=== PATIENT | female | born 1995 | race Caucasian/White ===

== ENCOUNTER 2018-04-08 20:04 | Emergency (ER) | payer OTHER, SELFPAY ==
[2018-04-08] MEDS ORDERED: AZITHROMYCIN 250 MG TAB ONE (21:37)
[2018-04-08] MEDS ORDERED: ALBUTEROL 2.5 MG/3 ML NEB SOL ONE (21:38)
[2018-04-08] MEDS ORDERED: predniSONE 20 MG TAB ONE (21:38)
[2018-04-08] MEDS ORDERED: IPRATROPIUM BROM 0.5MG/2.5ML ONE (21:38)
--- NOTE | 2018-04-08 21:40 | ER ---
Nurse's Notes [facility] Name: Louann Love Age: 22 yrs Sex: Female : 1995 Arrival Date: 04/08/2018 Time: 20:32 Bed 24 Private MD: Diagnosis: Acute upper respiratory infection, unspecified;Asthma Presentation: 04/08 20:45 Presenting complaint: Patient states: she has congestion, productive cough, nasal bb drainage then tonight she is coughing so much she is having difficulty breathing symptoms started 3 to 4 days ago. Transition of care: patient was not received from another setting of care. Onset of symptoms was April 04, 2018. Risk Assessment: Do you want to hurt yourself or someone else? Patient reports no desire to harm self or others. Initial Sepsis Screen: Does the patient meet any 2 criteria? No. Patient's initial sepsis screen is negative. Does the patient have a suspected source of infection? No. Patient's initial sepsis screen is negative. Care prior to arrival: None. 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 - Social history:: Smoking status: Patient uses tobacco products, denies chronic smoking, but will smoke occasionally, Patient/guardian denies using alcohol, street drugs, The patient lives with family. - Ebola Screening: : No symptoms or risks identified at this time. - Family history:: not pertinent. Screenin:00 Abuse screen: Denies threats or abuse. Denies injuries from another. Nutritional ca1 screening: No deficits noted. Tuberculosis screening: No symptoms or risk factors identified. Fall Risk None identified. Assessment: 21:00 General: Appears in no apparent distress. uncomfortable, Behavior is calm, cooperative, ca1 appropriate for age. Pain: Denies pain. Neuro: Level of Consciousness is awake, alert, obeys commands, Oriented to person, place, time, situation. Cardiovascular: Heart tones S1 S2 present Capillary refill < 3 seconds Patient's skin is warm and dry. Respiratory: Reports cough that is non-productive, Airway is patent Trachea midline Respiratory effort is even, unlabored, Respiratory pattern is regular, symmetrical, Breath sounds are diminished bilaterally. Respiratory: Reports shortness of breath. GI: Abdomen is flat, non-distended, Bowel sounds present X 4 quads. Abd is soft and non tender X 4 quads. : EENT: No signs and/or symptoms were reported regarding the EENT system. Derm: Skin is intact, is healthy with good turgor, Skin is pink, warm \T\ dry. Musculoskeletal: Circulation, motion, and sensation intact. Capillary refill < 3 seconds. 22:00 Reassessment: Patient appears in no apparent distress at this time. Patient and/or ca1 family updated on plan of care and expected duration. Pain level reassessed. Patient is alert, oriented x 3, equal unlabored respirations, skin warm/dry/pink. Patient states feeling better. Patient states symptoms have improved. Vital Signs: 20:50 BP 135 / 81; Pulse 97; Resp 16 S; Temp 98.9(O); Pulse Ox 98% on R/A; Weight 118.9 kg bb (M); Height 5 ft. 7 in. (170.18 cm) (R); Pain 5/10; 22:00 BP 140 / 88; Pulse 105; Resp 21; Pulse Ox 100% on R/A; ca1 20:50 Body Mass Index 41.05 (118.90 kg, 170.18 cm) bb ED Course: 20:32 Patient arrived in ED. es 20:48 Triage completed. bb 20:50 Arm band placed on Patient placed in an exam room, on a stretcher. bb 20:55 Radhames Monge MD is Attending Physician. ma2 21:00 Patient has correct armband on for positive identification. Bed in low position. Call ca1 light in reach. Pulse ox on. NIBP on. Warm blanket given. 21:23 Blanche Castillo, JESSICA is Primary Nurse. ca1 22:29 No provider procedures requiring assistance completed. Patient did not have IV access ca1 during this emergency room visit. Administered Medications: 21:24 Drug: predniSONE 40 mg Route: PO; ca1 22:29 Follow up: Response: No adverse reaction; Marked relief of symptoms ca1 21:26 Drug: AZITHromycin 500 mg Route: PO; ca1 22:29 Follow up: Response: No adverse reaction; Marked relief of symptoms ca1 21:27 Drug: Albuterol - atroVENT (3:1) (2.5 mg - 0.5 mg) 3 ml Route: Nebulizer; ca1 22:29 Follow up: Response: No adverse reaction; Marked relief of symptoms ca1 Outcome: 21:38 Discharge ordered by . ryan : Discharged to home ambulatory. ca1 22: Condition: stable 22:29 Discharge instructions given to patient, Instructed on discharge instructions, follow up and referral plans. medication usage, Demonstrated understanding of instructions, follow-up care, medications, Prescriptions given X 3. 22:31 Patient left the ED. ca1 Signatures: Lucero Madsen Brenda, RN RN Radhames Pillai MD MD ma2 Acob, Cheryl RN RN ca1
--- NOTE | 2018-04-08 21:41 | EDPHYS ---
Physician Documentation [facility] Name: Louann Love Age: 22 yrs Sex: Female : 1995 Arrival Date: 04/08/2018 Time: 20:32 Bed 24 Private MD: ED Physician Radhames Monge HPI: 04/08 21:36 This 22 yrs old Female presents to ER via Ambulatory with complaints of ma2 Congestion, Vomiting. 21:36 Onset: The symptoms/episode began/occurred gradually, 2 day(s) ago. Possible causes: ma2 unknown. Associated signs and symptoms: Pertinent positives: cough, Pertinent negatives: belching, dysuria, GI bleeding. Severity of symptoms: At their worst the symptoms were mild in the emergency department the symptoms are unchanged. The patient has experienced similar episodes in the past. 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 - Social history:: Smoking status: Patient uses tobacco products, denies chronic smoking, but will smoke occasionally, Patient/guardian denies using alcohol, street drugs, The patient lives with family. - Ebola Screening: : No symptoms or risks identified at this time. - Family history:: not pertinent. ROS: 21:36 Constitutional: Negative for fever, chills, and weight loss. ma2 21:36 ENT: Positive for sore throat, Negative for ear pain, Gum pain 21:36 All other systems are negative. Exam: 21:36 Constitutional: This is a well developed, well nourished patient who is awake, alert, ma2 and in no acute distress. 21:36 Chest/axilla: Normal chest wall appearance and motion. Nontender with no deformity. No lesions are appreciated. Cardiovascular: Regular rate and rhythm with a normal S1 and S2. No gallops, murmurs, or rubs. Normal PMI, no JVD. No pulse deficits. Respiratory: Lungs have equal breath sounds bilaterally, clear to auscultation and percussion. No rales, rhonchi or wheezes noted. No increased work of breathing, no retractions or nasal flaring. Abdomen/GI: Soft, non-tender, with normal bowel sounds. No distension or tympany. No guarding or rebound. No evidence of tenderness throughout. MS/ Extremity: Pulses equal, no cyanosis. Neurovascular intact. Full, normal range of motion. Neuro: Awake and alert, GCS 15, oriented to person, place, time, and situation. Cranial nerves II-XII grossly intact. Motor strength 5/5 in all extremities. Sensory grossly intact. Cerebellar exam normal. Normal gait. 21:36 ENT: TM's: are normal, Posterior pharynx: Airway: normal, Tonsils: bilaterally enlarged, Uvula: normal, swelling, that is mild, erythema, that is moderate, exudate, is not appreciated, peritonsillar mass, is not appreciated. Vital Signs: 20:50 BP 135 / 81; Pulse 97; Resp 16 S; Temp 98.9(O); Pulse Ox 98% on R/A; Weight 118.9 kg bb (M); Height 5 ft. 7 in. (170.18 cm) (R); Pain 5/10; 22:00 BP 140 / 88; Pulse 105; Resp 21; Pulse Ox 100% on R/A; ca1 20:50 Body Mass Index 41.05 (118.90 kg, 170.18 cm) bb MDM: 20:55 Patient medically screened. ma2 21:36 Differential diagnosis: asthma exacerbation. Data reviewed: vital signs, nurses notes. ma2 Counseling: I had a detailed discussion with the patient and/or guardian regarding: the historical points, exam findings, and any diagnostic results supporting the discharge/admit diagnosis, the presence of at least one elevated blood pressure reading (>120/80) during this emergency department visit. Response to treatment: the patient's symptoms have markedly improved after treatment. 04/08 21:49 Order name: Urine Dipstick--Ancillary (enter results) 2 04/08 21:49 Order name: Urine --Ancillary (enter results) 2 Administered Medications: 21:24 Drug: predniSONE 40 mg Route: PO; ca1 22:29 Follow up: Response: No adverse reaction; Marked relief of symptoms ca1 21:26 Drug: AZITHromycin 500 mg Route: PO; ca1 22:29 Follow up: Response: No adverse reaction; Marked relief of symptoms ca1 21:27 Drug: Albuterol - atroVENT (3:1) (2.5 mg - 0.5 mg) 3 ml Route: Nebulizer; ca1 22:29 Follow up: Response: No adverse reaction; Marked relief of symptoms ca1 Disposition: 04/08/18 21:38 Discharged to Home. Impression: Acute upper respiratory infection, unspecified, Asthma. - Condition is Stable. - Discharge Instructions: Upper Respiratory Infection, Adult. - Prescriptions for Zithromax Z- Berhane 250 mg Oral Tablet - take 1 tablet by ORAL route as directed for 5 days Day 1 - take two (2) tablets one time. Day 2, 3, 4 , 5 take one (1) tablet once daily.; 6 tablet. Medrol (Berhane) 4 mg Oral Tablets, Dose Pack - take 1 tablet by ORAL route as directed - follow package instructions; 1 packet. Albuterol Sulfate 90 mcg/actuation - inhale 1-2 puff by INHALATION route every 4-6 hours; 1 Inhaler. - Medication Reconciliation Form, Thank You Letter, Antibiotic Education, Prescription Opioid Use form. - Follow up: Private Physician; When: Tomorrow; Reason: Continuance of care. Signatures: Dispatcher [employer] Negrita Espinosa RN RN Radhames Pillai MD MD ma2 Blanche Castillo RN RN ca1 Corrections: (The following items were deleted from the chart) 22:31 21:38 04/08/2018 21:38 Discharged to Home. Impression: Acute upper respiratory ca1 infection, unspecified; Asthma. Condition is Stable. Forms are Medication Reconciliation Form, Thank You Letter, Antibiotic Education, Prescription Opioid Use. Follow up: Private Physician; When: Tomorrow; Reason: Continuance of care. ma2
[2018-04-08 22:08] LABS: Urine Blood 1+ (NEG); Urine Glucose NEGATIVE (NEG); Urine Protein 3+ (NEG); Urine Specific Gravity >1.030 (1.005-1.030)
== END 2018-04-08 22:31 | disposition home or self-care (01) ==
LOC: ER 20:04
DX: J06.9 Acute upper respiratory infection, unspecified (principal); J45.909 Unspecified asthma, uncomplicated; E11.9 Type 2 diabetes mellitus without complications
CPT/HCPCS: 81003; 81025; 94640; 99284; J7512

== ENCOUNTER 2018-04-13 11:08 | Emergency (ER) | payer SELFPAY ==
--- NOTE | 2018-04-13 12:16 | RAD REPORT ---
EXAM DESCRIPTION: RAD - Chest Pa And Lat (2 Views) - 04/13/2018 12:02 pm CLINICAL HISTORY: Fever, cough, body aches COMPARISON: January 2014 TECHNIQUE: PA and lateral views of the chest were obtained. FINDINGS: The lungs are clear of focal infiltrate. No mass, failure or volume overload. Patient has a mild prominence of the interstitial markings which could mask early interstitial infiltrate. Mild p eribronchial thickening seen. Heart size is normal and central vasculature is within normal limits. No pleural effusion or pneumothorax seen. No acute bony finding noted. No aortic abnormality. IMPRESSION: No focal infiltrate to suspect bacterial pneumonia. Mild peribronchial thickening may reflect chronic lung disease or a mild acute viral infiltrate.
--- NOTE | 2018-04-13 12:53 | ER ---
Nurse's Notes [facility] Name: Louann Love Age: 22 yrs Sex: Female : 1995 Arrival Date: 04/13/2018 Time: 11:11 Bed 16 Private MD: None, None Diagnosis: Influenza due to certain identified influenza viruses Presentation: 04/13 11:16 Presenting complaint: Patient states: Fever, cough. body aches for one week now. sg Transition of care: patient was not received from another setting of care. Onset of symptoms was April 13, 2018. Risk Assessment: Do you want to hurt yourself or someone else? Patient reports no desire to harm self or others. Initial Sepsis Screen: Does the patient meet any 2 criteria? HR > 90 bpm. Yes Does the patient have a suspected source of infection? No. Patient's initial sepsis screen is negative. Care prior to arrival: None. 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 - Social history:: Smoking status: Patient/guardian denies using tobacco. - Ebola Screening: : Patient negative for fever greater than or equal to 101.5 degrees Fahrenheit, and additional compatible Ebola Virus Disease symptoms Patient denies exposure to infectious person Patient denies travel to an Ebola-affected area in the 21 days before illness onset No symptoms or risks identified at this time. Screenin:15 Abuse screen: Denies threats or abuse. Nutritional screening: No deficits noted. rb1 Tuberculosis screening: No symptoms or risk factors identified. Fall Risk None identified. Assessment: 11:15 General: Appears uncomfortable, Behavior is calm, cooperative, Reports chills for x 1 rb1 week. fever for feeling ill for fatigue for. Pain: Complains of pain in head and generalized bodyaches Pain currently is 10 out of 10 on a pain scale. Neuro: Level of Consciousness is awake, alert, obeys commands, Oriented to person, place, time, situation. Cardiovascular: Capillary refill < 3 seconds is brisk in bilateral fingers. Respiratory: Reports cough that is non-productive, Airway is patent Respiratory effort is even, unlabored, Respiratory pattern is regular, symmetrical. GI: No signs and/or symptoms were reported involving the gastrointestinal system. : No signs and/or symptoms were reported regarding the genitourinary system. EENT: Reports nasal congestion since x 1 week. Derm: Skin is pink, warm \T\ dry. 12:15 Reassessment: Patient appears in no apparent distress at this time. No changes from rb1 previously documented assessment. Family at bedside. 13:00 Reassessment: Patient appears in no apparent distress at this time. Patient and/or rb1 family updated on plan of care and expected duration. Pain level reassessed. Patient is alert, oriented x 3, equal unlabored respirations, skin warm/dry/pink. Family at bedside. Vital Signs: 11:17 BP 133 / 78; Pulse 112; Resp 17; Temp 99.2; Pulse Ox 100% on R/A; Weight 79.38 kg; Pain sg 10/10; 12:17 BP 133 / 76; Pulse 114; Resp 19; Pulse Ox 96% on R/A; rb1 13:00 BP 128 / 74; Pulse 105; Resp 19; Pulse Ox 99% on R/A; rb1 ED Course: 11:11 Patient arrived in ED. hb 11:11 Dominick Ulrich PA is PHCP. jmm 11:12 Justin Back MD is Attending Physician. jmm 11:12 None, None is Private Physician. mr 11:15 Patient has correct armband on for positive identification. Bed in low position. Call rb1 light in reach. Side rails up X 1. Pulse ox on. NIBP on. 11:16 Yareli Daugherty, RN is Primary Nurse. rb1 11:17 Triage completed. sg 11:17 Arm band placed on. sg 11:59 Chest Pa And Lat (2 Views) XRAY In Process Unspecified. EDMS 13:06 No provider procedures requiring assistance completed. Patient did not have IV access rb1 during this emergency room visit. Administered Medications: No medications were administered Outcome: 12:52 Discharge ordered by . jmm 13:06 Patient left the ED. rb1 13:06 Discharged to home ambulatory, with family. rb1 13:06 Condition: stable 13:06 Discharge instructions given to patient, Instructed on discharge instructions, follow up and referral plans. Demonstrated understanding of instructions, follow-up care, Prescriptions given X none Signatures: Dispatcher [employer] Deangelo Phelan, RN RN Dominick Ayon PA PA jmm Rivera, Mary mr Yareli Daugherty, RN RN rb1 Zoie Tavarez RN RN
--- NOTE | 2018-04-13 12:53 | EDPHYS ---
Physician Documentation [facility] Name: Louann Love Age: 22 yrs Sex: Female : 1995 Arrival Date: 04/13/2018 Time: 11:11 Bed 16 Private MD: None, None ED Physician Justin Back HPI: 04/13 11:57 This 22 yrs old Female presents to ER via Ambulatory with complaints of Flu jmm Symptoms. 11:57 The patient or guardian reports cough. Onset: The symptoms/episode began/occurred jmm gradually, 1 week(s) ago. Associated signs and symptoms: Pertinent positives: fever. This is a 22 year old female with a history of dm, asthma that presents to the ED with complaints of fever, chills, cough, congestion for the past week. Patient states she was evaluated 2 days prior and diagnosed with an asthma exacerbation. Patient complains of ongoing symptoms without relief. . 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 - Social history:: Smoking status: Patient/guardian denies using tobacco. - Ebola Screening: : Patient negative for fever greater than or equal to 101.5 degrees Fahrenheit, and additional compatible Ebola Virus Disease symptoms Patient denies exposure to infectious person Patient denies travel to an Ebola-affected area in the 21 days before illness onset No symptoms or risks identified at this time. ROS: 11:57 Eyes: Negative for injury, pain, redness, and discharge. jmm 11:57 Constitutional: Positive for body aches, fever. 11:57 ENT: Positive for sinus congestion, sinus pain. 11:57 Respiratory: Positive for cough. 11:57 All other systems are negative. Exam: 11:57 Constitutional: This is a well developed, well nourished patient who is awake, alert, jmm and in no acute distress. 11:57 Head/face: Sinus tenderness, that is moderate, is located over the right frontal sinus and left frontal sinus. 11:57 ENT: TM's: are normal. 11:57 ENT: Posterior pharynx: erythema, that is mild. 11:57 Cardiovascular: Rate: normal, Rhythm: regular. 11:57 Respiratory: the patient does not display signs of respiratory distress, Respirations: normal, Breath sounds: are clear throughout. 11:57 Abdomen/GI: Inspection: abdomen appears normal, Bowel sounds: normal. 11:57 Back: ROM is normal. 11:57 Musculoskeletal/extremity: ROM: intact in all extremities. 11:57 Skin: Appearance: Color: normal in color. 11:57 Neuro: Orientation: is normal, Mentation: is normal, Memory: is normal, Gait: is steady. 11:57 Psych: Behavior/mood is pleasant, cooperative. Vital Signs: 11:17 BP 133 / 78; Pulse 112; Resp 17; Temp 99.2; Pulse Ox 100% on R/A; Weight 79.38 kg; Pain sg 10/10; 12:17 BP 133 / 76; Pulse 114; Resp 19; Pulse Ox 96% on R/A; rb1 13:00 BP 128 / 74; Pulse 105; Resp 19; Pulse Ox 99% on R/A; rb1 MDM: 11:18 Patient medically screened. the [facility] 11:57 Data reviewed: vital signs, nurses notes. [facility] 12:51 Data reviewed: lab test result(s), radiologic studies, plain films. Counseling: I had a [facility] detailed discussion with the patient and/or guardian regarding: the historical points, exam findings, and any diagnostic results supporting the discharge/admit diagnosis, lab results, radiology results, the need for outpatient follow up, to return to the emergency department if symptoms worsen or persist or if there are any questions or concerns that arise at home. ED course: Patient is alert and non toxic in appearance in the ED. Patient advised to fill prescriptions from previous visit. Patient is outside of window for tamiflu. 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 Given return precautions. Patient has no signs of resp distress on discharge. . 04/13 11:30 Order name: Flu; Complete Time: 12:00 [facility] 04/13 11:30 Order name: Chest Pa And Lat (2 Views) XRAY; Complete Time: 12:20 [facility] Administered Medications: No medications were administered Disposition: 04/13/18 12:52 Discharged to Home. Impression: Influenza due to certain identified influenza viruses. - Condition is Stable. - Discharge Instructions: Influenza, Adult. - Medication Reconciliation Form, Thank You Letter, Antibiotic Education, Prescription Opioid Use form. - Work release form (04/14/18 10:19). kb - Follow up: Private Physician; When: 2 - 3 days; Reason: Recheck today's complaints, Continuance of care, Re-evaluation by your physician. Addendum: 04/15/2018 07:38 Co-signature as Attending Physician, Justin Back MD I agree with the assessment and c gupta plan of care. Signatures: Dispatcher [employer] EDDeangelo Kellogg, Justin Chapman RN, MD MD cha Mickail, Joel, PA PA jmm Barber, Rebecca RN RN Sarah Ken-Ckb Corrections: (The following items were deleted from the chart) 04/13 13:06 12:52 04/13/2018 12:52 Discharged to Home. Impression: Influenza due to certain rb1 identified influenza viruses. Condition is Stable. Forms are Medication Reconciliation Form, Thank You Letter, Antibiotic Education, Prescription Opioid Use. Follow up: Private Physician; When: 2 - 3 days; Reason: Recheck today's complaints, Continuance of care, Re-evaluation by your physician. destiny
== END 2018-04-13 13:06 | disposition home or self-care (01) ==
LOC: ER 11:08
DX: J11.1 Influenza due to unidentified influenza virus with other respiratory manifestations (principal); E11.9 Type 2 diabetes mellitus without complications; J45.909 Unspecified asthma, uncomplicated
CPT/HCPCS: 71046; 87804; 99283

== ENCOUNTER 2018-11-02 07:49 | Inpatient (IN) | payer SELFPAY ==
[2018-11-02] MEDS ORDERED: NA CHLORIDE 0.9% 1,000 ML ONE ×2 (08:29→11:09)
[2018-11-02] MEDS ORDERED: MORPHINE 4 MG/ML SYR ONE ×2 (08:29→09:22)
[2018-11-02] MEDS ORDERED: FAMOTIDINE 20 MG/2 ML VIAL IV ONE (08:29)
[2018-11-02] MEDS ORDERED: ONDANSETRON 4 MG/2 ML VIAL ONE ×2 (08:29→11:29)
[2018-11-02 08:42] LABS: Absolute Lymphocytes (CBC) 0.8 K/uL (0.7-4.9); Basophils % 0.1 % (0-1.3); Hematocrit 39.5 % (36.0-45.0); Lymphocytes % 3.4 % (15.3-44.8); MPV 9.1 fL (7.6-11.3); RBC Red Blood Cell Count 5.01 M/uL (3.86-4.86)
[2018-11-02 09:06] LABS: ALT/SGPT 29 U/L (12-78); AST/SGOT 16 U/L (15-37); Albumin 3.7 g/dL (3.4-5.0); Alkaline Phosphatase 64 U/L (45-117); BUN Blood Urea Nitrogen 11 mg/dL (7-18); Bicarbonate 25 mmol/L (21-32); Bilirubin Direct 0.2 mg/dL (0-0.2); Bilirubin Total 0.8 mg/dL (0.2-1.0); Glucose Level 129 mg/dL (74-106); Lipase 45 U/L (73-393); Potassium 3.5 mmol/L (3.5-5.1); Protein, Total 8.3 g/dL (6.4-8.2); Sodium Level 141 mmol/L (136-145)
[2018-11-02] MEDS ORDERED: PIPER/TAZO/NS 3.375gm 3.375 GM/100 ML BAG ONE (09:07)
[2018-11-02] MEDS ORDERED: ACETAMINOPHEN 500 MG TAB ONE (09:22)
[2018-11-02 10:00] LABS: Blood Morphology Comment NOT SEEN (NOT SEEN); Platelet Estimate ADEQ
--- NOTE | 2018-11-02 10:40 | RAD REPORT ---
EXAM DESCRIPTION: CT - Abdomen Pelvis W Contrast - 11/02/2018 10:02 am CLINICAL HISTORY: Abdominal pain/vomiting COMPARISON: 2015 TECHNIQUE: Computed axial tomography of the abdomen pelvis was obtained. 100 cc Isovue-300 was admin istered intravenously. Oral contrast was not requested which limits evaluation of bowel. All CT scans are performed using dose optimization technique as appropriate and may include automated exposure control or mA/KV adjustment according to patient size. FINDINGS: Mild hepatomegaly Spleen, pancreas, adrenal and kidneys appear unremarkable. There is no evidence of diverticulitis. Normal appendix. Mild thickened of of the wall of a loop of ileum with mild stranding in the adjacent fat IMPRESSION: Mild hepatomegaly Mild thickened of of the wall of a loop of ileum with mild stranding in the adjacent fat may indicate a mild enteritis
[2018-11-02] MEDS ORDERED: IBUPROFEN 400 MG TAB ONE (11:09)
[2018-11-02] MEDS ORDERED: IBUPROFEN 200 MG TAB PO ONE (11:09)
--- NOTE | 2018-11-02 11:14 | ER ---
Nurse's Notes [facility] Name: Louann Love Age: 23 yrs Sex: Female : 1995 Arrival Date: 11/02/2018 Time: 07:51 Bed 6 Private MD: Diagnosis: Abdominal and pelvic pain;Mild Enteritis Presentation: 11/02 08:12 Presenting complaint: N/V/D and lower abdominal garcia x 2 days. Not tolerating fluids. hb Actively vomiting in waiting room. Transition of care: patient was not received from another setting of care. Onset of symptoms was November 01, 2018. Risk Assessment: Do you want to hurt yourself or someone else? Patient reports no desire to harm self or others. Initial Sepsis Screen: Does the patient meet any 2 criteria? No. Patient's initial sepsis screen is negative. Does the patient have a suspected source of infection? No. Patient's initial sepsis screen is negative. Care prior to arrival: None. 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 - Social history:: Smoking status: . - Ebola Screening: : Patient denies travel to an Ebola-affected area in the 21 days before illness onset. Screenin:09 Abuse screen: Denies injuries from another. Nutritional screening: No deficits noted. tw2 Tuberculosis screening: No symptoms or risk factors identified. Fall Risk None identified. Assessment: 08:34 General: Appears uncomfortable, obese, Behavior is moaning and stating "fuck it hurts tw2 so bad". Pain: Complains of pain in abdomen. Neuro: Level of Consciousness is awake, alert, obeys commands, Oriented to person, place, time, situation. Cardiovascular: Heart tones S1 S2 Patient's skin is warm and dry. Respiratory: Airway is patent Respiratory effort is even, unlabored, Respiratory pattern is regular, symmetrical, Breath sounds are clear bilaterally. GI: Abdomen is round non-distended, obese, Bowel sounds present X 4 quads. Abd is soft X 4 quads Reports lower abdominal pain, upper abdominal pain, nausea, vomiting. : No signs and/or symptoms were reported regarding the genitourinary system. EENT: No signs and/or symptoms were reported regarding the EENT system. Derm: No signs and/or symptoms reported regarding the dermatologic system. Musculoskeletal: Range of motion: intact in all extremities. 09:18 Reassessment: No changes from previously documented assessment. Patient and/or family tw2 updated on plan of care and expected duration. Pain level reassessed. Patient is alert, oriented x 3, equal unlabored respirations, skin warm/dry/pink. Patient states symptoms have not improved. 10:26 Reassessment: No changes from previously documented assessment. Patient and/or family tw2 updated on plan of care and expected duration. Pain level reassessed. Patient is alert, oriented x 3, equal unlabored respirations, skin warm/dry/pink. provider notified. Patient states symptoms have not improved. 11:16 Reassessment: No changes from previously documented assessment. Patient and/or family tw2 updated on plan of care and expected duration. Pain level reassessed. Patient is alert, oriented x 3, equal unlabored respirations, skin warm/dry/pink. 12:16 Reassessment: No changes from previously documented assessment. Patient and/or family tw2 updated on plan of care and expected duration. Pain level reassessed. Patient is alert, oriented x 3, equal unlabored respirations, skin warm/dry/pink. 13:32 Reassessment: No changes from previously documented assessment. Patient and/or family tw2 updated on plan of care and expected duration. Pain level reassessed. Patient is alert, oriented x 3, equal unlabored respirations, skin warm/dry/pink. 14:30 Reassessment: No changes from previously documented assessment. Patient and/or family tw2 updated on plan of care and expected duration. Pain level reassessed. Patient is alert, oriented x 3, equal unlabored respirations, skin warm/dry/pink. 15:17 Reassessment: No changes from previously documented assessment. Patient and/or family tw2 updated on plan of care and expected duration. Pain level reassessed. Patient is alert, oriented x 3, equal unlabored respirations, skin warm/dry/pink. 15:46 Reassessment: No changes from previously documented assessment. Patient and/or family tw2 updated on plan of care and expected duration. Pain level reassessed. Patient is alert, oriented x 3, equal unlabored respirations, skin warm/dry/pink. Vital Signs: 08:11 BP 131 / 67; Pulse 114; Resp 16; Temp 99.2; Pulse Ox 99% on R/A; Weight 104.33 kg; hb Height 5 ft. 7 in. (170.18 cm); Pain 9/10; 09:18 BP 140 / 63; Pulse 109; Resp 20; Temp 101.5(O); Pain 8/10; tw2 10:20 BP 123 / 51; Pulse 107; Resp 19; Pulse Ox 99% on R/A; tw2 11:06 BP 131 / 76 LA Supine (auto/lg); Pulse 105 MON; Temp 102.6(O); Pulse Ox 98% on R/A; mb4 Pain 9/10; 11:53 BP 109 / 69; Pulse 108; Resp 18; Pulse Ox 97% ; sv 12:05 BP 121 / 61 LA Sitting (auto/lg); Pulse 107 MON; Temp 101.1(A); Pulse Ox 98% on R/A; mb4 Pain 0/10; 13:00 BP 114 / 59; Pulse 100; Resp 17; Pulse Ox 96% ; sv 13:18 Temp 100.0(O); Pain 6/10; mb4 13:31 BP 144 / 53; Pulse 99; Resp 18; Temp 99.4(O); Pulse Ox 99% on R/A; tw2 14:30 BP 111 / 53; Pulse 101; Resp 17; Pulse Ox 95% ; sv 15:41 Temp 99.7(O); mb4 15:43 BP 120 / 55; Pulse 101; Resp 18; Pulse Ox 96% ; sv 08:11 Body Mass Index 36.02 (104.33 kg, 170.18 cm) ED Course: 07:51 Patient arrived in ED. rg4 08:07 Anaid Gauthier, JESSICA is Primary Nurse. tw2 08:09 Arm band placed on. tw2 08:09 Bed in low position. Call light in reach. Pulse ox on. NIBP on. tw2 08:12 Triage completed. hb 08:16 Moe Moore MD is Attending Physician. kdr 08:24 Inserted saline lock: 20 gauge in right antecubital area, using aseptic technique. tw2 ,using aseptic technique. per Lea Gomez Blood collected. 08:50 Notified ED physician of a critical lab result(s). WBC 22.8. hb 10:03 CT completed. Patient tolerated procedure well. Patient moved back from CT. bq 10:05 CT Abd/Pelvis - IV Contrast Only In Process Unspecified. EDMS 11:11 Aditya Damico is Hospitalizing Provider. kdr 11:48 Diet: Patient given ice chips. mb4 12:33 Awaiting: floor orders from Dr. Damico and then to transfer to ER HOLD in [place]. tw2 15:22 Awaiting: unsuccessful attempt to call report at this time. tw2 15:43 No provider procedures requiring assistance completed. Patient admitted, IV remains in sv place. intact. Administered Medications: 08:28 Drug: Zofran 4 mg Route: IVP; Site: right antecubital; tw2 10:27 Follow up: Response: No adverse reaction tw2 08:30 Drug: morphine 4 mg {Note: RASS 0.} Route: IVP; Site: right antecubital; tw2 09:00 Follow up: Response: No adverse reaction; Pain is unchanged, physician notified; RASS: tw2 Alert and Calm (0) 08:32 Drug: Pepcid 20 mg Route: IVP; Site: right antecubital; tw2 10:26 Follow up: Response: No adverse reaction tw2 08:34 Drug: NS 0.9% 1000 ml Route: IV; Rate: 1 bolus; Site: right antecubital; tw2 10:00 Follow up: Response: No adverse reaction; IV Status: Completed infusion; IV Intake: tw2 1000ml 09:11 Drug: Zosyn 3.375 grams Route: IVPB; Infused Over: 60 mins; Site: right antecubital; tw2 10:20 Follow up: Response: No adverse reaction; IV Status: Completed infusion tw2 09:25 Drug: morphine 4 mg {Note: RASS 0.} Route: IVP; Site: right antecubital; tw2 10:26 Follow up: Response: No adverse reaction; Pain is unchanged, physician notified; RASS: tw2 Drowsy (-1) 09:25 Drug: Tylenol 1000 mg Route: PO; tw2 11:12 Follow up: Response: No adverse reaction; Temperature is increased tw2 11:12 Drug: Ibuprofen 600 mg Route: PO; tw2 15:16 Follow up: Response: No adverse reaction; Temperature is decreased tw2 11:12 Drug: NS 0.9% 1000 ml Route: IV; Rate: 150 ml/hr; Site: right antecubital; tw2 15:31 Follow up: IV Status: Infusion continued upon admission tw2 11:19 Drug: fentaNYL (PF) 25 mcg {Note: RASS -1.} Route: IVP; Site: right antecubital; tw2 12:16 Follow up: Response: No adverse reaction; Pain is decreased; RASS: Alert and Calm (0) tw2 11:30 Drug: Zofran 4 mg Route: IVP; Site: right antecubital; tw2 12:17 Follow up: Response: No adverse reaction; Nausea is decreased tw2 Point of Care Testing: Blood Glucose: 15:43 Blood Glucose: 115 mg/dL; sv Ranges: Intake: 10:00 IV: 1000ml; Total: 1000ml. tw2 Outcome: 11:12 Decision to Hospitalize by Provider. kdr 15:44 Admitted to Med/surg accompanied by tech, via wheelchair, room 422, with chart, Report sv called to Eligio RN by Anaid Hay RN 15:44 Condition: stable 15:44 Instructed on the need for admit. 15:46 Patient left the ED. tw2 Signatures: Dispatcher [employer] China Dumont RN RN sv Rittger, Kevin, MD MD kdr Quilty, Betty bq Baxter, Heather, RN RN hb Wise, Tara, RN RN Jeanna De La Rosa Nika Tavarez
--- NOTE | 2018-11-02 11:15 | EDPHYS ---
Physician Documentation [facility] Name: Louann Love Age: 23 yrs Sex: Female : 1995 Arrival Date: 11/02/2018 Time: 07:51 Bed 6 Private MD: ED Physician Moe Moore HPI: 11/02 08:28 This 23 yrs old Female presents to ER via Ambulatory with complaints of kdr Abdominal Pain, Vomiting. 08:28 The patient presents to the emergency department with nausea, that is mild, vomiting, kdr that is intermittent, abdominal pain, of the suprapubic area, right lower quadrant and left lower quadrant. Onset: The symptoms/episode began/occurred gradually, 2 day(s) ago. Possible causes: unknown. The symptoms are aggravated by movement, pressure. Associated signs and symptoms: Pertinent positives: abdominal pain, nausea, vomiting. Severity of symptoms: At their worst the symptoms were moderate severe incapacitating just prior to arrival, in the emergency department the symptoms are unchanged. The patient has not experienced similar symptoms in the past. The patient has not recently seen a physician. Feels like pain in where her had been previously. 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 - Social history:: Smoking status: . - Ebola Screening: : Patient denies travel to an Ebola-affected area in the 21 days before illness onset. ROS: 08:28 Constitutional: Negative for fever, chills, and weight loss, Eyes: Negative for injury, kdr pain, redness, and discharge, Neck: Negative for injury, pain, and swelling, Cardiovascular: Negative for chest pain, palpitations, and edema, Respiratory: Negative for shortness of breath, cough, wheezing, and pleuritic chest pain, Back: Negative for injury and pain, : Negative for injury, bleeding, discharge, and swelling, MS/Extremity: Negative for injury and deformity, Skin: Negative for injury, rash, and discoloration, Neuro: Negative for headache, weakness, numbness, tingling, and seizure activity. Psych: Negative for depression, anxiety, suicide ideation, homicidal ideation, and hallucinations, Allergy/Immunology: Negative for hives, rash, and allergies, Endocrine: Negative for neck swelling, polydipsia, polyuria, polyphagia, and marked weight changes, Hematologic/Lymphatic: Negative for swollen nodes, abnormal bleeding, and unusual bruising. 08:28 Abdomen/GI: Positive for abdominal pain, nausea and vomiting, Negative for diarrhea, constipation, black/tarry stool, rectal pain, rectal bleeding, bowel incontinence. Exam: 08:28 Constitutional: This is a well developed, well nourished patient who is awake, alert, kdr and in mild to moderate distress. Head/Face: Normocephalic, atraumatic. Eyes: Pupils equal round and reactive to light, extra-ocular motions intact. Lids and lashes normal. Conjunctiva and sclera are non-icteric and not injected. Cornea within normal limits. Periorbital areas with no swelling, redness, or edema. Neck: Trachea midline, no thyromegaly or masses palpated, and no cervical lymphadenopathy. Supple, full range of motion without nuchal rigidity, or vertebral point tenderness. No Meningismus. Chest/axilla: Normal chest wall appearance and motion. Nontender with no deformity. No lesions are appreciated. Cardiovascular: Regular rate and rhythm with a normal S1 and S2. No gallops, murmurs, or rubs. Normal PMI, no JVD. No pulse deficits. Respiratory: Lungs have equal breath sounds bilaterally, clear to auscultation and percussion. No rales, rhonchi or wheezes noted. No increased work of breathing, no retractions or nasal flaring. Back: No spinal tenderness. No costovertebral tenderness. Full range of motion. Skin: Warm, dry with normal turgor. Normal color with no rashes, no lesions, and no evidence of cellulitis. MS/ Extremity: Pulses equal, no cyanosis. Neurovascular intact. Full, normal range of motion. Neuro: Awake and alert, GCS 15, oriented to person, place, time, and situation. Cranial nerves II-XII grossly intact. Motor strength 5/5 in all extremities. Sensory grossly intact. Cerebellar exam normal. Normal gait. Psych: Awake, alert, with orientation to person, place and time. Behavior, mood, and affect are within normal limits. 08:28 Abdomen/GI: Inspection: obese Bowel sounds: diminished, in all quadrants, Palpation: soft, moderate abdominal tenderness, in the suprapubic area, right lower quadrant and left lower quadrant, rebound tenderness, is not appreciated. Vital Signs: 08:11 BP 131 / 67; Pulse 114; Resp 16; Temp 99.2; Pulse Ox 99% on R/A; Weight 104.33 kg; hb Height 5 ft. 7 in. (170.18 cm); Pain 9/10; 09:18 BP 140 / 63; Pulse 109; Resp 20; Temp 101.5(O); Pain 8/10; tw2 10:20 BP 123 / 51; Pulse 107; Resp 19; Pulse Ox 99% on R/A; tw2 11:06 BP 131 / 76 LA Supine (auto/lg); Pulse 105 MON; Temp 102.6(O); Pulse Ox 98% on R/A; mb4 Pain 9/10; 11:53 BP 109 / 69; Pulse 108; Resp 18; Pulse Ox 97% ; sv 12:05 BP 121 / 61 LA Sitting (auto/lg); Pulse 107 MON; Temp 101.1(A); Pulse Ox 98% on R/A; mb4 Pain 0/10; 13:00 BP 114 / 59; Pulse 100; Resp 17; Pulse Ox 96% ; sv 13:18 Temp 100.0(O); Pain 6/10; mb4 13:31 BP 144 / 53; Pulse 99; Resp 18; Temp 99.4(O); Pulse Ox 99% on R/A; tw2 14:30 BP 111 / 53; Pulse 101; Resp 17; Pulse Ox 95% ; sv 15:41 Temp 99.7(O); mb4 15:43 BP 120 / 55; Pulse 101; Resp 18; Pulse Ox 96% ; sv 08:11 Body Mass Index 36.02 (104.33 kg, 170.18 cm) hb MDM: 08:28 Data reviewed: vital signs, nurses notes, lab test result(s), radiologic studies. kdr Counseling: I had a detailed discussion with the patient and/or guardian regarding: the historical points, exam findings, and any diagnostic results supporting the discharge/admit diagnosis, lab results, radiology results. 11:12 Patient medically screened. kdr 11/02 08:16 Order name: Basic Metabolic Panel; Complete Time: 09:22 kdr 11/02 08:16 Order name: CBC with Diff kdr 11/02 08:16 Order name: Creatinine for Radiology; Complete Time: 09: kdr 11/02 08:16 Order name: Hepatic Function; Complete Time: 09:22 kdr 11/02 08:16 Order name: Lipase; Complete Time: 09:22 kdr 11/02 09:39 Order name: Urine Dipstick--Ancillary (enter results); Complete Time: 12:26 eb 11/02 08:27 Order name: CT Abd/Pelvis - IV Contrast Only; Complete Time: 10:58 kdr 11/02 09:39 Order name: Urine --Ancillary (enter results); Complete Time: 12:26 eb 11/02 10:01 Order name: Manual Differential; Complete Time: 10:26 EDMS 11/02 08:16 Order name: IV Saline Lock; Complete Time: 08:24 kdr 11/02 08:16 Order name: Labs collected and sent; Complete Time: 08:24 kdr Administered Medications: 08:28 Drug: Zofran 4 mg Route: IVP; Site: right antecubital; tw2 10:27 Follow up: Response: No adverse reaction tw2 08:30 Drug: morphine 4 mg {Note: RASS 0.} Route: IVP; Site: right antecubital; tw2 09:00 Follow up: Response: No adverse reaction; Pain is unchanged, physician notified; RASS: tw2 Alert and Calm (0) 08:32 Drug: Pepcid 20 mg Route: IVP; Site: right antecubital; tw2 10:26 Follow up: Response: No adverse reaction tw2 08:34 Drug: NS 0.9% 1000 ml Route: IV; Rate: 1 bolus; Site: right antecubital; tw2 10:00 Follow up: Response: No adverse reaction; IV Status: Completed infusion; IV Intake: tw2 1000ml 09:11 Drug: Zosyn 3.375 grams Route: IVPB; Infused Over: 60 mins; Site: right antecubital; tw2 10:20 Follow up: Response: No adverse reaction; IV Status: Completed infusion tw2 09:25 Drug: morphine 4 mg {Note: RASS 0.} Route: IVP; Site: right antecubital; tw2 10:26 Follow up: Response: No adverse reaction; Pain is unchanged, physician notified; RASS: tw2 Drowsy (-1) 09:25 Drug: Tylenol 1000 mg Route: PO; tw2 11:12 Follow up: Response: No adverse reaction; Temperature is increased tw2 11:12 Drug: Ibuprofen 600 mg Route: PO; tw2 15:16 Follow up: Response: No adverse reaction; Temperature is decreased tw2 11:12 Drug: NS 0.9% 1000 ml Route: IV; Rate: 150 ml/hr; Site: right antecubital; tw2 15:31 Follow up: IV Status: Infusion continued upon admission tw2 11:19 Drug: fentaNYL (PF) 25 mcg {Note: RASS -1.} Route: IVP; Site: right antecubital; tw2 12:16 Follow up: Response: No adverse reaction; Pain is decreased; RASS: Alert and Calm (0) tw2 11:30 Drug: Zofran 4 mg Route: IVP; Site: right antecubital; tw2 12:17 Follow up: Response: No adverse reaction; Nausea is decreased tw2 Point of Care Testing: Blood Glucose: 15:43 Blood Glucose: 115 mg/dL; sv Ranges: Critical Glucose Levels:Adult <50 mg/dl or >400 mg/dl <40 mg/dl or >180 mg/dl Disposition: 11/02/18 11:12 Hospitalization ordered by Aditya Damico for Observation. Preliminary diagnosis are Abdominal and pelvic pain, Mild Enteritis. - Bed requested for Telemetry/MedSurg (observation). - Status is Observation. tw2 - Condition is Fair. - Problem is new. - Symptoms have improved. UTI on Admission? No Signatures: Dispatcher [employer] Lilian Jo RN RN Moe Moore MD MD kdr Solis, Maria ms Anaid Gauthier RN RN tw2 Corrections: (The following items were deleted from the chart) 12:07 11:12 Hospitalization Ordered by Aditya Damico for Observation. Preliminary diagnosis ms is Abdominal and pelvic pain; Mild Enteritis. Bed requested for Telemetry/MedSurg (observation). Status is Observation. Condition is Fair. Problem is new. Symptoms have improved. UTI on Admission? No. kdr 12:17 12:07 11/02/2018 11:12 Hospitalization Ordered by Aditya Damico for Observation. ms Preliminary diagnosis is Abdominal and pelvic pain; Mild Enteritis. Bed requested for [facility] ER HOLD. Status is Observation. Condition is Fair. Problem is new. Symptoms have improved. UTI on Admission? No. ms 15:03 12:17 11/02/2018 11:12 Hospitalization Ordered by Aditya Damico for Observation. dw Preliminary diagnosis is Abdominal and pelvic pain; Mild Enteritis. Bed requested for [facility] ER HOLD. Status is Observation. Condition is Fair. Problem is new. Symptoms have improved. UTI on Admission? No. ms 15:46 15:03 11/02/2018 11:12 Hospitalization Ordered by Aditya Damico for Observation. tw2 Preliminary diagnosis is Abdominal and pelvic pain; Mild Enteritis. Bed requested for Telemetry/MedSurg (observation). Status is Observation. Condition is Fair. Problem is new. Symptoms have improved. UTI on Admission? No. dw
[2018-11-02] MEDS ORDERED: FENTANYL CITR 100 MCG/2 ML ONE (11:18)
[2018-11-02 11:48] LABS: Urine Blood 2+ (NEG); Urine Glucose NEGATIVE (NEG); Urine Protein 2+ (NEG); Urine Specific Gravity 1.025 (1.005-1.030); Urine pH 7.5 (5.0-7.0)
--- NOTE | 2018-11-02 15:14 | P.HP ---
Certification for Inpatient Patient admitted to: Inpatient With expected LOS: >2 Midnights Practitioner: I am a practitioner with admitting privileges, knowledge of patient current condition, hospital course, and medical plan of care. Services: Services provided to patient in accordance with Admission requirements found in Title 42 Section 412.3 of the Code of Federal Regulations Patient History Date of Service: 11/02/18 Reason for admission: Abdominal pain History of Present Illness: 23-year-old woman with a history of diabetes mellitus presented emergency department with a complaint of abdominal pain of onset 2 days ago, initially located in the lower abdomen, progressed to become diffuse abdominal pain today , as stated with nausea, vomiting and diarrhea. Patient described constant pain with periodic cramping, worse with movement. Pain is better when she lays still. She reports subjective fever at home. In the emergency department, temperature up to 102.6 recorded. CBC demonstrated severe leukocytosis. CT abdomen and pelvis reports mild thickening of the wall of a loop of ileum. Appendix reported to be normal. No diverticulitis. Patient is admitted for further management of acute abdomen. Allergies No Known Drug Allergies Allergy (Unverified 02/08/14 01:27) Unknown NKDA Allergy (Uncoded 07/22/13 20:29) Unknown No Known Allergies Allergy (Uncoded 06/12/15 17:08) Unknown - Past Medical/Surgical History -: Diabetes mellitus -: Hepatic steatosis Past Surgical History: Reviewed- Non-Contributory - Family History Family History: Reviewed- Non-Contributory - Social History Smoking Status: Current every day smoker Alcohol use: Yes CD- Drugs: Yes Review of Systems Other: General: No unintentional weight loss. Eyes: No eye discharge, Respiratory: No cough, no shortness of breath. CVS: No chest pain, no palpitation, no lightheadedness. GI: No constipation. Genitourinary: No dysuria, no urinary frequency, no incontinence, no hematuria. Musculoskeletal: No joint pains, or joint swelling, no gait instability. Neurology: No headache, no asymmetric, weakness, no problem with swallowing. Except last documented, all other systems reviewed and negative. Physical Examination - Physical Exam General: Alert, Oriented x3, Mild distress HEENT: Mucous membr. moist/pink Neck: Supple, JVD not distended Respiratory: Clear to auscultation bilaterally, Normal air movement Cardiovascular: No edema, Regular rate/rhythm, Normal S1 S2, No murmurs Gastrointestinal: Non-distended, No rebound, No guarding, Tenderness (Diffuse tenderness, worse in the left lower quadrant.) Musculoskeletal: No swelling, No erythema Integumentary: No rashes Neurological: Normal strength at 5/5 x4 extr, Cranial nerves 3-12 intact - Studies Laboratory Data (last 24 hrs) 11/02/18 08:24: Creatinine 0.79 11/02/18 08:24: WBC 22.8 H*, Hgb 13.0, Hct 39.5, Plt Count 231 11/02/18 08:24: Sodium 141, Potassium 3.5, BUN 11, Creatinine 0.78, Glucose 129 H, Total Bilirubin 0.8, AST 16, ALT 29, Alkaline Phosphatase 64, Lipase 45 L Assessment and Plan - Problems (Diagnosis) (1) Acute abdominal pain Current Visit: Yes Status: Acute (2) Enteritis Current Visit: Yes Status: Acute (3) Sepsis Current Visit: Yes Status: Acute (4) Diabetes mellitus type 2 in obese Current Visit: Yes Status: Acute - Plan Admit to [facility] Sepsis protocol initiated. Follow blood cultures obtained in the ED. Check UA with reflex culture. IV ciprofloxacin and flagyl IV hydration with normal saline IV morphine p.r.n. for pain Antiemetics. Fingerstick glucose monitor and insulin coverage as needed. Serial abdominal examination General surgery consult. Monitor CBC - Advance Directives Does patient have a Living Will: No Does patient have a Durable POA for Healthcare: No
[2018-11-02] MEDS ORDERED: MORPHINE 2 MG/ML SYR IV PRN (15:53)
[2018-11-02] MEDS ORDERED: D50W 25 GM/50 ML SYRINGE IV PRN (15:53)
[2018-11-02] MEDS ORDERED: GLUCAGON 1 MG/VIAL IM PRN (15:53)
[2018-11-02] MEDS ORDERED: ONDANSETRON 4 MG/2 ML VIAL IV PRN (15:53)
[2018-11-02 16:30] VITALS: BMI 37.9
[2018-11-02] MEDS: INSULIN -REGULAR HUMAN 50 UNIT/0.5 ML ML SQ SCH ×2 (16:30→21:00)
[2018-11-02 16:38] LABS: Protime INR 1.46
[2018-11-02] MEDS: METRONIDAZOLE 500mg IVPB 500 MG/100 ML BAG IV SCH (16:42)
[2018-11-02] MEDS: NA CHLORIDE 0.9% 1,000 ML IV SCH (16:42)
[2018-11-02] MEDS: ENOXAPARIN 40 MG/0.4 ML SQ SCH (17:05)
[2018-11-02] MEDS: ACETAMINOPHEN 500 MG TAB PO PRN (20:07)
[2018-11-02] MEDS: CIPROFLOXACIN 400mg IV 400 MG/200 ML BAG IV SCH (20:08)
[2018-11-02] MEDS ORDERED: KCL 20 MEQ/100 mL IVPB 20 MEQ/100 ML BAG IV SCH (21:00)
[2018-11-03] MEDS: ACETAMINOPHEN 500 MG TAB PO PRN ×3 (00:10→18:43)
[2018-11-03] MEDS: NA CHLORIDE 0.9% 1,000 ML IV SCH ×2 (01:53→08:35)
[2018-11-03] MEDS: METRONIDAZOLE 500mg IVPB 500 MG/100 ML BAG IV SCH ×3 (02:36→16:20)
[2018-11-03 06:20] LABS: Absolute Lymphocytes (CBC) 1.4 K/uL (0.7-4.9); Basophils % 0.2 % (0-1.3); Hematocrit 32.8 % (36.0-45.0); Lymphocytes % 6.7 % (15.3-44.8); MPV 9.2 fL (7.6-11.3); RBC Red Blood Cell Count 4.15 M/uL (3.86-4.86)
[2018-11-03 06:53] LABS: BUN Blood Urea Nitrogen 9 mg/dL (7-18); Bicarbonate 25 mmol/L (21-32); Glucose Level 99 mg/dL (74-106); Magnesium 1.9 mg/dL (1.8-2.4); Phosphorus 1.9 mg/dL (2.5-4.9); Potassium 3.5 mmol/L (3.5-5.1); Sodium Level 139 mmol/L (136-145)
[2018-11-03] MEDS: INSULIN -REGULAR HUMAN 50 UNIT/0.5 ML ML SQ SCH ×4 (07:30→20:51)
[2018-11-03] MEDS ORDERED: POTASSIUM PHOS IN 0.9 % NACL 15 MMOL/250 ML BAG IV ONE (08:00)
[2018-11-03] MEDS ORDERED: HYDROMORPHONE HCL 1 MG/ML INJ IV PRN (08:29)
[2018-11-03] MEDS: ENOXAPARIN 40 MG/0.4 ML SQ SCH (08:34)
[2018-11-03] MEDS: CIPROFLOXACIN 400mg IV 400 MG/200 ML BAG IV SCH ×2 (09:43→20:50)
[2018-11-03] MEDS ORDERED: DIAZEPAM 10 MG/2 ML INJ SYRINGE IV ONE (10:00)
[2018-11-03] MEDS ORDERED: NA CHLORIDE 0.9% 1,000 ML IV ONE (10:00)
--- NOTE | 2018-11-03 10:51 | CON ---
Date of Consultation: 11/02/2018 Reason For Consultation: Abdominal pain. History Of Present Illness: The patient is a 23-year-old female with multiple medical problems, pres ented to the emergency room with 2-day history of left lower quadrant abdominal pain going to the rig ht lower quadrant sides in the suprapubic region. She had nausea and vomiting, some fevers at home. She states that she had diarrhea all night and no bright red blood per her rectum. No sore throat, runny nose, cough, headaches, or dizziness. No chest pain. Review of Systems: Otherwise unremarkable. Past Medical History: Significant for diabetes, DREW, asthma. Past Surgical History: . Allergies: NONE. Social History: Patient does smoke, has been counseled and drinks occasionally. Family History: Noncontributory. Physical Examination: Vital Signs: Stable. General: She is afebrile. She is awake, alert, and oriented x3. Head and Neck: Cranial nerves 2 through 12 are grossly within normal limits. No neck masses. No JV D. Throat clear. Neck is supple. Chest: Clear. Heart: S1 and S2. Abdomen: Soft, nondistended. Positive bowel sounds. There is tenderness in the left lower quadrant and minimal tenderness in the suprapubic and right lower quadrant. Upper abdomen appears to be nont zelda. There is no evidence of any peritonitis. Extremities: Adequately perfused. Neuro: Nonfocal. Diagnostic Data: CT of the abdomen and pelvis reviewed. It shows mild hepatomegaly, mild thickening of the wall of the loop of the ileum and mild stranding in the adjacent fat, may indicate a mild ent eritis. There is a normal appendix. White count on admission was 22.8, currently is 20.2. There is a left shift. INR is 1.46. Chemistry is reviewed, essentially unremarkable. Phosphorus is being r eplaced and procalcitonin is 3.38. Assessment: A 23-year-old female, with enteritis, abdominal pain and diarrhea. Recommendations: N.p.o. IV fluid, IV antibiotics. Serial abdominal exams. We will get stool cultur es for O and P, C and S, and C diff. Get a GI consultation. No need for any acute surgical interven tion and I will follow this patient while in the hospital. TASHA/ZAIDA Voice ID: [id number] Report ID: [id number]
--- NOTE | 2018-11-03 11:11 | P.PN ---
Subjective Date of Service: 11/03/18 Chief Complaint: Abdominal pain Subjective: No new changes, NPO Review of Systems General: Weakness Eyes: Unremarkable ENT: Unremarkable Respiratory: Unremarkable Cardiovascular: Unremarkable Gastrointestinal: Nausea, Abdominal Pain Genitourinary: Unremarkable Musculoskeletal: Unremarkable Integumentary: Unremarkable Neurological: Other (c/o headache, tearful, does not want morphine as it makes her stomach hurt, tylenol has not helped her gupta) Physical Examination - Vital Signs Temperature: 99.1 F Blood Pressure: 117/55 Pulse: 92 Respirations: 16 Pulse Ox (%): 98 - Physical Exam General: Alert, Oriented x3 HEENT: Atraumatic, Normocephalic, EOMI Neck: Supple Respiratory: Clear to auscultation bilaterally Cardiovascular: No edema, Normal pulses, Regular rate/rhythm Capillary refill: <2 Seconds Gastrointestinal: Hypoactive, Tenderness (LLQ with significant tenderness, mild distension) Musculoskeletal: No clubbing, No swelling Integumentary: No rashes, No breakdown Neurological: Normal speech, Normal tone, Normal affect Lymphatics: No axilla or inguinal lymphadenopathy External genitalia: Deferred Rectal: Deferred Assessment And Plan - Current Problems (Diagnosis) (1) Acute abdominal pain Current Visit: Yes Status: Acute Plan: NPO, IVF, pain control, repeat abd exams (2) Diabetes mellitus type 2 in obese Current Visit: Yes Status: Acute Plan: NPO, ivf, insulin protocol (3) Enteritis Current Visit: Yes Status: Acute Plan: IV abx, serial abd exams, NPO Discharge Plan: Home Plan to discharge in: 48 Hours
[2018-11-03] MEDS: D5 0.9 NS 1,000 ML IV SCH (18:38)
[2018-11-03] MEDS ORDERED: HYDROCODONE/APAP 10/325 TAB PO PRN (22:40)
[2018-11-04] MEDS: METRONIDAZOLE 500mg IVPB 500 MG/100 ML BAG IV SCH ×2 (01:10→09:03)
[2018-11-04] MEDS: D5 0.9 NS 1,000 ML IV SCH (04:00)
[2018-11-04 04:34] LABS: BUN Blood Urea Nitrogen 10 mg/dL (7-18); Bicarbonate 26 mmol/L (21-32); Glucose Level 85 mg/dL (74-106); Phosphorus 3.2 mg/dL (2.5-4.9); Potassium 3.6 mmol/L (3.5-5.1); Sodium Level 142 mmol/L (136-145)
[2018-11-04] MEDS ORDERED: KCL 20 MEQ/100 mL IVPB 20 MEQ/100 ML BAG IV SCH (06:00)
[2018-11-04] MEDS: INSULIN -REGULAR HUMAN 50 UNIT/0.5 ML ML SQ SCH ×4 (07:30→21:00)
[2018-11-04] MEDS: ENOXAPARIN 40 MG/0.4 ML SQ SCH (09:03)
[2018-11-04] MEDS: ACETAMINOPHEN 500 MG TAB PO PRN (09:03)
[2018-11-04] MEDS: CIPROFLOXACIN 400mg IV 400 MG/200 ML BAG IV SCH (09:03)
[2018-11-04 10:53] LABS: Absolute Lymphocytes (CBC) 1.3 K/uL (0.7-4.9); Basophils % 0.5 % (0-1.3); Hematocrit 30.6 % (36.0-45.0); Lymphocytes % 11.2 % (15.3-44.8); MPV 8.7 fL (7.6-11.3); RBC Red Blood Cell Count 3.88 M/uL (3.86-4.86)
[2018-11-04] MEDS: metroNIDAZOLE 500 MG TABLET PO SCH ×2 (12:55→17:36)
--- NOTE | 2018-11-04 15:19 | PN ---
Date of Progress Note: 11/04/2018 Subjective: Patient is awake, alert. She had a lot of diarrhea yesterday, but slow down today. Marnie n is there, but little bit better. Her labs are pending. Objective: Vital Signs: Stable. She is afebrile. C diff is negative. Abdomen: Soft, a little bit less tender today, nondistended. No peritonitis. Assessment: Enteritis. Recommendations: Continue antibiotics as ordered. We will check her labs. We will start her on sip s of clear liquids. Advance slowly as tolerated. /MODL Voice ID: [id number] Report ID: [id number]
--- NOTE | 2018-11-04 15:45 | P.PN ---
Subjective Date of Service: 11/04/18 Chief Complaint: Abdominal pain Patient seen and examined at bedside with RN. Chart reviewed. Case discussed with general surgery. This morning patient doing well overall diarrhea x1 marked improvement. No other complaints to offer Review of Systems 10-point ROS is otherwise unremarkable Physical Examination - Vital Signs Temperature: 97.2 F Blood Pressure: 125/62 Pulse: 83 Respirations: 18 Pulse Ox (%): 98 - Physical Exam General: Alert, In no apparent distress HEENT: Atraumatic, PERRLA, EOMI Neck: Supple, JVD not distended Respiratory: Clear to auscultation bilaterally, Normal air movement Cardiovascular: Regular rate/rhythm, Normal S1 S2 Gastrointestinal: Normal bowel sounds, No tenderness Musculoskeletal: No tenderness Integumentary: No rashes Neurological: Normal speech, Normal tone, Normal affect Lymphatics: No axilla or inguinal lymphadenopathy - Studies Medications List Reviewed: Yes Assessment And Plan - Current Problems (Diagnosis) (1) Sepsis Current Visit: Yes Status: Acute Plan: Sepsis most likely secondary to enteritis -initial white count elevated to 20 -Currently on IV antibiotics will continue that here in the hospital -blood culture negative at this time Qualifiers: Sepsis type: sepsis due to unspecified organism Sepsis acute organ dysfunction status: without acute organ dysfunction Qualified Code(s): A41.9 - Sepsis, unspecified organism (2) Enteritis Current Visit: Yes Status: Acute Plan: Enteritis on the abdominal CT -GI consulted however pending review at this time -currently on IV antibiotics improving markedly. -Will advance diet to a clear liquid diet (3) Diabetes mellitus type 2 in obese Current Visit: Yes Status: Chronic Plan: Insulin sliding scale Discharge Plan: Home Plan to discharge in: Greater than 2 days - Code Status/Comfort Care Code Status Assessed: Yes Critical Care: No
[2018-11-04] MEDS: TRAMADOL HCL 50 MG TAB PO PRN (17:36)
[2018-11-04] MEDS: CIPROFLOXACIN HCL 500 MG TAB PO SCH (21:06)
[2018-11-05] MEDS: metroNIDAZOLE 500 MG TABLET PO SCH ×3 (00:26→11:23)
[2018-11-05] MEDS: TRAMADOL HCL 50 MG TAB PO PRN (04:10)
[2018-11-05 04:40] LABS: Absolute Lymphocytes (CBC) 1.3 K/uL (0.7-4.9); Basophils % 0.5 % (0-1.3); Hematocrit 31.6 % (36.0-45.0); Lymphocytes % 11.9 % (15.3-44.8); MPV 8.8 fL (7.6-11.3); RBC Red Blood Cell Count 4.06 M/uL (3.86-4.86)
[2018-11-05 04:53] LABS: BUN Blood Urea Nitrogen 6 mg/dL (7-18); Bicarbonate 26 mmol/L (21-32); Glucose Level 84 mg/dL (74-106); Potassium 3.3 mmol/L (3.5-5.1); Sodium Level 140 mmol/L (136-145)
[2018-11-05] MEDS ORDERED: POTASSIUM CL SA 10 MEQ TAB PO ONE (05:44)
[2018-11-05] MEDS: INSULIN -REGULAR HUMAN 50 UNIT/0.5 ML ML SQ SCH ×2 (07:30→11:20)
[2018-11-05] MEDS: CIPROFLOXACIN HCL 500 MG TAB PO SCH (08:30)
[2018-11-05] MEDS: ENOXAPARIN 40 MG/0.4 ML SQ SCH (08:30)
[2018-11-05 10:36] VITALS: O2SAT 98
[2018-11-05 12:07] VITALS: BP 113/68; TEMP 97.6
--- NOTE | 2018-11-05 14:50 | PN ---
Date of Progress Note: 11/05/2018 Subjective: Patient feels much better. Objective: Vitals: Stable. Afebrile. Abdomen: Benign. Assessment: Enteritis, improving. Recommendations: Cleared for discharge on Cipro and Flagyl. Follow up with the GI service. TASHA/ZAIDA Voice ID: [id number] Report ID: [id number]
--- NOTE | 2018-11-05 15:12 | P.DS ---
Admission Date: 11/02/18 Discharge Date: 11/05/18 Disposition: ROUTINE DISCHARGE Discharge Condition: GOOD Reason for Admission: Abdominal pain Consultations: Surgery - Problems (1) Sepsis Status: Acute Qualifiers: Sepsis type: sepsis due to unspecified organism Sepsis acute organ dysfunction status: without acute organ dysfunction Qualified Code(s): A41.9 - Sepsis, unspecified organism (2) Enteritis Status: Acute (3) Diabetes mellitus type 2 in obese Status: Chronic Brief History of Present Illness: 23-year-old woman with a history of diabetes mellitus presented emergency department with a complaint of abdominal pain of onset 2 days ago, initially located in the lower abdomen, progressed to become diffuse abdominal pain today , as stated with nausea, vomiting and diarrhea. Patient described constant pain with periodic cramping, worse with movement. Pain is better when she lays still. She reports subjective fever at home. In the emergency department, temperature up to 102.6 recorded. CBC demonstrated severe leukocytosis. CT abdomen and pelvis reports mild thickening of the wall of a loop of ileum. Appendix reported to be normal. No diverticulitis. Patient is admitted for further management of acute abdomen. Hospital Course: Overall Pt remained stable. Pt was admitted to the hospital for Abdpain and was found to have sepsis 2.2 to Enteritis. Pt was kept NPO and IV fluids were started. Gen surgery and GI was consulted. Surgery saw the patient in the hospital and reccs to continue with Cipro and flagyl and advance diet slowly. Pt had marked Improvement in the symptoms over the next 24 to 48hrs. at the time pt diet was advance and pain had resolved. Pt was doing much better and thus DC home under stable condition. F.u with GI in 2 weeks and Given ppx for cipro and flagyl for 14 days Vital Signs/Physical Exam: Temp Pulse Resp BP Pulse Ox 97.6 F 74 18 113/68 97 11/05/18 12:00 11/05/18 12:00 11/05/18 12:00 11/05/18 12:00 11/05/18 12:00 General: Alert, In no apparent distress HEENT: Atraumatic, PERRLA, EOMI Neck: Supple, JVD not distended Respiratory: Clear to auscultation bilaterally, Normal air movement Cardiovascular: Regular rate/rhythm, Normal S1 S2 Gastrointestinal: Normal bowel sounds, No tenderness Musculoskeletal: No tenderness Integumentary: No rashes Neurological: Normal speech, Normal tone, Normal affect Lymphatics: No axilla or inguinal lymphadenopathy Laboratory Data at Discharge: WBC 10.7 K/uL (4.3-10.9) 11/05/18 04:09 Hgb 10.6 g/dL (12.0-15.0) L 11/05/18 04:09 Hct 31.6 % (36.0-45.0) L 11/05/18 04:09 Plt Count 265 K/uL (152-406) 11/05/18 04:09 PT 17.0 SECONDS (9.5-12.5) H 11/02/18 16:25 INR 1.46 11/02/18 16:25 Sodium 140 mmol/L (136-145) 11/05/18 04:09 Potassium 3.3 mmol/L (3.5-5.1) L 11/05/18 04:09 BUN 6 mg/dL (7-18) L 11/05/18 04:09 Creatinine 0.56 mg/dL (0.55-1.3) 11/05/18 04:09 Glucose 84 mg/dL (74-106) 11/05/18 04:09 Phosphorus 3.2 mg/dL (2.5-4.9) D 11/04/18 03:30 Magnesium 1.9 mg/dL (1.8-2.4) 11/03/18 05:23 Total Bilirubin 0.8 mg/dL (0.2-1.0) 11/02/18 08:24 AST 16 U/L (15-37) 11/02/18 08:24 ALT 29 U/L (12-78) 11/02/18 08:24 Alkaline Phosphatase 64 U/L (45-117) 11/02/18 08:24 Lipase 45 U/L (73-393) L 11/02/18 08:24 Home Medications: Ciprofloxacin HCl [Cipro 500 MG Tablet] 500 mg PO DAILY #14 tab 11/05/18 metroNIDAZOLE [Flagyl*] 500 mg PO Q6HR #56 tablet 11/05/18 New Medications: metroNIDAZOLE [Flagyl*] 500 mg PO Q6HR #56 tablet Ciprofloxacin HCl [Cipro 500 MG Tablet] 500 mg PO DAILY #14 tab Diet: Regular Activity: Ad simeon Followup: Carlos Mccord MD [ACTIVE - CAN ADMIT] - 1-2 Weeks (call to schedule an appointment ) Phillip Borja MD [ASSOCIATE-ACTIVE - CAN ADMIT] - 1 Week (call to schedule an appointment)
== END 2018-11-05 14:35 | disposition home or self-care (01) | DRG 872 ==
LOC: ER 07:49 → ERHOLD 14:37 → 4TH 15:35
PROVIDERS: ADMIT Internal Medicine; ATTEND Internal Medicine
DX: A41.9 Sepsis, unspecified organism (principal); K52.9 Noninfective gastroenteritis and colitis, unspecified; E11.9 Type 2 diabetes mellitus without complications; E66.9 Obesity, unspecified; Z68.37 Body mass index [BMI] 37.0-37.9, adult; F17.210 Nicotine dependence, cigarettes, uncomplicated
CPT/HCPCS: 36415; 74177; 80048; 80076; 81003; 81025; 82962; 83605; 83690; 83735; 84100; 84145; 85025; 85610; 87040; 87045; 87046; 87177; 87209; 87493; 94760; 96361; 96365; 96375; 99285; J0744; J1170; J1650; J2270; J2405; J2543; J3010; J3360; J7030; Q9967

== ENCOUNTER 2020-01-30 12:30 | Emergency (ER) | payer OTHER, SELFPAY ==
--- OUTSIDE RECORDS SUMMARY | 2020-01-30 13:07 | XMS REPORT | Summary of Care ---
:1995 Author Organization [facility] - Health Address [address] [place] [id number] Care Team Providers Name Role Phone Ifeoma Pedroza [facility] Primary Care Provider Reason for Visit Reason Comments Care Encounter Details Date Type Department Care Team Description 11/20/2019 Routine [facility]- Kasia, Super vision of high risk , antepartum (Primary Dx); Visit Maite Dia SCARLETT History of section; [address] Histor y of pre-eclampsia; Street ST Obesity in ; [place], [place] GALE A Pain of round ligament affecting pregnan cy, antepartum [id number] [place], [place] [phone] [id number] Allergies No Known Allergiesdocumented as of this encounter (statuses as of 11/20/2019) Medications Medication Sig Dispensed Refills Start Date End Date Status vit/iron Take by mouth. 0 Active fum/folic ac ( 1 + 1 ORAL) aspirin 81 mg EC Take 1 tablet by 30 tablet 4 06/30/2019 Active tabletIndications: mouth daily. History of pre-eclampsia butalbital-acetaminophe Take 1 tablet by 10 tablet 0 0 Active n-caff 50-325-40 mg mouth every 4 tabletIndications: (four) hours as Migraine without status needed migrainosus, not (headache). intractable, unspecified migraine type magnesium oxide 420 mg Take 400 mg by 30 tablet 1 08/29/2019 Active TabIndications: mouth daily. Migraine without status migrainosus, not intractable, unspecified migraine type cephALEXin 500 mg Take 1 capsule 30 capsule 4 09/10/2019 Active capsuleIndications: by mouth daily. Pyelonephritis documented as of this encounter (statuses as of 11/20/2019) Active Problems Problem Noted Date Pain of round ligament affecting , antepartum 11/20/2019 Pyelonephritis 08/26/2019 UTI in 07/08/2019 Overview: ARSLAN negative Elevated blood pressure reading without diagnosis of h ypertension 07/08/2019 BMI 40.0-44.9, adult 06/26/2019 Tubal ligation status 06/26/2019 Papanicolaou smear of cervix with low grade squamous i ntraepithelial 06/26/2019 lesion (LGSIL) History of section 06/03/2019 Overview: X1, desires In [place] in 2016 History of pre-eclampsia 06/03/2019 Overview: Reports with last Nonalcoholic steatohepatitis (DREW) 06/03/2019 Overview: Per patient report, reports managed with diet History of depression 04/14/2015 Overview: Last time on meds was when she was 16 pe r patient Obesity in 04/14/2015 History of anxiety 04/24/2014 Overview: Last on meds at age 16 per patient Estimated Date of Delivery Comments Yes 01/23/2020 Based on last menstr ual period of 04/18/2019 (Approximate) documented as of this encounter (statuses as of 11/20/2019) Resolved Problems Problem Noted Date Resolved Date 18 weeks gestation of 08/26/2019 10/02/19 20 LGSIL on Pap smear of cervix 06/06/2019 06/26/2019 Overview: Per ASCCP guidelines repeat cytolgy in 1 2 months GBS (group B streptococcus) UTI complicating 06/0506/26/2019 Overview: pending ARSLAN Abnormal maternal glucose tolerance, antepartum 06/04/2019 06/26/2019 Overview: Failed 1hr gtt, passed [id number] Multiparity 06/03/2019 06/26/2019 History of diabetes mellitus 06/03/2019 06/26/2019 Overview: Reports history, diagnosed at age 10 per patient, reports never on insulin or medication just on metformin for pcos, reports managed by diet A1c-5.5mgdl Vaginal yeast infection 06/03/2019 06/26/2019 Tobacco use in 10/11/2016 06/30/2019 Overview: Reports quit x2 weeks ago Well woman exam 04/14/2015 06/03/2019 BCP ( control pills) initiation 04/14/2015 Routine follow-up 03/20/2015 04/14/2015 depression 03/20/2015 04/14/2015 Anemia of mother in , condition 03/20/19 16 04/14/2015 Chorioamnionitis 02/27/2015 03/20/2015 Research Study: ARRIVE Expectant Management Arm 02/25/2015 03/20/2015 Overview: This patient was consented in the ARRIVE Research Study on 02/25/15. IRB # [id number], PI Dr. Yun Patient was randomized into the study at 38.0-38.6 weeks and will be in the following group: Expectant Management Arm Pt. Must have at least weekly follow-up visits with provider. Unless pt. delivers spontaneously or a medical indication presents, will continue until at least 40.5 weeks. At 40.5 weeks, the patient may be induced at the provider s discretion or continue expectant management, but must undergo induction if not delivered by 42.2 weeks. testing must be started no later than 41.6 weeks (may be started earlier at the provider s discretion). Threatened labor at term 02/25/2015 02/26/2015 PreE without SF 02/25/2015 03/20/2015 Oligohydramnios 02/25/2015 02/27/2015 Pain of round ligament affecting , antepartum 02/1002/26/2015 Proteinuria affecting 01/27/2015 02/26/19 16 Glucosuria 01/27/2015 03/20/2015 Elevated blood pressure reading without diagnosis of 015 02/26/2015 hypertension History of depression 01/13/2015 03/20/2015 Seasonal allergies 11/12/2014 03/20/2015 Circumvallate placenta 11/05/2014 02/27/2015 BMI 38 07/10/2014 03/20/2015 Overview: ICD10 Diagnosis Term [employer] Utility Tobacco use disorder complicating , childbirth, or the 07/10/2014 04/14/2015 puerperium, delivered, with or without mention of antepartum condition Overview: Quit since last visit. Supervision of other high-risk 07/10/2014 03/20/2015 Overview: ICD10 Diagnosis Term [employer] Utility History of miscarriage, currently 07/10/2014 03/20/2015 Asthma 07/10/2014 06/30/2019 Overview: ICD10 Diagnosis Term [employer] Utility Surveillance of previously prescribed contraceptive pill 07/10/2014 PCOS (polycystic ovarian syndrome) 04/24/201406/25 Overview: Self DC'd at 12 weeks. Stop metformin at 15 weeks/ then get 1 hr gtt 2 weeks after that- Vasquez/ Dr. Beatty. Tiffani Jackson CNM 07/10/2014 2:26 PM Encounter for routine gynecological examination 04/24/2014 07/08/2014 Overview: ICD10 Diagnosis Term [employer] Utility Morbid obesity 04/24/2014 08/05/2014 Tobacco use disorder 04/24/2014 07/10/2014 Elevated blood pressure reading without diagnosis of 015 07/10/2014 hypertension Depression 10/07/2012 01/13/2015 Nonalcoholic steatohepatitis (DREW) 09/10/201207/2014 Amenorrhea, primary 01/10/2012 05/08/2013 Acquired acanthosis nigricans 01/10/2012 04/24/2014 Hirsutism 01/10/2012 04/24/2014 Abnormal weight gain 01/10/2012 04/24/2014 Arthralgia 01/10/2012 04/24/2014 documented as of this encounter (statuses as of 11/20/2019) Immunizations Name Administration Dates Next Due Influenza Virus Vaccine Quad .5 mL IM 6+ MO 11/06/2019 Influenza Virus Vaccine Quad IM Multi-dose 6+ MO 07/08/2014 Rubella 10/30/2011 TDAP 11/06/2019, 12/16/2014 Td 02/20/2008 documented as of this encounter Social History Tobacco Use Types Packs/Day Years Used Date Former Smoker Cigarettes 10/12/2007 - 0 05/21/2019 Smokeless Tobacco: Never Used Comments: smokes 3 x per day, quit 7, restarted 11/2016 Alcohol Use Drinks/Week oz/Week Comments No Estimated Date of Delivery Comments Yes 01/23/2020 Based on last menstr ual period of 04/18/2019 (Approximate) Sex Assigned at Date Recorded Not on file COVID-19 Exposure Response Date Recorded In the last month, have you been in contact with No / Unsure 11/20/2019 9:04 AM CDT someone who was confirmed or suspected to have Coronavirus / COVID-19? documented as of this encounter Last Filed Vital Signs Vital Sign Reading Time Taken Comments Blood Pressure 115/76 11/20/2019 9:05 AM CDT Pulse 74 11/20/2019 9:05 AM CDT Temperature 36.2 C (97.2 F) 11/20/2019 9:05 AM CDT Respiratory Rate 16 11/20/2019 9:05 AM CDT Oxygen Saturation - - Inhaled Oxygen Concentration - - Weight 117.9 kg (260 lb) 11/20/2019 9:05 AM CDT Height 170.2 cm (5' 7") 11/20/2019 9:05 AM CDT Body Mass Index 40.72 11/20/2019 9:05 AM CDT documented in this encounter Progress Notes Delilah Pedroza, WHCNP - 11/20/2019 8:30 AM CDT Chief complaint: Chief Complaint Patient presents with Care HPI CC: Follow Up Visit Louann Love is a 24 year old, , /White female. Patient's last menstrual period was 04/18/2019 (approximate). She is 30w6d with an intrauterine . Her estimated date of delivery is 01/23/2020, by Last Menstrual Period. She complains today of: Cramps. She reports left lower quadrant, midpoint of pelvis and right lower quadrant cramps which started off and on for the past couple weeks Associated symptom(s) include none. Symptoms are worse with movements. Symptoms are relieved with rest.. She reports +FM and denies contractions, LOF and bleeding today. Histories OB History Para Term AB Living 3 1 1 0 1 1 SAB TAB Ectopic Multiple Live Births 1 0 0 0 1 # Outcome Date GA Lbr Chuy/2nd Weight Sex Delivery Anes PTL Lv 3 Current 2 Term 02/27/15 39w0d 7 lb 6.3 oz (3.355 kg) F SEC EPI MAXI Comments: 1st screen collected on 03/01/15 showed normal. mg 1 SAB 05/20/13 6w0d Past Medical History: Diagnosis Date Anemia of mother in , condition 03/20/2015 not on meds Asthma as a child has not used an inhaler since age 12 Depression 2012 denies current depression, diagnosed by MD Diabetes mellitus 2007 Type 2. not on meds; states that she was on metformin from age [age] yo Generalized anxiety disorder 04/24/2014 Not on meds Hirsutism Menstrual disorder Hyperandrogenism Nonalcoholic steatohepatitis (DREW) 09/10/2012 PCOS (polycystic ovarian syndrome) 04/24/2014 not on meds PreE without SF 02/25/2015 Pyelonephritis 08/26/2019 Shingles 2012 turned into staph infection. Treated Vaginal yeast infection 06/03/2019 Family History Problem Relation Age of Onset Cancer Mother Cervical Hypertension Maternal Grandmother Heart Maternal Grandmother Thyroid Maternal Grandmother Heart Maternal Grandfather Psychiatry Maternal Grandfather Alzheimer's Heart Paternal Grandfather Osteoporosis Paternal Grandmother Arthritis NoFHx Asthma NoFHx defects NoFHx Breast Cancer NoFHx Colon Cancer NoFHx Ovarian Cancer NoFHx Uterine Cancer NoFHx Depression NoFHx Diabetes NoFHx Genetic NoFHx High cholesterol NoFHx Mental retardation NoFHx Neurological NoFHx Other - see comments NoFHx Family Status Relation Name Status Mo (Not Specified) MGMo (Not Specified) MGFa (Not Specified) PGFa (Not Specified) PGMo (Not Specified) NoFHx (Not Specified) Past Surgical History: Procedure Laterality Date SECTION N/A 02/26/2015 Surgeon: Jordan Redd; Location: [facility] Social History Socioeconomic History Marital status: Single Spouse name: Not on file Number of children: Not on file Years of education: Not on file Highest education level: Not on file Occupational History Not on file Social Needs Financial resource strain: Not on file Food insecurity Worry: Not on file Inability: Not on file Transportation needs Medical: Not on file Non-medical: Not on file Tobacco Use Smoking status: Former Smoker Types: Cigarettes Start date: 10/12/2007 Quit date: 05/21/2019 Years since quittin.5 Smokeless tobacco: Never Used Tobacco comment: smokes 3 x per day, quit 09/2016, restarted 11/2016 Substance and Sexual Activity Alcohol use: No Drug use: No Sexual activity: Yes Partners: Male control/protection: None Comment: Last intercourse: 06/01/2019 Lifestyle Physical activity Days per week: Not on file Minutes per session: Not on file Stress: Not on file Relationships Social connections Talks on phone: Not on file Gets together: Not on file Attends buddhist service: Not on file Active member of club or organization: Not on file Attends meetings of clubs or organizations: Not on file Relationship status: Not on file Intimate partner violence Fear of current or ex partner: Not on file Emotionally abused: Not on file Physically abused: Not on file Forced sexual activity: Not on file Other Topics Concern Not on file Social History Narrative Pt denies current or past physical, sexual or emotional abuse. Patient lives with partner and daughter. Patient has 1 indoor cat, patient reports boyfriend empties litter box. Social History Substance and Sexual Activity Sexual Activity Yes Partners: Male control/protection: None Comment: Last intercourse: 06/01/2019 Labs No new labs, Routine Visit on 11/06/2019 Component Date Value HIV 1/2 Ag-Ab with Reflex 11/06/2019 Negative HIV Semi-quantitative 11/06/2019 0.12 Syphilis IgG/IgM 11/06/2019 Non-reactive POCT U SP GRAV 11/06/2019 . POCT PH U 11/06/2019 . POCT U LEUK EST 11/06/2019 . POCT U NIT 11/06/2019 . POCT U PROT 11/06/2019 1+ POCT U GLU 11/06/2019 Neg POCT U KETONE 11/06/2019 . POCT U UROBILI 11/06/2019 . POCT U BILI 11/06/2019 . POCT U BLD 11/06/2019 . Routine Visit on 10/23/2019 Component Date Value WBC 10/23/2019 11.05 RBC 10/23/2019 4.39 HGB 10/23/2019 12.1 HCT 10/23/2019 37.4 MCV 10/23/2019 85.2 MCH 10/23/2019 27.6 MCHC 10/23/2019 32.4 RDW-SD 10/23/2019 45.1 RDW-CV 10/23/2019 14.5 PLT 10/23/2019 208 MPV 10/23/2019 11.8 NRBC/100 WBC 10/23/2019 0.0 NRBC x10^3 10/23/2019 <0.01 GRAN MAT (NEUT) % 10/23/2019 69.0 IMM GRAN % 10/23/2019 1.00 LYMPH % 10/23/2019 19.9 MONO % 10/23/2019 7.9 EOS % 10/23/2019 1.8 BASO % 10/23/2019 0.4 GRAN MAT x10^3(ANC) 10/23/2019 7.63* IMM GRAN x10^3 10/23/2019 0.11* LYMPH x10^3 10/23/2019 2.20 MONO x10^3 10/23/2019 0.87 EOS x10^3 10/23/2019 0.20 BASO x10^3 10/23/2019 0.04 GLU FASTNG 10/23/2019 82 GLUC 1 HR 10/23/2019 163 GLUC 2 HR 10/23/2019 130* GLUC 3 HR 10/23/2019 96 POCT U SP GRAV 10/23/2019 . POCT PH U 10/23/2019 . POCT U LEUK EST 10/23/2019 . POCT U NIT 10/23/2019 . POCT U PROT 10/23/2019 1+ POCT U GLU 10/23/2019 Neg POCT U KETONE 10/23/2019 . POCT U UROBILI 10/23/2019 . POCT U BILI 10/23/2019 . POCT U BLD 10/23/2019 . and Routine Visit on 11/06/2019 Component Date Value HIV 1/2 Ag-Ab with Reflex 11/06/2019 Negative HIV Semi-quantitative 11/06/2019 0.12 Syphilis IgG/IgM 11/06/2019 Non-reactive POCT U SP GRAV 11/06/2019 . POCT PH U 11/06/2019 . POCT U LEUK EST 11/06/2019 . POCT U NIT 11/06/2019 . POCT U PROT 11/06/2019 1+ POCT U GLU 11/06/2019 Neg POCT U KETONE 11/06/2019 . POCT U UROBILI 11/06/2019 . POCT U BILI 11/06/2019 . POCT U BLD 11/06/2019 . Routine Visit on 10/23/2019 Component Date Value WBC 10/23/2019 11.05 RBC 10/23/2019 4.39 HGB 10/23/2019 12.1 HCT 10/23/2019 37.4 MCV 10/23/2019 85.2 MCH 10/23/2019 27.6 MCHC 10/23/2019 32.4 RDW-SD 10/23/2019 45.1 RDW-CV 10/23/2019 14.5 PLT 10/23/2019 208 MPV 10/23/2019 11.8 NRBC/100 WBC 10/23/2019 0.0 NRBC x10^3 10/23/2019 <0.01 GRAN MAT (NEUT) % 10/23/2019 69.0 IMM GRAN % 10/23/2019 1.00 LYMPH % 10/23/2019 19.9 MONO % 10/23/2019 7.9 EOS % 10/23/2019 1.8 BASO % 10/23/2019 0.4 GRAN MAT x10^3(ANC) 10/23/2019 7.63* IMM GRAN x10^3 10/23/2019 0.11* LYMPH x10^3 10/23/2019 2.20 MONO x10^3 10/23/2019 0.87 EOS x10^3 10/23/2019 0.20 BASO x10^3 10/23/2019 0.04 GLU FASTNG 10/23/2019 82 GLUC 1 HR 10/23/2019 163 GLUC 2 HR 10/23/2019 130* GLUC 3 HR 10/23/2019 96 POCT U SP GRAV 10/23/2019 . POCT PH U 10/23/2019 . POCT U LEUK EST 10/23/2019 . POCT U NIT 10/23/2019 . POCT U PROT 10/23/2019 1+ POCT U GLU 10/23/2019 Neg POCT U KETONE 10/23/2019 . POCT U UROBILI 10/23/2019 . POCT U BILI 10/23/2019 . POCT U BLD 10/23/2019 . Routine Visit on 10/02/2019 Component Date Value POCT U SP GRAV 10/02/2019 . POCT PH U 10/02/2019 . POCT U LEUK EST 10/02/2019 . POCT U NIT 10/02/2019 . POCT U PROT 10/02/2019 1+ POCT U GLU 10/02/2019 Neg POCT U KETONE 10/02/2019 . POCT U UROBILI 10/02/2019 . POCT U BILI 10/02/2019 . POCT U BLD 10/02/2019 . Routine Visit on 09/04/2019 Component Date Value POCT U SP GRAV 09/04/2019 . POCT PH U 09/04/2019 . POCT U LEUK EST 09/04/2019 . POCT U NIT 09/04/2019 . POCT U PROT 09/04/2019 Trace POCT U GLU 09/04/2019 Neg POCT U KETONE 09/04/2019 . POCT U UROBILI 09/04/2019 . POCT U BILI 09/04/2019 . POCT U BLD 09/04/2019 . Admission on 08/26/2019, Discharged on 08/28/2019 Component Date Value NA 08/26/2019 135 K 08/26/2019 3.8 CL 08/26/2019 107 CO2 TOTAL 08/26/2019 18* AGAP 08/26/2019 10 BUN 08/26/2019 7 GLUCOSE 08/26/2019 112* CREATININE 08/26/2019 0.38* TOTAL BILI 08/26/2019 0.7 CALCIUM 08/26/2019 9.9 T PROTEIN 08/26/2019 8.2 ALBUMIN 08/26/2019 4.4 ALK PHOS 08/26/2019 57 ALTv 08/26/2019 16 AST(SGOT) 08/26/2019 22 eGFR Calculation (Non-Af* 08/26/2019 208.1 eGFR Calculation (Kandice* 08/26/2019 252.2 LIPASE 08/26/2019 19 APPEARANCE 08/26/2019 Cloudy* COLOR 08/26/2019 Yellow PH 08/26/2019 7.0 SP GRAVITY 08/26/2019 1.011 GLU U QUAL 08/26/2019 Normal BLOOD 08/26/2019 1+* KETONES 08/26/2019 5 mg/dL* PROTEIN 08/26/2019 100 mg/dL* UROBILIN 08/26/2019 Normal BILIRUBIN 08/26/2019 Negative NITRITE 08/26/2019 Negative LEUK SANTOS 08/26/2019 500/uL* RBC/HPF 08/26/2019 33* WBC/HPF 08/26/2019 >182* BACTERIA 08/26/2019 Few* MUCOUS 08/26/2019 Slight* SQ EPITH 08/26/2019 3 WBC 08/26/2019 13.85* RBC 08/26/2019 4.83 HGB 08/26/2019 12.6 HCT 08/26/2019 38.2 MCV 08/26/2019 79.1* MCH 08/26/2019 26.1 MCHC 08/26/2019 33.0 RDW-SD 08/26/2019 40.5 RDW-CV 08/26/2019 14.3 PLT 08/26/2019 194 MPV 08/26/2019 11.6 NRBC/100 WBC 08/26/2019 0.0 NRBC x10^3 08/26/2019 <0.01 GRAN MAT (NEUT) % 08/26/2019 86.3 IMM GRAN % 08/26/2019 0.70 LYMPH % 08/26/2019 6.9 MONO % 08/26/2019 5.5 EOS % 08/26/2019 0.3 BASO % 08/26/2019 0.3 GRAN MAT x10^3(ANC) 08/26/2019 11.95* IMM GRAN x10^3 08/26/2019 0.10* LYMPH x10^3 08/26/2019 0.96* MONO x10^3 08/26/2019 0.76 EOS x10^3 08/26/2019 0.04 BASO x10^3 08/26/2019 0.04 SARS-CoV-2 Rapid ID NOW 08/26/2019 Not Detected Blood Culture-Aerobic 08/26/2019 No organisms isolated Blood Culture-Anaerobic 08/26/2019 No organisms isolated Blood Culture-Aerobic 08/26/2019 No organisms isolated Blood Culture-Anaerobic 08/26/2019 No organisms isolated LACTIC ACID 08/26/2019 2.83 TROPONIN I 08/26/2019 <0.012 APTT Patient 08/26/2019 34 PROTIME PATIENT 08/26/2019 13.4 INR 08/26/2019 1.1 NT-proBNP 08/26/2019 27 BETA HCG 08/26/2019 10,522.00 POCT GLU 08/27/2019 109 Radiology No new radiology. Allergies Louann has No Known Allergies. Medications Louann has a current medication list which includes the following prescription(s): iqpcorbnco-suxcjnvflneim-dnxx, cephalexin, magnesium oxide, aspirin, and vit/iron fum/folic ac. Review of Systems Constitutional: Negative. HENT: Negative. Eyes: Negative. Respiratory: Negative. Breasts: Negative. Cardiovascular: Negative. Gastrointestinal: Negative. Genitourinary: Negative. Musculoskeletal: Negative. Skin: Negative. Neurological: Negative. Psychiatric/Behavioral: Negative. Endocrine: Endocrine negative BP 115/76 (BP Location: Right arm, Patient Position: Sitting, BP CUFF SIZE: Adult Large) | Pulse 74 | Temp 36.2 C (97.2 F) (Oral) | Resp 16 | Ht 5' 7" (1.702 m) | Wt 260 lb (117.9 kg) | LMP 04/18/2019 (Approximate) | BMI 40.72 kg/m Pregravid BMI: 40.71 Physical Exam Vitals reviewed. Constitutional: She is oriented to person, place, and time. She appears well- developed and well-nourished. Cardiovascular: Regular rate and rhythm. No peripheral edema present. Pulmonary/Chest: Normal inspiratory effort. Abdominal: Abdomen is soft. No mass palpated. No tenderness present. There is no hepatosplenomegaly,splenomegaly or hepatomegaly. There is no rigidity and no guarding. No hernia palpated or inspected. Neuro/Psychiatric: She has a normal mood and affect. She is oriented to person, place, and time. Skin: Skin normal. PHYSICAL: General Exam: Neurological: Normal Abdomen: Normal gravid Extremities: Normal Pelvic Exam: Uterus: 33 Weeks Assessment/Plan Return to clinic in 2 weeks. Denies zika virus risk, signs and symptoms such as fever,rash,joint pain, conjunctivitis (red eyes),muscle pain, headaches; outside [place] travel to areas affected by zika, and FOB exposure to zika. Educated on use of mosquito repellent. Supervision of high risk , antepartum (primary encounter diagnosis) History of section History of pre-eclampsia Comment: routine Plan: POCT URINALYSIS W SPECIFIC GRAVITY Obesity in Comment: see bmi Plan: BMI discussed, appropriate weight gain, sensible diet, and exercise, increased fiber and waterintake and protein low in fat. Encouraged exercise for 30 min everyday; begin regimen with caution to prevent injury. Encouraged to decrease BMI to <25. Educated on how obesity and smoking can affect future and health. 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 Pain of round ligament affecting , antepartum Comment: reports Plan: comfort measures discussed This visit did not involve counseling and coordination that comprised more than 50% of the visit time. CARLOTA Zavala 11/20/2019 10:08 AM documented in this encounter Plan of Treatment Date Type Specialty Care Team Description 12/04/2019 Routine Visit OB Satellites Rita Pedroza WHCNP [address], [place] [address] [phone] Health Maintenance Due Date Last Done Comments HPV VACCINES (1 - 2-dose 05/24/2020 Postpon ed from series) 07/20/2006 (Preg nant or ) CHLAMYDIA SCREENING 06/02/2020 06/03/2019, 01/24/2019, 10/11/2016, Additional history exists Depression Screening 11/19/2020 11/20/2019 PAP SMEAR 06/02/2022 06/03/2019, 01/16/2017, 10/11/2016 DTaP,Tdap,and Td Vaccines 11/05/2029 11/06/2019, 12/16/2014 , (4 - Td) 02/20/2008 INFLUENZA VACCINE Completed 11/06/2019, 07/08/2014 PNEUMOCOCCAL 0-64 YEARS Aged Out No longe r eligible COMBINED SERIES based on patient 's age to complete this topic documented as of this encounter Procedures Procedure Name Priority Date/Time Associated Diagnosis Comme nts POCT URINALYSIS Routine 11/20/2019 9:06 AM Supervision of jennifer alcantar Results for this CDT risk , procedure ar e in antepartum the results section. documented in this encounter Results POCT URINALYSIS W SPECIFIC GRAVITY (11/20/2019 9:06 AM CDT) Pathologist Sig nature POCT U SP GRAV . 1.005 - 1.025 mg/dl POCT PH U . 5 - 8 mg/dl POCT U LEUK EST . Negative - Negative POCT U NIT . Negative - Negative POCT U PROT Trace Negative - Negative POCT U GLU Neg Negative - Negative POCT U KETONE . Negative - Negative POCT U UROBILI . 0.2 - 1 mg/dl POCT U BILI . Negative - Negative POCT U BLD . Negative - Negative POCT U COLOR POCT U APPEAR Specimen Urine - URINE, CLEAN CATCH documented in this encounter Visit Diagnoses Diagnosis Supervision of high risk , ante - Primary History of section Other postprocedural status History of pre-eclampsia Obesity in Obesity complicating , childbir th, or the puerperium, unspecified as to episode of care or not applicable Pain of round ligament affecting pregnan cy, antepartum documented in this encounter Insurance Payer Benefit Plan / Subscriber ID Effective Dates Phone Addre ss Type Group [facility] [id number] 2019-Present Medicaid COMM PLAN - MANAGED MEDICAID documented as of this encounter Advance Directives Type Date Recorded 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
--- OUTSIDE RECORDS SUMMARY | 2020-01-30 13:07 | XMS REPORT | Summary of Care ---
:1995 Author Organization [facility] - Health Address [address] [place] [address] Care Team Providers Name Role Phone Ifeoma Pedroza [facility] Primary Care Provider Reason for Visit Reason Comments Care Encounter Details Date Type Department Care Team Description 11/06/2019 Routine [facility]- Kasia, Yareli vision of high risk , antepartum (Primary Dx); Visit CARLOTA Conti Need for Tdap vaccination; [address] Histor y of section; Street History of pre-eclampsia; [place], [place] G[place] A Obesity in ; [address] [place], [place] Need for influenza vaccinati on [phone] Allergies No Known Allergiesdocumented as of this encounter (statuses as of 11/07/2019) Medications Medication Sig Dispensed Refills Start Date [...] as of this encounter (statuses as of 11/07/2019) Active Problems Problem Noted Date Pyelonephritis 08/26/2019 UTI in 07/08/2019 Overview: ARSLAN negative Elevated blood pressure reading without diagnosis of h ypertension 07/08/2019 BMI 40.0-44.9, adult 06/26/2019 Tubal ligation status 06/26/2019 Papanicolaou smear of cervix with low grade squamous i ntraepithelial 06/26/2019 lesion (LGSIL) History of section 06/03/2019 Overview: X1, desires History of pre-eclampsia 06/03/2019 Overview: Reports with [...] as of this encounter (statuses as of 11/07/2019) Resolved Problems Problem Noted Date Resolved Date 18 weeks gestation of 08/26/2019 10/02/19 20 LGSIL on Pap smear of cervix 06/06/2019 06/26/2019 Overview: Per ASCCP guidelines repeat cytolgy in 1 2 months GBS (group B streptococcus) UTI complicating 06/0506/26/2019 Overview: pending ARSLAN Abnormal maternal glucose tolerance, antepartum 06/04/2019 06/26/2019 Overview: Failed 1hr gtt, passed [id number] gtt Multiparity 06/03/2019 06/26/2019 History of diabetes [...] 38 07/10/2014 03/20/2015 Overview: ICD10 Diagnosis Term Aluminum Pool Installer Utility Tobacco use disorder complicating , childbirth, or the 07/10/2014 04/14/2015 puerperium, delivered, with or without mention of antepartum condition Overview: Quit since last visit. Supervision of other high-risk 07/10/2014 03/20/2015 Overview: ICD10 Diagnosis Term Aluminum Pool Installer Utility History of miscarriage, currently 07/10/2014 03/20/2015 Asthma 07/10/2014 06/30/2019 Overview: ICD10 Diagnosis Term Aluminum Pool Installer Utility Surveillance of previously prescribed contraceptive pill 07/10/2014 PCOS (polycystic ovarian syndrome) 04/24/201406/25 Overview: Self DC'd at 12 weeks. Stop metformin at 15 weeks/ then get 1 hr gtt 2 weeks after that- Vasquez/ Dr. Beatty. Tiffani Jackson CNM 07/10/2014 2:26 PM Encounter for routine gynecological examination 04/24/2014 07/08/2014 Overview: ICD10 Diagnosis Term Aluminum Pool Installer Utility Morbid obesity 04/24/2014 08/05/2014 Tobacco use disorder 04/24/2014 07/10/2014 Elevated blood pressure reading without diagnosis of 015 07/10/2014 hypertension Depression 10/07/2012 01/13/2015 Nonalcoholic steatohepatitis (DREW) 09/10/201207/2014 Amenorrhea, primary 01/10/2012 05/08/2013 Acquired acanthosis nigricans 01/10/2012 04/24/2014 Hirsutism 01/10/2012 04/24/2014 Abnormal weight gain 01/10/2012 04/24/2014 Arthralgia 01/10/2012 04/24/2014 documented as of this encounter (statuses as of 11/07/2019) Immunizations Name Administration Dates Next Due Influenza [...] Comments: smokes 3 x per day, quit , restarted 11/2016 Alcohol Use Drinks/Week oz/Week Comments No Estimated Date of Delivery Comments Yes 01/23/2020 Based on last menstr ual period of 04/18/2019 (Approximate) Sex Assigned at Date Recorded Not on file COVID-19 Exposure Response Date Recorded In the last month, have you been in contact with No / Unsure 11/06/2019 7:51 AM CDT someone who was confirmed or suspected to have Coronavirus / COVID-19? documented as of this encounter Last Filed Vital Signs Vital Sign Reading Time Taken Comments Blood Pressure 130/76 11/06/2019 9:20 AM CDT Pulse 90 11/06/2019 9:20 AM CDT Temperature 36.7 C (98 F) 11/06/2019 9:20 AM CDT Respiratory Rate 16 11/06/2019 9:20 AM CDT Oxygen Saturation - - Inhaled Oxygen Concentration - - Weight 117.2 kg (258 lb 6 oz) 11/06/2019 9:20 AM CDT Height 170.2 cm (5' 7") 11/06/2019 9:20 AM CDT Body Mass Index 40.47 11/06/2019 9:20 AM CDT documented in this encounter Progress Notes Delilah Pedroza, WHCNP - 11/06/2019 8:45 AM CDT Chief complaint: Chief Complaint Patient presents with Care HPI CC: Follow Up Visit Louann Love is a 24 year old, , /White female. Patient's last menstrual period was 04/18/2019 (approximate). She is 29w0d with an intrauterine . Her estimated date of delivery is 01/23/2020, by Last Menstrual Period. She has no complaints today. She reports +FM and denies contractions, LOF [...] Depression 2012 denies current depression, diagnosed by Diabetes mellitus 2007 Type 2. not on [...] date: 10/12/2007 Quit date: 05/21/2019 Years since quittin.4 Smokeless tobacco: Never Used Tobacco comment: smokes [...] file Gets together: Not on file Attends druze service: Not on file Active member of [...] Last intercourse: 06/01/2019 Labs No new labs, Labs are pending. and Routine Visit on 10/23/2019 Component Date Value [...] medication list which includes the following prescription(s): cessyeuqcf-hnpmnyxcrhdrh-xnbf, cephalexin, magnesium oxide, aspirin, and vit/iron fum/folic ac. Review of Systems Constitutional: Negative. HENT: Negative. Eyes: Negative. Respiratory: Negative. Breasts: Negative. Cardiovascular: Negative. Gastrointestinal: Negative. Genitourinary: Negative. Musculoskeletal: Negative. Skin: Negative. Neurological: Negative. Psychiatric/Behavioral: Negative. Endocrine: Endocrine negative BP 130/76 (BP Location: Right arm, Patient Position: Sitting, BP CUFF SIZE: Adult Medium) | Pulse 90 | Temp 36.7 C (98 F) (Oral) | Resp 16 | Ht 5' 7" (1.702 m) | Wt 258 lb 6 oz (117.2 kg) | LMP 04/18/2019 (Approximate) | BMI 40.47 kg/m Pregravid BMI: 40.71 Physical Exam PHYSICAL: General Exam: Neurological: Normal Abdomen: Normal gravid Extremities: Normal Pelvic Exam: Uterus: 30 Weeks Assessment/Plan Return to clinic in 2 weeks. Denies zika virus risk, signs and symptoms such as fever,rash,joint pain, conjunctivitis (red eyes),muscle pain, headaches; outside [place] travel to areas affected by zika, and FOB exposure to zika. Educated on use of mosquito repellent. Supervision of high risk , antepartum (primary encounter diagnosis) History of sectio History of pre-eclampsia Comment: routine Plan: HIV 1/2 AG-AB WITH REFLEX, GALV ONLY - SYPHILIS IGG/IGM, POCT URINALYSIS W SPECIFIC GRAVITY Need for Tdap vaccination Comment: as ordered Plan: TDAP VACCINE, >11 YRS, IM (Do not give before 20 weeks) Obesity in Comment: see bmi Plan: BMI discussed, appropriate weight gain, sensible diet, and exercise, increased fiber and waterintake and protein low in fat. Encouraged exercise for 30 min everyday; begin regimen with caution to prevent injury. Encouraged to decrease BMI to <25. Need for influenza vaccination Comment: as ordered Plan: FLU VACC(), 6+ MONTHS, IM, QUAD (FLUZONE/FLULAVAL/FLUARIX) CARLOTA Zavala 11/07/2019 3:23 PM Digna Padilla RN - 11/06/2019 8:45 AM CDTPatient provided with 28 weeks packet; stressed the importance of the kick count of 10 x within 2 hours; patient verbalized understanding. Tdap given IM to left deltoid per aseptic tech; site massaged; band-aid applied; tolerated well; VISgiven and reviewed with patient at this time. Shared decision plan completed today. Reviewed s/s of labor. PHQ2 done at this time. Patient denies any complications at this time. DIGNA PADILLA RN 11/06/2019 9:38 AM documented in this encounter Plan of Treatment Date Type Specialty Care Team Description 11/20/2019 Routine Visit OB Satellites Rita Pedroza WHCNP [address] [place], [place] [address] [phone] Health Maintenance Due Date Last Done Comments HPV VACCINES (1 - 2-dose 05/24/2020 Postpon ed from series) 07/20/2006 (Preg nant or ) CHLAMYDIA SCREENING 06/02/2020 06/03/2019, 01/24/2019, 10/11/2016, Additional history exists Depression Screening 11/05/2020 11/06/2019 PAP SMEAR 06/02/2022 06/03/2019, 01/16/2017, 10/11/2016 DTaP,Tdap,and Td Vaccines 11/05/2029 11/06/2019, 12/16/2014 , (4 - Td) 02/20/2008 INFLUENZA VACCINE Completed 11/06/2019, 07/08/2014 PNEUMOCOCCAL 0-64 YEARS Aged Out No longe r eligible COMBINED SERIES based on patient 's age to complete this topic documented as of this encounter Procedures Procedure Name Priority Date/Time Associated Diagnosis Comme nts FLU VACC Routine 11/06/2019 9:37 Need for influenza ([id number]), 6+ AM CDT vaccination MONTHS, IM, QUAD TDAP VACCINE, >11 Routine 11/06/2019 9:23 Need for Tdap YRS, IM AM CDT vaccination POCT URINALYSIS Routine 11/06/2019 9:23 Supervision of high R esults for this AM CDT risk , procedure ar e in antepartum the results section. GALV ONLY - SYPHILIS Routine 11/06/2019 9:20 Supervision of h igh Results for this IGG/IGM AM CDT risk , procedure ar e in antepartum the results section. HIV 1/2 AG-AB WITH Routine 11/06/2019 9:20 Supervision of hig h Results for this REFLEX AM CDT risk , procedure ar e in antepartum the results section. documented in this encounter Results POCT URINALYSIS W SPECIFIC GRAVITY (11/06/2019 9:23 AM CDT) Pathologist Sig nature POCT U SP GRAV . 1.005 - 1.025 mg/dl POCT PH U . 5 - 8 mg/dl POCT U LEUK EST . Negative - Negative POCT U NIT . Negative - Negative POCT U PROT 1+ Negative - Negative POCT U GLU Neg Negative - Negative POCT U KETONE . Negative - Negative POCT U UROBILI . 0.2 - 1 mg/dl POCT U BILI . Negative - Negative POCT U BLD . Negative - Negative POCT U COLOR POCT U APPEAR Specimen Urine - URINE, CLEAN CATCH GALV ONLY - SYPHILIS IGG/IGM (11/06/2019 9:20 AM CDT) Pathologist Sig nature Syphilis IgG/IgM Non-reactive Non-reactive [facility] Specimen Blood - VENOUS Narrative Performed At [facility] Non-reactive - No serologic evidence of T. pallidum infection. Cannot exclude incubating or early syphilis . Submit a second specimen in 2-4 weeks if syphilis is clinically suspected. Equivocal - Further testing to follow. Reactive - Further testing to follow. Performing Organization Address City/State/Zipcode Phone Number [facility] CLIA: [id number] [place] [address] [place] [address] HIV 1/2 AG-AB WITH REFLEX (11/06/2019 9:20 AM CDT) Pathologist Sig nature HIV 1/2 Ag-Ab with Negative Negative [facility] Reflex SERVICES HIV Semi-quantitative 0.12 [facility] Specimen Blood Narrative Performed At Non-reactive for HIV-1 antigen and HIV-1/HIV-2 antibod ies. [facility] No laboratory evidence of HIV infection. Repeat in 2-4 weeks if acute HIV infection is suspected. Performing Organization Address City/[facility] Phone Number [facility] CLIA: [id number] [place] [address] [place] [address] documented in this encounter Visit Diagnoses Diagnosis Supervision of high risk , ante - Primary Need for Tdap vaccination Need for prophylactic vaccination with c ombined qkqkpkmryi-rqcicnl-herdowdtb (DTP) vaccine History of section Other postprocedural status History of pre-eclampsia Obesity in Obesity complicating , childbir th, or the puerperium, unspecified as to episode of care or not applicable Need for influenza vaccination Need for prophylactic vaccination and in oculation against influenza documented in this encounter Insurance Payer Benefit Plan / Subscriber ID Effective Dates Phone Addre ss Type Group [facility] STAR [id number] 2019-Present Medicaid COMM PLAN - MANAGED MEDICAID documented as of this encounter Advance Directives Type Date Recorded Patient Fish Agent Explanati on Advance Directives and Living Will Power of Designer And Patternmaker Name Relationship Healthcare Agent Relationship Co mmunication Tonya Means Mother Health Care Agent Silvia Means Grandparent First [facility] [phone] ([place]) Agent
--- OUTSIDE RECORDS SUMMARY | 2020-01-30 13:07 | XMS REPORT | Continuity of Care Document ---
:1995 Author Organization [facility] t Address [address]. [address] [place] [address] Care Team Providers Name Role Phone Visit, Nurse Attending Clinician Unavailable Doctor Unassigned, Name Attending Clinician Unavailable Dominguez BROCKP, R Attending Clinician Akinsimarina JOLLYP, C Attending Clinician Problems This patient has no known problems. Allergies, Adverse Reactions, Alerts This patient has no known allergies or adverse reactions. Medications This patient has no known medications. Procedures This patient has no known procedures. Encounters Start End Encounter Admission Attending Care Care Encounter Source Date/Time Date/Time Type Type Clinicians Facility Department ID 2020-01-27 2020-01-27 Nurse Visit, [facility] [id number] 16:06:44 16:24:18 Visit Deannareuben ROLL UP MACHINE OPERATOR [id number] Nurse [facility] [id number] MATERNAL [id number] & CHILD [address] [place] [address] 2020-01-16 2020-01-16 Orders Doctor MITRA [id number] 00:00:00 00:00:00 Only UnassignedCARMELLA [id number] [place] [facility] [id number] 2020-01-14 2020-01-14 Routine MARK Mix [id number] 08:30:54 08:45:54 Roshunda R ROLL UP MACHINE OPERATOR [id number] Visit REGIONAL [id number] MATERNAL [id number] & CHILD 107 [facility] 2020-01-13 2020-01-13 Telephone Kasia [facility] [id number] 00:00:00 00:00:00 Delilah C ROLL UP MACHINE OPERATOR [id number] REGIONAL [id number] MATERNAL [id number] & CHILD 107 [facility] 2020-01-08 2020-01-08 [facility] [id number] 08:39:30 08:54:30 Roshunda R ROLL UP MACHINE OPERATOR [id number] Visit REGIONAL [id number] MATERNAL [id number] & CHILD 107 [facility] 2019-12-29 2019-12-29 [facility] [id number] 08:02:02 08:17:02 Roshunda R ROLL UP MACHINE OPERATOR [id number] Visit REGIONAL [id number] MATERNAL [id number] & CHILD 107 [facility] Results This patient has no known results.
--- OUTSIDE RECORDS SUMMARY | 2020-01-30 13:07 | XMS REPORT | Summary of Care ---
:1995 Author Organization [facility] - Health Address [address] [place] [address] Care Team Providers Name Role Phone Ifeoma Pedroza [facility] Primary Care Provider Reason for Visit Reason Onset Date Comments Refill Request 11/11/2019 Encounter Details Date Type Department Care Team Description 11/11/2019 Refill [facility] Women's FrancoisRose MD Refill Request Healthcare- [phone] [place] [id number] 112 [phone] Allergies No Known Allergiesdocumented as of this encounter (statuses as of 11/11/2019) Medications Medication Sig Dispensed Refills Start Date [...] as of this encounter (statuses as of 11/11/2019) Active Problems Problem Noted Date Pyelonephritis 08/26/2019 [...] as of this encounter (statuses as of 11/11/2019) Resolved Problems Problem Noted Date Resolved Date 18 weeks gestation of 08/26/2019 10/02/19 20 LGSIL on Pap smear of cervix 06/06/2019 06/26/2019 Overview: Per ASCCP guidelines repeat cytolgy in 1 2 months GBS (group B streptococcus) UTI complicating 06/0506/26/2019 Overview: pending ARSLAN Abnormal maternal glucose tolerance, antepartum 06/04/2019 06/26/2019 Overview: Failed 1hr gtt, passed [id number] gtt Multiparity 06/03/2019 06/26/2019 History of diabetes [...] 38 07/10/2014 03/20/2015 Overview: ICD10 Diagnosis Term Video Engineer Utility Tobacco use disorder complicating , childbirth, or the 07/10/2014 04/14/2015 puerperium, delivered, with or without mention of antepartum condition Overview: Quit since last visit. Supervision of other high-risk 07/10/2014 03/20/2015 Overview: ICD10 Diagnosis Term Video Engineer Utility History of miscarriage, currently 07/10/2014 03/20/2015 Asthma 07/10/2014 06/30/2019 Overview: ICD10 Diagnosis Term Video Engineer Utility Surveillance of previously prescribed contraceptive pill 07/10/2014 PCOS (polycystic ovarian syndrome) 04/24/201406/25 Overview: Self DC'd at 12 weeks. Stop metformin at 15 weeks/ then get 1 hr gtt 2 weeks after that- Vasquez/ Dr. Beatty. Tiffani Jackson CNM 07/10/2014 2:26 PM Encounter for routine gynecological examination 04/24/2014 07/08/2014 Overview: ICD10 Diagnosis Term Video Engineer Utility Morbid obesity 04/24/2014 08/05/2014 Tobacco use disorder 04/24/2014 07/10/2014 Elevated blood pressure reading without diagnosis of 015 07/10/2014 hypertension Depression 10/07/2012 01/13/2015 Nonalcoholic steatohepatitis (DREW) 09/10/201207/2014 Amenorrhea, primary 01/10/2012 05/08/2013 Acquired acanthosis nigricans 01/10/2012 04/24/2014 Hirsutism 01/10/2012 04/24/2014 Abnormal weight gain 01/10/2012 04/24/2014 Arthralgia 01/10/2012 04/24/2014 documented as of this encounter (statuses as of 11/11/2019) Immunizations Name Administration Dates Next Due Influenza [...] of this encounter Last Filed Vital Signs Not on filedocumented in this encounter Plan of Treatment Date Type Specialty Care Team Description 11/20/2019 Routine Visit OB Satellites Kasia, Rita Dia, WHCNP [address] [place] [address] [phone] Health Maintenance Due Date Last Done Comments [...] this topic documented as of this encounter Results Not on filedocumented in this encounter Visit Diagnoses Diagnosis Pyelonephritis Pyelonephritis, unspecified documented in this encounter Insurance Payer Benefit Plan / Subscriber ID Effective Dates Phone Addre ss Type Group [facility] STAR [id number] 2019-Present Medicaid COMM PLAN - MANAGED MEDICAID documented as of this encounter Advance Directives Type Date Recorded Patient Game Attendant Explanati on Advance Directives and Living Will Power of Supervisor Assembly Stock Name Relationship Healthcare Agent Relationship Co mmunication Tonya Means Mother Health Care Agent Silvia Means Grandparent First Alternate Health Care Agent
--- OUTSIDE RECORDS SUMMARY | 2020-01-30 13:08 | XMS REPORT | Summary of Care ---
:1995 Author Organization [facility] - Health Address [address] [place] [id number] Care Team Providers Name Role Phone Ifeoma Pedroza [facility] Primary Care Provider Reason for Visit Reason Comments Care Encounter Details Date Type Department Care Team Description 12/04/2019 Routine [facility]- Kasia, Yareli vision of high risk , antepartum (Primary Dx); Visit CARLOTA Conti History of pre-eclampsia; [address] Histor y of section; Street ST Obesity in ; [place], [place] GALE A Pain of round ligament affecting pregnan cy, antepartum [id number] [place], [place] [phone] Allergies No Known Allergiesdocumented as of this encounter (statuses as of 12/04/2019) Medications Medication Sig Dispensed Refills Start Date [...] as of this encounter (statuses as of 12/04/2019) Active Problems Problem Noted Date Pain of round ligament during 12/04/2019 Pain of round ligament affecting , antepartum 11/20/2019 Pyelonephritis 08/26/2019 UTI in 07/08/2019 Overview: ARSLAN negative Elevated blood pressure reading without diagnosis of h ypertension 07/08/2019 BMI 40.0-44.9, adult 06/26/2019 Tubal ligation status 06/26/2019 Papanicolaou smear of cervix with low grade squamous i ntraepithelial 06/26/2019 lesion (LGSIL) History of section 06/03/2019 Overview: X1, desires In [place] in 2015 History of pre-eclampsia 06/03/2019 Overview: Reports with [...] as of this encounter (statuses as of 12/04/2019) Resolved Problems Problem Noted Date Resolved Date 18 weeks gestation of 08/26/2019 10/02/19 20 LGSIL on Pap smear of cervix 06/06/2019 06/26/2019 Overview: Per ASCCP guidelines repeat cytolgy in 1 2 months GBS (group B streptococcus) UTI complicating 06/0506/26/2019 Overview: pending ARSLAN Abnormal maternal glucose tolerance, antepartum 06/04/2019 06/26/2019 Overview: Failed 1hr gtt, passed [id number] gtt Multiparity 06/03/2019 06/26/2019 History of diabetes [...] 38 07/10/2014 03/20/2015 Overview: ICD10 Diagnosis Term Spiral Tube Winder Utility Tobacco use disorder complicating , childbirth, or the 07/10/2014 04/14/2015 puerperium, delivered, with or without mention of antepartum condition Overview: Quit since last visit. Supervision of other high-risk 07/10/2014 03/20/2015 Overview: ICD10 Diagnosis Term Spiral Tube Winder Utility History of miscarriage, currently 07/10/2014 03/20/2015 Asthma 07/10/2014 06/30/2019 Overview: ICD10 Diagnosis Term Spiral Tube Winder Utility Surveillance of previously prescribed contraceptive pill 07/10/2014 PCOS (polycystic ovarian syndrome) 04/24/201406/25 Overview: Self DC'd at 12 weeks. Stop metformin at 15 weeks/ then get 1 hr gtt 2 weeks after that- Vasquez/ Dr. Beatty. Tiffani Jackson CNM 07/10/2014 2:26 PM Encounter for routine gynecological examination 04/24/2014 07/08/2014 Overview: ICD10 Diagnosis Term Spiral Tube Winder Utility Morbid obesity 04/24/2014 08/05/2014 Tobacco use disorder 04/24/2014 07/10/2014 Elevated blood pressure reading without diagnosis of 015 07/10/2014 hypertension Depression 10/07/2012 01/13/2015 Nonalcoholic steatohepatitis (DREW) 09/10/201207/2014 Amenorrhea, primary 01/10/2012 05/08/2013 Acquired acanthosis nigricans 01/10/2012 04/24/2014 Hirsutism 01/10/2012 04/24/2014 Abnormal weight gain 01/10/2012 04/24/2014 Arthralgia 01/10/2012 04/24/2014 documented as of this encounter (statuses as of 12/04/2019) Immunizations Name Administration Dates Next Due Influenza [...] Comments: smokes 3 x per day, quit 8/201 7, restarted 11/2016 Alcohol Use Drinks/Week oz/Week Comments No Estimated Date of Delivery Comments Yes 01/23/2020 Based on last menstr ual period of 04/18/2019 (Approximate) Sex Assigned at Date Recorded Not on file COVID-19 Exposure Response Date Recorded In the last month, have you been in contact with No / Unsure 12/04/2019 8:31 AM CDT someone who was confirmed or suspected to have Coronavirus / COVID-19? documented as of this encounter Last Filed Vital Signs Vital Sign Reading Time Taken Comments Blood Pressure 129/72 12/04/2019 8:32 AM CDT Pulse 75 12/04/2019 8:32 AM CDT Temperature 36.1 C (97 F) 12/04/2019 8:32 AM CDT Respiratory Rate 16 12/04/2019 8:32 AM CDT Oxygen Saturation - - Inhaled Oxygen Concentration - - Weight 117.2 kg (258 lb 5 oz) 12/04/2019 8:32 AM CDT Height 170.2 cm (5' 7") 12/04/2019 8:32 AM CDT Body Mass Index 40.46 12/04/2019 8:32 AM CDT documented in this encounter Progress Notes Delilah Pedroza, WHCNP - 12/04/2019 8:30 AM CDT Chief complaint: Chief Complaint Patient presents with Care HPI CC: Follow Up Visit Louann Love is a 24 year old, , /White female. Patient's last menstrual period was 04/18/2019 (approximate). She is 32w6d with an intrauterine . Her estimated date of delivery is 01/23/2020, by Last Menstrual Period. She complains today of: Cramps. She reports right lower quadrant cramps which started off and on for the past couple days. She rates cramp as 3/10. Associated symptom(s) include none. Symptoms are worse [...] file Gets together: Not on file Attends amish service: Not on file Active member of [...] Comment: Last intercourse: 06/01/2019 Labs No new labs and Routine Visit on 11/20/2019 Component Date Value POCT U SP GRAV 11/20/2019 . POCT PH U 11/20/2019 . POCT U LEUK EST 11/20/2019 . POCT U NIT 11/20/2019 . POCT U PROT 11/20/2019 Trace POCT U GLU 11/20/2019 Neg POCT U KETONE 11/20/2019 . POCT U UROBILI 11/20/2019 . POCT U BILI 11/20/2019 . POCT U BLD 11/20/2019 . Routine Visit on 11/06/2019 Component Date Value [...] 09/04/2019 . POCT U BLD 09/04/2019 . Radiology No new radiology. Allergies Louann has No Known Allergies. Medications Louann has a current medication list which includes the following prescription(s): [id number]-ifdunlliemgtl-trwg, cephalexin, magnesium oxide, aspirin, and vit/iron fum/folic ac. Review of Systems Constitutional: Negative. HENT: Negative. Eyes: Negative. Respiratory: Negative. Breasts: Negative. Cardiovascular: Negative. Gastrointestinal: Negative. Genitourinary: Negative. Musculoskeletal: Negative. Skin: Negative. Neurological: Negative. Psychiatric/Behavioral: Negative. Endocrine: Endocrine negative BP 129/72 (BP Location: Right arm, Patient Position: Sitting, BP CUFF SIZE: Adult Medium) | Pulse 75 | Temp 36.1 C (97 F) (Oral) | Resp 16 | Ht 5' 7" (1.702 m) | Wt 258 lb 5 oz (117.2 kg) | LMP 04/18/2019 (Approximate) | BMI 40.46 kg/m Pregravid BMI: 40.71 Physical Exam Vitals [...] Normal gravid Extremities: Normal Pelvic Exam: Uterus: 35 Weeks Assessment/Plan Return to clinic in 2 weeks. Denies zika virus risk, signs and symptoms such as fever,rash,joint pain, conjunctivitis (red eyes),muscle pain, headaches; outside [place] travel to areas affected by zika, and FOB exposure to zika. Educated on use of mosquito repellent. Supervision of high risk , antepartum (primary encounter diagnosis) History of pre-eclampsia History of section Comment: routine Plan: POCT URINALYSIS W SPECIFIC [...] and mental health on future pregnancies and/or ocean transportation intermediary health. Pain of round ligament affecting , antepartum Comment: reports Plan: comfort measures discussed This visit did not involve counseling and coordination that comprised more than 50% of the visit time. CARLOTA Zavala 12/04/2019 8:45 AM documented in this encounter Plan of Treatment Date Type Specialty Care Team Description 12/18/2019 Routine Visit OB Satellites Rita Pedroza WHCNP [address] [phone] Health Maintenance Due Date Last Done Comments [...] Associated Diagnosis Comme nts POCT URINALYSIS Routine 12/04/2019 8:34 AM Supervision of [facility] Results for this CDT risk , procedure ar e in antepartum the results section. documented in this encounter Results POCT URINALYSIS W SPECIFIC GRAVITY (12/04/2019 8:34 AM CDT) Pathologist Sig nature POCT U SP GRAV . 1.005 - 1.025 mg/dl POCT PH U . 5 - 8 mg/dl POCT U LEUK EST . Negative - Negative POCT U NIT . Negative - Negative POCT U PROT 3+ Negative - Negative POCT U GLU negative Negative - Negative POCT U KETONE . Negative - Negative POCT U UROBILI . 0.2 - 1 mg/dl POCT U BILI . Negative - Negative POCT U BLD . Negative - Negative POCT U COLOR POCT U APPEAR Specimen Urine - URINE, CLEAN CATCH documented in this encounter Visit Diagnoses Diagnosis Supervision of high risk , ante - Primary History of pre-eclampsia History of section Other postprocedural status Obesity in Obesity complicating , childbir th, or the puerperium, unspecified as to episode of care or not applicable Pain of round ligament affecting pregnan cy, antepartum documented in this encounter Insurance Payer Benefit Plan / Subscriber ID Effective Dates Phone Addre ss Type Group [facility] [id number] 2019-Present Medicaid COMM PLAN - MANAGED MEDICAID documented as of this encounter Advance Directives Type Date Recorded Patient Specifications Writer Explanati on Advance Directives and Living Will Power of Senior Assistant Manager Name Relationship Healthcare Agent Relationship Co mmunication Tonya Means Mother Health Care Agent Silvia Means Grandparent First [facility] Health Care Agent
--- OUTSIDE RECORDS SUMMARY | 2020-01-30 13:08 | XMS REPORT | Summary of Care ---
:1995 Author Organization [facility] Health Address [address] [place] [address] Care Team Providers Name Role Phone Ifeoma Pedroza [facility] Primary Care Provider Reason for Visit Reason Comments ROUTINE VISIT Encounter Details Date Type Department Care Team Description 01/14/2020 Routine [facility]- Kailee Mix upervision of high risk , antepartum (Primary Dx); Visit LENNOX Sumner History of section; [address] [place] (vaginal after ) trial; [address] [place] History of pre-eclampsia; [place], [place] Multiparity; [id number] Obesity in ; [phone] BMI 40.0-44.9, adult Allergies No Known Allergiesdocumented as of this encounter (statuses as of 01/14/2020) Medications Medication Sig Dispensed Refills Start Date [...] as of this encounter (statuses as of 01/14/2020) Active Problems Problem Noted Date Desires (vaginal after ) trial 12/20 Leakage of amniotic fluid 12/18/2019 Pain of round ligament during 12/04/2019 Pain of round ligament affecting , antepartum 11/20/2019 Pyelonephritis 08/26/2019 UTI in 07/08/2019 Overview: ARSLAN negative Elevated blood pressure reading without diagnosis of h ypertension 07/08/2019 BMI 40.0-44.9, adult 06/26/2019 Tubal ligation status 06/26/2019 Papanicolaou smear of cervix with low grade squamous i ntraepithelial 06/26/2019 lesion (LGSIL) History of section 06/03/2019 Overview: X1, desires In [place] in 2015 History of pre-eclampsia 06/03/2019 Overview: Reports with last Nonalcoholic steatohepatitis (DREW) 06/03/2019 Overview: Per patient report, reports managed with diet Multiparity 06/03/2019 History of depression 04/14/2015 Overview: Last time on meds was when she was 16 pe r patient Obesity in 04/14/2015 Supervision of high risk , antepartum 015 Overview: ICD10 Diagnosis Term Quill Skinner Utility History of anxiety 04/24/2014 Overview: Last on meds at age 16 per patient Estimated Date of Delivery Comments Yes 01/23/2020 Based on last menstr ual period of 04/18/2019 (Approximate) documented as of this encounter (statuses as of 01/14/2020) Resolved Problems Problem Noted Date Resolved Date No leakage of amniotic fluid into vagina 12/18/2019 12/18/2019 18 weeks gestation of 08/26/2019 10/02/19 20 LGSIL on Pap smear of cervix 06/06/2019 06/26/2019 Overview: Per ASCCP guidelines repeat cytolgy in 1 2 months GBS (group B streptococcus) UTI complicating 06/0506/26/2019 Overview: pending ARSLAN Abnormal maternal glucose tolerance, antepartum 06/04/2019 06/26/2019 Overview: Failed 1hr gtt, passed [id number] gtt History of diabetes mellitus 06/03/2019 06/26/2019 Overview: [...] 38 07/10/2014 03/20/2015 Overview: ICD10 Diagnosis Term Quill Skinner Utility Tobacco use disorder complicating , childbirth, or the 07/10/2014 04/14/2015 puerperium, delivered, with or without mention of antepartum condition Overview: Quit since last visit. History of miscarriage, currently 07/10/2014 03/20/2015 Asthma 07/10/2014 06/30/2019 Overview: ICD10 Diagnosis Term Quill Skinner Utility Surveillance of previously prescribed contraceptive pill 07/10/2014 PCOS (polycystic ovarian syndrome) 04/24/201406/25 Overview: Self DC'd at 12 weeks. Stop metformin at 15 weeks/ then get 1 hr gtt 2 weeks after that- Vasquez/ Dr. Beatty. Tiffani Jackson CNM 07/10/2014 2:26 PM Encounter for routine gynecological examination 04/24/2014 07/08/2014 Overview: ICD10 Diagnosis Term Quill Skinner Utility Morbid obesity 04/24/2014 08/05/2014 Tobacco use disorder 04/24/2014 07/10/2014 Elevated blood pressure reading without diagnosis of 015 07/10/2014 hypertension Depression 10/07/2012 01/13/2015 Nonalcoholic steatohepatitis (DREW) 09/10/2012 03/07/2014 Amenorrhea, primary 01/10/2012 05/08/2013 Acquired acanthosis nigricans 01/10/2012 04/24/2014 Hirsutism 01/10/2012 04/24/2014 Abnormal weight gain 01/10/2012 04/24/2014 Arthralgia 01/10/2012 04/24/2014 documented as of this encounter (statuses as of 01/14/2020) Immunizations Name Administration Dates Next Due Influenza [...] been in contact with No / Unsure 01/14/2020 8:44 AM HYDROGEN TREATER someone who was confirmed or suspected to have Coronavirus / COVID-19? documented as of this encounter Last Filed Vital Signs Vital Sign Reading Time Taken Comments Blood Pressure 137/85 01/14/2020 8:45 AM HYDROGEN TREATER Pulse 81 01/14/2020 8:45 AM HYDROGEN TREATER Temperature 37 C (98.6 F) 01/14/2020 8:45 AM HYDROGEN TREATER Respiratory Rate 16 01/14/2020 8:45 AM HYDROGEN TREATER Oxygen Saturation - - Inhaled Oxygen Concentration - - Weight 120.7 kg (266 lb) 01/14/2020 8:45 AM HYDROGEN TREATER Height 170.2 cm (5' 7") 01/14/2020 8:45 AM HYDROGEN TREATER Body Mass Index 41.66 01/14/2020 8:45 AM HYDROGEN TREATER documented in this encounter Progress Notes Kailee Mix, LENNOX - 01/14/2020 8:30 AM CST Chief complaint: Chief Complaint Patient presents with ROUTINE VISIT HPI CC: Follow Up Visit Louann Love is a 24 year old, , /White female. Patient's last menstrual period was 04/18/2019 (approximate). She is 38w5d with an intrauterine . Her estimated date of delivery is 01/23/2020, by Last Menstrual Period. She has no complaints today. She reports +FM anddenies contractions, LOF and bleeding today. Reviewed OB/ER, PIH, labor and movement precautions. Encouraged patient to go to [facility] for any signs and symptoms of labor (regular contractions, LOF, vaginal bleeding or decrease movement. Patient denies current or past physical, sexual or emotional abuse. Histories OB History Para Term AB Living [...] denies current depression, diagnosed by Diabetes mellitus 2006 Type 2. not on meds; states that [...] date: 10/12/2007 Quit date: 05/21/2019 Years since quittin.6 Smokeless tobacco: Never Used Tobacco comment: smokes [...] file Gets together: Not on file Attends bahai service: Not on file Active member of [...] Last intercourse: 06/01/2019 Labs No new labs Radiology No new radiology. Allergies Louann has No Known Allergies. Medications Louann has a current medication list which includes the following prescription(s): xojfbawxpo-cpymnkauvjnxj-mwao, cephalexin, magnesium oxide, aspirin, and vit/iron fum/folic ac. Review of Systems Eyes: Negative for visual disturbance. Cardiovascular: Negative for leg swelling. Gastrointestinal: Negative for abdominal pain, nausea and vomiting. Genitourinary: Negative for vaginal bleeding, vaginal discharge and pelvic pain. Neurological: Negative for headaches. BP 137/85 (BP Location: Right arm, Patient Position: Sitting, BP CUFF SIZE: Adult Medium) | Pulse 81 | Temp 37 C (98.6 F) (Oral) | Resp 16 | Ht 5' 7" (1.702 m) | Wt 266 lb (120.7 kg) | LMP 04/18/2019 (Approximate) | BMI 41.66 kg/m Pregravid BMI: 40.71 Physical Exam PHYSICAL: General Exam: Neurological: Normal Abdomen: Normal Extremities: Normal Pelvic Exam: Uterus: 39cm Weeks Assessment/Plan Supervision of high risk , antepartum (primary encounter diagnosis) History of section Desires (vaginal after ) trial History of pre-eclampsia Multiparity Comment: Routine Visit Plan: POCT URINALYSIS W SPECIFIC GRAVITY Denies zika virus risk, signs and symptoms such as fever,rash,joint pain, conjunctivitis (red eyes), muscle pain, headaches; outside [place] travel to areas affected by zika, and FOB exposure to zika.Educated on use of mosquito repellent. Covid x12 screening done, screening results are negative. Obesity in BMI 40.0-44.9, adult Comment: BMI: 41.66 Plan: Patient encouraged to limit weight gain and advised to eat healthy diet, fruits, vegetables, increased fiber and water intake and protein low in fat. Encouraged exercise for 30 min everyday; begin regimen with caution to prevent injury. Encouraged to decrease BMI to <25. Patient educated onthe effects of chronic health problems of obesity on future pregnancies and/or termite control servicer health. Return to clinic in 3 weeks for PP visit. Discussed treatment options. Medications as ordered. Reviewed patient instructions and provided printed copy. This visit did not involve counseling and coordination that comprised more than 50% of the visit time. LENNOX Thomas 01/14/2020 9:08 AM OGEN TREATER documented in this encounter Plan of Treatment Health Maintenance Due Date Last Done Comments HPV VACCINES (1 - 2-dose 05/24/2020 Postpon ed from series) 07/20/2006 (Preg nant or ) Depression Screening 12/17/2020 12/18/2019 CHLAMYDIA SCREENING 12/28/2020 12/29/2019, 12/18/2019, 06/03/2019, Additional history exists PAP SMEAR 06/02/2022 06/03/2019, 01/16/2017, 10/11/2016 DTaP,Tdap,and Td Vaccines 11/05/2029 11/06/2019, 12/16/2014 , (4 - Td) 02/20/2008 INFLUENZA VACCINE Completed 11/06/2019, 07/08/2014 PNEUMOCOCCAL 0-64 YEARS Aged Out No longe r eligible COMBINED SERIES based on patient 's age to complete this topic documented as of this encounter Procedures Procedure Name Priority Date/Time Associated Diagnosis Comme nts POCT URINALYSIS Routine 01/14/2020 Supervision of high risk Results for this , antepartum proced ure are in the results section . documented in this encounter Results POCT URINALYSIS W SPECIFIC GRAVITY (01/14/2020) Pathologist Sig nature POCT U SP GRAV . 1.005 - 1.025 mg/dl POCT PH U . 5 - 8 mg/dl POCT U LEUK EST . Negative - Negative POCT U NIT . Negative - Negative POCT U PROT 2+ Negative - Negative POCT U GLU trace Negative - Negative POCT U KETONE . [...] Primary History of section Other postprocedural status Desires (vaginal after glynn an) trial Previous delivery, unspecified as to episode of care or not applicable History of pre-eclampsia Multiparity Obesity in Obesity complicating , childbir th, or the puerperium, unspecified as to episode of care or not applicable BMI 40.0-44.9, adult Body Mass Index 40.0-44.9, adult documented in this encounter Insurance Payer Benefit Plan / Subscriber ID Effective Dates Phone Addre Type Group [facility] [id number] 2019-Present Medicaid [facility] PLAN - MANAGED MEDICAID documented as of this encounter Advance Directives Type Date Recorded Patient Tester/Lift Trucker Explanati on Advance Directives and Living Will Power of Accountant Property Name Relationship Healthcare Agent Relationship Co mmunication Tonya Means Mother Health Care Agent Silvia Means Grandparent First Alternate Health Care Agent
--- OUTSIDE RECORDS SUMMARY | 2020-01-30 13:08 | XMS REPORT | Summary of Care ---
:1995 Author Organization [facility] Health Address [address] [place] [id number] Care Team Providers Name Role Phone Ifeoma Pedroza [facility] Primary Care Provider Reason for Visit Reason Comments ROUTINE VISIT Encounter Details Date Type Department Care Team Description 12/29/2019 Routine [facility]- Kailee Mix upervision of high risk , antepartum (Primary Dx); Visit LENNOX Sumner History of section; [address] [place] (vaginal after ) trial; [address] History of pre-eclampsia; [place], [place] Multiparity; [id number] Viral disease exposure; [phone] Obesity in Allergies No Known Allergiesdocumented as of this encounter (statuses as of 12/29/2019) Medications Medication Sig Dispensed Refills Start Date [...] as of this encounter (statuses as of 12/29/2019) Active Problems Problem Noted Date Leakage of amniotic fluid 12/18/2019 Pain of [...] of section 06/03/2019 Overview: X1, desires In [place] in 2016 History of pre-eclampsia 06/03/2019 Overview: [...] as of this encounter (statuses as of 12/29/2019) Resolved Problems Problem Noted Date Resolved Date No leakage of amniotic fluid into vagina 12/18/2019 12/18/2019 18 weeks gestation of 08/26/2019 10/02/19 20 LGSIL on Pap smear of cervix 06/06/2019 06/26/2019 Overview: Per ASCCP guidelines repeat cytolgy in 1 2 months GBS (group B streptococcus) UTI complicating 06/0506/26/2019 Overview: pending ARSLAN Abnormal maternal glucose tolerance, antepartum 06/04/2019 06/26/2019 Overview: Failed 1hr gtt, passed [id number] gtt Multiparity 06/03/2019 06/26/2019 History of diabetes [...] 38 07/10/2014 03/20/2015 Overview: ICD10 Diagnosis Term Cake Inspector Utility Tobacco use disorder complicating , childbirth, or the 07/10/2014 04/14/2015 puerperium, delivered, with or without mention of antepartum condition Overview: Quit since last visit. Supervision of other high-risk 07/10/2014 03/20/2015 Overview: ICD10 Diagnosis Term Cake Inspector Utility History of miscarriage, currently 07/10/2014 03/20/2015 Asthma 07/10/2014 06/30/2019 Overview: ICD10 Diagnosis Term Cake Inspector Utility Surveillance of previously prescribed contraceptive pill 07/10/2014 PCOS (polycystic ovarian syndrome) 04/24/201406/25 Overview: Self DC'd at 12 weeks. Stop metformin at 15 weeks/ then get 1 hr gtt 2 weeks after that- Vasquez/ Dr. Beatty. Tiffani Jackson CNM 07/10/2014 2:26 PM Encounter for routine gynecological examination 04/24/2014 07/08/2014 Overview: ICD10 Diagnosis Term Cake Inspector Utility Morbid obesity 04/24/2014 08/05/2014 Tobacco use disorder 04/24/2014 07/10/2014 Elevated blood pressure reading without diagnosis of 015 07/10/2014 hypertension Depression 10/07/2012 01/13/2015 Nonalcoholic steatohepatitis (DREW) 09/10/2012 0307/2014 Amenorrhea, primary 01/10/2012 05/08/2013 Acquired acanthosis nigricans 01/10/2012 04/24/2014 Hirsutism 01/10/2012 04/24/2014 Abnormal weight gain 01/10/2012 04/24/2014 Arthralgia 01/10/2012 04/24/2014 documented as of this encounter (statuses as of 12/29/2019) Immunizations Name Administration Dates Next Due Influenza [...] been in contact with No / Unsure 12/29/2019 8:16 AM TOWER HELPER someone who was confirmed or suspected to have Coronavirus / COVID-19? documented as of this encounter Last Filed Vital Signs Vital Sign Reading Time Taken Comments Blood Pressure 132/87 12/29/2019 8:16 AM TOWER HELPER Pulse 76 12/29/2019 8:16 AM TOWER HELPER Temperature 36.4 C (97.5 F) 12/29/2019 8:16 AM TOWER HELPER Respiratory Rate 16 12/29/2019 8:16 AM TOWER HELPER Oxygen Saturation - - Inhaled Oxygen Concentration - - Weight 120.2 kg (264 lb 14.4 oz) 12/29/2019 8:16 AM TOWER HELPER Height 170.2 cm (5' 7") 12/29/2019 8:16 AM TOWER HELPER Body Mass Index 41.49 12/29/2019 8:16 AM TOWER HELPER documented in this encounter Progress Notes Kailee Mix, LENNOX - 12/29/2019 8:00 AM CST Chief complaint: Chief Complaint Patient presents with ROUTINE VISIT HPI CC: Follow Up Visit Louann Love is a 24 year old, , /White female. Patient's last menstrual period was 04/18/2019 (approximate). She is 36w3d with an intrauterine . Her estimated date of delivery is 01/23/2020, by Last Menstrual Period. She has no complaints today. Reviewed OB/ER, PIH, labor and movement precautions. Encouraged patient to go to [facility] for any signs and symptoms of labor [...] file Gets together: Not on file Attends gnosticist service: Not on file Active member of [...] control/protection: None Comment: Last intercourse: 06/01/2019 Labs Labs are pending. Radiology No new radiology. Allergies Louann has No Known Allergies. Medications Louann has a current medication list which includes the following prescription(s): [id number]-[id number], cephalexin, magnesium oxide, aspirin, and vit/iron fum/folic ac. Review of Systems Eyes: Negative for visual disturbance. Cardiovascular: Negative for leg swelling. Gastrointestinal: Negative for abdominal pain, nausea and vomiting. Genitourinary: Negative for vaginal bleeding, vaginal discharge and pelvic pain. Neurological: Negative for headaches. BP 132/87 (BP Location: Right arm, Patient Position: Sitting, BP CUFF SIZE: Adult Large) | Pulse 76 | Temp 36.4 C (97.5 F) (Oral) | Resp 16 | Ht 5' 7" (1.702 m) | Wt 264 lb 14.4 oz (120.2 kg)| LMP 04/18/2019 (Approximate) | BMI 41.49 kg/m Pregravid BMI: 40.71 Physical Exam PHYSICAL: General Exam: Neurological: Normal Abdomen: Normal Extremities: Normal Pelvic Exam: Vagina: Undercollar Baster present for the exam: LENNOX Laboy student Cervix: CLOSED/50/-3 Uterus: 38cm Weeks Assessment/Plan Supervision of high risk , antepartum (primary encounter diagnosis) History of section [place] (vaginal after ) trial History of pre-eclampsia Multiparity Comment: Routine Visit Plan: CBC WITH DIFF, GC & CHLAMYDIA AMPLIFIED ASSAY, GROUP B STREPTOCOCCUS BY PCR, POCT URINALYSIS W SPECIFIC GRAVITY Denies zika virus risk, signs and symptoms such as fever,rash,joint pain, conjunctivitis (red eyes), muscle pain, headaches; outside [place] travel to areas affected by zika, and FOB exposure to zika.Educated on use of mosquito repellent. Covid x12 screening done, screening results are negative. Viral disease exposure Comment: per protocol Plan: SARS-COV-2 IGG Obesity in Comment: BMI: 41.49 Plan: Patient encouraged to limit weight gain and advised to eat healthy diet, fruits, vegetables, increased fiber and water intake and protein low in fat. Encouraged exercise for 30 min everyday; begin regimen with caution to prevent injury. Encouraged to decrease BMI to <25. Patient educated onthe effects of chronic health problems of obesity on future pregnancies and/or manager long term care health. Return to clinic in 1 weeks. Discussed treatment options. Medications as ordered. Reviewed patient instructions and provided printed copy. This visit did not involve counseling and coordination that comprised more than 50% of the visit time. LENNOX Thomas 12/29/2019 8:34 AM R HELPER documented in this encounter Plan of Treatment Name Type Priority Associated Diagnoses Date/Ti me CBC WITH DIFF LAB Routine Supervision of high risk 8:15 AM , antepartum TOWER HELPER GC & CHLAMYDIA AMPLIFIED LAB Routine Supervision of h igh risk 12/29/2019 8:15 AM ASSAY , antepartum TOWER HELPER GROUP B STREPTOCOCCUS BY LAB Routine Supervision of h igh risk 12/29/2019 8:15 AM PCR , antepartum TOWER HELPER SARS-COV-2 IGG LAB Routine Viral disease exposure 10/2019 8:15 AM TOWER HELPER Health Maintenance Due Date Last Done Comments HPV VACCINES (1 - 2-dose 05/24/2020 Postpon ed from series) 07/20/2006 (Preg nant or ) CHLAMYDIA SCREENING 12/17/2020 12/18/2019, 06/03/2019, 01/24/2019, Additional history exists Depression Screening 12/17/2020 12/18/2019 PAP SMEAR 06/02/2022 06/03/2019, 01/16/2017, 10/11/2016 DTaP,Tdap,and Td Vaccines 11/05/2029 11/06/2019, 12/16/2014 , (4 - Td) 02/20/2008 INFLUENZA VACCINE Completed 11/06/2019, 07/08/2014 PNEUMOCOCCAL 0-64 YEARS Aged Out No longe r eligible COMBINED SERIES based on patient 's age to complete this topic documented as of this encounter Procedures Procedure Name Priority Date/Time Associated Diagnosis Comme nts POCT URINALYSIS Routine 12/29/2019 Supervision of high risk Results for this , antepartum proced ure are in the results section . documented in this encounter Results POCT URINALYSIS W SPECIFIC GRAVITY (12/29/2019) Pathologist Sig nature POCT U SP GRAV . 1.005 - 1.025 mg/dl POCT PH U . 5 - 8 mg/dl POCT U LEUK EST . Negative - Negative POCT U NIT . Negative - Negative POCT U PROT 1+ Negative - Negative POCT U GLU neg Negative - Negative POCT U KETONE . [...] or not applicable History of pre-eclampsia Multiparity Viral disease exposure Contact with or exposure to other viral diseases Obesity in Obesity complicating , childbir th, or the puerperium, unspecified as to episode of care or not applicable documented in this encounter Insurance Payer Benefit Plan / Subscriber ID Effective Dates Phone Addre ss Type Group [facility] STAR [id number] 2019-Present Medicaid COMM PLAN - MANAGED MEDICAID documented as of this encounter Advance Directives Type Date Recorded Patient Licensed Audiologist Explanati on Advance Directives and Living Will Power of Field Investigator Name Relationship Healthcare Agent Relationship Co mmunication Tonya Means Mother Health Care Agent Silvia Means Grandparent [facility] Health Care Agent
--- OUTSIDE RECORDS SUMMARY | 2020-01-30 13:08 | XMS REPORT | Summary of Care ---
:1995 Author Organization [facility] Health Address [address] [place] [address] Care Team Providers Name Role Phone Ifeoma Pedroza [facility] Primary Care Provider Reason for Visit Reason Comments ROUTINE VISIT Encounter Details Date Type Department Care Team Description 01/08/2020 Routine [facility]- Kailee Mix upervision of high risk , antepartum (Primary Dx); Visit LENNOX Sumner History of section; [address] [place] (vaginal after ) trial; [address] History of pre-eclampsia; [place], [place]ip[place]; [id number] Obesity in ; [phone] BMI 40.0-44.9, adult Allergies No Known Allergiesdocumented as of this encounter (statuses as of 01/08/2020) Medications Medication Sig Dispensed Refills Start Date [...] as of this encounter (statuses as of 01/08/2020) Active Problems Problem Noted Date Desires (vaginal [...] of section 06/03/2019 Overview: X1, desires In [place] in 2015 History of pre-eclampsia 06/03/2019 Overview: Reports with last Nonalcoholic steatohepatitis (DREW) 06/03/2019 Overview: Per patient report, reports managed with diet Multiparity 06/03/2019 History of depression 04/14/2015 Overview: Last time on meds was when she was 16 pe r patient Obesity in 04/14/2015 Supervision of high risk , antepartum 015 Overview: ICD10 Diagnosis Term Coal Shoveler Utility History of anxiety 04/24/2014 Overview: Last on meds at age 16 per patient Estimated Date of Delivery Comments Yes 01/23/2020 Based on last menstr ual period of 04/18/2019 (Approximate) documented as of this encounter (statuses as of 01/08/2020) Resolved Problems Problem Noted Date Resolved Date No leakage of amniotic fluid into vagina 12/18/2019 12/18/2019 18 weeks gestation of 08/26/2019 10/02/19 20 LGSIL on Pap smear of cervix 06/06/2019 06/26/2019 Overview: Per ASCCP guidelines repeat cytolgy in 1 2 months GBS (group B streptococcus) UTI complicating 06/0506/26/2019 Overview: pending ARSLAN Abnormal maternal glucose tolerance, antepartum 06/04/2019 06/26/2019 Overview: Failed 1hr gtt, passed [id number] gtt History of diabetes mellitus 06/03/2019 06/26/2019 [...] 38 07/10/2014 03/20/2015 Overview: ICD10 Diagnosis Term Coal Shoveler Utility Tobacco use disorder complicating , childbirth, or the 07/10/2014 04/14/2015 puerperium, delivered, with or without mention of antepartum condition Overview: Quit since last visit. History of miscarriage, currently 07/10/2014 03/20/2015 Asthma 07/10/2014 06/30/2019 Overview: ICD10 Diagnosis Term Coal Shoveler Utility Surveillance of previously prescribed contraceptive pill 07/10/2014 PCOS (polycystic ovarian syndrome) 04/24/201406/25 Overview: Self DC'd at 12 weeks. Stop metformin at 15 weeks/ then get 1 hr gtt 2 weeks after that- Vasquez/ Dr. Beatty. Tiffani Jackson CNM 07/10/2014 2:26 PM Encounter for routine gynecological examination 04/24/2014 07/08/2014 Overview: ICD10 Diagnosis Term Coal Shoveler Utility Morbid obesity 04/24/2014 08/05/2014 Tobacco use disorder 04/24/2014 07/10/2014 Elevated blood pressure reading without diagnosis of 015 07/10/2014 hypertension Depression 10/07/2012 01/13/2015 Nonalcoholic steatohepatitis (DREW) 09/10/2012 03/07/2014 Amenorrhea, primary 01/10/2012 05/08/2013 Acquired acanthosis nigricans 01/10/2012 04/24/2014 Hirsutism 01/10/2012 04/24/2014 Abnormal weight gain 01/10/2012 04/24/2014 Arthralgia 01/10/2012 04/24/2014 documented as of this encounter (statuses as of 01/08/2020) Immunizations Name Administration Dates Next Due Influenza [...] been in contact with No / Unsure 01/08/2020 9:05 AM MANAGER FUNCTIONAL someone who was confirmed or suspected to have Coronavirus / COVID-19? documented as of this encounter Last Filed Vital Signs Vital Sign Reading Time Taken Comments Blood Pressure 129/83 01/08/2020 9:06 AM MANAGER FUNCTIONAL Pulse 76 01/08/2020 9:06 AM MANAGER FUNCTIONAL Temperature 36.8 C (98.2 F) 01/08/2020 9:06 AM MANAGER FUNCTIONAL Respiratory Rate 16 01/08/2020 9:06 AM MANAGER FUNCTIONAL Oxygen Saturation - - Inhaled Oxygen Concentration - - Weight 121.2 kg (267 lb 4.8 oz) 01/08/2020 9:06 AM MANAGER FUNCTIONAL Height 170.2 cm (5' 7") 01/08/2020 9:06 AM MANAGER FUNCTIONAL Body Mass Index 41.87 01/08/2020 9:06 AM MANAGER FUNCTIONAL documented in this encounter Progress Notes Kailee Mix, LENNOX - 01/08/2020 8:45 AM CST Chief complaint: Chief Complaint Patient presents with ROUTINE VISIT HPI CC: Follow Up Visit Louann Love is a 24 year old, , /White female. Patient's last menstrual period was 04/18/2019 (approximate). She is 37w6d with an intrauterine . Her estimated date of delivery is 01/23/2020, by Last Menstrual Period. She has no complaints today. She reports +FM anddenies contractions, LOF and bleeding today. Reviewed OB/ER, PIH, labor and movement precautions. Encouraged patient to go to [facility] for any signs and symptoms [...] file Gets together: Not on file Attends gnosticism service: Not on file Active member of [...] medication list which includes the following prescription(s): [id number]-hqhpibilqrorn-jsme, cephalexin, magnesium oxide, aspirin, and vit/iron fum/folic ac. Review of Systems Eyes: Negative for visual disturbance. Cardiovascular: Negative for leg swelling. Gastrointestinal: Negative for abdominal pain, nausea and vomiting. Genitourinary: Negative for vaginal bleeding, vaginal discharge and pelvic pain. Neurological: Negative for headaches. BP 129/83 (BP Location: Right arm, Patient Position: Sitting, BP CUFF SIZE: Adult Medium) | Pulse 76 | Temp 36.8 C (98.2 F) (Oral) | Resp 16 | Ht 5' 7" (1.702 m) | Wt 267 lb 4.8 oz (121.2 kg)| LMP 04/18/2019 (Approximate) | BMI 41.87 kg/m Pregravid BMI: 40.71 Physical Exam PHYSICAL: General Exam: Neurological: Normal Abdomen: Normal Extremities: Normal Pelvic Exam: Membrane status: Intact Uterus: 39cm Weeks Assessment/Plan Supervision of high [...] zika. Educated on use of mosquito repellent. Covid x12 screening done, screening results are negative. Obesity in BMI 40.0-44.9, adult Comment: BMI: 41.87 Plan: Patient encouraged to limit weight gain and advised to eat healthy diet, fruits, vegetables, increased fiber and water intake and protein low in fat. Encouraged exercise for 30 min everyday; begin regimen with caution to prevent injury. Encouraged to decrease BMI to <25. Patient educated onthe effects of chronic health problems of obesity on future pregnancies and/or jail health. Return to clinic in 1 weeks. Discussed treatment options. Medications as ordered. Reviewed patient instructions and provided printed copy. This visit did not involve counseling and coordination that comprised more than 50% of the visit time. LENNOX Thomas 01/08/2020 9:35 AM GER FUNCTIONAL documented in this encounter Plan of Treatment [...] Associated Diagnosis Comme nts POCT URINALYSIS Routine 01/08/2020 Supervision of high risk Results for this , antepartum proced ure are in the results section . documented in this encounter Results POCT URINALYSIS W SPECIFIC GRAVITY (01/08/2020) Pathologist Sig nature POCT U SP GRAV . 1.005 - 1.025 mg/dl POCT PH U . 5 - 8 mg/dl POCT U LEUK EST . Negative - Negative POCT U NIT . Negative - Negative POCT U PROT 2+ Negative - Negative POCT U GLU neg [...] Effective Dates Phone Addre ss Type Group [facility] STAR [id number] 2019-Present Medicaid COMM PLAN - MANAGED MEDICAID documented as of this encounter Advance Directives Type Date Recorded Patient Elevator Examiner And Adjuster Explanati on Advance Directives and Living Will Power of Business And Services Instructor Name Relationship Healthcare Agent Relationship Co mmunication Tonya Means Mother Health Care Agent Silvia Means Grandparent [facility] Agent
--- OUTSIDE RECORDS SUMMARY | 2020-01-30 13:08 | XMS REPORT | Summary of Care ---
:1995 Author Organization [facility] - Health Address [address] [place] [address] Care Team Providers Name Role Phone Ifeoma Pedroza [facility] Primary Care Provider Reason for Visit Reason Comments Care Encounter Details Date Type Department Care Team Description 12/18/2019 [facility]asia, Yareli vision of high risk , antepartum (Primary Dx); Visit Maite Dia SCARLETT Viral disease exposure; [address] [place] [address] Histor y of section; Street History of pre-eclampsia; [place], [place] G[place] A Obesity in ; [address] [place], [place] Leakage of amniotic fluid [phone] Allergies No Known Allergiesdocumented as of this encounter (statuses as of 12/18/2019) Medications Medication Sig Dispensed Refills Start Date [...] as of this encounter (statuses as of 12/18/2019) Active Problems Problem Noted Date Leakage of [...] of section 06/03/2019 Overview: X1, desires In [place] in 2015 History of pre-eclampsia 06/03/2019 Overview: [...] as of this encounter (statuses as of 12/18/2019) Resolved Problems Problem Noted Date Resolved Date No leakage of amniotic fluid into vagina 12/18/2019 12/18/2019 18 weeks gestation of 08/26/2019 10/02/19 20 LGSIL on Pap smear of cervix 06/06/2019 06/26/2019 Overview: Per ASCCP guidelines repeat cytolgy in 1 2 months GBS (group B streptococcus) UTI complicating 06/0506/26/2019 Overview: pending ARSLAN Abnormal maternal glucose tolerance, antepartum 06/04/2019 06/26/2019 Overview: Failed 1hr gtt, passed [id number] gtt Multiparity 06/03/2019 06/26/2019 History of diabetes [...] 38 07/10/2014 03/20/2015 Overview: ICD10 Diagnosis Term Order Entry Administrator Utility Tobacco use disorder complicating , childbirth, or the 07/10/2014 04/14/2015 puerperium, delivered, with or without mention of antepartum condition Overview: Quit since last visit. Supervision of other high-risk 07/10/2014 03/20/2015 Overview: ICD10 Diagnosis Term Order Entry Administrator Utility History of miscarriage, currently 07/10/2014 03/20/2015 Asthma 07/10/2014 06/30/2019 Overview: ICD10 Diagnosis Term Order Entry Administrator Utility Surveillance of previously prescribed contraceptive pill 07/10/2014 PCOS (polycystic ovarian syndrome) 04/24/201406/25 Overview: Self DC'd at 12 weeks. Stop metformin at 15 weeks/ then get 1 hr gtt 2 weeks after that- Vasquez/ Dr. Beatty. Tiffani Jackson CNM 07/10/2014 2:26 PM Encounter for routine gynecological examination 04/24/2014 07/08/2014 Overview: ICD10 Diagnosis Term Order Entry Administrator Utility Morbid obesity 04/24/2014 08/05/2014 Tobacco use disorder 04/24/2014 07/10/2014 Elevated blood pressure reading without diagnosis of 015 07/10/2014 hypertension Depression 10/07/2012 01/13/2015 Nonalcoholic steatohepatitis (DREW) 09/10/2012 0307/2014 Amenorrhea, primary 01/10/2012 05/08/2013 Acquired acanthosis nigricans 01/10/2012 04/24/2014 Hirsutism 01/10/2012 04/24/2014 Abnormal weight gain 01/10/2012 04/24/2014 Arthralgia 01/10/2012 04/24/2014 documented as of this encounter (statuses as of 12/18/2019) Immunizations Name Administration Dates Next Due Influenza [...] been in contact with No / Unsure 12/18/2019 8:05 AM CDT someone who was confirmed or suspected to have Coronavirus / COVID-19? documented as of this encounter Last Filed Vital Signs Vital Sign Reading Time Taken Comments Blood Pressure 118/64 12/18/2019 8:26 AM CDT Pulse - - Temperature 36.8 C (98.2 F) 12/18/2019 8:26 AM CDT Respiratory Rate 16 12/18/2019 8:26 AM CDT Oxygen Saturation - - Inhaled Oxygen Concentration - - Weight 119 kg (262 lb 4 oz) 12/18/2019 8:26 AM CDT Height 170.2 cm (5' 7") 12/18/2019 8:26 AM CDT Body Mass Index 41.07 12/18/2019 8:26 AM CDT documented in this encounter Progress Notes Delilah Pedroza, WHCNP - 12/18/2019 8:00 AM CDT Chief complaint: Chief Complaint Patient presents with Care HPI: CC: Follow Up Visit Louann Love is a 24 year old, , /White female. Patient's last menstrual period was 04/18/2019 (approximate). She is 34w6d with an intrauterine . Her estimated date of delivery is 01/23/2020, by Last Menstrual Period. She complains today of: Leaking fluid per vagina. She reports leaking of clear, malodorous fluid per vagina estimated to beabout scant and uses 0 pads per day. Leaking of fluid per vagina has been occurring for off and onfor the past couple weeks. Associated symptom(s) include none. Symptoms are worse with none.. She reports +FM and denies contractions, She reports LOF and denies bleeding today. Histories OB History Para Term AB Living 3 1 1 0 1 1 SAB TAB Ectopic Multiple Live Births 1 0 0 0 1 # Outcome Date GA Lbr Chuy/2nd Weight Sex Delivery Anes PTL Lv 3 Current 2 Term 02/27/15 39w0d 7 lb 6.3 oz (3.355 kg) F SEC EPI MXAI Comments: 1st screen collected on 03/01/15 showed [...] file Gets together: Not on file Attends jehovah's witness service: Not on file Active member of [...] No new labs and Routine Visit on 12/04/2019 Component Date Value POCT U SP GRAV 12/04/2019 . POCT PH U 12/04/2019 . POCT U LEUK EST 12/04/2019 . POCT U NIT 12/04/2019 . POCT U PROT 12/04/2019 3+ POCT U GLU 12/04/2019 negative POCT U KETONE 12/04/2019 . POCT U UROBILI 12/04/2019 . POCT U BILI 12/04/2019 . POCT U BLD 12/04/2019 . Routine Visit on 11/20/2019 Component Date Value [...] 10/02/2019 . POCT U BLD 10/02/2019 . Radiology No new radiology. Allergies Louann has No Known Allergies. Medications Louann has a current medication list which includes the following prescription(s): ggdgavlprf-ygkwqtsulaxep-mhzl, cephalexin, magnesium oxide, aspirin, and vit/iron fum/folic ac. Review of Systems BP 118/64 | Temp 36.8 C (98.2 F) (Oral) | Resp 16 | Ht 5' 7" (1.702 m) | Wt 262 lb 4 oz (119kg) | LMP 04/18/2019 (Approximate) | BMI 41.07 kg/m Pregravid BMI: 40.71 Physical Exam Vitals reviewed. Constitutional: She is oriented to person, place, and time. She appears well- developed and well-nourished. Her body habitus is normal. Cardiovascular: Regular rate and rhythm. Pulmonary/Chest: Normal inspiratory effort. Neuro/Psychiatric: She has a normal mood and affect. She is oriented to person, place, and time. Genitourinary Comments: Ebun medstudent present during exam External genitalia: Normal external genitalia appropriate for age. Normal hair distribution. No labial lesion. Urethral meatus: Normal urethral meatus size, location and no lesion. No prolapse present. Normal urethral meatus Urethra: Normal urethra. No urethral tenderness, no mass and no urethral scarring palpated. Bladder: Bladder has no fullness, no mass palpated and no tenderness. Normal bladder Vagina:No lesion inspected. Normal estrogen effect. Normal support. Vaginal discharge found. No lesions in the vagina. +nitrazine paper test, +vaginal discharge Cervix: Normal cervix. No lesion. No tenderness and no discharge present. Uterus: Uterus is normal size, normal contour, normal position and non-tender. Normal uterus Adnexa: Right adnexa without tenderness, ovary enlargement or mass. Left adnexa without tenderness, ovary enlargement or mass. Normal left adnexa and normal right adnexa Assessment/Plan Return to clinic in 1 weeks. Report to L&D for evaluation, report called and given to Liza LOPEZ Denies zika virus risk, signs and symptoms such as fever,rash,joint pain, conjunctivitis (red eyes),muscle pain, headaches; outside [place] travel to areas affected by zika, and FOB exposure to zika. Educated on use of mosquito repellent. Supervision of high risk , antepartum (primary encounter diagnosis) History of section History of pre-eclampsia Comment: routine Plan: POCT URINALYSIS W SPECIFIC GRAVITY, CBC WITH DIFF, GC & CHLAMYDIA AMPLIFIED ASSAY, GROUP B STREPTOCOCCUS BY PCR Viral disease exposure Comment: future ordered Plan: SARS-COV-2 IGG Obesity in Comment: see bmi Plan: BMI [...] and mental health on future pregnancies and/or emt intermediate health. Leakage of amniotic fluid Comment: reports off and on leakage, she reports that she notices her underwear is wet at times, denies all other associated symptoms today Plan: report to L&D for further evaluation This visit did not involve counseling and coordination that comprised more than 50% of the visit time. CARLOTA Zavala 12/18/2019 8:42 AM documented in this encounter Plan of Treatment Date Type Specialty Care Team Description 12/29/2019 Routine Visit [facility] Satellites Adrien Mix, PLANNING AND ANALYSIS MANAGER [address] [address] [phone] Name Type Priority Associated Diagnoses Order S chedule CBC WITH DIFF LAB Routine Supervision of high risk Ex pected: 12/18/2019, , antepartum s: 12/17/2020 GC & CHLAMYDIA AMPLIFIED LAB Routine Supervision of h igh risk Expected: 12/18/2019, ASSAY , antepartum s: 12/17/2020 GROUP B STREPTOCOCCUS BY LAB Routine Supervision of h igh risk Expected: 12/18/2019, PCR , antepartum s: 12/17/2020 SARS-COV-2 IGG LAB Routine Viral disease exposure Exp ected: 12/18/2019, Expires: 2020 Health Maintenance Due Date Last Done Comments HPV VACCINES (1 - 2-dose 05/24/2020 Postpon ed from series) 07/20/2006 (Preg nant or ) CHLAMYDIA SCREENING 06/02/2020 06/03/2019, 01/24/2019, 10/11/2016, Additional history exists Depression Screening 12/17/2020 12/18/2019 [...] Associated Diagnosis Comme nts POCT URINALYSIS Routine 12/18/2019 8:31 AM Supervision of [facility] h Results for this CDT risk , procedure ar e in antepartum the results section. documented in this encounter Results POCT URINALYSIS W SPECIFIC GRAVITY (12/18/2019 8:31 AM CDT) Pathologist Sig nature POCT U [...] of high risk , ante - Primary Viral disease exposure Contact with or exposure to other viral diseases History of section Other postprocedural status History of pre-eclampsia Obesity in Obesity complicating , childbir th, or the puerperium, unspecified as to episode of care or not applicable Leakage of amniotic fluid Premature rupture of membranes in pregna ncy, unspecified as to episode of care documented in this encounter Insurance Payer Benefit Plan / Subscriber ID Effective Dates Phone Addre ss Type Group [facility] STAR [id number] 2019-Present Medicaid COMM PLAN - MANAGED MEDICAID documented as of this encounter Advance Directives Type Date Recorded Patient Metal Tile Lather Explanati on Advance Directives and Living Will Power of Plaster Mixer Name Relationship Healthcare Agent Relationship Co mmunication Tonya Means Mother Health Care Agent Silvia Means Grandparent First Alternate Health Care Agent
--- OUTSIDE RECORDS SUMMARY | 2020-01-30 13:08 | XMS REPORT | Summary of Care ---
:1995 Author Organization [facility] Health Address [address] [place] [address] Care Team Providers Name Role Phone Ifeoma Pedroza [facility] Primary Care Provider Reason for Visit Reason Comments ROUTINE VISIT Encounter Details Date Type Department Care Team Description 12/29/2019 Routine [facility]- Kailee Mix upervision of high risk , antepartum (Primary Dx); Visit LENNOX Sumner History of section; [address] [place] (vaginal after ) trial; [address] History of pre-eclampsia; [place], [place] Multiparity; [id number] Viral disease exposure; [phone] Obesity in Allergies No Known Allergiesdocumented as [...] of section 06/03/2019 Overview: X1, desires In [place] in 2016 History of pre-eclampsia 06/03/2019 Overview: [...] 06/04/2019 06/26/2019 Overview: Failed 1hr gtt, passed [id number] gtt Multiparity 06/03/2019 06/26/2019 History of diabetes [...] 38 07/10/2014 03/20/2015 Overview: ICD10 Diagnosis Term Lock Assembler Utility Tobacco use disorder complicating , childbirth, or the 07/10/2014 04/14/2015 puerperium, delivered, with or without mention of antepartum condition Overview: Quit since last visit. Supervision of other high-risk 07/10/2014 03/20/2015 Overview: ICD10 Diagnosis Term Lock Assembler Utility History of miscarriage, currently 07/10/2014 03/20/2015 Asthma 07/10/2014 06/30/2019 Overview: ICD10 Diagnosis Term Lock Assembler Utility Surveillance of previously prescribed contraceptive pill 07/10/2014 PCOS (polycystic ovarian syndrome) 04/24/201406/25 Overview: Self DC'd at 12 weeks. Stop metformin at 15 weeks/ then get 1 hr gtt 2 weeks after that- Vasquez/ Dr. Beatty. Tiffani Jackson CNM 07/10/2014 2:26 PM Encounter for routine gynecological examination 04/24/2014 07/08/2014 Overview: ICD10 Diagnosis Term Lock Assembler Utility Morbid obesity 04/24/2014 08/05/2014 Tobacco use [...] with No / Unsure 12/29/2019 8:16 AM ENERGY RATER someone who was confirmed or suspected to have Coronavirus / COVID-19? documented as of this encounter Last Filed Vital Signs Vital Sign Reading Time Taken Comments Blood Pressure 132/87 12/29/2019 8:16 AM ENERGY RATER Pulse 76 12/29/2019 8:16 AM ENERGY RATER Temperature 36.4 C (97.5 F) 12/29/2019 8:16 AM ENERGY RATER Respiratory Rate 16 12/29/2019 8:16 AM ENERGY RATER Oxygen Saturation - - Inhaled Oxygen Concentration - - Weight 120.2 kg (264 lb 14.4 oz) 12/29/2019 8:16 AM ENERGY RATER Height 170.2 cm (5' 7") 12/29/2019 8:16 AM ENERGY RATER Body Mass Index 41.49 12/29/2019 8:16 AM ENERGY RATER documented in this encounter Progress Notes Kailee [...] movement precautions. Encouraged patient to go to [facility] for any signs and symptoms of [...] file Gets together: Not on file Attends jainism service: Not on file Active member of [...] medication list which includes the following prescription(s): caocjotfpz-jfevhgtbdcugc-dhla, cephalexin, magnesium oxide, aspirin, and vit/iron fum/folic [...] Abdomen: Normal Extremities: Normal Pelvic Exam: Vagina: Powertrain Calibration Engineer present for the exam: LENNOX Laboy student [...] of obesity on future pregnancies and/or termite helper health. Return to clinic in 1 weeks. Discussed treatment options. Medications as ordered. Reviewed patient instructions and provided printed copy. This visit did not involve counseling and coordination that comprised more than 50% of the visit time. LENNOX Thomas 12/29/2019 8:34 AM GY RATER documented in this encounter Plan of Treatment Name Type Priority Associated Diagnoses Date/Ti me CBC WITH DIFF LAB Routine Supervision of high risk 8:15 AM , antepartum ENERGY RATER GC & CHLAMYDIA AMPLIFIED LAB Routine Supervision of h igh risk 12/29/2019 8:15 AM ASSAY , antepartum ENERGY RATER GROUP B STREPTOCOCCUS BY LAB Routine Supervision of h igh risk 12/29/2019 8:15 AM PCR , antepartum ENERGY RATER SARS-COV-2 IGG LAB Routine Viral disease exposure 10/2019 8:15 AM ENERGY RATER Health Maintenance Due Date Last Done Comments [...] Effective Dates Phone Addre ss Type Group [facility] STAR [id number] 2019-Present Medicaid COMM PLAN - MANAGED MEDICAID documented as of this encounter Advance Directives Type Date Recorded Patient Ripper Operator Explanati on Advance Directives and Living Will Power of Ecotherapist Name Relationship Healthcare Agent Relationship Co mmunication Tonya Means Mother Health Care Agent Silvia Means Grandparent First [facility] Health Care Agent
--- OUTSIDE RECORDS SUMMARY | 2020-01-30 13:08 | XMS REPORT | Summary of Care ---
:1995 Author Organization [facility] - Health Address [address] [place] [address] Care Team Providers Name Role Phone Ifeoma Pedroza [facility] Primary Care Provider Reason for Visit Reason Comments Care Encounter Details Date Type Department Care Team Description 12/18/[address] [facility], Yareli vision of high risk , antepartum (Primary Dx); Visit Maite Dia SCARLETT Viral disease exposure; [address] [place] [address] Histor y of section; Street History of pre-eclampsia; [place], [place] Obesity in ; [address] [place], [place] Leakage of amniotic fluid [phone] [address] Allergies No Known Allergiesdocumented as of [...] of section 06/03/2019 Overview: X1, [place] History of pre-eclampsia 06/03/2019 Overview: [...] 06/04/2019 06/26/2019 Overview: Failed 1hr gtt, passed [id number] gtt Multiparity 06/03/2019 06/26/2019 History of diabetes [...] 38 07/10/2014 03/20/2015 Overview: ICD10 Diagnosis Term Mold Maker Helper Utility Tobacco use disorder complicating , childbirth, or the 07/10/2014 04/14/2015 puerperium, delivered, with or without mention of antepartum condition Overview: Quit since last visit. Supervision of other high-risk 07/10/2014 03/20/2015 Overview: ICD10 Diagnosis Term Mold Maker Helper Utility History of miscarriage, currently 07/10/2014 03/20/2015 Asthma 07/10/2014 06/30/2019 Overview: ICD10 Diagnosis Term Mold Maker Helper Utility Surveillance of previously prescribed contraceptive pill 07/10/2014 PCOS (polycystic ovarian syndrome) 04/24/201406/25 Overview: Self DC'd at 12 weeks. Stop metformin at 15 weeks/ then get 1 hr gtt 2 weeks after that- Vasquez/ Dr. Beatty. Tiffani Jackson CNM 07/10/2014 2:26 PM Encounter for routine gynecological examination 04/24/2014 07/08/2014 Overview: ICD10 Diagnosis Term Mold Maker Helper Utility Morbid obesity 04/24/2014 08/05/2014 Tobacco use [...] file Gets together: Not on file Attends jew service: Not on file Active member of [...] medication list which includes the following prescription(s): ipxoamccur-sqgpdfhxqmqfh-jqbw, cephalexin, magnesium oxide, aspirin, and vit/iron fum/folic [...] and mental health on future pregnancies and/or superintendent terminal health. Leakage of amniotic fluid Comment: reports [...] 12/29/2019 Routine Visit OB Satellites Adrien Mix, MIXING MACHINE TENDER CORK ROD [address] [address] [phone] Name Type Priority Associated Diagnoses Order S [...] URINALYSIS Routine 12/18/2019 8:31 AM Supervision of [facility] h Results for this CDT risk , [...] Effective Dates Phone Addre ss Type Group [facility] STAR [id number] 2019-Present Medicaid COMM PLAN - MANAGED MEDICAID documented as of this encounter Advance Directives Type Date Recorded Patient Line Camera Operator Explanati on Advance Directives and Living Will Power of It Project Manager Name Relationship Healthcare Agent Relationship Co mmunication Tonya Means Mother Health Care Agent Silvia Means Grandparent First Alternate Health Care Agent
--- OUTSIDE RECORDS SUMMARY | 2020-01-30 13:08 | XMS REPORT | Summary of Care ---
:1995 Author Organization [facility] Address [address] [place] [id number] Care Team Providers Name Role Phone Ifeoma Pedroza [facility] Primary Care Provider Encounter Details Date Type Department Care Team Description 12/18/2019 Hospital Encounter Labor and Delivery Domingo Harris History of anxiety (JSA3) MD Magdalena [address] [place] [address] [id number] [place] [address] [id number] Allergies No Known Allergiesdocumented as of this [...] of section 06/03/2019 Overview: X1, desires In [place] in 2015 History of pre-eclampsia 06/03/2019 Overview: [...] 06/04/2019 06/26/2019 Overview: Failed 1hr gtt, passed [id number] gtt Multiparity 06/03/2019 06/26/2019 History of diabetes [...] 38 07/10/2014 03/20/2015 Overview: ICD10 Diagnosis Term Creamery Worker Utility Tobacco use disorder complicating , childbirth, or the 07/10/2014 04/14/2015 puerperium, delivered, with or without mention of antepartum condition Overview: Quit since last visit. Supervision of other high-risk 07/10/2014 03/20/2015 Overview: ICD10 Diagnosis Term Creamery Worker Utility History of miscarriage, currently 07/10/2014 03/20/2015 Asthma 07/10/2014 06/30/2019 Overview: ICD10 Diagnosis Term Creamery Worker Utility Surveillance of previously prescribed contraceptive pill 07/10/2014 PCOS (polycystic ovarian syndrome) 04/24/201406/25 Overview: Self DC'd at 12 weeks. Stop metformin at 15 weeks/ then get 1 hr gtt 2 weeks after that- Vasquez/ Dr. Beatty. Tiffani Jackson CNM 07/10/2014 2:26 PM Encounter for routine gynecological examination 04/24/2014 07/08/2014 Overview: ICD10 Diagnosis Term Creamery Worker Utility Morbid obesity 04/24/2014 08/05/2014 Tobacco use disorder 04/24/2014 07/10/2014 Elevated blood pressure reading without diagnosis of 015 07/10/2014 hypertension Depression 10/07/2012 01/13/2015 Nonalcoholic steatohepatitis (DREW) 09/10/2012 030 07/2014 Amenorrhea, primary 01/10/2012 05/08/2013 Acquired acanthosis nigricans [...] in contact with No / Unsure 12/18/2019 11:53 AM CDT someone who was confirmed or suspected to have Coronavirus / COVID-19? documented as of this encounter Last Filed Vital Signs Vital Sign Reading Time Taken Comments Blood Pressure 137/81 12/18/2019 12:20 PM CDT Pulse 74 12/18/2019 12:20 PM CDT Temperature 36.7 C (98 F) 12/18/2019 12:20 PM CDT Respiratory Rate 16 12/18/2019 12:20 PM CDT Oxygen Saturation 100% 12/18/2019 12:20 PM CDT Inhaled Oxygen Concentration - - Weight - - Height - - Body Mass Index - - documented in this encounter Plan of Treatment Date Type Specialty Care Team Description 12/29/2019 Routine Visit OB Satellites Adrien Mix, [facility] [address] [address] 15 [phone] Name Type Priority Associated Diagnoses Date/Ti me LAB ONLY COVID LAB Routine 12/18/2019 12 :03 PM INTERPRETATION CDT URINALYSIS LAB ALEJANDRA 12/18/2019 1:5 0 PM CDT URINE CULTURE LAB ALEJANDRA 12/18/2019 1: 50 PM CDT GROUP B STREPTOCOCCUS BY PCR LAB ALEJANDRA 12/18/2019 1:50 PM CDT GC & CHLAMYDIA AMPLIFIED LAB ALEJANDRA 1:50 PM ASSAY CDT Name Type Priority Associated Diagnoses Order S chedule LAB ONLY COVID LAB ALEJANDRA ONCE for 1 Oc currences INTERPRETATION starting 11/20 until 0 URINALYSIS LAB ALEJANDRA ONCE for 1 Occu rrences starting 2019 until 0 URINE CULTURE LAB ALEJANDRA ONCE for 1 Occ urrences starting 2019 until 0 GROUP B STREPTOCOCCUS BY LAB ALEJANDRA ONC E for 1 Occurrences PCR starting 2019 until 0 GC & CHLAMYDIA AMPLIFIED LAB ALEJANDRA ONC E for 1 Occurrences ASSAY starting 2019 until 0 Health Maintenance Due Date Last Done Comments [...] Name Priority Date/Time Associated Diagnosis Comme nts COVID-19 (ID NOW ALEJANDRA 12/18/2019 12:03 PM Resu lts for this RAPID TESTING) CDT procedure are in the results section. documented in this encounter Results COVID-19 (ID NOW RAPID TESTING) (12/18/2019 12:03 PM CDT) SARS-CoV-2 Rapid ID Not Detected Not Detected [facility] Specimen Swab - NASOPHARYNGEAL SWAB Narrative Performed At ID NOW COVID-19 Assay is an isothermal nucleic acid [facility] amplification test intended for the qualitative detect ion of nucleic acid from SARS-CoV-2 viral RNA in nasopharynge al (SENIOR INFRASTRUCTURE ARCHITECT) specimens. It is used under Emergency Use Authori zation (EUA) by FDA. The limit of detection (LOD) of the assa y is 125 Genome Equivalents/mL. A positive result is indicative of the presence of SARS-CoV-2 RNA. Clinical correlation with patient hi story and other diagnostic information is necessary to deter mine patient infection status. A negative (Not Detected) result does not preclude SARS-CoV-2 infection. In patients with clinical sympto ms and other tests that are consistent with SARS-CoV-2 infect ion, negative results should be treated as presumptive nega tive and a new specimen should be tested with alternative P CR molecular test. Invalid: Please collect a new specimen for repeat cinthya ent testing if clinically indicated. Performing Organization Address City/State/Zipcode Phone Number [facility] CLIA: [id number] [place] [address] [place] [address] documented in this encounter Visit Diagnoses Diagnosis History of anxiety Personal history of other mental disorde r History of depression Personal history of other mental disorde r Obesity in Obesity complicating , childbir th, or the puerperium, unspecified as to episode of care or not applicable History of pre-eclampsia History of section Other postprocedural status documented in this encounter Additional Health Concerns Infection Onset Date Last Indicated Resolved Time COVID-19 Rule Out 12/18/2019 12/18/2019 12/18/2019 12: 45 PM CDT documented as of this encounter Insurance Payer Benefit Plan / Subscriber ID Effective Dates Phone Addre ss Type Group [facility] STAR [id number] 2019-Present Medicaid COMM PLAN - MANAGED MEDICAID documented as of this encounter Advance Directives Type Date Recorded Patient Teamsite Developer Explanati on Advance Directives and Living Will Power of Dual Rate Dealer Name Relationship Healthcare Agent Relationship Co mmunication Tonya Means Mother Health Care Agent Silvia Means Grandparent First [facility] Health Care Agent
--- OUTSIDE RECORDS SUMMARY | 2020-01-30 13:09 | XMS REPORT | Summary of Care ---
:1995 Author Organization [facility] - Health Address [address] [place] [address] Care Team Providers Name Role Phone Ifeoma Pedroza [facility] Primary Care Provider Encounter Details Date Type Department Care Team Description 01/16/2020 Orders Only [facility] Doctor Unassigned, No [address] [facility] [place] [address] [address] [place] [address] Allergies No Known Allergiesdocumented as of this encounter (statuses as of 01/21/2020) Medications Medication Sig Dispensed Refills Start Date End Date Status vitamin Take 1 tablet by 100 tablet 3 01/18/2020 Active w/FA mouth daily. tabletIndications : S/P section docusate calcium Take 1 capsule by 60 capsule 1 01/18/2020 Active 240 mg mouth once daily as capsuleIndication needed for s: S/P Constipation. section ferrous sulfate Take 1 tablet by 60 tablet 2 01/18/2020 Active 325 mg (65 mg mouth 2 (two) times iron) daily. tabletIndications : S/P section ibuprofen 600 mg Take 1 tablet by 60 tablet 1 01/18/2020 Active tabletIndications mouth every 6 (six) : S/P hours as needed section (Pain). Take with food or milk. HYDROcodone-aceta Take 1 tablet by 10 tablet 0 01/18/2020 Active minophen 5-325 mg mouth every 6 (six) tabletIndications hours as needed : acute pain (Pain) for up to 10 doses. Do not exceed 3 grams of acetaminophen in 24 hours. Indications: acute pain foLIC acid 1 mg Take 1 tablet by 30 tablet 2 01/18/20202020 Active tabletIndications mouth daily for 90 : S/P days. section ascorbic acid, Take 1 capsule by 90 capsule 0 01/18/202004/17 Active vitamin C, 500 mg mouth daily for 90 CapIndications: days. S/P section documented as of this encounter (statuses as of 01/21/2020) Active Problems Problem Noted Date 39 weeks gestation of 01/16/2020 Desires (vaginal after ) trial 12/20 Leakage [...] of section 06/03/2019 Overview: X1, desires In [place] in 2015 History of pre-eclampsia 06/03/2019 Overview: Reports with last Nonalcoholic steatohepatitis (DREW) 06/03/2019 Overview: Per patient report, reports managed with diet Multiparity 06/03/2019 History of depression 04/14/2015 Overview: Last time on meds was when she was 16 pe r patient Obesity in 04/14/2015 Supervision of high risk , antepartum 015 Overview: ICD10 Diagnosis Term Level Vial Inside Grinder Utility History of anxiety 04/24/2014 Overview: Last on meds at age 16 per patient Comments Yes documented as of this encounter (statuses as of 01/21/2020) Resolved Problems Problem Noted Date Resolved Date No leakage of amniotic fluid into vagina 12/18/2019 12/18/2019 18 weeks gestation of 08/26/2019 10/02/19 20 LGSIL on Pap smear of cervix 06/06/2019 06/26/2019 Overview: Per ASCCP guidelines repeat cytolgy in 1 2 months GBS (group B streptococcus) UTI complicating 06/0506/26/2019 Overview: pending ARSLAN Abnormal maternal glucose tolerance, antepartum 06/04/2019 06/26/2019 Overview: Failed 1hr gtt, passed [id number] gtt History of diabetes mellitus 06/03/2019 06/26/2019 [...] 38 07/10/2014 03/20/2015 Overview: ICD10 Diagnosis Term Level Vial Inside Grinder Utility Tobacco use disorder complicating , childbirth, or the 07/10/2014 04/14/2015 puerperium, delivered, with or without mention of antepartum condition Overview: Quit since last visit. History of miscarriage, currently 07/10/2014 03/20/2015 Asthma 07/10/2014 06/30/2019 Overview: ICD10 Diagnosis Term Level Vial Inside Grinder Utility Surveillance of previously prescribed contraceptive pill 07/10/2014 PCOS (polycystic ovarian syndrome) 04/24/201406/25 Overview: Self DC'd at 12 weeks. Stop metformin at 15 weeks/ then get 1 hr gtt 2 weeks after that- Vasquez/ Dr. Beatty. Tiffani Jackson CNM 07/10/2014 2:26 PM Encounter for routine gynecological examination 04/24/2014 07/08/2014 Overview: ICD10 Diagnosis Term Level Vial Inside Grinder Utility Morbid obesity 04/24/2014 08/05/2014 Tobacco use disorder 04/24/2014 07/10/2014 Elevated blood pressure reading without diagnosis of 015 07/10/2014 hypertension Depression 10/07/2012 01/13/2015 Nonalcoholic steatohepatitis (DREW) 09/10/2012 0307/2014 Amenorrhea, primary 01/10/2012 05/08/2013 Acquired acanthosis nigricans 01/10/2012 04/24/2014 Hirsutism 01/10/2012 04/24/2014 Abnormal weight gain 01/10/2012 04/24/2014 Arthralgia 01/10/2012 04/24/2014 documented as of this encounter (statuses as of 01/21/2020) Immunizations Name Administration Dates Next Due Influenza [...] 11/2016 Alcohol Use Drinks/Week oz/Week Comments No Comments Yes Sex Assigned at Date Recorded Not on file COVID-19 Exposure Response Date Recorded In the last month, have you been in contact with No / Unsure 01/16/2020 6:58 AM CAR FERRIER someone who was confirmed or suspected to have Coronavirus / COVID-19? documented as of this encounter Last Filed Vital Signs Not on filedocumented in this encounter Plan of Treatment Date Type Specialty Care Team Description 01/27/2020 Nurse Visit OB Satellites Visit, [facility] Nurse 02/09/2020 Routine Visit OB Satellites Adrien Mix, STREET INSPECTOR [address] [address] [phone] Health Maintenance Due Date Last Done Comments [...] Name Priority Date/Time Associated Diagnosis Comme nts HOSPITAL ADMISSION Routine 01/16/2020 12:01 AM CAR FERRIER documented in this encounter Results Not on filedocumented in this encounter Additional Health Concerns Infection Onset Date Last Indicated Resolved Time COVID-19 Rule Out 01/16/2020 01/16/2020 01/16/2020 7: 40 AM CAR FERRIER documented as of this encounter Insurance Payer Benefit Plan / Subscriber ID Effective Dates Phone Addre ss Type Group [facility] STAR [id number] 2019-Present Medicaid COMM PLAN - MANAGED MEDICAID documented as of this encounter Advance Directives Type Date Recorded Patient Meat Specialist Explanati on Advance Directives and Living Will Power of Weighmaster Lead Name Relationship Healthcare Agent Relationship Co mmunication Tonya Means Mother Health Care Agent Silvia Means Grandparent First [facility] Health Care Agent
--- OUTSIDE RECORDS SUMMARY | 2020-01-30 13:09 | XMS REPORT | Summary of Care ---
:1995 Author Organization [facility] Address [address] [place] [address] Care Team Providers Name Role Phone Ifeoma Pedroza [facility] Primary Care Provider Reason for Visit Reason Comments Wound Check Encounter Details Date Type Department Care Team Description 01/27/[address] [facility] Pedroza, [facility] [address] [place] [address] Visit for wound check [place] Visit, [facility] Nurse (Primary Dx) [address] [place] [address] Allergies No Known Allergiesdocumented as of this encounter (statuses as of 01/27/2020) Medications Medication Sig Dispensed Refills Start Date [...] as of this encounter (statuses as of 01/27/2020) Active Problems Problem Noted Date S/P section 01/21/2020 39 weeks gestation of 01/16/2020 Desires (vaginal [...] of section 06/03/2019 Overview: X1, desires In [place] in 2015 History of pre-eclampsia 06/03/2019 Overview: Reports with last Nonalcoholic steatohepatitis (DREW) 06/03/2019 Overview: Per patient report, reports managed with diet Multiparity 06/03/2019 History of depression 04/14/2015 Overview: Last time on meds was when she was 16 pe r patient Obesity in 04/14/2015 Supervision of high risk , antepartum 015 Overview: ICD10 Diagnosis Term Ethical Hacker Utility History of anxiety 04/24/2014 Overview: Last on meds at age 16 per patient documented as of this encounter (statuses as of 01/27/2020) Resolved Problems Problem Noted Date Resolved Date No leakage of amniotic fluid into vagina 12/18/2019 12/18/2019 18 weeks gestation of 08/26/2019 10/02/19 20 LGSIL on Pap smear of cervix 06/06/2019 06/26/2019 Overview: Per ASCCP guidelines repeat cytolgy in 1 2 months GBS (group B streptococcus) UTI complicating 06/0506/26/2019 Overview: pending ARSLAN Abnormal maternal glucose tolerance, antepartum 06/04/2019 06/26/2019 Overview: Failed 1hr gtt, passed [id number] gtt History of diabetes mellitus 06/03/2019 06/26/2019 [...] 38 07/10/2014 03/20/2015 Overview: ICD10 Diagnosis Term Ethical Hacker Utility Tobacco use disorder complicating , childbirth, or the 07/10/2014 04/14/2015 puerperium, delivered, with or without mention of antepartum condition Overview: Quit since last visit. History of miscarriage, currently 07/10/2014 03/20/2015 Asthma 07/10/2014 06/30/2019 Overview: ICD10 Diagnosis Term Ethical Hacker Utility Surveillance of previously prescribed contraceptive pill 07/10/2014 PCOS (polycystic ovarian syndrome) 04/24/201406/25 Overview: Self DC'd at 12 weeks. Stop metformin at 15 weeks/ then get 1 hr gtt 2 weeks after that- Vasquez/ Dr. Beatty. Tiffani Jackson CNM 07/10/2014 2:26 PM Encounter for routine gynecological examination 04/24/2014 07/08/2014 Overview: ICD10 Diagnosis Term Ethical Hacker Utility Morbid obesity 04/24/2014 08/05/2014 Tobacco use disorder 04/24/2014 07/10/2014 Elevated blood pressure reading without diagnosis of 015 07/10/2014 hypertension Depression 10/07/2012 01/13/2015 Nonalcoholic steatohepatitis (DREW) 09/10/2012 03/0 07/2014 Amenorrhea, primary 01/10/2012 05/08/2013 Acquired acanthosis nigricans 01/10/2012 04/24/2014 Hirsutism 01/10/2012 04/24/2014 Abnormal weight gain 01/10/2012 04/24/2014 Arthralgia 01/10/2012 04/24/2014 documented as of this encounter (statuses as of 01/27/2020) Immunizations Name Administration Dates Next Due Influenza [...] 11/2016 Alcohol Use Drinks/Week oz/Week Comments No Sex Assigned at Date Recorded Not on file COVID-19 Exposure Response Date Recorded In the last month, have you been in contact with No / Unsure 01/27/2020 4:15 PM PORTER BATH someone who was confirmed or suspected to have Coronavirus / COVID-19? documented as of this encounter Last Filed Vital Signs Vital Sign Reading Time Taken Comments Blood Pressure 128/79 01/27/2020 4:16 PM PORTER BATH Pulse 84 01/27/2020 4:16 PM PORTER BATH Temperature 36.6 C (97.9 F) 01/27/2020 4:16 PM PORTER BATH Respiratory Rate 16 01/27/2020 4:16 PM PORTER BATH Oxygen Saturation - - Inhaled Oxygen Concentration - - Weight 117.3 kg (258 lb 11.2 oz) 01/27/2020 4:16 PM PORTER BATH Height 170.2 cm (5' 7") 01/27/2020 4:16 PM PORTER BATH Body Mass Index 40.52 01/27/2020 4:16 PM PORTER BATH documented in this encounter Progress Notes Digna Padilla RN - 01/27/2020 4:00 PM CSTPatient in clinic for steri strip removal Delivered 01/17/2020 via Pt voiding and stooling without difficulties, not constipated . Pt eating well and drinking water daily. She is both (/Bottle Feeding) Infant care no concerns voiced has help at home. She denies depression/suicidal/homocial ideation, Denies any domestic violence. LT incision well approximated and intact. No ss of infection, induration or wound opening noted. Skin cleansed via aseptic technique, partial steri strips removed. C/S inc care reviewed and warning S/S given ER warnings discussed, she voiced understanding and agrees with plan. DIGNA PADILLA RN 01/27/2020 4:28 PM ER BATH documented in this encounter Plan of Treatment Date Type Specialty Care Team Description 02/09/2020 Routine Visit OB Satellites Adrien Mix, LAYBOY TENDER [address] [place], [place] [address] [phone] Health Maintenance Due Date Last Done Comments [...] filedocumented in this encounter Visit Diagnoses Diagnosis Visit for wound check - Primary Encounter for other specified aftercare documented in this encounter Insurance Payer Benefit Plan / Subscriber ID Effective Dates Phone Addre ss Type Group [facility] STAR [id number] 2019-Present Medicaid [facility] PLAN - MANAGED MEDICAID documented as of this encounter Advance Directives Type Date Recorded Patient Farm Hand Explanati on Advance Directives and Living Will Power of Engineering Equipment Operator Name Relationship Healthcare Agent Relationship Co mmunication Tonya Means Mother Health Care Agent Silvia Means Grandparent First Alternate Health Care Agent
--- OUTSIDE RECORDS SUMMARY | 2020-01-30 13:09 | XMS REPORT | Summary of Care ---
:1995 Author Organization [facility] Address [address] [place] [address] Care Team Providers Name Role Phone Ifeoma Pedroza [facility] Primary Care Provider Reason for Visit Reason Comments Appointment returning call Encounter Details Date Type Department Care Team Description 01/13/2020 Telephone [facility]- Delilah Pedroza Ashley ointment (returning Maite Dia [facility] call ) [address] [facility] [address] [place], [place] [address] [phone] Allergies No Known Allergiesdocumented as of this encounter (statuses as of 01/23/2020) Medications Medication Sig Dispensed Refills Start Date [...] as of this encounter (statuses as of 01/23/2020) Active Problems Problem Noted Date S/P section [...] of section 06/03/2019 Overview: X1, desires In [place] in 2016 History of pre-eclampsia 06/03/2019 Overview: Reports with last Nonalcoholic steatohepatitis (DREW) 06/03/2019 Overview: Per patient report, reports managed with diet Multiparity 06/03/2019 History of depression 04/14/2015 Overview: Last time on meds was when she was 16 pe r patient Obesity in 04/14/2015 Supervision of high risk , antepartum 015 Overview: ICD10 Diagnosis Term Sales Superintendent Utility History of anxiety 04/24/2014 Overview: Last on meds at age 16 per patient Comments Yes documented as of this encounter (statuses as of 01/23/2020) Resolved Problems Problem Noted Date Resolved Date No leakage of amniotic fluid into vagina 12/18/2019 12/18/2019 18 weeks gestation of 08/26/2019 10/02/19 20 LGSIL on Pap smear of cervix 06/06/2019 06/26/2019 Overview: Per ASCCP guidelines repeat cytolgy in 1 2 months GBS (group B streptococcus) UTI complicating 06/0506/26/2019 Overview: pending ARSLAN Abnormal maternal glucose tolerance, antepartum 06/04/2019 06/26/2019 Overview: Failed 1hr gtt, passed [id number] gtt History of diabetes mellitus 06/03/2019 06/26/2019 [...] 38 07/10/2014 03/20/2015 Overview: ICD10 Diagnosis Term Sales Superintendent Utility Tobacco use disorder complicating , childbirth, or the 07/10/2014 04/14/2015 puerperium, delivered, with or without mention of antepartum condition Overview: Quit since last visit. History of miscarriage, currently 07/10/2014 03/20/2015 Asthma 07/10/2014 06/30/2019 Overview: ICD10 Diagnosis Term Sales Superintendent Utility Surveillance of previously prescribed contraceptive pill 07/10/2014 PCOS (polycystic ovarian syndrome) 04/24/201406/25 Overview: Self DC'd at 12 weeks. Stop metformin at 15 weeks/ then get 1 hr gtt 2 weeks after that- Vasquez/ Dr. Beatty. Tiffani Jackson CNM 07/10/2014 2:26 PM Encounter for routine gynecological examination 04/24/2014 07/08/2014 Overview: ICD10 Diagnosis Term Sales Superintendent Utility Morbid obesity 04/24/2014 08/05/2014 Tobacco use disorder 04/24/2014 07/10/2014 Elevated blood pressure reading without diagnosis of 015 07/10/2014 hypertension Depression 10/07/2012 01/13/2015 Nonalcoholic steatohepatitis (DREW) 09/10/2012 03/0 07/2014 Amenorrhea, primary 01/10/2012 05/08/2013 Acquired acanthosis nigricans 01/10/2012 04/24/2014 Hirsutism 01/10/2012 04/24/2014 Abnormal weight gain 01/10/2012 04/24/2014 Arthralgia 01/10/2012 04/24/2014 documented as of this encounter (statuses as of 01/23/2020) Immunizations Name Administration Dates Next Due Influenza [...] with No / Unsure 01/16/2020 6:58 AM CNA PER DIEM someone who was confirmed or suspected to have Coronavirus / COVID-19? documented as of this encounter Last Filed Vital Signs Not on filedocumented in this encounter Miscellaneous Notes Telephone Encounter - Chrissy Meyers - 01/23/2020 4:09 PM CSTSpoke to patient prior to this phone call about L&D. elephone Encounter - Lucero Engel - 01/13/2020 3:59 PM CSTAutumn Moraima Love is a 24 year old female Patient returning clinics call regarding location of L&D. documented in this encounter Plan of Treatment Date Type Specialty Care Team Description 01/27/2020 Nurse Visit OB Satellites [facility]2020 Routine Visit OB Satellites Adrien Mix, ASSOCIATE PROFESSOR OF [employer] [address] [address] [phone] Health Maintenance Due Date Last Done Comments [...] Out 01/16/2020 01/16/2020 01/16/2020 7: 40 AM CNA PER DIEM documented as of this encounter Insurance Payer Benefit Plan / Subscriber ID Effective Dates Phone Addre ss Type Group [facility] STAR [id number] 2019-Present Medicaid COMM PLAN - MANAGED MEDICAID documented as of this encounter Advance Directives Type Date Recorded Patient Baseball Umpire [employer] Explanati on Advance Directives and Living Will Power of Fiber Analyst Name Relationship Healthcare Agent Relationship Co mmunication Tonya Means Mother Health Care Agent Silvia Means Grandparent First Alternate Health Care Agent
[2020-01-30] MEDS ORDERED: FENTANYL CITR 100 MCG/2 ML ONE (13:57)
[2020-01-30] MEDS ORDERED: DIAZEPAM 10 MG/2 ML INJ SYRINGE ONE (13:58)
[2020-01-30] MEDS ORDERED: KETOROLAC 30 MG/ML INJ ONE (13:58)
[2020-01-30] MEDS ORDERED: ONDANSETRON 4 MG/2 ML VIAL ONE (13:58)
--- NOTE | 2020-01-30 14:27 | RAD REPORT ---
EXAM DESCRIPTION: CT - Chest For Pe Angio - 01/30/2020 2:12 pm CLINICAL HISTORY: right scapular pain, chest pain COMPARISON: No comparisons TECHNIQUE: Dynamically enhanced 3 mm thick images of the chest were obtained during administration o f approximately 150mL Isovue 370 IV contrast. Coronal and oblique MIP reconstruction images were gene rated and reviewed. Exam utilizes a protocol to evaluate the pulmonary arterial tree. All CT scans are performed using dose optimization technique as appropriate and may include automated exposure control or mA/KV adjustment according to patient size. FINDINGS: No pulmonary emboli are identified. The aorta as imaged shows no acute or suspicious finding. No pericardial thickening or effusion. No mass or consolidation of the lung parenchyma. Minimal ground-glass opacification posterior left brando ng field abutting the pleura is probably atelectasis. No overall interstitial edema pattern. No pleur al effusion or pleural thickening. No mediastinal or hilar suspicious masses. No chest wall masses or abnormal axillary lymphadenopathy. No rib fracture or acute bone finding. IMPRESSION: No pulmonary emboli identified. No other significant or suspicious findings.
--- NOTE | 2020-01-30 14:34 | EDPHYS ---
Physician Documentation [facility] Name: Louann Love Age: 24 yrs Sex: Female : 1995 Arrival Date: 01/30/2020 Time: 12:31 Bed 4 Private MD: ED Physician Moe Moore HPI: 01/29 13:32 This 24 yrs old Female presents to ER via Ambulatory with complaints of Back jmm Pain, Abdominal Pain, Vomiting. 13:32 The patient presents with pain that is acute. Onset: The symptoms/episode jmm began/occurred acutely, 0800. The pain radiates to the chest. Associated signs and symptoms: Pertinent negatives: weakness. This is a 24 year old female with a history fo DM, PCOS, that presents to the ED with complaints of acute onset right scapular pain which radiates to her back. Patient is s/p two weeks prior. . 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 - Social history:: Smoking status: Patient denies any tobacco usage or history of. ROS: 13:32 Constitutional: Negative for fever, chills, and weight loss, Cardiovascular: Negative jmm for chest pain, palpitations, and edema, Respiratory: Negative for shortness of breath, cough, wheezing, and pleuritic chest pain. 13:32 Back: Positive for pain with movement. 13:32 All other systems are negative. Exam: 13:32 Head/Face: atraumatic. Eyes: EOMI, no conjunctival erythema appreciated ENT: Moist jmm Mucus Membranes Neck: Trachea midline, Supple Chest/axilla: Normal chest wall appearance and motion. Cardiovascular: Regular rate and rhythm. No edema appreciated Respiratory: Normal respirations, no respiratory distress appreciated Abdomen/GI: Non distended, soft Back: Normal ROM Skin: General appearance color normal MS/ Extremity: Moves all extremities, no obvious deformities appreciated, no edema noted to the lower extremities Neuro: Awake and alert, normal gait Psych: Behavior is normal, Mood is normal, Patient is cooperative and pleasant 13:32 Constitutional: The patient appears alert, awake, anxious, in obvious pain, uncomfortable. Vital Signs: 12:58 BP 142 / 106; Pulse 88; Resp 18; Temp 98.0; Pulse Ox 98% on R/A; Weight 117.03 kg; em Height 5 ft. 7 in. (170.18 cm); Pain 10/10; 12:58 Body Mass Index 40.41 (117.03 kg, 170.18 cm) em MDM: 13:21 Patient medically screened. [facility] 14:31 Data reviewed: vital signs, nurses notes. Counseling: I had a detailed discussion with [facility] the patient and/or guardian regarding: the historical points, exam findings, and any diagnostic results supporting the discharge/admit diagnosis, the need for outpatient follow up, to return to the emergency department if symptoms worsen or persist or if there are any questions or concerns that arise at home. ED course: CT negative. Patient advised to pump and dump for the next 24 hours. Advised to follow up with pcp for reevaluation. Patient is otherwise given strict return precautions.. 01/29 14:19 Order name: CREATININE WHOLE BLOOD; Complete Time: 14:25 EDNJ 01/29 13:27 Order name: CT Chest For PE Angio; Complete Time: 14:31 [facility] 01/29 13:27 Order name: Saline Lock; Complete Time: 13:40 [facility] Administered Medications: 13:49 Drug: fentaNYL (PF) 50 mcg Route: IVP; Site: left antecubital; hb 14:31 Follow up: Response: No adverse reaction hb 13:49 Drug: Zofran (Ondansetron) 4 mg Route: IVP; Site: left antecubital; hb 14:31 Follow up: Response: No adverse reaction hb 13:50 Drug: Valium 5 mg Route: IVP; Site: left antecubital; hb 14:31 Follow up: Response: No adverse reaction hb 13:50 Drug: Ketorolac 30 mg Route: IVP; Site: left antecubital; hb 14:31 Follow up: Response: No adverse reaction hb Disposition: 20:00 Co-signature as Attending Physician, Moe Moore MD I agree with the assessment and kdr plan of care. Disposition: 01/30/20 14:33 Discharged to Home. Impression: Muscle spasm. - Condition is Stable. - Discharge Instructions: Spasticity. - Prescriptions for Cyclobenzaprine 10 mg Oral Tablet - take 1 tablet by ORAL route every 8 hours As needed; 30 tablet. - Medication Reconciliation Form, Thank You Letter, Antibiotic Education, Prescription Opioid Use form. - Follow up: Private Physician; When: 2 - 3 days; Reason: Recheck today's complaints, Continuance of care, Re-evaluation by your physician. Signatures: Dispatcher [employer] EDMoe Cain MD MD kdr Mickail, Joel, PA PA jmm Munoz, Edgar, JESSICA RN Zoie Zambrano RN RN hb Corrections: (The following items were deleted from the chart) 14:54 14:33 01/30/2020 14:33 Discharged to Home. Impression: Muscle spasm. Condition is hb Stable. Forms are Medication Reconciliation Form, Thank You Letter, Antibiotic Education, Prescription Opioid Use. Follow up: Private Physician; When: 2 - 3 days; Reason: Recheck today's complaints, Continuance of care, Re-evaluation by your physician. destiny
--- NOTE | 2020-01-30 14:34 | ER ---
Nurse's Notes [facility] Name: Louann Love Age: 24 yrs Sex: Female : 1995 Arrival Date: 01/30/2020 Time: 12:31 Bed 4 Private MD: Diagnosis: Muscle spasm Presentation: 01/29 12:58 Chief complaint: Patient states: right upper back pain that radiates into chest that em started this morning, had 2 weeks ago, was tested for covid and was negative, also reports N/V denies fever. Coronavirus screen: Client denies travel out of the [place] in the last 14 days. Ebola Screen: Patient negative for fever greater than or equal to 101.5 degrees Fahrenheit, and additional compatible Ebola Virus Disease symptoms Patient denies exposure to infectious person. Patient denies travel to an Ebola-affected area in the 21 days before illness onset. No symptoms or risks identified at this time. Initial Sepsis Screen: Does the patient meet any 2 criteria? No. Patient's initial sepsis screen is negative. Does the patient have a suspected source of infection? No. Patient's initial sepsis screen is negative. Risk Assessment: Do you want to hurt yourself or someone else? Patient reports no desire to harm self or others. Onset of symptoms was January 30, 2020. 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 - Social history:: Smoking status: Patient denies any tobacco usage or history of. Screenin:30 Abuse screen: Denies threats or abuse. Denies injuries from another. Nutritional hb screening: No deficits noted. Tuberculosis screening: No symptoms or risk factors identified. Fall Risk None identified. Assessment: 13:30 General: Appears in no apparent distress. uncomfortable, Behavior is cooperative. Pain: hb Pain currently is 10 out of 10 on a pain scale. Neuro: Level of Consciousness is awake, alert, obeys commands, Oriented to person, place, time, situation. Cardiovascular: Capillary refill < 3 seconds Patient's skin is warm and dry. Respiratory: Respiratory effort is even, unlabored, Respiratory pattern is regular, symmetrical. GI: Reports lower abdominal pain, upper abdominal pain, nausea, vomiting. : No signs and/or symptoms were reported regarding the genitourinary system. EENT: No signs and/or symptoms were reported regarding the EENT system. Derm: Skin is pink, warm \T\ dry. Musculoskeletal: No signs and/or symptoms reported regarding the musculoskeletal system. Vital Signs: 12:58 BP 142 / 106; Pulse 88; Resp 18; Temp 98.0; Pulse Ox 98% on R/A; Weight 117.03 kg; em Height 5 ft. 7 in. (170.18 cm); Pain 10/10; 12:58 Body Mass Index 40.41 (117.03 kg, 170.18 cm) em ED Course: 12:31 Patient arrived in ED. ag5 13:00 Triage completed. em 13:01 Arm band placed on. em 13:08 Dominick Ulrich PA is PHCP. [facility] 13:09 Moe Moore MD is Attending Physician. [facility] 13:41 Zoie Tavarez, JESSICA is Primary Nurse. hb 13:41 Patient has correct armband on for positive identification. Placed in gown. Bed in low mh5 position. Call light in reach. Side rails up X 1. Pulse ox on. NIBP on. 13:41 Inserted saline lock: 22 gauge in left antecubital area, using aseptic technique. Blood mh5 collected. 14:12 CT Chest For PE Angio In Process Unspecified. EDMS Administered Medications: 13:49 Drug: fentaNYL (PF) 50 mcg Route: IVP; Site: left antecubital; hb 14:31 Follow up: Response: No adverse reaction hb 13:49 Drug: Zofran (Ondansetron) 4 mg Route: IVP; Site: left antecubital; hb 14:31 Follow up: Response: No adverse reaction hb 13:50 Drug: Valium 5 mg Route: IVP; Site: left antecubital; hb 14:31 Follow up: Response: No adverse reaction hb 13:50 Drug: Ketorolac 30 mg Route: IVP; Site: left antecubital; hb 14:31 Follow up: Response: No adverse reaction hb Outcome: 14:33 Discharge ordered by MD. dixon 14:54 Patient left the ED. hb Signatures: Dispatcher [employer] Dominick Aguila PA PA jmm Munoz, Edgar, RN RN em Baxter, Heather, RN RN hb Martinez, Maria [facility] Rosa, Kimberlyn 5
[2020-02-04 05:38] VITALS: BP 142/106; TEMP 98; O2SAT 98
== END 2020-01-30 14:54 | disposition home or self-care (01) ==
LOC: ER 12:30
DX: M62.838 Other muscle spasm (principal); E11.9 Type 2 diabetes mellitus without complications
CPT/HCPCS: 82565; 71275; 96375; 96374; 99284; Q9967; J3360; J3010; J2405

== ENCOUNTER 2021-06-03 17:44 | Emergency (ER) | payer OTHER, SELFPAY ==
--- OUTSIDE RECORDS SUMMARY | 2021-06-03 17:59 | XMS REPORT | Continuity of Care Document ---
:1995 [facility] t Address [address] [place] [address] Care Team Providers Name Role Phone AKINOLE, C Primary Care Physician Unavailable MARIANA R Attending Clinician Unavailable Mariana MCCORMACK R Attending Clinician Doctor Unassigned, Name Attending Clinician Unavailable Samuel PAC, S Attending Clinician AKINSIMARINA C Attending Clinician Unavailable Akinsimarina WHCNP, C Attending Clinician BRYSON HICKMAN Attending Clinician Unavailable Lab, Fam Pob I Attending Clinician Unavailable Pito KEE, A Attending Clinician Jignesh THACKER Attending Clinician Unavailable Bryson Hickman DO Attending Clinician Ebrahimónica [employer]SE [employer]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 Attending Clinician EBRAHIM Attending Clinician Unavailable Adrien TRAMMELL Attending Clinician Unavailable PERSON Attending Clinician Unavailable Valeri HIGH, R Attending Clinician Mina LOPEZ, M Attending Clinician Unknown Attending Clinician Unavailable Rick PERDOMO Attending Clinician Person Attending Clinician Xavier FENTON, G Attending Clinician Visit, Nurse Attending Clinician Unavailable Steven PERDOOM M Attending Clinician Beto England MD Attending Clinician Ultrasound Attending Clinician Unavailable Mónica Hickman MD Attending Clinician Jm PERDOMO Attending Clinician Gerardo PERDOMO Attending Clinician Lab/Pedi Attending Clinician Unavailable Mark Anthony MSN, A Attending Clinician 1, Us Room Attending Clinician Unavailable Lab Attending Clinician Unavailable Faculty, Rmchp Mfm Attending Clinician Unavailable Mónica HARRIS Admitting Clinician Unavailable BETO ENGALND Admitting Clinician Unavailable Rick PERDOMO Admitting Clinician Mónica Harris MD Admitting Clinician Beto England MD Admitting Clinician Payers Payer Name Policy Type Policy Number Effective Date Expiration Date S milka [facility] [id number] 2019 00:00:00 [place]ICAID OF [place] [id number] 2019 00:00:00 MEDICAID PENDING PENDING 2019 00:00:00 Problems Condition Condition Condition Status Onset Resolution Last Treating Co mments Source Name Details Category Date Date Treatment Clinician Date Irregular Irregular Disease Active Uni vers menstrual menstrual 5-06 ity of cycle cycle 00:00: [address] Other Other Disease Active Univers general general 1-21 it[place] of counseling [place] and advice and advice 00 [facility] management management Morbid Morbid Disease Active Univers obesity obesity 1-21 ity of 00:00: [address] Cholelithi Cholelithi Disease Active 2019-02 U nivers asis with asis with 2-18 ity of choledocho choledocho 00:00[place] lithiasis lithiasis 00 [facility] Lactating Lactating Disease Active 2019-02 Uni vers mother mother 2-17 ity of 00:00: [address] S/P S/P Disease Active 2019-02 Univers 2-02 ity of section section 00:00: [address] 39 weeks 39 weeks Disease Active 2019-02 Unive rs gestation gestation 1-27 ity of of of 00:00: [place] 00 Medi shawna Branch Desires Desires Disease Active 2019-02 Univers 1-19 ity of (vaginal (vaginal 00:00: [place] 00 Medical after after Branch ) ) trial trial Leakage of Leakage of Disease Active 2019-02 U nivers amniotic amniotic 0-29 ity of fluid fluid 00:00: [place] 00 Medical Branch Pain of Pain of Disease Active 2019-02 [facility] round round 0-15 ity of ligament ligament 00:00: [place] during during 00 Medical Bran ch Pain of Pain of Disease Active 2019-02 Univers round round 0-01 ity of ligament ligament 00:00: [place] affecting affecting [address] [facility] , , Br anch antepartum antepartum Pyelonephr Pyelonephr Disease Active 2020 U nivers itis itis 7-07 ity of 00:00: [place] 00 [facility] Branch 18 weeks 18 weeks Disease Active Unive rs gestation gestation 7-07 ity of of of 00:00: [place] 00 [facility] UTI in UTI in Disease Active Overview: Univer s 5-19 ARSLAN ity of 00:00: negative [place] 00 Medical Branch Elevated Elevated Disease Active Unive rs blood blood 5-19 ity of pressure pressure 00:00: [place] reading reading 00 Medical without without Branch diagnosis diagnosis of of hypertensi hypertensi on on BMI BMI Disease Active Univers 40.0-44.9, 40.0-44.9, 5-07 it y of adult adult 00:00: [place] 00 Medical Branch Tubal Tubal Disease Active Univers ligation ligation 5-07 ity of status status 00:00: [place] 00 Medical Branch Papanicola Papanicola Disease Active 2020 U nivers ou smear ou smear 5-07 ity of of cervix of cervix 00:00[place] with low with low 00 Medica l grade grade 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) LGSIL on LGSIL on Disease Active 2020 Overview: Un josy Pap smear Pap smear 4-17 Per ASCCP i ty of of cervix of cervix 00:00: guideline [place] 00 s repeat Medical cytolgy Branch in 12 months GBS (group GBS (group Disease Active Overview : Univers B B 4-17 pending ity of streptococ streptococ 00:00: ARSLAN [place] cus) UTI cus) UTI 00 Medica l complicati complicati Br anch ng ng Abnormal Abnormal Disease Active Overview: Un [place]osy maternal maternal 4-15 Failed ity of glucose glucose 00:00: 1hr gtt, [place] tolerance, tolerance, 00 passed Me dical antepartum antepartum [id number] Branch gtt History of History of Disease Active Overview : Univers 4-14 X1, ity of section section 00:00: desires [facility] Branch in 2016 History of History of Disease Active Overview : Univers pre-eclamp pre-eclamp 4-14 Reports i ty of zac zac 00:00: with last Medical Branch 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 Per patient report, reports managed with diet Multiparit Multiparit Disease Active U nivers y y 4-14 ity of 00:00: Medical Branch History of History of Disease Active Overview : Univers diabetes diabetes 4-14 Reports ity o f mellitus mellitus 00:00: [place] 10 Branch per patient, reports never on insulin or medicatio n just on metformin for pcos, reports managed by diet A1c-5.5mg dl Vaginal Vaginal Disease Active Univers yeast yeast 4-14 ity of infection infection 00:00[place] Former Former Disease Active Univers smoker smoker 10-11 ity of 00:00: Medical Branch Tobacco Tobacco Disease Active Overview: Univ ers use in use in 10-11 Reports ity of 00:00: quit x2 Surendra as 00 weeks ago Medical Branch Depression Depression Disease Active U nivers 2-24 ity of 00:00: Medical Branch Disease Active U nivers care and care and 2-24 ity of examinatio examinatio 00:00[place] n of n of 00 Medical lactating lactating Bran ch mother mother Morbid Morbid Disease Active Univers obesity obesity 2-24 ity of 00:00: [place] 00 Medical Branch History of History of Disease Active Overview : Univers depression depression 2-24 Formattin ity of 00:00: g of this note Medical might be Branch different from the original. Last time on meds was when she was 16 per patient Obesity in Obesity in Disease Active U nivers 2-24 ity of 00:00: [place] 00 Medical Branch Anemia of Anemia of Disease Active Uni vers mother in mother in 1-30 ity of , , [place] 00 Me dical condition condition Bran ch Asthma Asthma Disease Active Overview: Univer s 5-22 ICD10 ity of 00:00: Diagnosis [place] 00 Term Medical Melt Helper Branch Utility Supervisio Supervisio Disease Active Overview : Univers n of high n of high 5-22 ICD10 ity of risk risk 00:00: Diagnosis [place] , , 00 Term Me dical antepartum antepartum Melt Helper Branch Utility PCOS PCOS Disease Active Overview: Univer s (polycysti (polycysti 3-06 Self it y of c ovarian c ovarian 00:00: DC'd at [facility] as syndrome) syndrome) 00 12 weeks. M edical Stop Branch metformin at 15 weeks/ then get 1 hr gtt 2 weeks after that- Vasquez/ Dr. Beatty. LYLY Merrill 07/10/2014 2:26 PM Generalize Generalize Disease Active U nivers d anxiety d anxiety 3-06 ity of disorder disorder 00:00: [place] Medical Branch History of History of Disease Active Overview : Univers anxiety anxiety 3-06 Formattin ity o f 00:00: g of this note Medical might be Branch different from the original. Last on meds at age 16 per patient Allergies, Adverse Reactions, Alerts Allergy Allergy Status Severity Reaction(s) Onset Inactive Treating Comm ents Source Name Type Date Date Clinician NO KNOWN Drug Active Univers ALLERGIE Class ity of S [facility] Social History Social Habit Start Date Stop Date Quantity Comments Source ASSERTION 2019-05-02 University of 00:00:00 [facility] Exposure to Not sure University of SARS-CoV-2 [facility] (event) Branch Alcohol intake 2021-02-28 2021-02-28 Current University of 00:00:00 00:00:00 non-drinker of [facility] alcohol (finding) Branch Tobacco use and 2019-06-03 2019-06-03 Never used Universit y of exposure 00:00:00 00:00:00 [facility] History of 2007-10-12 2019-05-21 [facility] use [facility]00 00:00:00 [facility] Tobacco Comment 2017-01-30 2017-01-30 smokes 3 x per Unive rsity of 00:00:00 00:00:00 day, quit 09/2016, [place] Mónica edthai restarted 11/2016 Branch Sex [birth year] Universit y of 00:00:00 00:00:00 [facility] Smoking Status Start Date Stop Date Source Former smoker 2019-06-03 00:00:00 2019-06-03 00:00:00 Universi of [facility] Current every day 2017-04-03 00:00:00 [facility] smoker [facility] Medications Ordered Filled Start Stop Current Ordering Indication Dosage Frequency Signature Comments Components Source Medication Medication Date Date Medication? Clinician (SIG) Name Name ketorolac No 30mg 30 mg, Unive rs (TORADOL) 03-01 Intramuscu ity of injection 01:00: 23:53 lar, ONCE, [place] 30 mg 00 :00 1 dose, On Medical Mon Branch 02/28/21 at 1900, ALEJANDRA acetaminoph No 1000mg 1,000 mg, Univers en 03-01 Oral, ONCE ity of (TYLENOL) 00:45: 23:53 NOW, 1 [place] tablet 00 :00 dose, On Medical 1,000 mg Mon Branch 02/28/21 at 1845, Routine iopamidol 2020-02- No [id number] 120mL 120 mL, Univers (ISOVUE 12-07 Intravenou ity o f 370-500 mL) 05:00: 05:00 s, ONCE, 1 [place] injection 00 :00 dose, On Medica l 120 mL Tue Branch 12/07/20 at 0000, Routine NaCl 0.9% 2020-02- No 1000mL at 999 Uni vers (NS) bolus 0-19 10-19 mL/hr, ity of infusion 04:15: 06:23 1,000 mL, [place]rend[place] as 1,000 mL 00 :00 IV Medical Infusion, Branch ONCE, 1 dose, On 12/06/20 at 2315, STAT ondansetron 2020-02 No 4mg 4 mg, Slow Univers (ZOFRAN 0-19 10-19 IV Push, ity of (PF)) 04:15: 03:05 ONCE, 1 [place] injection 4 00 :00 dose, On Medi shawna mg Mon Branch 12/06/20 at 2315, ALEJANDRA morpHINE 2020-02- No 4mg 4 mg, Slow Un joys injection 4 0-19 10-19 IV Push, ity of mg 04:15: 03:05 ONCE, 1 [place] 00 :00 dose, On Medical Mon Branch 12/06/20 at 2315, STAT traMADoL 50 2020-02 Yes [id number] 50mg Take 1 Univ ers mg tablet 0-19 tablet by ity o f 00:00: mouth [place] 00 every 6 Medical (six) Branch hours as needed for Pain (scale 7-10). Indication s: acute pain ondansetron 2020-02 Yes [id number] 4mg Take 1 Univers (ZOFRAN 0-19 tablet by ity of ODT) 4 mg 00:00: mouth [place] disintegrat 00 every 8 Medic al ing tablet (eight) Branch hours as needed for Nausea and Vomiting (N/V). traMADoL 50 2020-02 Yes [id number] 50mg Take 1 Univ ers mg tablet 0-19 tablet by ity o f 00:00: mouth [place] 00 every 6 Medical (six) Branch hours as needed for Pain (scale 7-10). Indication s: acute pain ondansetron 2020-02 Yes [id number] 4mg Take 1 Univers (ZOFRAN 0-19 tablet by ity of ODT) 4 mg 00:00: mouth [place] disintegrat 00 every 8 Medic al ing tablet (eight) Branch hours as needed for Nausea and Vomiting (N/V). traMADoL 50 2020-02 Yes [id number] 50mg Take 1 Univ ers mg tablet 0-19 tablet by ity o f 00:00: mouth [place] 00 every 6 Medical (six) Branch hours as needed for Pain (scale 7-10). Indication s: acute pain ondansetron 2020-02 Yes [id number] 4mg Take 1 Univers (ZOFRAN 0-19 tablet by ity of ODT) 4 mg 00:00: mouth [place] disintegrat 00 every 8 Medic al ing tablet (eight) Branch hours as needed for Nausea and Vomiting (N/V). levonorgest Yes [id number] 1{tbl} Take 1 Univers rel-ethinyl 5-27 tablet by ity of estradiol 00:00: mouth [place] (SRONYX) 00 daily. Medical 0.1-20 Branch mg-mcg per tablet levonorgest Yes [id number] 1{tbl} Take 1 Univers rel-ethinyl 5-27 tablet by ity of estradiol 00:00: mouth [place] (SRONYX) 00 daily. Medical 0.1-20 Branch mg-mcg per tablet levonorgest Yes [id number] 1{tbl} Take 1 Univers rel-ethinyl 5-27 tablet by ity of estradiol 00:00: mouth [place] (SRONYX) 00 daily. Medical 0.1-20 Branch mg-mcg per tablet levonorgest Yes [id number] 1{tbl} Take 1 Univers rel-ethinyl 5-27 tablet by ity of estradiol 00:00: mouth [place] (SRONYX) 00 daily. Medical 0.1-20 Branch mg-mcg per tablet levonorgest Yes [id number] 1{tbl} Take 1 Univers rel-ethinyl 5-27 tablet by ity of estradiol 00:00: mouth [place] (SRONYX) 00 daily. Medical 0.1-20 Branch mg-mcg per tablet medroxyPROG 0 2020- No [id number] 10mg Take 1 Univers ESTERone 5-10 05-21 tablet by ity o f (PROVERA) 00:00: 04:59 mouth [place] 10 mg 00 :00 daily for Medical tablet 10 days. Branch medroxyPROG 2020-0 2020- No [id number] 10mg Take 1 Univers ESTERone 5-10 05-21 tablet by ity o f (PROVERA) 00:00: 04:59 mouth [place] 10 mg 00 :00 daily for Medical tablet 10 days. Branch medroxyPROG 2020- No [id number] 10mg Take 1 Univers ESTERone 5-10 05-21 tablet by ity o f (PROVERA) 00:00: 04:59 mouth [place] 10 mg 00 :00 daily for Medical tablet 10 days. Branch norethindro Yes [id number] 1{tbl} Take 1 Univers ne 0.35 mg 1-21 tablet by ity of tablet 00:00: mouth [place] 00 daily. Medical Branch norethindro Yes [id number] 1{tbl} Take 1 Univers ne 0.35 mg 1-21 tablet by ity of tablet 00:00: mouth [place] 00 daily. Medical Branch norethindro Yes [id number] 1{tbl} Take 1 Univers ne 0.35 mg 1-21 tablet by ity of tablet 00:00: mouth [place] 00 daily. Medical Branch norethindro Yes [id number] 1{tbl} Take 1 Univers ne 0.35 mg 1-21 tablet by ity of tablet 00:00: mouth [place] 00 daily. Medical Branch norethindro Yes [id number] 1{tbl} Take 1 Univers ne 0.35 mg 1-21 tablet by ity of tablet 00:00: mouth [place] 00 daily. Medical Branch norethindro Yes [id number] 1{tbl} Take 1 Univers ne 0.35 mg 1-21 tablet by ity of tablet 00:00: mouth [place] 00 daily. Medical Branch norethindro Yes [id number] 1{tbl} Take 1 Univers ne 0.35 mg 1-21 tablet by ity of tablet 00:00: mouth [place] 00 daily. Medical Branch norethindro Yes [id number] 1{tbl} Take 1 Univers ne 0.35 mg 1-21 tablet by ity of tablet 00:00: mouth [place] 00 daily. [facility] Branch norethindro Yes [id number] 1{tbl} Take 1 Univers ne 0.35 mg 1-21 tablet by ity of tablet 00:00: mouth [place] 00 daily. [facility] Branch norethindro Yes [id number] 1{tbl} Take 1 Univers ne 0.35 mg 1-21 tablet by ity of tablet 00:00: mouth [place] 00 daily. Medical Branch norethindro Yes [id number] 1{tbl} Take 1 Univers ne 0.35 mg 1-21 tablet by ity of tablet 00:00: mouth [place] 00 daily. Medical Branch norethindro Yes [id number] 1{tbl} Take 1 Univers ne 0.35 mg 1-21 tablet by ity of tablet 00:00: mouth [place] 00 daily. Medical Branch norethindro Yes [id number] 1{tbl} Take 1 Univers ne 0.35 mg 1-21 tablet by ity of tablet 00:00: mouth [place] 00 daily. Medical Branch norethindro Yes [id number] 1{tbl} Take 1 Univers ne 0.35 mg 1-21 tablet by ity of tablet 00:00: mouth [place] 00 daily. Medical Branch norethindro Yes [id number] 1{tbl} Take 1 Univers ne 0.35 mg 1-21 tablet by ity of tablet 00:00: mouth [place] 00 daily. Medical Branch norethindro Yes [id number] 1{tbl} Take 1 Univers ne 0.35 mg 1-21 tablet by ity of tablet 00:00: mouth [place] 00 daily. Medical Branch norethindro Yes [id number] 1{tbl} Take 1 Univers ne 0.35 mg 1-21 tablet by ity of tablet 00:00: mouth [place] 00 daily. Medical Branch norethindro Yes [id number] 1{tbl} Take 1 Univers ne 0.35 mg 1-21 tablet by ity of tablet 00:00: mouth [place] 00 daily. Medical Branch norethindro Yes [id number] 1{tbl} Take 1 Univers ne 0.35 mg 1-21 tablet by ity of tablet 00:00: mouth [place] 00 daily. Medical Branch norethindro Yes [id number] 1{tbl} Take 1 Univers ne 0.35 mg 1-21 tablet by ity of tablet 00:00: mouth [place] 00 daily. Medical Branch norethindro Yes [id number] 1{tbl} Take 1 Univers ne 0.35 mg 1-21 tablet by ity of tablet 00:00: mouth [place] 00 daily. Medical Branch norethindro Yes [id number] 1{tbl} Take 1 Univers ne 0.35 mg 1-21 tablet by ity of tablet 00:00: mouth [place] 00 daily. Medical Branch norethindro Yes [id number] 1{tbl} Take 1 Univers ne 0.35 mg 1-21 tablet by ity of tablet 00:00: mouth [place] 00 daily. Medical Branch norethindro Yes [id number] 1{tbl} Take 1 Univers ne 0.35 mg 1-21 tablet by ity of tablet 00:00: mouth [place] 00 daily. Medical Branch norethindro Yes [id number] 1{tbl} Take 1 Univers ne 0.35 mg 1-21 tablet by ity of tablet 00:00: mouth [place] 00 daily. [facility]- No [id number] 1{tbl} Take 1 Univers ne 0.35 mg 1-21 05-27 tablet by ity of tablet 00:00: 00:00 mouth [place] 00 :00 daily. [facility] Branch norethindro 2020- No [id number] 1{tbl} Take 1 Univers ne 0.35 mg 1-21 05-27 tablet by ity of tablet 00:00: 00:00 mouth [place] 00 :00 daily. Medical Branch pantoprazol 2019-02 Yes 40mg 40 mg, Univ ers e 2-19 Oral, ity of (PROTONIX) 15:00: DAILY, [place] EC tablet 00 First dose Medi shawna 40 mg on Sat Branch 02/07/20 at 0900, Until Discontinu ed, Routine acetaminoph 2019-02 Yes 650mg 650 mg, Un josy en 2-19 Oral, Q6H, ity of (TYLENOL) 00:00: First dose [place] tablet 650 00 on Fri Medical mg 02/06/20 Branch at 1800, Until Discontinu ed, Routine celecoxib 2019-02 Yes 100mg 100 mg, Univ ers (CELEBREX) 2-18 Oral, TID ity of capsule 100 23:00: MEALS, [place] mg 00 First dose Medical on Fri Branch 02/06/20 at 1700, Until Discontinu ed, Routine HYDROmorpho 2019-02 2020- No .2mg 0.2 mg, Un josy ne 2-18 12-18 Slow IV ity of (DILAUDID) 21:20: 23:40 Push, [place] injection 41 :56 Q5MIN PRN, Medi shawna 0.2 mg 10 doses, Branch Starting 02/06/20 at 1520, Until 02/06/20 at 1740, Routine, Pain (scale 7-10), PACU
Us e approved by (Faculty): PACU USE -ANESTHESI A SERVICE-HY DROMORPHON E INJECTIONS D5W 0.45% 2019-02 Yes IV Univers NaCl 2-18 Infusion, ity of (1/2NS) 1 L 21:15: at 42 [place] + KCL 20 00 mL/hr, Medical mEq CONTINUOUS Branch , Starting 02/06/20 at 1515, Until Discontinu ed, Routine morpHINE 2019-02 Yes 2mg 2 mg, Slow Uni vers injection 2 2-18 IV Push, ity of mg 21:04: Q6HPRN, [place] 57 Starting Medical Fri Branch 02/06/20 at 1504, Until Discontinu ed, Routine, Pain (scale 7-10) ibuprofen 2019-02 Yes [id number] 800mg Take 1 U nivers 800 mg 2-18 tablet by ity of tablet 00:00: mouth 3 [place] [address] ([facility]) Medical times Branch daily with meals. ibuprofen 2019-02 Yes [id number] 800mg Take 1 U nivers 800 mg 2-18 tablet by ity of tablet 00:00: mouth 3 [place] [address] ([facility]) Medical times Branch daily with meals. ibuprofen 2019-02 Yes [id number] 800mg Take 1 U nivers 800 mg 2-18 tablet by ity of tablet 00:00: mouth 3 [place] [address] (three) Medical times Branch daily with meals. ibuprofen 2019-02 Yes [id number] 800mg Take 1 U nivers 800 mg 2-18 tablet by ity of tablet 00:00: mouth 3 [place] (three) Medical times Branch daily with meals. ibuprofen 2019-02 Yes [id number] 800mg Take 1 U nivers 800 mg 2-18 tablet by ity of tablet 00:00: mouth 3 [place] [address] (three) Medical times Branch daily with meals. ibuprofen 2019-02 Yes [id number] 800mg Take 1 U nivers 800 mg 2-18 tablet by ity of tablet 00:00: mouth (three) Medical times Branch daily with meals. ibuprofen 2020- Yes [id number] 800mg Take 1 U nivers 800 mg 2-18 tablet by ity of tablet 00:00: mouth (three) Medical times Branch daily with meals. ibuprofen 2020-1 Yes [id number] 800mg Take 1 U nivers 800 mg 2-18 tablet by ity of tablet 00:00: mouth (three) Medical times Branch daily with meals. ibuprofen 2019- Yes [id number] 800mg Take 1 U nivers 800 mg 2-18 tablet by ity of tablet 00:00: mouth (three) Medical times Branch daily with meals. ibuprofen 2019- Yes [id number] 800mg Take 1 U nivers 800 mg 2-18 tablet by ity of tablet 00:00: mouth (three) Medical times Branch daily with meals. ibuprofen 2019- Yes [id number] 800mg Take 1 U nivers 800 mg 2-18 tablet by ity of tablet 00:00: mouth (three) Medical times Branch daily with meals. ibuprofen 2019-02 Yes [id number] 800mg Take 1 U nivers 800 mg 2-18 tablet by ity of tablet 00:00: mouth (three) Medical times Branch daily with meals. ibuprofen 2019- Yes [id number] 800mg Take 1 U nivers 800 mg 2-18 tablet by ity of tablet 00:00: mouth (three) Medical times Branch daily with meals. ibuprofen 2019-1 Yes [id number] 800mg Take 1 U nivers 800 mg 2-18 tablet by ity of tablet 00:00: mouth (three) Medical times Branch daily with meals. ibuprofen 2019- Yes [id number] 800mg Take 1 U nivers 800 mg 2-18 tablet by ity of tablet 00:00: mouth (three) Medical times Branch daily with meals. ibuprofen 2019-1 Yes [id number] 800mg Take 1 U nivers 800 mg 2-18 tablet by ity of tablet 00:00: mouth (three) Medical times Branch daily with meals. ibuprofen 2019-1 Yes [id number] 800mg Take 1 U nivers 800 mg 2-18 tablet by ity of tablet 00:00: mouth (three) Medical times Branch daily with meals. ibuprofen 2019- Yes [id number] 800mg Take 1 U nivers 800 mg 2-18 tablet by ity of tablet 00:00: mouth 3 [place] (three) Medical times Branch daily with meals. ibuprofen 2019- Yes [id number] 800mg Take 1 U nivers 800 mg 2-18 tablet by ity of tablet 00:00: mouth 3 [place] (three) Medical times Branch daily with meals. ibuprofen 2019- Yes [id number] 800mg Take 1 U nivers 800 mg 2-18 tablet by ity of tablet 00:00: mouth 3 [place] (three) Medical times Branch daily with meals. ibuprofen 2019-02 Yes [id number] 800mg Take 1 U nivers 800 mg 2-18 tablet by ity of tablet 00:00: mouth 3 [place] (three) Medical times Branch daily with meals. ibuprofen 2019-02 Yes [id number] 800mg Take 1 U nivers 800 mg 2-18 tablet by ity of tablet 00:00: mouth 3 [place] (three) Medical times Branch daily with meals. ibuprofen 2019-02 Yes [id number] 800mg Take 1 U nivers 800 mg 2-18 tablet by ity of tablet 00:00: mouth 3 [place] (three) Medical times Branch daily with meals. ibuprofen 2019-02 Yes [id number] 800mg Take 1 U nivers 800 mg 2-18 tablet by ity of tablet 00:00: mouth 3 [place] (three) Medical times Branch daily with meals. acetaminoph 2019-02- No [id number] 650mg Take 2 Univers en 325 mg 2-18 12-19 tablets by ity of tablet 00:00: 05:59 mouth [place] 00 :00 every 6 Medical (six) Branch hours. acetaminoph 2019-02- No [id number] 650mg Take 2 Univers en 325 mg 2-18 12-19 tablets by ity of tablet 00:00: 05:59 mouth [place] 00 :00 every 6 Medical (six) Branch hours. acetaminoph 2019-02- No [id number] 650mg Take 2 Univers en 325 mg 2-18 12-19 tablets by ity of tablet 00:00: 05:59 mouth [place] 00 :00 every 6 Medical (six) Branch hours. acetaminoph 2019-02- No [id number] 650mg Take 2 Univers en 325 mg 2-18 12-19 tablets by ity of tablet 00:00: 05:59 mouth [place] 00 :00 every 6 Medical (six) Branch hours. acetaminoph 2019-02- No [id number] 650mg Take 2 Univers en 325 mg 2-18 12-19 tablets by ity of tablet 00:00: 05:59 mouth [place] 00 :00 every 6 Medical (six) Branch hours. acetaminoph 2019-02- No [id number] 650mg Take 2 Univers en 325 mg 2-18 12-19 tablets by ity of tablet 00:00: 05:59 mouth [place] 00 :00 every 6 Medical (six) Branch hours. acetamino 2019-02- No [id number] 650mg Take 2 Univers en 325 mg 2-18 12-19 tablets by ity of tablet 00:00: 05:59 mouth [place] 00 :00 every 6 Medical (six) Branch hours. [facility] 2019-02- No [id number] 650mg Take 2 Univers en 325 mg 2-18 12-19 tablets by ity of tablet 00:00: 05:59 mouth [place] 00 :00 every 6 Medical (six) Branch hours. acetamino 2019-02- No [id number] 650mg Take 2 Univers en 325 mg 2-18 12-19 tablets by ity of tablet 00:00: 05:59 mouth [place] 00 :00 every 6 Medical (six) Branch hours. acetamino 2019-02- No [id number] 650mg Take 2 [facility] en 325 mg 2-18 12-19 tablets by ity of tablet 00:00: 05:59 mouth [place] 00 :00 every 6 Medical (six) Branch hours. acetaminoph 2019-02- No [id number] 650mg Take 2 [facility] en 325 mg 2-18 12-19 tablets by [facility] of tablet 00:00: 05:59 mouth [place] 00 :00 every 6 Medical (six) Branch hours. acetaminoph 2019-02- No [id number] 650mg Take 2 [facility] en 325 mg 2-18 12-19 tablets by [facility] of tablet 00:00: 05:59 mouth [place] 00 :00 every 6 Medical (six) Branch hours. acetaminoph 2019-02- No [id number] 650mg Take 2 [facility] en 325 mg 2-18 12-19 tablets by ity of tablet 00:00: 05:59 mouth [place] 00 :00 every 6 Medical (six) Branch hours. acetaminoph 2019-02- No [id number] 650mg Take 2 [facility] en 325 mg 2-18 12-19 tablets by ity of tablet 00:00: 05:59 mouth [place] 00 :00 every 6 Medical (six) Branch hours. acetaminoph 2019-02- No [id number] 650mg Take 2 [facility] en 325 mg 2-18 12-19 tablets by [facility]y of tablet 00:00: 05:59 mouth [place] 00 :00 every 6 Medical (six) Branch hours. acetaminoph 2019-02- No [id number] 650mg Take 2 [facility] en 325 mg 2-18 12-19 tablets by ity of tablet 00:00: 05:59 mouth [place] 00 :00 every 6 Medical (six) Branch hours. acetaminoph 2019-02- No [id number] 650mg Take 2 [facility] en 325 mg 2-18 12-19 tablets by ity of tablet 00:00: 05:59 mouth [place] 00 :00 every 6 Medical (six) Branch hours. acetaminoph 2019-02- No [id number] 650mg Take 2 [facility] en 325 mg 2-18 12-19 tablets by ity of tablet 00:00: 05:59 mouth [place] 00 :00 every 6 Medical (six) Branch hours. acetaminoph 2019-02- No [id number] 650mg Take 2 [facility] en 325 mg 2-18 12-19 tablets by ity of tablet 00:00: 05:59 mouth [place] 00 :00 every 6 Medical (six) Branch hours. acetaminoph 2019-02- No [id number] 650mg Take 2 [facility] en 325 mg 2-18 12-19 tablets by ity of tablet 00:00: 05:59 mouth [place] 00 :00 every 6 Medical (six) Branch hours. acetaminoph 2019-02- No [id number] 650mg Take 2 [facility] en 325 mg 2-18 12-19 tablets by ity of tablet 00:00: 05:59 mouth [place] 00 :00 every 6 Medical (six) Branch hours. acetaminoph 2019-02- No [id number] 650mg Take 2 [facility] en 325 mg 2-18 12-19 tablets by ity of tablet 00:00: 05:59 mouth [place] 00 :00 every 6 Medical (six) Branch hours. acetaminoph 2019-02- No [id number] 650mg Take 2 [facility] en 325 mg 2-18 12-19 tablets by ity of tablet 00:00: 05:59 mouth [place] 00 :00 every 6 Medical (six) Branch hours. acetaminoph 2019-02- No [id number] 650mg Take 2 [facility] en 325 mg 2-18 12-19 tablets by ity of tablet 00:00: 05:59 mouth [place] 00 :00 every 6 Medical (six) Branch hours. acetaminoph 2019-02- No [id number] 650mg Take 2 [facility] en 325 mg 2-18 05-07 tablets by ity of tablet 00:00: 00:00 mouth [place] 00 :00 every 6 Medical (six) Branch hours. ibuprofen 2019-02- No [id number] 800mg Take 1 [facility] 800 mg 2-18 05-07 tablet by ity of tablet 00:00: 00:00 mouth 3 [place] 00 :00 (three) Medical times Branch daily with meals. acetaminoph 2019-02- No [id number] 650mg Take 2 [facility] en 325 mg 2-18 05-07 tablets by ity of tablet 00:00: 00:00 mouth [place] 00 :00 every 6 Medical (six) Branch hours. ibuprofen 2019-02- No [id number] 800mg Take 1 [facility] 800 mg 2-18 05-07 tablet by ity of tablet 00:00: 00:00 mouth 3 [place] 00 :00 (three) Medical times Branch daily with meals. acetaminoph 2019-02- No [id number] 650mg Take 2 [facility] en 325 mg 2-18 05-07 tablets by ity of tablet 00:00: 00:00 mouth [place] 00 :00 every 6 Medical (six) Branch hours. ibuprofen 2019-02- No [id number] 800mg Take 1 [facility] 800 mg 2-18 05-07 tablet by ity of tablet 00:00: 00:00 mouth 3 [place] 00 :00 (three) Medical times Branch daily with meals. acetaminoph 2019-02- No [id number] 650mg Take 2 [facility] en 325 mg 2-18 05-07 tablets by ity of tablet 00:00: 00:00 mouth [place] 00 :00 every 6 Medical (six) Branch hours. ibuprofen 2019-02- No [id number] 800mg Take 1 [facility] 800 mg 2-18 05-07 tablet by ity of tablet 00:00: 00:00 mouth 3 [place] 00 :00 (three) Medical times Branch daily with meals. acetaminoph 2019-02 No [id number] 650mg Take 2 [facility] en 325 mg 2-18 05-07 tablets by ity of tablet 00:00: 00:00 mouth [place] 00 :00 every 6 Medical (six) Branch hours. ibuprofen 2019-02 No [id number] 800mg Take 1 [facility] 800 mg 2-18 05-07 tablet by ity of tablet 00:00: 00:00 mouth 3 [place] 00 :00 (three) Medical times Branch daily with meals. acetaminoph 2019-02 No [id number] 650mg Take 2 [facility] en 325 mg 2-18 05-07 tablets by ity of tablet 00:00: 00:00 mouth [place] 00 :00 every 6 Medical (six) Branch hours. ibuprofen 2019-02 No [id number] 800mg Take 1 [facility] 800 mg 2-18 05-07 tablet by ity of tablet 00:00: 00:00 mouth 3 [place] 00 :00 (three) Medical times Branch daily with meals. HYDROcodone 2019-02 No [id number] 1{tbl} Take 1 U nivers -acetaminop 2-18 12-26 tablet by it y of hen 5-325 00:00: 05:59 mouth [place] mg tablet 00 :00 every 6 Medical (six) Branch hours as needed for Pain (scale 4-6) for up to 7 days. Indication s: acute pain HYDROcodone 2019-02 No [id number] 1{tbl} Take 1 U nivers -acetaminop 2-18 12-26 tablet by it y of hen 5-325 00:00: 05:59 mouth [place] mg tablet 00 :00 every 6 Medical (six) Branch hours as needed for Pain (scale 4-6) for up to 7 days. Indication s: acute pain HYDROcodone 2019-02 No [id number] 1{tbl} Take 1 U nivers -acetaminop 2-18 12-26 tablet by it y of hen 5-325 00:00: 05:59 mouth [place] mg tablet 00 :00 every 6 Medical (six) Branch hours as needed for Pain (scale 4-6) for up to 7 days. Indication s: acute pain HYDROcodone 2019-02- No [id number] 1{tbl} Take 1 U nivers -acetaminop -18 - tablet by it y of hen 5-325 00:00: 05:59 mouth [place] mg tablet 00 :00 every 6 Medical (six) Branch hours as needed for Pain (scale 4-6) for up to 7 days. Indication s: acute pain HYDROcodone 2019-02- No [id number] 1{tbl} Take 1 U nivers -acetaminop 2-18 12-26 tablet by it y of hen 5-325 00:00: 05:59 mouth [place] mg tablet 00 :00 every 6 Medical (six) Branch hours as needed for Pain (scale 4-6) for up to 7 days. Indication s: acute pain D5W 0.45% 2019-02- No IV [facility] NaCl 04-07 Infusion, ity of (1/2NS) 1 L 22:45: 21:06 at 100 Surendra as + KCL 20 00 :04 mL/hr, Medical mEq CONTINUOUS Branch , Starting Beryl 02/05/20 at 1645, Until 02/06/20 at 1506, Routine lactated 2019-02- No 500mL at 999 Unive rs ringers IV 04-07 mL/hr, 500 it y of infusion 04:00: 04:55 mL, [place] 500 mL 00 :00 Intravenou Medical s, ONCE, 1 Branch dose, 02/04/20 at 2200, Routine piperacilli 2019-02- No 3.375g 3.375 g, [facility] n-tazobacta 04-07 IV ity of m (ZOSYN) 03:00: 21:06 Piggyback, [place] 3.375 g in 00 :04 Q6H ABX, Medic al NaCl 0.9% First dose Bran ch (NS) 100 mL on Sun MINI-BAG 02/04/20 at 2100, Until Discontinu ed, 100 mL
R girma for Anti-Infec tive: Empiric Therapy for Suspected Infection< br>Empiric Therapy Site: Abdominal< br>Duratio n of therapy: 7 days pantoprazol 2019-02- No 40mg 40 mg, IV [facility] e 04-07 Piggyback, ity of (PROTONIX) 03:00: 21:06 Q24H, 3 [facility]ra as 40 mg in 00 :04 doses, Medical NaCl 0.9% First dose Bran ch (NS) 100 mL on Sun MINI-BAG 02/04/20 at 2100, Last dose on Sun02/06/20 at 2100, 100 mL D5W 0.45% 2019-02- No IV [facility] NaCl 04-07 Infusion, ity of (1/2NS) 1 L 03:00: 22:35 at 150 Surendra as + KCL 20 00 :33 mL/hr, Medical mEq CONTINUOUS Branch , Starting Sun02/04/20 at 2100, Until Beryl 02/05/20 at 1635, Routine ondansetron 2019-02 Yes 4mg 4 mg, Slow [facility] (ZOFRAN 04-07 IV Push, ity of (PF)) 02:47: Administer [place] injection 4 51 over 15 Medic al mg Minutes, Branch Q8HPRN, Starting Sun02/04/20 at 2047, Until Discontinu ed, Routine, Nausea and Vomiting (N/V) cefTRIAXone 2019-02- No 1000mg 1,000 mg, Univers (ROCEPHIN) 04-06 IV ity of 1,000 mg in 22:15: 21:59 Piggyback, [place] NaCl 0.9% 00 :00 ONCE, 1 Medical (NS) 50 mL dose, Sun Bran ch MINI-BAG 02/04/20 at 1615, 50 mL
Reas on for Anti-Infec tive: Documented Infection< br>Documen usman Infection Site: Skin / Soft Tissue
Duration of Therapy: 7 days iohexol 2019-02- No 120mL 120 mL, Unive rs (OMNIPAQUE 04-06 Intravenou it y of 350 21:45: 21:45 s, ONCE, 1 [place] BULK-150 00 :00 dose, Wed Medica l mL) 02/04/20 Branch injection at 1600, 120 mL Routine NaCl 0.9% 2019-02- No 1000mL at 999 Uni vers (NS) IV 04-06 12-16 mL/hr, ity of infusion 20:00: 20:50 Intravenou [place] 1,000 mL 00 :00 s, ONCE, 1 Medic al dose, Wed Branch 02/04/20 at 1400, ALEJANDRA ondansetron 2019-02 2020- No 4mg 4 mg, Slow [facility] (ZOFRAN 04-06 IV Push, ity of (PF)) 20:00: 19:13 ONCE, 1 [place] injection 4 00 :00 dose, Sun Med ical mg 02/04/20 Branch at 1400, ALEJANDRA ketorolac 2019-02 2020- No 30mg 30 mg, Unive rs (TORADOL) 04-06 Slow IV ity of injection 20:00: 19:14 Push, [place] 30 mg 00 :00 ONCE, 1 Medical dose, Sun Branch 02/04/20 at 1400, Routine
support team member approving Restricted medication : FRANCESCA TUCKER enoxaparin 2019-02 Yes 40mg 40 mg, Unive rs (LOVENOX) 04-06 Subcutaneo ity of injection 16:00: us, Q24H, [facility]rend[facility] as 40 mg 00 First dose Medical on Sun Branch 02/04/20 at 1000, Until Discontinu ed, Routine 2019-02 Yes [id number] 1{tbl} Take 1 [facility] vitamin 1-29 tablet by ity of w/FA tablet 00:00: mouth [place] 00 daily. Medical Branch docusate 2019-02 Yes [id number] 240mg Take 1 U nivers calcium 240 1-29 capsule by it y of mg capsule 00:00: mouth once [place] 00 daily as Medical needed for Branch Constipati on. ferrous 2019-02 Yes [id number] 325mg Take 1 Un josy sulfate 325 1-29 tablet by ity of mg (65 mg 00:00: mouth 2 [place] iron) 00 (two) Medical tablet times Branch daily. ibuprofen 2019-02 Yes [id number] 600mg Take 1 [facility] 600 mg 1-29 tablet by ity of tablet 00:00: mouth [place] 00 every 6 Medical (six) Branch hours as needed (Pain). Take with food or milk. HYDROcodone 2019-02 Yes [id number] 1{tbl} Take 1 Un josy -acetaminop 1-29 tablet by ity of hen 5-325 00:00: mouth [place] mg tablet 00 every 6 Medical (six) Branch hours as needed (Pain) for up to 10 doses. Do not exceed 3 grams of acetaminop hen in 24 hours. Indication s: acute pain 2019-02 Yes [id number] 1{tbl} Take 1 [facility] vitamin 1-29 tablet by ity of w/FA tablet 00:00: mouth [place] 00 daily. Medical Branch docusate 2019-02 Yes [id number] 240mg Take 1 U nivers calcium 240 1-29 capsule by it y of mg capsule 00:00: mouth once [place] 00 daily as Medical needed for Branch Constipati on. ferrous 2019-02 Yes [id number] 325mg Take 1 Un josy sulfate 325 1-29 tablet by ity of mg (65 mg 00:00: mouth 2 [place] iron) 00 (two) Medical tablet times Branch daily. ibuprofen 2019-02 Yes [id number] 600mg Take 1 [facility] 600 mg 1-29 tablet by ity of tablet 00:00: mouth [place] 00 every 6 Medical (six) Branch hours as needed (Pain). Take with food or milk. HYDROcodone 2019-02 Yes [id number] 1{tbl} Take 1 Un josy -acetaminop 1-29 tablet by ity of hen 5-325 00:00: mouth [place] mg tablet 00 every 6 Medical (six) Branch hours as needed (Pain) for up to 10 doses. Do not exceed 3 grams of acetaminop hen in 24 hours. Indication s: acute pain 2019-02 Yes [id number] 1{tbl} Take 1 [facility] vitamin 1-29 tablet by ity of w/FA tablet 00:00: mouth [place] 00 daily. Medical Branch docusate 2019-02 Yes [id number] 240mg Take 1 U nivers calcium 240 1-29 capsule by it y of mg capsule 00:00: mouth once [place] 00 daily as Medical needed for Branch Constipati on. ferrous 2019-02 Yes [id number] 325mg Take 1 Un josy sulfate 325 1-29 tablet by ity of mg (65 mg 00:00: mouth 2 [place] iron) 00 (two) Medical tablet times Branch daily. ibuprofen 2019-02 Yes [id number] 600mg Take 1 [facility] 600 mg 1-29 tablet by ity of tablet 00:00: mouth [place] 00 every 6 Medical (six) Branch hours as needed (Pain). Take with food or milk. HYDROcodone 2019-02 Yes [id number] 1{tbl} Take 1 Un josy -acetaminop 1-29 tablet by ity of hen 5-325 00:00: mouth [place] mg tablet 00 every 6 Medical (six) Branch hours as needed (Pain) for up to 10 doses. Do not exceed 3 grams of acetaminop hen in 24 hours. Indication s: acute pain 2019-02 Yes [id number] 1{tbl} Take 1 [facility] vitamin 1-29 tablet by ity of w/FA tablet 00:00: mouth [place] 00 daily. Medical Branch docusate 2019-02 Yes [id number] 240mg Take 1 U nivers calcium 240 1-29 capsule by it y of mg capsule 00:00: mouth once [place] 00 daily as Medical needed for Branch Constipati on. ferrous 2019-02 Yes [id number] 325mg Take 1 Un josy sulfate 325 1-29 tablet by ity of mg (65 mg 00:00: mouth 2 [place] iron) 00 (two) Medical tablet times Branch daily. ibuprofen 2019-02 Yes [id number] 600mg Take 1 [facility] 600 mg 1-29 tablet by ity of tablet 00:00: mouth [place] 00 every 6 Medical (six) Branch hours as needed (Pain). Take with food or milk. HYDROcodone 2019-02 Yes [id number] 1{tbl} Take 1 Un josy -acetaminop 1-29 tablet by ity of hen 5-325 00:00: mouth [place] mg tablet 00 every 6 Medical (six) Branch hours as needed (Pain) for up to 10 doses. Do not exceed 3 grams of acetaminop hen in 24 hours. Indication s: acute pain 2019-02 Yes [id number] 1{tbl} Take 1 [facility] vitamin 1-29 tablet by ity of w/FA tablet 00:00: mouth [place] 00 daily. Medical Branch docusate 2019-02 Yes [id number] 240mg Take 1 U nivers calcium 240 1-29 capsule by it y of mg capsule 00:00: mouth once [place] 00 daily as Medical needed for Branch Constipati on. ferrous 2019-02 Yes [id number] 325mg Take 1 Un josy sulfate 325 1-29 tablet by ity of mg (65 mg 00:00: mouth 2 [place] iron) 00 (two) Medical tablet times Branch daily. ibuprofen 2019-02 Yes [id number] 600mg Take 1 [facility] 600 mg 1-29 tablet by ity of tablet 00:00: mouth [place] 00 every 6 Medical (six) Branch hours as needed (Pain). Take with food or milk. HYDROcodone 2019-02 Yes [id number] 1{tbl} Take 1 Un josy -acetaminop 1-29 tablet by ity of hen 5-325 00:00: mouth [place] mg tablet 00 every 6 Medical (six) Branch hours as needed (Pain) for up to 10 doses. Do not exceed 3 grams of acetaminop hen in 24 hours. Indication s: acute pain 2019-02 Yes [id number] 1{tbl} Take 1 [facility] vitamin 1-29 tablet by ity of w/FA tablet 00:00: mouth [place] 00 daily. Medical Branch docusate 2019-02 Yes [id number] 240mg Take 1 U nivers calcium 240 1-29 capsule by it y of mg capsule 00:00: mouth once [place] 00 daily as Medical needed for Branch Constipati on. ferrous 2019-02 Yes [id number] 325mg Take 1 Un josy sulfate 325 1-29 tablet by ity of mg (65 mg 00:00: mouth 2 [place] iron) 00 (two) Medical tablet times Branch daily. ibuprofen 2019-02 Yes [id number] 600mg Take 1 [facility] 600 mg 1-29 tablet by ity of tablet 00:00: mouth [place] 00 every 6 Medical (six) Branch hours as needed (Pain). Take with food or milk. HYDROcodone 2019-02 Yes [id number] 1{tbl} Take 1 Un josy -acetaminop 1-29 tablet by ity of hen 5-325 00:00: mouth [place] mg tablet 00 every 6 Medical (six) Branch hours as needed (Pain) for up to 10 doses. Do not exceed 3 grams of acetaminop hen in 24 hours. Indication s: acute pain 2019-02 Yes [id number] 1{tbl} Take 1 [facility] vitamin 1-29 tablet by ity of w/FA tablet 00:00: mouth [place] 00 daily. Medical Branch docusate 2019-02 Yes [id number] 240mg Take 1 U nivers calcium 240 1-29 capsule by it y of mg capsule 00:00: mouth once [place] 00 daily as Medical needed for Branch Constipati on. ferrous 2019-02 Yes [id number] 325mg Take 1 Un josy sulfate 325 1-29 tablet by ity of mg (65 mg 00:00: mouth 2 [place] iron) 00 (two) Medical tablet times Branch daily. ibuprofen 2019-02 Yes [id number] 600mg Take 1 [facility] 600 mg 1-29 tablet by ity of tablet 00:00: mouth [place] 00 every 6 Medical (six) Branch hours as needed (Pain). Take with food or milk. HYDROcodone 2019-02 Yes [id number] 1{tbl} Take 1 Un josy -acetaminop 1-29 tablet by ity of hen 5-325 00:00: mouth [place] mg tablet 00 every 6 Medical (six) Branch hours as needed (Pain) for up to 10 doses. Do not exceed 3 grams of acetaminop hen in 24 hours. Indication s: acute pain 2019-02 Yes [id number] 1{tbl} Take 1 [facility] vitamin 1-29 tablet by ity of w/FA tablet 00:00: mouth [place] 00 daily. Medical Branch docusate 2019-02 Yes [id number] 240mg Take 1 U nivers calcium 240 1-29 capsule by it y of mg capsule 00:00: mouth once [place] 00 daily as Medical needed for Branch Constipati on. ferrous 2019-02 Yes [id number] 325mg Take 1 Un josy sulfate 325 1-29 tablet by ity of mg (65 mg 00:00: mouth 2 [place] iron) 00 (two) Medical tablet times Branch daily. ibuprofen 2019-02 Yes [id number] 600mg Take 1 [facility] 600 mg 1-29 tablet by ity of tablet 00:00: mouth [place] 00 every 6 Medical (six) Branch hours as needed (Pain). Take with food or milk. HYDROcodone 2019-02 Yes [id number] 1{tbl} Take 1 Un josy -acetaminop 1-29 tablet by ity of hen 5-325 00:00: mouth [place] mg tablet 00 every 6 Medical (six) Branch hours as needed (Pain) for up to 10 doses. Do not exceed 3 grams of acetaminop hen in 24 hours. Indication s: acute pain 2019-02 Yes [id number] 1{tbl} Take 1 [facility] vitamin 1-29 tablet by ity of w/FA tablet 00:00: mouth [place] 00 daily. Medical Branch docusate 2019-02 Yes [id number] 240mg Take 1 U nivers calcium 240 1-29 capsule by it y of mg capsule 00:00: mouth once [place] 00 daily as Medical needed for Branch Constipati on. ferrous 2019-02 Yes [id number] 325mg Take 1 Un josy sulfate 325 1-29 tablet by ity of mg (65 mg 00:00: mouth 2 [place] iron) 00 (two) Medical tablet times Branch daily. ibuprofen 2019-02 Yes [id number] 600mg Take 1 [facility] 600 mg 1-29 tablet by ity of tablet 00:00: mouth [place] 00 every 6 Medical (six) Branch hours as needed (Pain). Take with food or milk. HYDROcodone 2019-02 Yes [id number] 1{tbl} Take 1 Un josy -acetaminop 1-29 tablet by ity of hen 5-325 00:00: mouth [place] mg tablet 00 every 6 Medical (six) Branch hours as needed (Pain) for up to 10 doses. Do not exceed 3 grams of acetaminop hen in 24 hours. Indication s: acute pain 2019-02 Yes [id number] 1{tbl} Take 1 [facility] vitamin 1-29 tablet by ity of w/FA tablet 00:00: mouth [place] 00 daily. Medical Branch docusate 2019-02 Yes [id number] 240mg Take 1 U nivers calcium 240 1-29 capsule by it y of mg capsule 00:00: mouth once [place] 00 daily as Medical needed for Branch Constipati on. ferrous 2019-02 Yes [id number] 325mg Take 1 Un josy sulfate 325 1-29 tablet by ity of mg (65 mg 00:00: mouth 2 [place] iron) 00 (two) Medical tablet times Branch daily. ibuprofen 2019-02 Yes [id number] 600mg Take 1 [facility] 600 mg 1-29 tablet by ity of tablet 00:00: mouth [place] 00 every 6 Medical (six) Branch hours as needed (Pain). Take with food or milk. HYDROcodone 2019-02 Yes [id number] 1{tbl} Take 1 Un josy -acetaminop 1-29 tablet by ity of hen 5-325 00:00: mouth [place] mg tablet 00 every 6 Medical (six) Branch hours as needed (Pain) for up to 10 doses. Do not exceed 3 grams of acetaminop hen in 24 hours. Indication s: acute pain 2019-02 Yes [id number] 1{tbl} Take 1 [facility] vitamin 1-29 tablet by ity of w/FA tablet 00:00: mouth [place] 00 daily. Medical Branch docusate 2019-02 Yes [id number] 240mg Take 1 U nivers calcium 240 1-29 capsule by it y of mg capsule 00:00: mouth once [place] 00 daily as Medical needed for Branch Constipati on. ferrous 2019-02 Yes [id number] 325mg Take 1 Un josy sulfate 325 1-29 tablet by ity of mg (65 mg 00:00: mouth 2 [place] iron) 00 (two) Medical tablet times Branch daily. ibuprofen 2019-02 Yes [id number] 600mg Take 1 [facility] 600 mg 1-29 tablet by ity of tablet 00:00: mouth [place] 00 every 6 Medical (six) Branch hours as needed (Pain). Take with food or milk. HYDROcodone 2019-02 Yes [id number] 1{tbl} Take 1 Un josy -acetaminop 1-29 tablet by ity of hen 5-325 00:00: mouth [place] mg tablet 00 every 6 Medical (six) Branch hours as needed (Pain) for up to 10 doses. Do not exceed 3 grams of acetaminop hen in 24 hours. Indication s: acute pain 2019-02 Yes [id number] 1{tbl} Take 1 [facility] vitamin 1-29 tablet by ity of w/FA tablet 00:00: mouth [place] 00 daily. Medical Branch docusate 2019-02 Yes [id number] 240mg Take 1 U nivers calcium 240 1-29 capsule by it y of mg capsule 00:00: mouth once [place] 00 daily as Medical needed for Branch Constipati on. ferrous 2019-02 Yes [id number] 325mg Take 1 Un josy sulfate 325 1-29 tablet by ity of mg (65 mg 00:00: mouth 2 [place] iron) 00 (two) Medical tablet times Branch daily. ibuprofen 2019-02 Yes [id number] 600mg Take 1 [facility] 600 mg 1-29 tablet by ity of tablet 00:00: mouth [place] 00 every 6 Medical (six) Branch hours as needed (Pain). Take with food or milk. HYDROcodone 2019-02 Yes [id number] 1{tbl} Take 1 Un josy -acetaminop 1-29 tablet by ity of hen 5-325 00:00: mouth [place] mg tablet 00 every 6 Medical (six) Branch hours as needed (Pain) for up to 10 doses. Do not exceed 3 grams of acetaminop hen in 24 hours. Indication s: acute pain 2019-02 Yes [id number] 1{tbl} Take 1 [facility] vitamin 1-29 tablet by ity of w/FA tablet 00:00: mouth [place] 00 daily. Medical Branch docusate 2019-02 Yes [id number] 240mg Take 1 U nivers calcium 240 1-29 capsule by it y of mg capsule 00:00: mouth once [place] 00 daily as Medical needed for Branch Constipati on. ferrous 2019-02 Yes [id number] 325mg Take 1 Un josy sulfate 325 1-29 tablet by ity of mg (65 mg 00:00: mouth 2 [place] iron) 00 (two) Medical tablet times Branch daily. ibuprofen 2019-02 Yes [id number] 600mg Take 1 [facility] 600 mg 1-29 tablet by ity of tablet 00:00: mouth [place] 00 every 6 Medical (six) Branch hours as needed (Pain). Take with food or milk. HYDROcodone 2019-02 Yes [id number] 1{tbl} Take 1 Un josy -acetaminop 1-29 tablet by ity of hen 5-325 00:00: mouth [place] mg tablet 00 every 6 Medical (six) Branch hours as needed (Pain) for up to 10 doses. Do not exceed 3 grams of acetaminop hen in 24 hours. Indication s: acute pain 2019-02 Yes [id number] 1{tbl} Take 1 [facility] vitamin 1-29 tablet by ity of w/FA tablet 00:00: mouth [place] 00 daily. Medical Branch docusate 2019-02 Yes [id number] 240mg Take 1 U nivers calcium 240 1-29 capsule by it y of mg capsule 00:00: mouth once [place] 00 daily as Medical needed for Branch Constipati on. ferrous 2019-02 Yes [id number] 325mg Take 1 Un josy sulfate 325 1-29 tablet by ity of mg (65 mg 00:00: mouth 2 [place] iron) 00 (two) Medical tablet times Branch daily. ibuprofen 2019-02 Yes [id number] 600mg Take 1 [facility] 600 mg 1-29 tablet by ity of tablet 00:00: mouth [place] 00 every 6 Medical (six) Branch hours as needed (Pain). Take with food or milk. HYDROcodone 2019-02 Yes [id number] 1{tbl} Take 1 Un josy -acetaminop 1-29 tablet by ity of hen 5-325 00:00: mouth [place] mg tablet 00 every 6 Medical (six) Branch hours as needed (Pain) for up to 10 doses. Do not exceed 3 grams of acetaminop hen in 24 hours. Indication s: acute pain 2019-02 Yes [id number] 1{tbl} Take 1 [facility] vitamin 1-29 tablet by ity of w/FA tablet 00:00: mouth [place] 00 daily. Medical Branch docusate 2019-02 Yes [id number] 240mg Take 1 U nivers calcium 240 1-29 capsule by it y of mg capsule 00:00: mouth once [place] 00 daily as Medical needed for Branch Constipati on. ferrous 2019-02 Yes [id number] 325mg Take 1 Un josy sulfate 325 1-29 tablet by ity of mg (65 mg 00:00: mouth 2 [place] iron) 00 (two) Medical tablet times Branch daily. ibuprofen 2019-02 Yes [id number] 600mg Take 1 [facility] 600 mg 1-29 tablet by ity of tablet 00:00: mouth [place] 00 every 6 Medical (six) Branch hours as needed (Pain). Take with food or milk. HYDROcodone 2019-02 Yes [id number] 1{tbl} Take 1 Un josy -acetaminop 1-29 tablet by ity of hen 5-325 00:00: mouth [place] mg tablet 00 every 6 Medical (six) Branch hours as needed (Pain) for up to 10 doses. Do not exceed 3 grams of acetaminop hen in 24 hours. Indication s: acute pain 2019-02 Yes [id number] 1{tbl} Take 1 [facility] vitamin 1-29 tablet by ity of w/FA tablet 00:00: mouth [place] 00 daily. Medical Branch docusate 2019-02 Yes [id number] 240mg Take 1 U nivers calcium 240 1-29 capsule by it y of mg capsule 00:00: mouth once [place] 00 daily as Medical needed for Branch Constipati on. ferrous 2019-02 Yes [id number] 325mg Take 1 Un josy sulfate 325 1-29 tablet by ity of mg (65 mg 00:00: mouth 2 [place] iron) 00 (two) Medical tablet times Branch daily. ibuprofen 2019-02 Yes [id number] 600mg Take 1 [facility] 600 mg 1-29 tablet by ity of tablet 00:00: mouth [place] 00 every 6 Medical (six) Branch hours as needed (Pain). Take with food or milk. HYDROcodone 2019-02 Yes [id number] 1{tbl} Take 1 Un josy -acetaminop 1-29 tablet by ity of hen 5-325 00:00: mouth [place] mg tablet 00 every 6 Medical (six) Branch hours as needed (Pain) for up to 10 doses. Do not exceed 3 grams of acetaminop hen in 24 hours. Indication s: acute pain 2019-02 Yes [id number] 1{tbl} Take 1 [facility] vitamin 1-29 tablet by ity of w/FA tablet 00:00: mouth [place] 00 daily. Medical Branch docusate 2019-02 Yes [id number] 240mg Take 1 [facility] calcium 240 1-29 capsule by [facility] y [facility] mg capsule 00:00: mouth once [place] 00 daily as Medical needed for Branch Constipati on. ferrous 2019-02 Yes [id number] 325mg Take 1 [facility] sulfate 325 1-29 tablet by ity of mg (65 mg 00:00: mouth 2 [place] iron) 00 (two) Medical tablet times Branch daily. ibuprofen 2019-02 Yes [id number] 600mg Take 1 [facility] 600 mg 1-29 tablet by [facility] of tablet 00:00: mouth [place] 00 every 6 Medical (six) Branch hours as needed (Pain). Take with food or milk. HYDROcodone 2019-02 Yes [id number] 1{tbl} Take 1 [facility] -acetaminop 1-29 tablet by ity of hen 5-325 00:00: mouth [place] mg tablet 00 every 6 Medical (six) Branch hours as needed (Pain) for up to 10 doses. Do not exceed 3 grams of acetaminop hen in 24 hours. Indication s: acute pain 2019-02 Yes [id number] 1{tbl} Take 1 [facility] vitamin 1-29 tablet by [facility] of w/FA tablet 00:00: mouth [place] 00 daily. Medical Branch docusate 2019-02 Yes [id number] 240mg Take 1 [facility] calcium 240 1-29 capsule by it y of mg capsule 00:00: mouth once [place] 00 daily as Medical needed for Branch Constipati on. ferrous 2019-02 Yes [id number] 325mg Take 1 [facility] sulfate 325 1-29 tablet by ity of mg (65 mg 00:00: mouth 2 [place] iron) 00 (two) Medical tablet times Branch daily. ibuprofen 2019-02 Yes [id number] 600mg Take 1 [facility] 600 mg 1-29 tablet by [facility]y of tablet 00:00: mouth [place] 00 every 6 Medical (six) Branch hours as needed (Pain). Take with food or milk. HYDROcodone 2019-02 Yes [id number] 1{tbl} Take 1 [facility] -acetaminop 1-29 tablet by ity of hen 5-325 00:00: mouth [place] mg tablet 00 every 6 Medical (six) Branch hours as needed (Pain) for up to 10 doses. Do not exceed 3 grams of acetaminop hen in 24 hours. Indication s: acute pain 2019-02 Yes [id number] 1{tbl} Take 1 [facility] vitamin 1-29 tablet by [facility]y of w/FA tablet 00:00: mouth [place] 00 daily. Medical Branch docusate 2019-02 Yes [id number] 240mg Take 1 [facility] calcium 240 1-29 capsule by it y of mg capsule 00:00: mouth once [place] 00 daily as Medical needed for Branch Constipati on. ferrous 2019-02 Yes [id number] 325mg Take 1 [facility] sulfate 325 1-29 tablet by [facility]y of mg (65 mg 00:00: mouth 2 [place] iron) 00 (two) Medical tablet times Branch daily. ibuprofen 2019-02 Yes [id number] 600mg Take 1 [facility] 600 mg 1-29 tablet by [facility]y of tablet 00:00: mouth [place] 00 every 6 Medical (six) Branch hours as needed (Pain). Take with food or milk. HYDROcodone 2019-02 Yes [id number] 1{tbl} Take 1 [facility] -acetaminop 1-29 tablet by ity of hen 5-325 00:00: mouth [place] mg tablet 00 every 6 Medical (six) Branch hours as needed (Pain) for up to 10 doses. Do not exceed 3 grams of acetaminop hen in 24 hours. Indication s: acute pain 2019-02 Yes [id number] 1{tbl} Take 1 [facility] vitamin 1-29 tablet by [facility]y of w/FA tablet 00:00: mouth [place] 00 daily. Medical Branch docusate 2019-02 Yes [id number] 240mg Take 1 [facility] calcium 240 1-29 capsule by [facility] y of mg capsule 00:00: mouth once [place] 00 daily as Medical needed for Branch Constipati on. ferrous 2019-02 Yes [id number] 325mg Take 1 [facility] sulfate 325 1-29 tablet by [facility]y of mg (65 mg 00:00: mouth 2 [place] iron) 00 (two) Medical tablet times Branch daily. ibuprofen 2019-02 Yes [id number] 600mg Take 1 [facility] 600 mg 1-29 tablet by [facility]y of tablet 00:00: mouth [place] 00 every 6 Medical (six) Branch hours as needed (Pain). Take with food or milk. HYDROcodone 2019-02 Yes [id number] 1{tbl} Take 1 [facility] -acetaminop 1-29 tablet by ity of hen 5-325 00:00: mouth [place] mg tablet 00 every 6 Medical (six) Branch hours as needed (Pain) for up to 10 doses. Do not exceed 3 grams of acetaminop hen in 24 hours. Indication s: acute pain 2019-02 Yes [id number] 1{tbl} Take 1 [facility] vitamin 1-29 tablet by [facility] of w/FA tablet 00:00: mouth [place] 00 daily. Medical Branch docusate 2019-02 Yes [id number] 240mg Take 1 [facility] calcium 240 1-29 capsule by it y of mg capsule 00:00: mouth once [place] 00 daily as Medical needed for Branch Constipati on. ferrous 2019-02 Yes [id number] 325mg Take 1 [facility] sulfate 325 1-29 tablet by [facility]y of mg (65 mg 00:00: mouth 2 [place] iron) 00 (two) Medical tablet times Branch daily. ibuprofen 2019-02 Yes [id number] 600mg Take 1 [facility] 600 mg 1-29 tablet by ity of tablet 00:00: mouth [place] 00 every 6 Medical (six) Branch hours as needed (Pain). Take with food or milk. HYDROcodone 2019-02 Yes [id number] 1{tbl} Take 1 [facility] -acetaminop 1-29 tablet by ity of hen 5-325 00:00: mouth [place] mg tablet 00 every 6 Medical (six) Branch hours as needed (Pain) for up to 10 doses. Do not exceed 3 grams of acetaminop hen in 24 hours. Indication s: acute pain 2019-02 Yes [id number] 1{tbl} Take 1 [facility] vitamin 1-29 tablet by [facility]y of w/FA tablet 00:00: mouth [place] 00 daily. Medical Branch docusate 2019-02 Yes [id number] 240mg Take 1 [facility] calcium 240 1-29 capsule by it y of mg capsule 00:00: mouth once [place] 00 daily as Medical needed for Branch Constipati on. ferrous 2019-02 Yes [id number] 325mg Take 1 [facility] sulfate 325 1-29 tablet by [facility]y of mg (65 mg 00:00: mouth 2 [place] iron) 00 (two) Medical tablet times Branch daily. ibuprofen 2019-02 Yes [id number] 600mg Take 1 [facility] 600 mg 1-29 tablet by ity of tablet 00:00: mouth [place] 00 every 6 Medical (six) Branch hours as needed (Pain). Take with food or milk. HYDROcodone 2019-02 Yes [id number] 1{tbl} Take 1 [facility] -acetaminop 1-29 tablet by ity of hen 5-325 00:00: mouth [place] mg tablet 00 every 6 Medical (six) Branch hours as needed (Pain) for up to 10 doses. Do not exceed 3 grams of acetaminop hen in 24 hours. Indication s: acute pain 2019-02 Yes [id number] 1{tbl} Take 1 [facility] vitamin 1-29 tablet by [facility]y of w/FA tablet 00:00: mouth [place] 00 daily. Medical Branch docusate 2019-02 Yes [id number] 240mg Take 1 [facility] calcium 240 1-29 capsule by it y of mg capsule 00:00: mouth once [place] 00 daily as Medical needed for Branch Constipati on. ferrous 2019-02 Yes [id number] 325mg Take 1 [facility] sulfate 325 1-29 tablet by [facility]y of mg (65 mg 00:00: mouth 2 [place] iron) 00 (two) Medical tablet times Branch daily. ibuprofen 2019-02 Yes [id number] 600mg Take 1 [facility] 600 mg 1-29 tablet by ity of tablet 00:00: mouth [place] 00 every 6 Medical (six) Branch hours as needed (Pain). Take with food or milk. HYDROcodone 2019-02 Yes [id number] 1{tbl} Take 1 [facility] -acetaminop 1-29 tablet by ity of hen 5-325 00:00: mouth [place] mg tablet 00 every 6 Medical (six) Branch hours as needed (Pain) for up to 10 doses. Do not exceed 3 grams of acetaminop hen in 24 hours. Indication s: acute pain 2019-02 Yes [id number] 1{tbl} Take 1 [facility] vitamin 1-29 tablet by [facility]y of w/FA tablet 00:00: mouth [place] 00 daily. Medical Branch docusate 2019-02 Yes [id number] 240mg Take 1 [facility] calcium 240 1-29 capsule by it y of mg capsule 00:00: mouth once [place] 00 daily as Medical needed for Branch Constipati on. ferrous 2019-02 Yes [id number] 325mg Take 1 [facility] sulfate 325 1-29 tablet by [facility]y of mg (65 mg 00:00: mouth 2 [place] iron) 00 (two) Medical tablet times Branch daily. ibuprofen 2019-02 Yes [id number] 600mg Take 1 [facility] 600 mg 1-29 tablet by ity of tablet 00:00: mouth [place] 00 every 6 Medical (six) Branch hours as needed (Pain). Take with food or milk. HYDROcodone 2019-02 Yes [id number] 1{tbl} Take 1 [facility] -acetaminop 1-29 tablet by ity of hen 5-325 00:00: mouth [place] mg tablet 00 every 6 Medical (six) Branch hours as needed (Pain) for up to 10 doses. Do not exceed 3 grams of acetaminop hen in 24 hours. Indication s: acute pain 2019-02 Yes [id number] 1{tbl} Take 1 [facility] vitamin 1-29 tablet by [facility] of w/FA tablet 00:00: mouth [place] 00 daily. Medical Branch docusate 2019-02 Yes [id number] 240mg Take 1 [facility] calcium 240 1-29 capsule by it y of mg capsule 00:00: mouth once [place] 00 daily as Medical needed for Branch Constipati on. ferrous 2019-02 Yes [id number] 325mg Take 1 [facility] sulfate 325 1-29 tablet by [facility]y of mg (65 mg 00:00: mouth 2 [place] iron) 00 (two) Medical tablet times Branch daily. ibuprofen 2019-02 Yes [id number] 600mg Take 1 [facility] 600 mg 1-29 tablet by ity of tablet 00:00: mouth [place] 00 every 6 Medical (six) Branch hours as needed (Pain). Take with food or milk. HYDROcodone 2019-02 Yes [id number] 1{tbl} Take 1 [facility] -acetaminop 1-29 tablet by ity of hen 5-325 00:00: mouth [place] mg tablet 00 every 6 Medical (six) Branch hours as needed (Pain) for up to 10 doses. Do not exceed 3 grams of acetaminop hen in 24 hours. Indication s: acute pain 2019-02 Yes [id number] 1{tbl} Take 1 [facility] vitamin 1-29 tablet by [facility]y of w/FA tablet 00:00: mouth [place] 00 daily. Medical Branch docusate 2019-02 Yes [id number] 240mg Take 1 [facility] calcium 240 1-29 capsule by it y of mg capsule 00:00: mouth once [place] 00 daily as Medical needed for Branch Constipati on. ferrous 2019-02 Yes [id number] 325mg Take 1 [facility] sulfate 325 1-29 tablet by ity of mg (65 mg 00:00: mouth 2 [place] iron) 00 (two) Medical tablet times Branch daily. ibuprofen 2019-02 Yes [id number] 600mg Take 1 [facility] 600 mg 1-29 tablet by ity of tablet 00:00: mouth [place] 00 every 6 Medical (six) Branch hours as needed (Pain). Take with food or milk. HYDROcodone 2019-02 Yes [id number] 1{tbl} Take 1 [facility] -acetaminop 1-29 tablet by ity of hen 5-325 00:00: mouth [place] mg tablet 00 every 6 Medical (six) Branch hours as needed (Pain) for up to 10 doses. Do not exceed 3 grams of acetaminop hen in 24 hours. Indication s: acute pain 2019-02 Yes [id number] 1{tbl} Take 1 [facility] vitamin 1-29 tablet by [facility]y of w/FA tablet 00:00: mouth [place] 00 daily. Medical Branch docusate 2019-02 Yes [id number] 240mg Take 1 [facility] calcium 240 1-29 capsule by it y of mg capsule 00:00: mouth once [place] 00 daily as Medical needed for Branch Constipati on. ferrous 2019-02 Yes [id number] 325mg Take 1 [facility] sulfate 325 1-29 tablet by [facility]y of mg (65 mg 00:00: mouth 2 [place] iron) 00 (two) Medical tablet times Branch daily. ibuprofen 2019-02 Yes [id number] 600mg Take 1 [facility] 600 mg 1-29 tablet by ity of tablet 00:00: mouth [place] 00 every 6 Medical (six) Branch hours as needed (Pain). Take with food or milk. HYDROcodone 2019-02 Yes [id number] 1{tbl} Take 1 [facility] -acetaminop 1-29 tablet by ity of hen 5-325 00:00: mouth [place] mg tablet 00 every 6 Medical (six) Branch hours as needed (Pain) for up to 10 doses. Do not exceed 3 grams of acetaminop hen in 24 hours. Indication s: acute pain 2019-02 Yes [id number] 1{tbl} Take 1 [facility] vitamin 1-29 tablet by [facility]y of w/FA tablet 00:00: mouth [place] 00 daily. Medical Branch docusate 2019-02 Yes [id number] 240mg Take 1 [facility] calcium 240 1-29 capsule by it y of mg capsule 00:00: mouth once [place] 00 daily as Medical needed for Branch Constipati on. ferrous 2019-02 Yes [id number] 325mg Take 1 [facility] sulfate 325 1-29 tablet by ity of mg (65 mg 00:00: mouth 2 [place] iron) 00 (two) Medical tablet times Branch daily. ibuprofen 2019-02 Yes [id number] 600mg Take 1 [facility] 600 mg 1-29 tablet by ity of tablet 00:00: mouth [place] 00 every 6 Medical (six) Branch hours as needed (Pain). Take with food or milk. HYDROcodone 2019-02 Yes [id number] 1{tbl} Take 1 [facility] -acetaminop 1-29 tablet by ity of hen 5-325 00:00: mouth [place] mg tablet 00 every 6 Medical (six) Branch hours as needed (Pain) for up to 10 doses. Do not exceed 3 grams of acetaminop hen in 24 hours. Indication s: acute pain 2019-02 Yes [id number] 1{tbl} Take 1 [facility] vitamin 1-29 tablet by [facility]y of w/FA tablet 00:00: mouth [place] 00 daily. Medical Branch docusate 2019-02 Yes [id number] 240mg Take 1 [facility] calcium 240 1-29 capsule by it y of mg capsule 00:00: mouth once [place] 00 daily as Medical needed for Branch Constipati on. ferrous 2019-02 Yes [id number] 325mg Take 1 [facility] sulfate 325 1-29 tablet by ity of mg (65 mg 00:00: mouth 2 [place] iron) 00 (two) Medical tablet times Branch daily. ibuprofen 2019-02 Yes [id number] 600mg Take 1 [facility] 600 mg 1-29 tablet by ity of tablet 00:00: mouth [place] 00 every 6 Medical (six) Branch hours as needed (Pain). Take with food or milk. HYDROcodone 2019-02 Yes [id number] 1{tbl} Take 1 [facility] -acetaminop 1-29 tablet by ity of hen 5-325 00:00: mouth [place] mg tablet 00 every 6 Medical (six) Branch hours as needed (Pain) for up to 10 doses. Do not exceed 3 grams of acetaminop hen in 24 hours. Indication s: acute pain ferrous 2019-02 Yes [id number] 325mg Take 1 [facility] sulfate 325 1-29 tablet by ity of mg (65 mg 00:00: mouth 2 [place] iron) 00 (two) Medical tablet times Branch daily. ferrous 2019-02 Yes [id number] 325mg Take 1 [facility] sulfate 325 1-29 tablet by [facility]y of mg (65 mg 00:00: mouth 2 [place] iron) 00 (two) Medical tablet times Branch daily. ferrous 2019-02 Yes [id number] 325mg Take 1 [facility] sulfate 325 1-29 tablet by ity of mg (65 mg 00:00: mouth 2 [place] iron) 00 (two) Medical tablet times Branch daily. ferrous 2019-02 Yes [id number] 325mg Take 1 [facility] sulfate 325 1-29 tablet by ity of mg (65 mg 00:00: mouth 2 [place] iron) 00 (two) Medical tablet times Branch daily. ferrous 2019-02 Yes [id number] 325mg Take 1 [facility] sulfate 325 1-29 tablet by [facility]y of mg (65 mg 00:00: mouth 2 [place] iron) 00 (two) Medical tablet times Branch daily. ferrous 2019-02 Yes [id number] 325mg Take 1 [facility] sulfate 325 1-29 tablet by [facility]y of mg (65 mg 00:00: mouth 2 [place] iron) 00 (two) Medical tablet times Branch daily. ferrous 2019-02 Yes [id number] 325mg Take 1 [facility] sulfate 325 1-29 tablet by [facility]y of mg (65 mg 00:00: mouth 2 [place] iron) 00 (two) Medical tablet times Branch daily. ferrous 2019-02- No [id number] 325mg Take 1 [facility] sulfate 325 1-29 05-27 tablet by it y of mg (65 mg 00:00: 00:00 mouth 2 [place] iron) 00 :00 (two) Medical tablet times Branch daily. ferrous 2019-02- No [id number] 325mg Take 1 [facility] sulfate 325 03-19 tablet by it y of mg (65 mg 00:00: 00:00 mouth 2 [place] iron) 00 :00 (two) Medical tablet times Branch daily. 2019-02- No [id number] 1{tbl} Take 1 [facility] vitamin 03-19 tablet by [facility] of w/FA tablet 00:00: 00:00 mouth [place] 00 :00 daily. [facility] docusate 2019-02 No [id number] 240mg Take 1 [facility] calcium 240 03-19 capsule by i ty of mg capsule 00:00: 00:00 mouth once [place] 00 :00 daily as Medical needed for Branch Constipati on. ibuprofen 2019-02 No [id number] 600mg Take 1 [facility] 600 mg 03-19 tablet by ity of tablet 00:00: 00:00 mouth [place] 00 :00 every 6 Medical (six) Branch hours as needed (Pain). Take with food or milk. HYDROcodone 2019-02- No [id number] 1{tbl} Take 1 [facility] nivers -acetaminop 03-19 tablet by it y of hen 5-325 00:00: 00:00 mouth [place] mg tablet 00 :00 every 6 Medical (six) Branch hours as needed (Pain) for up to 10 doses. Do not exceed 3 grams of acetaminop hen in 24 hours. Indication s: acute pain 2019-02- No [id number] 1{tbl} Take 1 [facility] vitamin 03-19 tablet by [facility] of w/FA tablet 00:00: 00:00 mouth [place] 00 :00 daily. [facility] docusate 2019-02- No [id number] 240mg Take 1 [facility] calcium 240 03-19 capsule by i ty of mg capsule 00:00: 00:00 mouth once [place] 00 :00 daily as Medical needed for Branch Constipati on. ibuprofen 2019-02 No [id number] 600mg Take 1 [facility] 600 mg 1-29 05-07 tablet by ity of tablet 00:00: 00:00 mouth [place] 00 :00 every 6 Medical (six) Branch hours as needed (Pain). Take with food or milk. HYDROcodone 2019-02 No [id number] 1{tbl} Take 1 [facility] nivers -acetaminop 1-29 05-07 tablet by it y of hen 5-325 00:00: 00:00 mouth [place] mg tablet 00 :00 every 6 Medical (six) Branch hours as needed (Pain) for up to 10 doses. Do not exceed 3 grams of acetaminop hen in 24 hours. Indication s: acute pain 2019-02- No [id number] 1{tbl} Take 1 [facility] vitamin -29 05-07 tablet by [facility] of w/FA tablet 00:00: 00:00 mouth [place] 00 :00 daily. [facility] docusate 2019-02 No [id number] 240mg Take 1 [facility] calcium 240 - 05-07 capsule by i ty of mg capsule 00:00: 00:00 mouth once [place] 00 :00 daily as Medical needed for Branch Constipati on. ibuprofen 2019-02- No [id number] 600mg Take 1 [facility] 600 mg - 05-07 tablet by ity of tablet 00:00: 00:00 mouth [place] 00 :00 every 6 Medical (six) Branch hours as needed (Pain). Take with food or milk. HYDROcodone 2019-02 No [id number] 1{tbl} Take 1 [facility] nivers -acetaminop - 05-07 tablet by it y of hen 5-325 00:00: 00:00 mouth [place] mg tablet 00 :00 every 6 Medical (six) Branch hours as needed (Pain) for up to 10 doses. Do not exceed 3 grams of acetaminop hen in 24 hours. Indication s: acute pain 2019-02- No [id number] 1{tbl} Take 1 [facility] vitamin 1-29 05-07 tablet by [facility]y of w/FA tablet 00:00: 00:00 mouth [place] 00 :00 daily. [facility] docusate 2019-02- No [id number] 240mg Take 1 [facility] calcium 240 - 05-07 capsule by i ty of mg capsule 00:00: 00:00 mouth once [place] 00 :00 daily as Medical needed for Branch Constipati on. ibuprofen 2019-02 [id number] 600mg Take 1 [facility] 600 mg 03-19 05-07 tablet by ity of tablet 00:00: 00:00 mouth [place] 00 :00 every 6 Medical (six) Branch hours as needed (Pain). Take with food or milk. HYDROcodone 2019-02 No [id number] 1{tbl} Take 1 [facility] nivers -acetaminop - 05-07 tablet by it y of hen 5-325 00:00: 00:00 mouth [place] mg tablet 00 :00 every 6 Medical (six) Branch hours as needed (Pain) for up to 10 doses. Do not exceed 3 grams of acetaminop hen in 24 hours. Indication s: acute pain 2019-02 [id number] 1{tbl} Take 1 [facility] vitamin 03-19 05-07 tablet by [facility]y of w/FA tablet 00:00: 00:00 mouth [place] 00 :00 daily. [facility] docusate 2019-02 [id number] 240mg Take 1 [facility] calcium 240 03-19- capsule by i ty of mg capsule 00:00: 00:00 mouth once [place] 00 :00 daily as Medical needed for Branch Constipati on. ibuprofen 2019-02 [id number] 600mg Take 1 [facility] 600 mg 03-19-07 tablet by ity of tablet 00:00: 00:00 mouth [place] 00 :00 every 6 Medical (six) Branch hours as needed (Pain). Take with food or milk. HYDROcodone 2019-02 No [id number] 1{tbl} Take 1 [facility] nivers -acetaminop 03-19 05-07 tablet by it y of hen 5-325 00:00: 00:00 mouth [place] mg tablet 00 :00 every 6 Medical (six) Branch hours as needed (Pain) for up to 10 doses. Do not exceed 3 grams of acetaminop hen in 24 hours. Indication s: acute pain 2019-02 No [id number] 1{tbl} Take 1 [facility] vitamin 03-19 05-07 tablet by [facility]y of w/FA tablet 00:00: 00:00 mouth [place] 00 :00 daily. [facility] docusate 2019-02 No [id number] 240mg Take 1 [facility] calcium 240 03-19 capsule by i ty of mg capsule 00:00: 00:00 mouth once [place] 00 :00 daily as Medical needed for [place] Constipati on. ibuprofen 2019-02 No [id number] 600mg Take 1 [facility] 600 mg 03-19 tablet by ity of tablet 00:00: 00:00 mouth [place] 00 :00 every 6 Medical (six) Branch hours as needed (Pain). Take with food or milk. HYDROcodone 2019-02- No [id number] 1{tbl} Take 1 [facility] nivers -acetaminop 03-19 tablet by it y of hen 5-325 00:00: 00:00 mouth [place] mg tablet 00 :00 every 6 Medical (six) Branch hours as needed (Pain) for up to 10 doses. Do not exceed 3 grams of acetaminop hen in 24 hours. Indication s: acute pain foLIC acid 2019-02 No [id number] 1mg Take 1 [facility] 1 mg tablet 03-19 tablet by it y of 00:00: 05:59 mouth [place] 00 :00 daily for Medical 90 days. [place] ascorbic 2019-02 No [id number] 1{capsu Take 1 [facility] acid, 03-19 le} capsule by ity of vitamin C, 00:00: 05:59 mouth [place] 500 mg Cap 00 :00 daily for Medi shawna 90 days. [place] foLIC acid 2019-02 No [id number] 1mg Take 1 [facility] 1 mg tablet 03-19 tablet by it y of 00:00: 05:59 mouth [place] 00 :00 daily for Medical 90 days. [place] ascorbic 2019-02 No [id number] 1{capsu Take 1 [facility] acid, 03-19 le} capsule by ity of vitamin C, 00:00: 05:59 mouth [place] 500 mg Cap 00 :00 daily for Medi shawna 90 days. [place] foLIC acid 2019-02 No [id number] 1mg Take 1 [facility] 1 mg tablet 03-19 tablet by it y of 00:00: 05:59 mouth [place] 00 :00 daily for Medical 90 days. [place] ascorbic 2019-02 No [id number] 1{capsu Take 1 [facility] acid, 03-19 le} capsule by ity of vitamin C, 00:00: 05:59 mouth [place] 500 mg Cap 00 :00 daily for Medi shawna 90 days. [place] foLIC acid 2019-02- No [id number] 1mg Take 1 [facility] 1 mg tablet 03-19 tablet by it y of 00:00: 05:59 mouth [place] 00 :00 daily for Medical 90 days. [place] ascorbic 2019-02- No [id number] 1{capsu Take 1 [facility] acid, 03-19 le} capsule by ity of vitamin C, 00:00: 05:59 mouth [place] 500 mg Cap 00 :00 daily for Medi shawna 90 days. [place] foLIC acid 2019-02- No [id number] 1mg Take 1 [facility] 1 mg tablet 03-19 tablet by it y of 00:00: 05:59 mouth [place] 00 :00 daily for Medical 90 days. [place] ascorbic 2019-02- No [id number] 1{capsu Take 1 [facility] acid, 03-19 le} capsule by ity of vitamin C, 00:00: 05:59 mouth [place] 500 mg Cap 00 :00 daily for Medi shawna 90 days. [place] foLIC acid 2019-02- No [id number] 1mg Take 1 [facility] 1 mg tablet 03-19 tablet by it y of 00:00: 05:59 mouth [place] 00 :00 daily for Medical 90 days. [place] ascorbic 2019-02- No [id number] 1{capsu Take 1 [facility] acid, 03-19 le} capsule by ity of vitamin C, 00:00: 05:59 mouth [place] 500 mg Cap 00 :00 daily for Medi shawna 90 days. [place] foLIC acid 2019-02- No [id number] 1mg Take 1 [facility] 1 mg tablet 03-19 tablet by it y of 00:00: 05:59 mouth [place] 00 :00 daily for Medical 90 days. [place] ascorbic 2019-02- No [id number] 1{capsu Take 1 [facility] acid, 03-19 le} capsule by ity of vitamin C, 00:00: 05:59 mouth [place] 500 mg Cap 00 :00 daily for Medi shawna 90 days. [place] foLIC acid 2019-02- No [id number] 1mg Take 1 [facility] 1 mg tablet 03-19 tablet by it y of 00:00: 05:59 mouth [place] 00 :00 daily for Medical 90 days. [place] ascorbic 2019-02- No [id number] 1{capsu Take 1 [facility] acid, 03-19 le} capsule by ity of vitamin C, 00:00: 05:59 mouth [place] 500 mg Cap 00 :00 daily for Medi shawna 90 days. [place] foLIC acid 2019-02- No [id number] 1mg Take 1 [facility] 1 mg tablet 03-19 tablet by it y of 00:00: 05:59 mouth [place] 00 :00 daily for Medical 90 days. [place] ascorbic 2019-02- No [id number] 1{capsu Take 1 [facility] acid, 03-19 le} capsule by ity of vitamin C, 00:00: 05:59 mouth [place] 500 mg Cap 00 :00 daily for Medi shawna 90 days. [place] foLIC acid 2019-02- No [id number] 1mg Take 1 [facility] 1 mg tablet 03-19 tablet by it y of 00:00: 05:59 mouth [place] 00 :00 daily for Medical 90 days. [place] ascorbic 2019-02- No [id number] 1{capsu Take 1 [facility] acid, 03-19 le} capsule by ity of vitamin C, 00:00: 05:59 mouth [place] 500 mg Cap 00 :00 daily for Medi shawna 90 days. [place] foLIC acid 2019-02- No [id number] 1mg Take 1 [facility] 1 mg tablet 03-19 tablet by it y of 00:00: 05:59 mouth [place] 00 :00 daily for Medical 90 days. [place] ascorbic 2019-02- No [id number] 1{capsu Take 1 [facility] acid, 03-19 le} capsule by ity of vitamin C, 00:00: 05:59 mouth [place] 500 mg Cap 00 :00 daily for Medi shawna 90 days. [place] foLIC acid 2019-02- No [id number] 1mg Take 1 [facility] 1 mg tablet 03-19 tablet by it y of 00:00: 05:59 mouth [place] 00 :00 daily for Medical 90 days. [place] ascorbic 2019-02- No [id number] 1{capsu Take 1 [facility] acid, 03-19 le} capsule by ity of vitamin C, 00:00: 05:59 mouth [place] 500 mg Cap 00 :00 daily for Medi shawna 90 days. [place] foLIC acid 2019-02- No [id number] 1mg Take 1 [facility] 1 mg tablet 03-19 tablet by it y of 00:00: 05:59 mouth [place] 00 :00 daily for Medical 90 days. [place] ascorbic 2019-02- No [id number] 1{capsu Take 1 [facility] acid, 03-19 le} capsule by ity of vitamin C, 00:00: 05:59 mouth [place] 500 mg Cap 00 :00 daily for Medi shawna 90 days. [place] foLIC acid 2019-02- No [id number] 1mg Take 1 [facility] 1 mg tablet 03-19 tablet by it y of 00:00: 05:59 mouth [place] 00 :00 daily for Medical 90 days. [place] ascorbic 2019-02- No [id number] 1{capsu Take 1 [facility] acid, 03-19 le} capsule by ity of vitamin C, 00:00: 05:59 mouth [place] 500 mg Cap 00 :00 daily for Medi shawna 90 days. [place] foLIC acid 2019-02- No [id number] 1mg Take 1 [facility] 1 mg tablet 03-19 tablet by it y of 00:00: 05:59 mouth [place] 00 :00 daily for Medical 90 days. [place] ascorbic 2019-02- No [id number] 1{capsu Take 1 [facility] acid, 03-19 le} capsule by ity of vitamin C, 00:00: 05:59 mouth [place] 500 mg Cap 00 :00 daily for Medi [place]awna 90 days. [place] foLIC acid 2019-02- No [id number] 1mg Take 1 [facility] 1 mg tablet 03-19 tablet by it y of 00:00: 05:59 mouth [place] 00 :00 daily for Medical 90 days. [place] ascorbic 2019-02- No [id number] 1{capsu Take 1 [facility] acid, 03-19 le} capsule by ity of vitamin C, 00:00: 05:59 mouth [place] 500 mg Cap 00 :00 daily for Medi shawna 90 days. [place] foLIC acid 2019-02- No [id number] 1mg Take 1 [facility] 1 mg tablet 03-19 tablet by it y of 00:00: 05:59 mouth [place] 00 :00 daily for Medical 90 days. [place] ascorbic 2019-02- No [id number] 1{capsu Take 1 [facility] acid, 03-19 le} capsule by ity of vitamin C, 00:00: 05:59 mouth [place] 500 mg Cap 00 :00 daily for Medi shawna 90 days. [place] foLIC acid 2019-02- No [id number] 1mg Take 1 [facility] 1 mg tablet 03-19 tablet by it y of 00:00: 05:59 mouth [place] 00 :00 daily for Medical 90 days. [place] ascorbic 2019-02- No [id number] 1{capsu Take 1 [facility] acid, 03-19 le} capsule by ity of vitamin C, 00:00: 05:59 mouth [place] 500 mg Cap 00 :00 daily for Medi shawna 90 days. [place] foLIC acid 2019-02- No [id number] 1mg Take 1 [facility] 1 mg tablet 03-19 tablet by it y of 00:00: 05:59 mouth [place] 00 :00 daily for Medical 90 days. [place] ascorbic 2019-02- No [id number] 1{capsu Take 1 [facility] acid, 03-19 le} capsule by ity of vitamin C, 00:00: 05:59 mouth [place] 500 mg Cap 00 :00 daily for Medi shawna 90 days. [place] foLIC acid 2019-02- No [id number] 1mg Take 1 [facility] 1 mg tablet 03-19 tablet by it y of 00:00: 05:59 mouth [place] 00 :00 daily for Medical 90 days. [place] ascorbic 2019-02- No [id number] 1{capsu Take 1 [facility] acid, 03-19 le} capsule by ity of vitamin C, 00:00: 05:59 mouth [place] 500 mg Cap 00 :00 daily for Medi shawna 90 days. [place] foLIC acid 2019-02- No [id number] 1mg Take 1 [facility] 1 mg tablet 03-19 tablet by it y of 00:00: 05:59 mouth [place] 00 :00 daily for Medical 90 days. [place] ascorbic 2019-02- No [id number] 1{capsu Take 1 [facility] acid, 03-19 le} capsule by ity of vitamin C, 00:00: 05:59 mouth [place] 500 mg Cap 00 :00 daily for Medi shawna 90 days. Branch 2019- Yes Take by Unive rs vit/iron 0-29 mouth. ity of fum/folic 19:06: [place] [address] Medical ( 1 Branch + 1 ORAL) 2019-02 Yes Take by Unive rs vit/iron 0-29 mouth. ity of fum/folic 19:06: [place] [address] Medical ( 1 Branch + 1 ORAL) 2019-02 Yes Take by Unive rs vit/iron 0-29 mouth. ity of fum/folic 19:06: [place] [address] Medical ( 1 Branch + 1 ORAL) 2019-02 Yes Take by Unive rs vit/iron 0-29 mouth. ity of fum/folic 19:06: [place] [address] Medical ( 1 Branch + 1 ORAL) 2019-02 Yes Take by Unive rs vit/iron 0-29 mouth. ity of fum/folic 19:06: [place] [address] Medical ( 1 Branch + 1 ORAL) cephALEXin 2020-0 Yes [id number] 500mg Take 1 [facility] 500 mg 7-22 capsule by ity of capsule 00:00: mouth [place] 00 daily. Medical Branch cephALEXin 2020-0 Yes [id number] 500mg Take 1 [facility] 500 mg 7-22 capsule by ity of capsule 00:00: mouth [place] 00 daily. Medical Branch cephALEXin 2020-0 Yes [id number] 500mg Take 1 [facility] 500 mg 7-22 capsule by ity of capsule 00:00: mouth [place] 00 daily. Medical Branch cephALEXin 2020-0 Yes [id number] 500mg Take 1 [facility] 500 mg 7-22 capsule by ity of capsule 00:00: mouth [place] 00 daily. Medical Branch cephALEXin 2020-0 Yes [id number] 500mg Take 1 [facility] 500 mg 7-22 capsule by ity of capsule 00:00: mouth [place] 00 daily. Medical Branch cephALEXin 2020-0 Yes [id number] 500mg Take 1 [facility] 500 mg 7-22 capsule by ity of capsule 00:00: mouth [place] 00 daily. Medical Branch cephALEXin 2020-0 Yes [id number] 500mg Take 1 [facility] 500 mg 7-22 capsule by ity of capsule 00:00: mouth [place] 00 daily. Medical Branch cephALEXin 2020-0 Yes [id number] 500mg Take 1 [facility] 500 mg 7-22 capsule by ity of capsule 00:00: mouth [place] 00 daily. Medical Branch cephALEXin 2020-0 Yes [id number] 500mg Take 1 [facility] 500 mg 7-22 capsule by ity of capsule 00:00: mouth [place] 00 daily. Medical Branch cephALEXin 2020-0 Yes [id number] 500mg Take 1 [facility] 500 mg 7-22 capsule by ity of capsule 00:00: mouth [place] 00 daily. Medical Branch cephALEXin 2020-0 Yes [id number] 500mg Take 1 [facility] 500 mg 7-22 capsule by ity of capsule 00:00: mouth [place] 00 daily. Medical Branch cephALEXin 2020-0 Yes [id number] 500mg Take 1 [facility] 500 mg 7-22 capsule by ity of capsule 00:00: mouth [place] 00 daily. Medical Branch cephALEXin 2020-0 Yes [id number] 500mg Take 1 [facility] 500 mg 7-22 capsule by ity of capsule 00:00: mouth [place] 00 daily. Medical Branch cephALEXin 2020-0 Yes [id number] 500mg Take 1 [facility] 500 mg 7-22 capsule by ity of capsule 00:00: mouth [place] 00 daily. Medical Branch cephALEXin 2020-0 Yes [id number] 500mg Take 1 [facility] 500 mg 7-22 capsule by ity of capsule 00:00: mouth [place] 00 daily. Medical Branch cephALEXin 2020-0 Yes [id number] 500mg Take 1 [facility] 500 mg 7-22 capsule by ity of capsule 00:00: mouth [place] 00 daily. Medical Branch cephALEXin 2020-0 Yes [id number] 500mg Take 1 [facility] 500 mg 7-22 capsule by ity of capsule 00:00: mouth [place] 00 daily. Medical Branch cephALEXin 2020-0 Yes [id number] 500mg Take 1 [facility] 500 mg 7-22 capsule by ity of capsule 00:00: mouth [place] 00 daily. Medical Branch cephALEXin 2020-0 Yes [id number] 500mg Take 1 [facility] 500 mg 7-22 capsule by ity of capsule 00:00: mouth [place] 00 daily. Medical Branch cephALEXin 2020-0 Yes [id number] 500mg Take 1 [facility] 500 mg 7-22 capsule by ity of capsule 00:00: mouth [place] 00 daily. Medical Branch cephALEXin 2020-0 Yes [id number] 500mg Take 1 [facility] 500 mg 7-22 capsule by ity of capsule 00:00: mouth [place] 00 daily. Medical Branch cephALEXin 2020-0 Yes [id number] 500mg Take 1 [facility] 500 mg 7-22 capsule by ity of capsule 00:00: mouth [place] 00 daily. Medical Branch cephALEXin 2020-0 Yes [id number] 500mg Take 1 [facility] 500 mg 7-22 capsule by ity of capsule 00:00: mouth [place] 00 daily. Medical Branch cephALEXin 2020-0 Yes [id number] 500mg Take 1 [facility] 500 mg 7-22 capsule by ity of capsule 00:00: mouth [place] 00 daily. Medical Branch magnesium 2020-0 Yes [id number] 400mg Take 400 [facility] oxide 420 7-10 mg by ity of mg Tab 00:00: mouth [place] 00 daily. Medical Branch magnesium 2020-0 Yes [id number] 400mg Take 400 [facility] oxide 420 7-10 mg by ity of mg Tab 00:00: mouth [place] 00 daily. Medical Branch magnesium 2020-0 Yes [id number] 400mg Take 400 [facility] oxide 420 7-10 mg by ity of mg Tab 00:00: mouth [place] 00 daily. Medical Branch magnesium 2020-0 Yes [id number] 400mg Take 400 [facility] oxide 420 7-10 mg by ity of mg Tab 00:00: mouth [place] 00 daily. Medical Branch magnesium 2020-0 Yes [id number] 400mg Take 400 [facility] oxide 420 7-10 mg by ity of mg Tab 00:00: mouth [place] 00 daily. Medical Branch magnesium 2020-0 Yes [id number] 400mg Take 400 [facility] oxide 420 7-10 mg by ity of mg Tab 00:00: mouth [place] 00 daily. Medical Branch magnesium 2020-0 Yes [id number] 400mg Take 400 [facility] oxide 420 7-10 mg by ity of mg Tab 00:00: mouth [place] 00 daily. Medical Branch magnesium 2020-0 Yes [id number] 400mg Take 400 [facility] oxide 420 7-10 mg by ity of mg Tab 00:00: mouth [place] 00 daily. Medical Branch magnesium 2020-0 Yes [id number] 400mg Take 400 [facility] oxide 420 7-10 mg by ity of mg Tab 00:00: mouth [place] 00 daily. Medical Branch magnesium 2020-0 Yes [id number] 400mg Take 400 [facility] oxide 420 7-10 mg by ity of mg Tab 00:00: mouth [place] 00 daily. Medical Branch magnesium 2020-0 Yes [id number] 400mg Take 400 [facility] oxide 420 7-10 mg by ity of mg Tab 00:00: mouth [place] 00 daily. Medical Branch magnesium 2020-0 Yes [id number] 400mg Take 400 [facility] oxide 420 7-10 mg by ity of mg Tab 00:00: mouth [place] 00 daily. Medical Branch magnesium 2020-0 Yes [id number] 400mg Take 400 [facility] oxide 420 7-10 mg by ity of mg Tab 00:00: mouth [place] 00 daily. Medical Branch magnesium 2020-0 Yes [id number] 400mg Take 400 [facility] oxide 420 7-10 mg by ity of mg Tab 00:00: mouth [place] 00 daily. Medical Branch magnesium 2020-0 Yes [id number] 400mg Take 400 [facility] oxide 420 7-10 mg by ity of mg Tab 00:00: mouth [place] 00 daily. Medical Branch magnesium 2020-0 Yes [id number] 400mg Take 400 [facility] oxide 420 7-10 mg by ity of mg Tab 00:00: mouth [place] 00 daily. Medical Branch magnesium 2020-0 Yes [id number] 400mg Take 400 [facility] oxide 420 7-10 mg by ity of mg Tab 00:00: mouth [place] 00 daily. Medical Branch magnesium 2020-0 Yes [id number] 400mg Take 400 [facility] oxide 420 7-10 mg by ity of mg Tab 00:00: mouth [place] 00 daily. Medical Branch magnesium 2020-0 Yes [id number] 400mg Take 400 [facility] oxide 420 7-10 mg by ity of mg Tab 00:00: mouth [place] 00 daily. Medical Branch magnesium 2020-0 Yes [id number] 400mg Take 400 [facility] oxide 420 7-10 mg by ity of mg Tab 00:00: mouth [place] 00 daily. Medical Branch magnesium 2020-0 Yes [id number] 400mg Take 400 [facility] oxide 420 7-10 mg by ity of mg Tab 00:00: mouth [place] 00 daily. Medical Branch magnesium 2020-0 Yes [id number] 400mg Take 400 [facility] oxide 420 7-10 mg by ity of mg Tab 00:00: mouth [place] 00 daily. Medical Branch magnesium 2020-0 Yes [id number] 400mg Take 400 [facility] oxide 420 7-10 mg by ity of mg Tab 00:00: mouth [place] 00 daily. Medical Branch magnesium 2020-0 Yes [id number] 400mg Take 400 [facility] oxide 420 7-10 mg by ity of mg Tab 00:00: mouth [place] 00 daily. Medical Branch 2020-0 Yes Take by Unive rs vit/iron 7-09 mouth. ity of fum/folic 15:36: [place] ac [address] Medical ( 1 Branch + 1 ORAL) 2020-0 Yes Take by Unive rs vit/iron 7-09 mouth. ity of fum/folic 15:36: [place] [address] Medical ( 1 Branch + 1 ORAL) 2020-0 Yes Take by Unive rs vit/iron 7-09 mouth. ity of fum/folic 15:36: [place] [address] Medical ( 1 Branch + 1 ORAL) 2020-0 Yes Take by Unive rs vit/iron 7-09 mouth. ity of fum/folic 15:36: [place] [address] Medical ( 1 Branch + 1 ORAL) 2020-0 Yes Take by Unive rs vit/iron 7-09 mouth. ity of fum/folic 15:36: [place] [address] Medical ( 1 Branch + 1 ORAL) 2020-0 Yes Take by Unive rs vit/iron 7-09 mouth. ity of fum/folic 15:36: [place] [address] Medical ( 1 Branch + 1 ORAL) 2020-0 Yes Take by Unive rs vit/iron 7-09 mouth. ity of fum/folic 15:36: [place] [address] Medical ( 1 Branch + 1 ORAL) 2020-0 Yes Take by Unive rs vit/iron 7-09 mouth. ity of fum/folic 15:36: [place] [address] Medical ( 1 Branch + 1 ORAL) 2020-0 Yes Take by Unive rs vit/iron 7-09 mouth. ity of fum/folic 15:36: [place] [address] Medical ( 1 Branch + 1 ORAL) 2020-0 Yes Take by Unive rs vit/iron 7-09 mouth. ity of fum/folic 15:36: [place] [address] Medical ( 1 Branch + 1 ORAL) 2020-0 Yes Take by Unive rs vit/iron 7-09 mouth. ity of fum/folic 15:36: [place] [address] Medical ( 1 Branch + 1 ORAL) 2020-0 Yes Take by Unive rs vit/iron 7-09 mouth. ity of fum/folic 15:36: [place] [address] Medical ( 1 Branch + 1 ORAL) 2020-0 Yes Take by Unive rs vit/iron 7-09 mouth. ity of fum/folic 15:36: [place] [address] Medical ( 1 Branch + 1 ORAL) 2020-0 Yes Take by Unive rs vit/iron 7-09 mouth. ity of fum/folic 15:36: [place] [address] Medical ( 1 Branch + 1 ORAL) 2020-0 Yes Take by Unive rs vit/iron 7-09 mouth. ity of fum/folic 15:36: [place] [address] Medical ( 1 Branch + 1 ORAL) 2020-0 Yes Take by Unive rs vit/iron 7-09 mouth. ity of fum/folic 15:36: [place] [address] Medical ( 1 Branch + 1 ORAL) 2020-0 Yes Take by Unive rs vit/iron 7-09 mouth. ity of fum/folic 15:36: [place] [address] Medical ( 1 Branch + 1 ORAL) 2020-0 Yes Take by Unive rs vit/iron 7-09 mouth. ity of fum/folic 15:36: [place] [address] Medical ( 1 Branch + 1 ORAL) 2020-0 Yes Take by Unive rs vit/iron 7-09 mouth. ity of fum/folic 15:36: [place] [address] Medical ( 1 Branch + 1 ORAL) butalbital- 2020-0 Yes [id number] 1{tbl} Take 1 [facility] acetaminoph 7-09 tablet by ity of en-caff 00:00: mouth [place] 50-325-40 00 every 4 Medical mg tablet (four) Branch hours as needed (headache) . butalbital- 2020-0 Yes [id number] 1{tbl} Take 1 [facility] acetaminoph 7-09 tablet by ity of en-caff 00:00: mouth [place] 50-325-40 00 every 4 Medical mg tablet (four) Branch hours as needed (headache) . butalbital- 2020-0 Yes [id number] 1{tbl} Take 1 [facility] acetaminoph 7-09 tablet by ity of en-caff 00:00: mouth [place] 50-325-40 00 every 4 Medical mg tablet (four) Branch hours as needed (headache) . butalbital- 2020-0 Yes [id number] 1{tbl} Take 1 [facility] acetaminoph 7-09 tablet by ity of en-caff 00:00: mouth [place] 50-325-40 00 every 4 Medical mg tablet (four) Branch hours as needed (headache) . butalbital- 2020-0 Yes [id number] 1{tbl} Take 1 [facility] acetaminoph 7-09 tablet by ity of en-caff 00:00: mouth [place] 50-325-40 00 every 4 Medical mg tablet (four) Branch hours as needed (headache) . butalbital- 2020- Yes [id number] 1{tbl} Take 1 [facility] acetaminoph 7-09 tablet by ity of en-caff 00:00: mouth [place] 50-325-40 00 every 4 Medical mg tablet (four) Branch hours as needed (headache) . butalbital- 2019- Yes [id number] 1{tbl} Take 1 [facility] acetaminoph 7-09 tablet by ity of en-caff 00:00: mouth [place] 50-325-40 00 every 4 Medical mg tablet (four) Branch hours as needed (headache) . butalbital- 2019- Yes [id number] 1{tbl} Take 1 [facility] acetaminoph 7-09 tablet by ity of en-caff 00:00: mouth [place] 50-325-40 00 every 4 Medical mg tablet (four) Branch hours as needed (headache) . butalbital- Yes [id number] 1{tbl} Take 1 [facility] acetaminoph 7-09 tablet by ity of en-caff 00:00: mouth [place] 50-325-40 00 every 4 Medical mg tablet (four) Branch hours as needed (headache) . butalbital- 2019- Yes [id number] 1{tbl} Take 1 [facility] acetaminoph 7-09 tablet by ity of en-caff 00:00: mouth [place] 50-325-40 00 every 4 Medical mg tablet (four) Branch hours as needed (headache) . butalbital- 2019- Yes [id number] 1{tbl} Take 1 [facility] acetaminoph 7-09 tablet by ity of en-caff 00:00: mouth [place] 50-325-40 00 every 4 Medical mg tablet (four) Branch hours as needed (headache) . butalbital- 2020- Yes [id number] 1{tbl} Take 1 [facility] acetaminoph 7-09 tablet by ity of en-caff 00:00: mouth [place] 50-325-40 00 every 4 Medical mg tablet (four) Branch hours as needed (headache) . butalbital- 2020- Yes [id number] 1{tbl} Take 1 [facility] acetaminoph 7-09 tablet by ity of en-caff 00:00: mouth [place] 50-325-40 00 every 4 Medical mg tablet (four) Branch hours as needed (headache) . butalbital- 2020- Yes [id number] 1{tbl} Take 1 [facility] acetaminoph 7-09 tablet by ity of en-caff 00:00: mouth [place] 50-325-40 00 every 4 Medical mg tablet (four) Branch hours as needed (headache) . butalbital- 2020- Yes [id number] 1{tbl} Take 1 [facility] acetaminoph 7-09 tablet by ity of en-caff 00:00: mouth [place] 50-325-40 00 every 4 Medical mg tablet (four) Branch hours as needed (headache) . butalbital- 2019- Yes [id number] 1{tbl} Take 1 [facility] acetaminoph 7-09 tablet by ity of en-caff 00:00: mouth [place] 50-325-40 00 every 4 Medical mg tablet (four) Branch hours as needed (headache) . butalbital- 2019- Yes [id number] 1{tbl} Take 1 [facility] acetaminoph 7-09 tablet by ity of en-caff 00:00: mouth [place] 50-325-40 00 every 4 Medical mg tablet (four) Branch hours as needed (headache) . butalbital- Yes [id number] 1{tbl} Take 1 [facility] acetaminoph 7-09 tablet by ity of en-caff 00:00: mouth [place] 50-325-40 00 every 4 Medical mg tablet (four) Branch hours as needed (headache) . butalbital- 2019- Yes [id number] 1{tbl} Take 1 [facility] acetaminoph 7-09 tablet by ity of en-caff 00:00: mouth [place] 50-325-40 00 every 4 Medical mg tablet (four) Branch hours as needed (headache) . butalbital- 2020- Yes [id number] 1{tbl} Take 1 [facility] acetaminoph 7-09 tablet by ity of en-caff 00:00: mouth [place] 50-325-40 00 every 4 Medical mg tablet (four) Branch hours as needed (headache) . butalbital- 2020- Yes [id number] 1{tbl} Take 1 [facility] acetaminoph 7-09 tablet by ity of en-caff 00:00: mouth [place] 50-325-40 00 every 4 Medical mg tablet (four) Branch hours as needed (headache) . butalbital- 2020-0 Yes [id number] 1{tbl} Take 1 [facility] acetaminoph 7-09 tablet by ity of en-caff 00:00: mouth [place] 50-325-40 00 every 4 Medical mg tablet (four) Branch hours as needed (headache) . butalbital- 2020-0 Yes [id number] 1{tbl} Take 1 [facility] acetaminoph 7-09 tablet by ity of en-caff 00:00: mouth [place] 50-325-40 00 every 4 Medical mg tablet (four) Branch hours as needed (headache) . butalbital- 2020-0 Yes [id number] 1{tbl} Take 1 [facility] acetaminoph 7-09 tablet by ity of en-caff 00:00: mouth [place] 50-325-40 00 every 4 Medical mg tablet (four) Branch hours as needed (headache) . cephALEXin 2020-0 2020- No [id number] 500mg Take 1 [facility] 500 mg 7-10 26-23 capsule by ity of capsule 00:00: 04:59 mouth [place] 00 :00 every 6 Medical (six) Branch hours for 13 days. cephALEXin 2020-0 2020- No [id number] 500mg Take 1 [facility] 500 mg 7-09 07-23 capsule by ity of capsule 00:00: 04:59 mouth [place] 00 :00 every 6 Medical (six) Branch hours for 13 days. cephALEXin 2020-0 2020- No [id number] 500mg Take 1 [facility] 500 mg 7- 07-23 capsule by ity of capsule 00:00: 04:59 mouth [place] 00 :00 every 6 Medical (six) Branch hours for 13 days. cephALEXin 2020-0 2020- No [id number] 500mg Take 1 [facility] 500 mg 7-09 07-23 capsule by ity of capsule 00:00: 04:59 mouth [place] 00 :00 every 6 Medical (six) Branch hours for 13 days. cephALEXin 2020-0 2020- No [id number] 500mg Take 1 [facility] 500 mg 7-10 26-23 capsule by ity of capsule 00:00: 04:59 mouth [place] 00 :00 every 6 Medical (six) Branch hours for 13 days. cephALEXin 2020-0 2020- No [id number] 500mg Take 1 [facility] 500 mg 08-27 capsule by ity of capsule 00:00: 04:59 mouth [place] 00 :00 every 6 Medical (six) Branch hours for 13 days. butalbital- 2020-0 Yes 1{tbl} 1 tablet, [facility] acetaminoph 08-26 Oral, ity of en-caff 20:12: Q4HPRN, [place] (ESGIC) 07 Starting Medical 50-325-40 [facility] 08/27/19 Bran ch mg tablet 1 at 1512, tablet Until Discontinu ed, Routine, Pain (scale 4-6), Pain (scale 7-10), for Headache cephALEXin 2020-0 Yes 500mg 500 mg, Uni vers (KEFLEX) 08 Oral, Q6H, ity o f capsule 500 17:00: First dose [place] mg 00 on Sun Medical 08/27/19 at Branch 1200, Until Discontinu ed, ALEJANDRA
Re ason for Anti-Infec tive: Empiric Therapy for Suspected Infection< br>Empiric Therapy Site: Urine
D uration of therapy: 7 days magnesium 2019-0 Yes 400mg 400 mg, Univ ers oxide 08-26 Oral, ity of (MAG-OX 14:00: DAILY, [place] 400) tablet 00 First dose Me dical 400 mg on Sun Branch 08/27/19 at 0900, Until Discontinu ed, Routine butalbital- 2020-0 2020- No 2{tbl} 2 tablet, Univers acetaminoph 08-26-08 Oral, ity of en-caff 13:30: 12:24 ONCE, 1 [place] (ESGIC) 00 :00 dose, Wed Medical 50-325-40 08/27/19 at Branc h mg tablet 2 0830, tablet Routine acetaminoph 2020-0 Yes 650mg 650 mg, Un josy en -08 Oral, ity of (TYLENOL) 12:17: Q6HPRN, [place] tablet 650 22 Starting Medic al mg [facility] 08/27/19 Branch at 0717, Until Discontinu ed, Routine, Pain (scale 1-3), Pain (scale 4-6), Temp > 38.5 C metoclopram 2019-0 2020- No 10mg 10 mg, IV Univers mary HCl 08-25 Piggyback, ity o f (REGLAN) 10 23:00: 18:26 Q6H, First [place] mg in NaCl 00 :04 dose on Medica l 0.9% (NS) Sun08/26/19 Bran ch piggyback at 1800, Until Discontinu ed, 50 mL cefTRIAXone 2020-0 2020- No 1000mg 1,000 mg, Univers (ROCEPHIN) 08-25 IV ity of 1,000 mg in 22:00: 12:18 Piggyback, [place] NaCl 0.9% 00 :19 Q24H ABX, Medic al (NS) 50 mL First dose Bra mah MINI-BAG on Sun08/26/19 at 1700, Until Discontinu ed, 50 mL
R girma for Anti-Infec tive: Empiric Therapy for Suspected Infection< br>Empiric Therapy Site: Urine
D uration of therapy: 72 hours metoclopram 2020-0 Yes 10mg 10 mg, IV U nivers mary HCl 08-25 Piggyback, ity of (REGLAN) 10 18:45: Q6HPRN, [place] as mg in NaCl 00 Starting Medic al 0.9% (NS) Sun08/26/19 Bran ch piggyback at 1345, Until Discontinu ed, 50 mL D5W-LR IV 2020-0 Yes 1000mL at 150 Univ ers infusion 7-07 mL/hr, IV ity of 1,000 mL 18:45: [place]fusion, [place] 00 CONTINUOUS Medical , Starting Branch Sun08/26/19 at 1345, Until Discontinu ed, Routine HYDROcodone 2020-0 2020- No 1{tbl} 1 tablet, Univers -acetaminop 08-25 Oral, ity of hen (NORCO) 17:43: 12:18 Q6HPRN, [place] 10-325 mg 42 :19 Starting Medica l tablet 1 Sun08/26/19 Branc h tablet at 1243, Until Sun08/27/19 at 0718, Routine, Pain (scale 7-10) HYDROcodone 2020-0 2020- No 1{tbl} 1 tablet, Univers -acetaminop 08-25- Oral, ity of hen (NORCO 17:43: 12:18 Q6HPRN, [place] as 5) 5-325 mg 28 :19 Starting Medi shawna tablet 1 Sun08/26/19 Branc h tablet at 1243, Until Sun08/27/19 at 0718, Routine, Pain (scale 4-6) acetaminoph 2019- 2020- No 650mg 650 mg, U nivers en 08-25 Oral, ity of (TYLENOL) 17:43: 12:18 Q6HPRN, [place] tablet 650 12 :20 Starting Medic al mg Sun08/26/19 Branch at 1243, Until Sun08/27/19 at 0718, Routine, Pain (scale 1-3) piperacilli 2019- 2020- No 3.375g 3.375 g, [facility] n-tazobacta 08-25 IV ity of m (ZOSYN) 16:15: 16:20 Piggyback, [place] 3.375 00 :00 ONCE, 1 Medical gram/50 mL dose, Sun [facility] ch Piggyback 08/26/19 at RTU 3.375 g 1115, 50 mL
Reas on for Anti-Infec tive: Empiric Therapy for Suspected Infection< br>Empiric Therapy Site: Abdominal< br>Duratio n of therapy: 72 hours NaCl 0.9% 2019- No 1000mL at 999 Uni vers (NS) bolus 08-25 mL/hr, ity of infusion 14:30: 15:43 1,000 mL, Surendra as 1,000 mL 00 :00 IV Medical Infusion, [place] ONCE, 1 dose, 08/26/19 at 0930, STAT acetaminoph 2020- No 1000mg 1,000 mg, Univers en 08-25 Oral, ity of (TYLENOL) 14:30: 13:28 ONCE, 1 [place] tablet 00 :00 dose, [facility] Medical 1,000 mg 08/26/19 at Branch 0930, ALEJANDRA aspirin 81 2020-0 Yes [id number] 81mg Take 1 Univers mg EC 5-11 9100 tablet by ity of tablet 00:00: mouth daily. [facility] Branch aspirin 81 2020-0 Yes [id number] 81mg Take 1 Univers mg EC 5-11 9100 tablet by ity of tablet 00:00: mouth [place] 00 daily. Medical Branch aspirin 81 2020-0 Yes [id number] 81mg Take 1 Univers mg EC 5-11 9100 tablet by ity of tablet 00:00: mouth [place] 00 daily. Medical Branch aspirin 81 2020-0 Yes [id number] 81mg Take 1 Univers mg EC 5-11 9100 tablet by ity of tablet 00:00: mouth [place] 00 daily. Medical Branch aspirin 81 2020-0 Yes [id number] 81mg Take 1 Univers mg EC 5-11 9100 tablet by ity of tablet 00:00: mouth [place] 00 daily. Medical Branch aspirin 81 2020-0 Yes [id number] 81mg Take 1 Univers mg EC 5-11 9100 tablet by ity of tablet 00:00: mouth [place] 00 daily. Medical Branch aspirin 81 2020-0 Yes [id number] 81mg Take 1 Univers mg EC 5-11 9100 tablet by ity of tablet 00:00: mouth [place] 00 daily. Medical Branch aspirin 81 2020-0 Yes [id number] 81mg Take 1 [facility] mg EC 5-11 9100 tablet by ity of tablet 00:00: mouth [place] 00 daily. Medical Branch aspirin 81 2020-0 Yes [id number] 81mg Take 1 [facility] mg EC 5-11 9100 tablet by ity of tablet 00:00: mouth [place] 00 daily. Medical Branch aspirin 81 2020-0 Yes [id number] 81mg Take 1 Univers mg EC 5-11 9100 tablet by ity of tablet 00:00: mouth [place] 00 daily. Medical Branch aspirin 81 2020-0 Yes [id number] 81mg Take 1 Univers mg EC 5-11 9100 tablet by ity of tablet 00:00: mouth [place] 00 daily. Medical Branch aspirin 81 2020-0 Yes [id number] 81mg Take 1 [facility] mg EC 5-11 9100 tablet by ity of tablet 00:00: mouth [place] 00 daily. Medical Branch aspirin 81 2020-0 Yes [id number] 81mg Take 1 Univers mg EC 5-11 9100 tablet by ity of tablet 00:00: mouth [place] 00 daily. Medical Branch aspirin 81 2020-0 Yes [id number] 81mg Take 1 Univers mg EC 5-11 9100 tablet by ity of tablet 00:00: mouth [place] 00 daily. Medical Branch aspirin 81 2020-0 Yes [id number] 81mg Take 1 [facility] mg EC 5-11 9100 tablet by ity of tablet 00:00: mouth [place] 00 daily. Medical Branch aspirin 81 2020-0 Yes [id number] 81mg Take 1 [facility] mg EC 5-11 9100 tablet by ity of tablet 00:00: mouth [place] 00 daily. Medical Branch aspirin 81 2020-0 Yes [id number] 81mg Take 1 [facility] mg EC 5-11 9100 tablet by ity of tablet 00:00: mouth [place] 00 daily. Medical Branch aspirin 81 2020-0 Yes [id number] 81mg Take 1 [facility] mg EC 5-11 9100 tablet by ity of tablet 00:00: mouth [place] 00 daily. Medical Branch aspirin 81 2020-0 Yes [id number] 81mg Take 1 [facility] mg EC 5-11 9100 tablet by ity of tablet 00:00: mouth [place] 00 daily. Medical Branch aspirin 81 2020-0 Yes [id number] 81mg Take 1 [facility] mg EC 5-11 9100 tablet by ity of tablet 00:00: mouth [place] 00 daily. Medical Branch aspirin 81 2020-0 Yes [id number] 81mg Take 1 [facility] mg EC 5-11 9100 tablet by ity of tablet 00:00: mouth [place] 00 daily. Medical Branch aspirin 81 2020-0 Yes [id number] 81mg Take 1 Univers mg EC 5-11 9100 tablet by ity of tablet 00:00: mouth [place] 00 daily. Medical Branch aspirin 81 2020-0 Yes [id number] 81mg Take 1 Univers mg EC 5-11 9100 tablet by ity of tablet 00:00: mouth [place] 00 daily. Medical Branch aspirin 81 2020-0 Yes [id number] 81mg Take 1 [facility] mg EC 5-11 9100 tablet by it[facility] of tablet 00:00: mouth [place] 00 daily. Medical Branch aspirin 81 2020-0 Yes [id number] 81mg Take 1 [facility] mg EC 5-11 9100 tablet by ity of tablet 00:00: mouth [place] 00 daily. Medical Branch aspirin 81 2020-0 Yes [id number] 81mg Take 1 [facility] mg EC 5-11 9100 tablet by ity of tablet 00:00: mouth [place] 00 daily. Medical Branch aspirin 81 2020-0 Yes [id number] 81mg Take 1 [facility] mg EC 5-11 9100 tablet by ity of tablet 00:00: mouth [place] 00 daily. Medical Branch aspirin 81 2020-0 Yes [id number] 81mg Take 1 [facility] mg EC 5-11 9100 tablet by ity of tablet 00:00: mouth [place] 00 daily. Medical Branch aspirin 81 2020-0 Yes [id number] 81mg Take 1 [facility] mg EC 5-11 9100 tablet by ity of tablet 00:00: mouth [place] 00 daily. Medical Branch aspirin 81 2020-0 Yes [id number] 81mg Take 1 [facility] mg EC 5-11 9100 tablet by ity of tablet 00:00: mouth [place] 00 daily. Medical Branch aspirin 81 2020-0 Yes [id number] 81mg Take 1 [facility] mg EC 5-11 9100 tablet by ity of tablet 00:00: mouth [place] 00 daily. Medical Branch aspirin 81 2020-0 Yes [id number] 81mg Take 1 [facility] mg EC 5-11 9100 tablet by ity of tablet 00:00: mouth [place] 00 daily. Medical Branch aspirin 81 2020-0 Yes [id number] 81mg Take 1 [facility] mg EC 5-11 9100 tablet by ity of tablet 00:00: mouth [place] 00 daily. Medical Branch aspirin 81 2020-0 Yes [id number] 81mg Take 1 [facility] mg EC 5-11 9100 tablet by ity of tablet 00:00: mouth [place] 00 daily. Medical Branch aspirin 81 2020-0 Yes [id number] 81mg Take 1 [facility] mg EC 5-11 9100 tablet by ity of tablet 00:00: mouth [place] 00 daily. Medical Branch ampicillin 2020-0 2020- No [id number] 500mg Take 1 [facility] 500 mg 4-17 -28 capsule by ity of capsule 00:00: 04:59 mouth 4 [place] 00 :00 (four) Medical times Branch daily for 10 days. ampicillin 2020-0 2020- No [id number] 500mg Take 1 [facility] 500 mg 4-17 04-28 capsule by ity of capsule 00:00: 04:59 mouth 4 [place] 00 :00 (four) Medical times Branch daily for 10 days. 2020-0 Yes Take by [facility] vit/iron 4-14 mouth. ity of fum/folic 13:56: [place] ac 14 Medical ( 1 Branch + 1 ORAL) 2020-0 Yes Take by [facility] vit/iron 4-14 mouth. ity of fum/folic 13:56: [place] ac 14 Medical ( 1 Branch + 1 ORAL) 2020-0 Yes Take by [facility] rs vit/iron 4-14 mouth. ity of fum/folic 13:56: [facility] 14 Medical ( 1 Branch + 1 ORAL) 2020-0 Yes Take by Un[facility] rs vit/iron 4-14 mouth. ity of fum/folic 13:56: [facility] 14 Medical ( 1 Branch + 1 ORAL) 2020-0 Yes Take by [facility] rs vit/iron 4-14 mouth. ity of fum/folic 13:56: [facility] 14 Medical ( 1 Branch + 1 ORAL) 2020-0 Yes Take by [facility] rs vit/iron 4-14 mouth. ity of fum/folic 13:56: [facility] 14 Medical ( 1 Branch + 1 ORAL) 2020-0 Yes Take by [facility] rs vit/iron 4-14 mouth. ity of fum/folic 13:56: [facility] 14 Medical ( 1 Branch + 1 ORAL) 2020-0 Yes Take by Un[facility] rs vit/iron 4-14 mouth. ity of fum/folic 13:56: [place] [address] Medical ( 1 Branch + 1 ORAL) 2020-0 Yes Take by Un[facility] rs vit/iron 4-14 mouth. ity of fum/folic 13:56: [place] [address] Medical ( 1 Branch + 1 ORAL) 2020-0 Yes Take by [facility] rs vit/iron 4-14 mouth. ity of fum/folic 13:56: [place] [address] Medical ( 1 Branch + 1 ORAL) 2020-0 Yes Take by [facility] rs vit/iron 4-14 mouth. ity of fum/folic 13:56: [place] [address] Medical ( 1 Branch + 1 ORAL) 2020-0 Yes Take by [facility] rs vit/iron 4-14 mouth. ity of fum/folic 13:56: [place] [address] Medical ( 1 Branch + 1 ORAL) 2020-0 Yes Take by [facility] rs vit/iron 4-14 mouth. ity of fum/folic 13:56: [facility] 14 Medical ( 1 Branch + 1 ORAL) 2020-0 Yes Take by Un[facility] rs vit/iron 4-14 mouth. ity of fum/folic 13:56: [facility] 14 Medical ( 1 Branch + 1 ORAL) 2020-0 Yes Take by Un[facility] rs vit/iron 4-14 mouth. ity of fum/folic 13:56: [facility] 14 Medical ( 1 Branch + 1 ORAL) 2020-0 Yes Take by Un[facility] rs vit/iron 4-14 mouth. ity of fum/folic 13:56: [place] [address] Medical ( 1 Branch + 1 ORAL) 2020-0 Yes Take by [facility] rs vit/iron 4-14 mouth. ity of fum/folic 13:56: [place] [address] Medical ( 1 Branch + 1 ORAL) 2020-0 Yes Take by [facility] rs vit/iron 4-14 mouth. ity of fum/folic 13:56: [place] [address] Medical ( 1 Branch + 1 ORAL) 2020-0 Yes Take by [facility] rs vit/iron 4-14 mouth. ity of fum/folic 13:56: [place] [address] Medical ( 1 Branch + 1 ORAL) 2020-0 Yes Take by [facility] rs vit/iron 4-14 mouth. ity of fum/folic 13:56: [place] [address] Medical ( 1 Branch + 1 ORAL) 2020-0 Yes Take by [facility] rs vit/iron 4-14 mouth. ity of fum/folic 13:56: [place] [address] Medical ( 1 Branch + 1 ORAL) 2020-0 Yes Take by [facility] rs vit/iron 4-14 mouth. ity of fum/folic 13:56: [place] [address] Medical ( 1 Branch + 1 ORAL) 2020-0 Yes Take by [facility] rs vit/iron 4-14 mouth. ity of fum/folic 13:56: [place] [address] Medical ( 1 Branch + 1 ORAL) 2020-0 Yes Take by [facility] rs vit/iron 4-14 mouth. ity of fum/folic 13:56: [place] [address] Medical ( 1 Branch + 1 ORAL) 2020-0 Yes Take by [facility] rs vit/iron 4-14 mouth. ity of fum/folic 13:56: [place] [address] Medical ( 1 Branch + 1 ORAL) 2020-0 Yes Take by [facility] rs vit/iron 4-14 mouth. ity of fum/folic 13:56: [place] [address] Medical ( 1 Branch + 1 ORAL) 2020-0 Yes Take by [facility] rs vit/iron 4-14 mouth. ity of fum/folic 13:56: [place] [address] Medical ( 1 Branch + 1 ORAL) terconazole 2020-0 2020- No [id number] 1{appli Insert 1 [facility] 0.4 % 4-14 18 cator} Applicator ity o f vaginal 00:00: 04:59 into [place] cream 00 :00 vagina at [facility] for 3 days. terconazole [id number] 1{appli Insert 1 [facility] 0.4 % 4-14 18 cator} Applicator ity o f vaginal 00:00: 04:59 into [place] cream 00 :00 vagina at [facility] for 3 days. terconazole [id number] 1{appli Insert 1 [facility] 0.4 % 4-14 18 cator} Applicator ity o f vaginal 00:00: 04:59 into [place] cream 00 :00 vagina at [facility] for 3 days. terconazole [id number] 1{appli Insert 1 [facility] 0.4 % 4-14 18 cator} Applicator ity o f vaginal 00:00: 04:59 into [place] cream 00 :00 vagina at [facility] for 3 days. terconazole [id number] 1{appli Insert 1 [facility] 0.4 % 4-14 18 cator} Applicator ity o f vaginal 00:00: 04:59 into [place] cream 00 :00 vagina at [facility] for 3 days. terconazole [id number] 1{appli Insert 1 [facility] 0.4 % 4-14 18 cator} Applicator ity o f vaginal 00:00: 04:59 into [place] cream 00 :00 vagina at [facility] for 3 days. terconazole [id number] 1{appli Insert 1 [facility] 0.4 % 4-14 18 cator} Applicator ity o f vaginal 00:00: 04:59 into [place] cream 00 :00 vagina at [facility] for 3 days. terconazole [id number] 1{appli Insert 1 [facility] 0.4 % 4-14 18 cator} Applicator ity o f vaginal 00:00: 04:59 into [place] cream 00 :00 vagina at [facility] for 3 days. terconazole No [id number] 1{appli Insert 1 [facility] 0.4 % 4-14 18 cator} Applicator ity o f vaginal 00:00: 04:59 into [place] cream 00 :00 vagina at [facility] for 3 days. terconazole [id number] 1{appli Insert 1 [facility] 0.4 % 4-14 18 cator} Applicator ity o f vaginal 00:00: 04:59 into [place] cream 00 :00 vagina at [facility] for 3 days. terconazole [id number] 1{appli Insert 1 [facility] 0.4 % 4-14 18 cator} Applicator ity o f vaginal 00:00: 04:59 into [place] cream 00 :00 vagina at [facility] for 3 days. terconazole [id number] 1{appli Insert 1 [facility] 0.4 % 4-14 06-06 cator} Applicator ity o f vaginal 00:00: 04:59 into [place] cream 00 :00 vagina at [facility] for 3 days. terconazole [id number] 1{appli Insert 1 [facility] 0.4 % 4-06-06 cator} Applicator ity o f vaginal 00:00: 04:59 into [place] cream 00 :00 vagina at [facility] for 3 days. terconazole [id number] 1{appli Insert 1 [facility] 0.4 % 4-18 cator} Applicator ity o f vaginal 00:00: 04:59 into [place] cream 00 :00 vagina at [facility] for 3 days. terconazole [id number] 1{appli Insert 1 [facility] 0.4 % 4-14 18 cator} Applicator ity o f vaginal 00:00: 04:59 into [place] cream 00 :00 vagina at [facility] for 3 days. terconazole [id number] 1{appli Insert 1 [facility] 0.4 % 4-14 18 cator} Applicator ity o f vaginal 00:00: 04:59 into [place] cream 00 :00 vagina at [facility] for 3 days. traMADol 50 2019-1 Yes [id number] 50mg Take 1 [facility] mg tablet 2-06 tablet by ity o f 00:00: mouth [place] 00 every 6 Medical (six) Branch hours as needed for Pain (scale 7-10) for up to 12 doses. ondansetron 2018-02 Yes [id number] 4mg Take 1 [facility] (ZOFRAN 2-06 tablet by ity of ODT) 4 mg 00:00: mouth [place] disintegrat 00 every 8 Medic al ing tablet (eight) Branch hours as needed for Nausea and Vomiting (N/V) for up to 15 doses. traMADol 50 2018-02 Yes [id number] 50mg Take 1 [facility] mg tablet 2-06 tablet by ity o f 00:00: mouth [place] 00 every 6 Medical (six) Branch hours as needed for Pain (scale 7-10) for up to 12 doses. ondansetron 2018-02 Yes [id number] 4mg Take 1 [facility] (ZOFRAN 2-06 tablet by ity of ODT) 4 mg 00:00: mouth [place] disintegrat 00 every 8 Medic al ing tablet (eight) Branch hours as needed for Nausea and Vomiting (N/V) for up to 15 doses. traMADol 50 2018-02 Yes [id number] 50mg Take 1 [facility] mg tablet 2-06 tablet by ity o f 00:00: mouth [place] 00 every 6 Medical (six) Branch hours as needed for Pain (scale 7-10) for up to 12 doses. ondansetron 2018-02 Yes [id number] 4mg Take 1 [facility] (ZOFRAN 2-06 tablet by ity of ODT) 4 mg 00:00: mouth [place] disintegrat 00 every 8 Medic al ing tablet (eight) Branch hours as needed for Nausea and Vomiting (N/V) for up to 15 doses. traMADol 50 2018-02 Yes [id number] 50mg Take 1 [facility] mg tablet 2-06 tablet by ity o f 00:00: mouth [place] 00 every 6 Medical (six) Branch hours as needed for Pain (scale 7-10) for up to 12 doses. ondansetron 2018-02 Yes [id number] 4mg Take 1 [facility] (ZOFRAN 2-06 tablet by ity of ODT) 4 mg 00:00: mouth [place] disintegrat 00 every 8 Medic al ing tablet (eight) Branch hours as needed for Nausea and Vomiting (N/V) for up to 15 doses. traMADol 50 2018-02 Yes [id number] 50mg Take 1 [facility] mg tablet 2-06 tablet by ity o f 00:00: mouth [place] 00 every 6 Medical (six) Branch hours as needed for Pain (scale 7-10) for up to 12 doses. ondansetron 2018-02 Yes [id number] 4mg Take 1 [facility] (ZOFRAN 2-06 tablet by ity of ODT) 4 mg 00:00: mouth [place] disintegrat 00 every 8 Medic al ing tablet (eight) Branch hours as needed for Nausea and Vomiting (N/V) for up to 15 doses. traMADol 50 2018-02 Yes [id number] 50mg Take 1 [facility] mg tablet 2-06 tablet by ity o f 00:00: mouth [place] 00 every 6 Medical (six) Branch hours as needed for Pain (scale 7-10) for up to 12 doses. ondansetron 2018-02 Yes [id number] 4mg Take 1 [facility] (ZOFRAN 2-06 tablet by ity of ODT) 4 mg 00:00: mouth [place] disintegrat 00 every 8 Medic al ing tablet (eight) Branch hours as needed for Nausea and Vomiting (N/V) for up to 15 doses. traMADol 50 2018-02 Yes [id number] 50mg Take 1 [facility] mg tablet 2-06 tablet by ity o f 00:00: mouth [place] 00 every 6 Medical (six) Branch hours as needed for Pain (scale 7-10) for up to 12 doses. ondansetron 2018-02 Yes [id number] 4mg Take 1 [facility] (ZOFRAN 2-06 tablet by ity of ODT) 4 mg 00:00: mouth [place] disintegrat 00 every 8 Medic al ing tablet (eight) Branch hours as needed for Nausea and Vomiting (N/V) for up to 15 doses. traMADol 50 2018-02 Yes [id number] 50mg Take 1 [facility] mg tablet 2-06 tablet by ity o f 00:00: mouth [place] 00 every 6 Medical (six) Branch hours as needed for Pain (scale 7-10) for up to 12 doses. ondansetron 2018-02 Yes [id number] 4mg Take 1 [facility] (ZOFRAN 2-06 tablet by ity of ODT) 4 mg 00:00: mouth [place] disintegrat 00 every 8 Medic al ing tablet (eight) Branch hours as needed for Nausea and Vomiting (N/V) for up to 15 doses. traMADol 50 2018-02 Yes [id number] 50mg Take 1 [facility] mg tablet 2-06 tablet by ity o f 00:00: mouth [place] 00 every 6 Medical (six) Branch hours as needed for Pain (scale 7-10) for up to 12 doses. ondansetron 2018-02 Yes [id number] 4mg Take 1 [facility] (ZOFRAN 2-06 tablet by ity of ODT) 4 mg 00:00: mouth [place] disintegrat 00 every 8 Medic al ing tablet (eight) Branch hours as needed for Nausea and Vomiting (N/V) for up to 15 doses. traMADol 50 2018-02 Yes [id number] 50mg Take 1 [facility] mg tablet 2-06 tablet by ity o f 00:00: mouth [place] 00 every 6 Medical (six) Branch hours as needed for Pain (scale 7-10) for up to 12 doses. ondansetron 2018-02 Yes [id number] 4mg Take 1 [facility] (ZOFRAN 2-06 tablet by ity of ODT) 4 mg 00:00: mouth [place] disintegrat 00 every 8 Medic al ing tablet (eight) Branch hours as needed for Nausea and Vomiting (N/V) for up to 15 doses. traMADol 50 2018-02 Yes [id number] 50mg Take 1 [facility] mg tablet 2-06 tablet by ity o f 00:00: mouth [place] 00 every 6 Medical (six) Branch hours as needed for Pain (scale 7-10) for up to 12 doses. ondansetron 2018-02 Yes [id number] 4mg Take 1 [facility] (ZOFRAN 2-06 tablet by ity of ODT) 4 mg 00:00: mouth [place] disintegrat 00 every 8 Medic al ing tablet (eight) Branch hours as needed for Nausea and Vomiting (N/V) for up to 15 doses. traMADol 50 2018-02 Yes [id number] 50mg Take 1 [facility] mg tablet 2-06 tablet by ity o f 00:00: mouth [place] 00 every 6 Medical (six) Branch hours as needed for Pain (scale 7-10) for up to 12 doses. ondansetron 2018-02 Yes [id number] 4mg Take 1 [facility] (ZOFRAN 2-06 tablet by ity of ODT) 4 mg 00:00: mouth [place] disintegrat 00 every 8 Medic al ing tablet (eight) Branch hours as needed for Nausea and Vomiting (N/V) for up to 15 doses. traMADol 50 2018-02 Yes [id number] 50mg Take 1 [facility] mg tablet 2-06 tablet by ity o f 00:00: mouth [place] 00 every 6 Medical (six) Branch hours as needed for Pain (scale 7-10) for up to 12 doses. ondansetron 2018-02 Yes [id number] 4mg Take 1 [facility] (ZOFRAN 2-06 tablet by ity of ODT) 4 mg 00:00: mouth [place] disintegrat 00 every 8 Medic al ing tablet (eight) Branch hours as needed for Nausea and Vomiting (N/V) for up to 15 doses. traMADol 50 2018-02 Yes [id number] 50mg Take 1 [facility] mg tablet 2-06 tablet by ity o f 00:00: mouth [place] 00 every 6 Medical (six) Branch hours as needed for Pain (scale 7-10) for up to 12 doses. ondansetron 2018-02 Yes [id number] 4mg Take 1 [facility] (ZOFRAN 2-06 tablet by ity of ODT) 4 mg 00:00: mouth [place] disintegrat 00 every 8 Medic al ing tablet (eight) Branch hours as needed for Nausea and Vomiting (N/V) for up to 15 doses. traMADol 50 2018-02 Yes [id number] 50mg Take 1 [facility] mg tablet 2-06 tablet by ity o f 00:00: mouth [place] 00 every 6 Medical (six) Branch hours as needed for Pain (scale 7-10) for up to 12 doses. ondansetron 2018-02 Yes [id number] 4mg Take 1 [facility] (ZOFRAN 2-06 tablet by ity of ODT) 4 mg 00:00: mouth [place] disintegrat 00 every 8 Medic al ing tablet (eight) Branch hours as needed for Nausea and Vomiting (N/V) for up to 15 doses. traMADol 50 2018-02 Yes [id number] 50mg Take 1 [facility] mg tablet 2-06 tablet by ity o f 00:00: mouth [place] 00 every 6 Medical (six) Branch hours as needed for Pain (scale 7-10) for up to 12 doses. ondansetron 2018-02 Yes [id number] 4mg Take 1 [facility] (ZOFRAN 2-06 tablet by ity of ODT) 4 mg 00:00: mouth [place] disintegrat 00 every 8 Medic al ing tablet (eight) Branch hours as needed for Nausea and Vomiting (N/V) for up to 15 doses. traMADol 50 2018-02 Yes [id number] 50mg Take 1 [facility] mg tablet 2-06 tablet by ity o f 00:00: mouth [place] 00 every 6 Medical (six) Branch hours as needed for Pain (scale 7-10) for up to 12 doses. ondansetron 2018-02 Yes [id number] 4mg Take 1 [facility] (ZOFRAN 2-06 tablet by ity of ODT) 4 mg 00:00: mouth [place] disintegrat 00 every 8 Medic al ing tablet (eight) Branch hours as needed for Nausea and Vomiting (N/V) for up to 15 doses. traMADol 50 2018-02 Yes [id number] 50mg Take 1 [facility] mg tablet 2-06 tablet by ity o f 00:00: mouth [place] 00 every 6 Medical (six) Branch hours as needed for Pain (scale 7-10) for up to 12 doses. ondansetron 2018-02 Yes [id number] 4mg Take 1 [facility] (ZOFRAN 2-06 tablet by ity of ODT) 4 mg 00:00: mouth [place] disintegrat 00 every 8 Medic al ing tablet (eight) Branch hours as needed for Nausea and Vomiting (N/V) for up to 15 doses. traMADol 50 2018-02 2020- No [id number] 50mg Take 1 [facility] mg tablet 2-06 05-07 tablet by ity of 00:00: 00:00 mouth [place] 00 :00 every 6 Medical (six) Branch hours as needed for Pain (scale 7-10) for up to 12 doses. ondansetron 2018-02 2020- No [id number] 4mg Take 1 [facility] (ZOFRAN 2-06 05-07 tablet by ity of ODT) 4 mg 00:00: 00:00 mouth [place] disintegrat 00 :00 every 8 Medic al ing tablet (eight) Branch hours as needed for Nausea and Vomiting (N/V) for up to 15 doses. ibuprofen 2018-02 Yes [id number] 600mg Take 1 [facility] nivers 600 mg 2-04 tablet by ity of tablet 00:00: mouth [place] 00 every 6 Medical (six) Branch hours as needed for Pain (scale 4-6). ibuprofen 2018-02 Yes [id number] 600mg Take 1 U nivers 600 mg 2-04 tablet by ity of tablet 00:00: mouth [place] 00 every 6 Medical (six) Branch hours as needed for Pain (scale 4-6). ibuprofen 2018-02 Yes [id number] 600mg Take 1 U nivers 600 mg 2-04 tablet by ity of tablet 00:00: mouth [place] 00 every 6 Medical (six) Branch hours as needed for Pain (scale 4-6). ibuprofen 2018-02 Yes [id number] 600mg Take 1 U nivers 600 mg 2-04 tablet by ity of tablet 00:00: mouth [place] 00 every 6 Medical (six) Branch hours as needed for Pain (scale 4-6). ibuprofen 2018-02 Yes [id number] 600mg Take 1 U nivers 600 mg 2-04 tablet by ity of tablet 00:00: mouth [place] 00 every 6 Medical (six) Branch hours as needed for Pain (scale 4-6). ibuprofen 2018-02 Yes [id number] 600mg Take 1 U nivers 600 mg 2-04 tablet by ity of tablet 00:00: mouth [place] 00 every 6 Medical (six) Branch hours as needed for Pain (scale 4-6). ibuprofen 2018-02 Yes [id number] 600mg Take 1 U nivers 600 mg 2-04 tablet by ity of tablet 00:00: mouth [place] 00 every 6 Medical (six) Branch hours as needed for Pain (scale 4-6). ibuprofen 2018-02 Yes [id number] 600mg Take 1 U nivers 600 mg 2-04 tablet by ity of tablet 00:00: mouth [place] 00 every 6 Medical (six) Branch hours as needed for Pain (scale 4-6). ibuprofen 2018-02 Yes [id number] 600mg Take 1 U nivers 600 mg 2-04 tablet by ity of tablet 00:00: mouth [place] 00 every 6 Medical (six) Branch hours as needed for Pain (scale 4-6). ibuprofen 2018- Yes [id number] 600mg Take 1 U nivers 600 mg 2-04 tablet by ity of tablet 00:00: mouth [place] 00 every 6 Medical (six) Branch hours as needed for Pain (scale 4-6). ibuprofen 2018-02 Yes [id number] 600mg Take 1 U nivers 600 mg 2-04 tablet by ity of tablet 00:00: mouth [place] 00 every 6 Medical (six) Branch hours as needed for Pain (scale 4-6). ibuprofen 2018-02 Yes [id number] 600mg Take 1 U nivers 600 mg 2-04 tablet by ity of tablet 00:00: mouth [place] 00 every 6 Medical (six) Branch hours as needed for Pain (scale 4-6). ibuprofen 2018-02 Yes [id number] 600mg Take 1 U nivers 600 mg 2-04 tablet by ity of tablet 00:00: mouth [place] 00 every 6 Medical (six) Branch hours as needed for Pain (scale 4-6). ibuprofen 2018-02 Yes [id number] 600mg Take 1 U nivers 600 mg 2-04 tablet by ity of tablet 00:00: mouth [place] 00 every 6 Medical (six) Branch hours as needed for Pain (scale 4-6). ibuprofen 2018-02 Yes [id number] 600mg Take 1 U nivers 600 mg 2-04 tablet by ity of tablet 00:00: mouth [place] 00 every 6 Medical (six) Branch hours as needed for Pain (scale 4-6). ibuprofen 2018-02 Yes [id number] 600mg Take 1 U nivers 600 mg 2-04 tablet by ity of tablet 00:00: mouth [place] 00 every 6 Medical (six) Branch hours as needed for Pain (scale 4-6). ibuprofen 2018-02 Yes [id number] 600mg Take 1 U nivers 600 mg 2-04 tablet by ity of tablet 00:00: mouth [place] 00 every 6 Medical (six) Branch hours as needed for Pain (scale 4-6). ibuprofen 2018-02 Yes [id number] 600mg Take 1 U nivers 600 mg 2-04 tablet by ity of tablet 00:00: mouth [place] 00 every 6 Medical (six) Branch hours as needed for Pain (scale 4-6). ibuprofen 2018-02 2020- No [id number] 600mg Take 1 [facility] 600 mg 2-04 05-07 tablet by ity of tablet 00:00: 00:00 mouth [place] 00 :00 every 6 Medical (six) Branch hours as needed for Pain (scale 4-6). buPROPion 2016-02 Yes [id number] 150mg Take 1 U nivers SR 2-12 tablet by ity of (WELLBUTRIN 00:00: mouth 2 [place] SR) 150 mg 00 (two) Medical SR tablet times Branch daily. buPROPion 2016-02 Yes [id number] 150mg Take 1 U nivers SR 2-12 tablet by ity of (WELLBUTRIN 00:00: mouth 2 [place] SR) 150 mg 00 (two) Medical SR tablet times Branch daily. buPROPion 2016-02 Yes [id number] 150mg Take 1 U nivers SR 2-12 tablet by ity of (WELLBUTRIN 00:00: mouth 2 [place] SR) 150 mg 00 (two) Medical SR tablet times Branch daily. buPROPion 2016-02 Yes [id number] 150mg Take 1 U nivers SR 2-12 tablet by ity of (WELLBUTRIN 00:00: mouth 2 [place] SR) 150 mg 00 (two) Medical SR tablet times Branch daily. buPROPion 2016-02 Yes [id number] 150mg Take 1 U nivers SR 2-12 tablet by ity of (WELLBUTRIN 00:00: mouth 2 [place] SR) 150 mg 00 (two) Medical SR tablet times Branch daily. buPROPion 2016-02 Yes [id number] 150mg Take 1 U nivers SR 2-12 tablet by ity of (WELLBUTRIN 00:00: mouth 2 [place] SR) 150 mg 00 (two) Medical SR tablet times Branch daily. buPROPion 2016-02 Yes [id number] 150mg Take 1 U nivers SR 2-12 tablet by ity of (WELLBUTRIN 00:00: mouth 2 [place] SR) 150 mg 00 (two) Medical SR tablet times Branch daily. buPROPion 2016-02 Yes [id number] 150mg Take 1 U nivers SR 2-12 tablet by ity of (WELLBUTRIN 00:00: mouth 2 [place] SR) 150 mg 00 (two) Medical SR tablet times Branch daily. buPROPion 2016-02 Yes [id number] 150mg Take 1 U nivers SR 2-12 tablet by ity of (WELLBUTRIN 00:00: mouth 2 [place] SR) 150 mg 00 (two) Medical SR tablet times Branch daily. buPROPion 2016-02 Yes [id number] 150mg Take 1 U nivers SR 2-12 tablet by ity of (WELLBUTRIN 00:00: mouth 2 [place] SR) 150 mg 00 (two) Medical SR tablet times Branch daily. buPROPion 2016-02 Yes [id number] 150mg Take 1 U nivers SR 2-12 tablet by ity of (WELLBUTRIN 00:00: mouth 2 [place] SR) 150 mg 00 (two) Medical SR tablet times Branch daily. buPROPion 2016-02 Yes [id number] 150mg Take 1 U nivers SR 2-12 tablet by ity of (WELLBUTRIN 00:00: mouth 2 [place] SR) 150 mg 00 (two) Medical SR tablet times Branch daily. buPROPion 2016-02 Yes [id number] 150mg Take 1 U nivers SR 2-12 tablet by ity of (WELLBUTRIN 00:00: mouth 2 [place] SR) 150 mg 00 (two) Medical SR tablet times Branch daily. buPROPion 2016-02 Yes [id number] 150mg Take 1 U nivers SR 2-12 tablet by ity of (WELLBUTRIN 00:00: mouth 2 [place] SR) 150 mg 00 (two) Medical SR tablet times Branch daily. buPROPion 2016-02 Yes [id number] 150mg Take 1 U nivers SR 2-12 tablet by ity of (WELLBUTRIN 00:00: mouth 2 [place] SR) 150 mg 00 (two) Medical SR tablet times Branch daily. buPROPion 2016-02 Yes [id number] 150mg Take 1 U nivers SR 2-12 tablet by ity of (WELLBUTRIN 00:00: mouth 2 [place] SR) 150 mg 00 (two) Medical SR tablet times Branch daily. buPROPion 2016-02 Yes [id number] 150mg Take 1 U nivers SR 2-12 tablet by ity of (WELLBUTRIN 00:00: mouth 2 [place] SR) 150 mg 00 (two) Medical SR tablet times Branch daily. buPROPion 2016-02 Yes [id number] 150mg Take 1 U nivers SR 2-12 tablet by ity of (WELLBUTRIN 00:00: mouth 2 [place] SR) 150 mg 00 (two) Medical SR tablet times Branch daily. buPROPion 2016-02 2020- No [id number] 150mg Take 1 [facility] SR 2-12 05-11 tablet by ity of (WELLBUTRIN 00:00: 00:00 mouth 2 [place] SR) 150 mg 00 :00 (two) Medical SR tablet times Branch daily. norgestimat 2016-02 Yes [id number] 1{tbl} Take 1 [facility] e-ethinyl 1-28 tablet by ity o f estradiol 00:00: mouth [place] (TRINESSA) 00 daily. Medical 0.18/0.215/ Branch 0.25 mg-35 mcg (28) tablet norgestimat 2016-02 Yes [id number] 1{tbl} Take 1 [facility] e-ethinyl 1-28 tablet by ity o f estradiol 00:00: mouth [place] (TRINESSA) 00 daily. Medical 0.18/0.215/ Branch 0.25 mg-35 mcg (28) tablet norgestimat 2016-02 Yes [id number] 1{tbl} Take 1 [facility] e-ethinyl 1-28 tablet by ity o f estradiol 00:00: mouth [place] (TRINESSA) 00 daily. Medical 0.18/0.215/ Branch 0.25 mg-35 mcg (28) tablet norgestimat 2016-02 Yes [id number] 1{tbl} Take 1 [facility] e-ethinyl 1-28 tablet by ity o f estradiol 00:00: mouth [place] (TRINESSA) 00 daily. Medical 0.18/0.215/ Branch 0.25 mg-35 mcg (28) tablet norgestimat 2016-02 Yes [id number] 1{tbl} Take 1 [facility] e-ethinyl 1-28 tablet by ity o f estradiol 00:00: mouth [place] ([facility]) 00 daily. Medical 0.18/0.215/ Branch 0.25 mg-35 mcg (28) tablet norgestimat 2016-02 Yes [id number] 1{tbl} Take 1 [facility] e-ethinyl 1-28 tablet by ity o f estradiol 00:00: mouth [place] ([facility]) 00 daily. Medical 0.18/0.215/ Branch 0.25 mg-35 mcg (28) tablet norgestimat 2016-02 Yes [id number] 1{tbl} Take 1 [facility] e-ethinyl 1-28 tablet by ity o f estradiol 00:00: mouth [place] ([facility]) 00 daily. Medical 0.18/0.215/ Branch 0.25 mg-35 mcg (28) tablet norgestimat 2016-02 Yes [id number] 1{tbl} Take 1 [facility] e-ethinyl 1-28 tablet by ity o f estradiol 00:00: mouth [place] ([facility]) 00 daily. Medical 0.18/0.215/ Branch 0.25 mg-35 mcg (28) tablet norgestimat 2016-02 Yes [id number] 1{tbl} Take 1 [facility] e-ethinyl 1-28 tablet by ity o f estradiol 00:00: mouth [place] ([facility]) 00 daily. Medical 0.18/0.215/ Branch 0.25 mg-35 mcg (28) tablet norgestimat 2016-02 Yes [id number] 1{tbl} Take 1 [facility] e-ethinyl 1-28 tablet by ity o f estradiol 00:00: mouth [place] ([facility]) 00 daily. Medical 0.18/0.215/ Branch 0.25 mg-35 mcg (28) tablet norgestimat 2016-02 Yes [id number] 1{tbl} Take 1 [facility] e-ethinyl 1-28 tablet by ity o f estradiol 00:00: mouth [place] ([facility]) 00 daily. Medical 0.18/0.215/ Branch 0.25 mg-35 mcg (28) tablet norgestimat 2016-02 Yes [id number] 1{tbl} Take 1 [facility] e-ethinyl 1-28 tablet by ity o f estradiol 00:00: mouth [place] ([facility]) 00 daily. Medical 0.18/0.215/ Branch 0.25 mg-35 mcg (28) tablet norgestimat 2016-02 Yes [id number] 1{tbl} Take 1 [facility] e-ethinyl 1-28 tablet by ity o f estradiol 00:00: mouth [place] ([facility]) 00 daily. Medical 0.18/0.215/ Branch 0.25 mg-35 mcg (28) tablet norgestimat 2016-02 Yes [id number] 1{tbl} Take 1 [facility] e-ethinyl 1-28 tablet by ity o f estradiol 00:00: mouth [place] ([facility]) 00 daily. Medical 0.18/0.215/ Branch 0.25 mg-35 mcg (28) tablet norgestimat 2016-02 Yes [id number] 1{tbl} Take 1 [facility] e-ethinyl 1-28 tablet by ity o f estradiol 00:00: mouth [place] ([facility]) 00 daily. Medical 0.18/0.215/ Branch 0.25 mg-35 mcg (28) tablet norgestimat 2016-02 Yes [id number] 1{tbl} Take 1 [facility] e-ethinyl 1-28 tablet by ity o f estradiol 00:00: mouth [place] ([facility]) 00 daily. Medical 0.18/0.215/ Branch 0.25 mg-35 mcg (28) tablet norgestimat 2016-02 Yes [id number] 1{tbl} Take 1 [facility] e-ethinyl 1-28 tablet by ity o f estradiol 00:00: mouth [place] ([facility]) 00 daily. Medical 0.18/0.215/ Branch 0.25 mg-35 mcg (28) tablet norgestimat 2016-02 Yes [id number] 1{tbl} Take 1 [facility] e-ethinyl 1-28 tablet by ity o f estradiol 00:00: mouth [place] [facility] 0.18/0.215/ Branch 0.25 mg-35 mcg (28) tablet norgestimat 2016-02 2020- No [id number] 1{tbl} Take 1 [facility] e-ethinyl 1-28 05-07 tablet by ity of estradiol 00:00: 00:00 mouth [place] [facility] daily. Medical 0.18/0.215/ Branch 0.25 mg-35 mcg (28) tablet metFORMIN Yes [id number] 500mg Take 1 [facility] 500 mg 8-23 tablet by ity of tablet 00:00: mouth 2 (two) Medical times Branch daily with meals. metFORMIN Yes [id number] 500mg Take 1 [facility] 500 mg 8-23 tablet by ity of tablet 00:00: mouth (two) Medical times Branch daily with meals. metFORMIN Yes [id number] 500mg Take 1 [facility] 500 mg 8-23 tablet by ity of tablet 00:00: mouth 2 (two) Medical times Branch daily with meals. metFORMIN Yes [id number] 500mg Take 1 [facility] 500 mg 8-23 tablet by ity of tablet 00:00: mouth 2 (two) Medical times Branch daily with meals. metFORMIN Yes [id number] 500mg Take 1 [facility] 500 mg 8-23 tablet by ity of tablet 00:00: mouth 2 (two) Medical times Branch daily with meals. metFORMIN 2016-0 Yes [id number] 500mg Take 1 [facility] 500 mg 8-23 tablet by ity of tablet 00:00: mouth (two) Medical times Branch daily with meals. metFORMIN 2016-0 Yes [id number] 500mg Take 1 [facility] 500 mg 8-23 tablet by ity of tablet 00:00: mouth (two) Medical times Branch daily with meals. metFORMIN 2016-0 Yes [id number] 500mg Take 1 [facility] 500 mg 8-23 tablet by ity of tablet 00:00: mouth (two) Medical times Branch daily with meals. metFORMIN 2016-0 Yes [id number] 500mg Take 1 [facility] 500 mg 8-23 tablet by ity of tablet 00:00: mouth (two) Medical times Branch daily with meals. metFORMIN 2016-0 Yes [id number] 500mg Take 1 [facility] 500 mg 8-23 tablet by ity of tablet 00:00: mouth (two) Medical times Branch daily with meals. metFORMIN 2016-0 Yes [id number] 500mg Take 1 [facility] 500 mg 8-23 tablet by ity of tablet 00:00: mouth (two) Medical times Branch daily with meals. metFORMIN 2016-0 Yes [id number] 500mg Take 1 [facility] 500 mg 8-23 tablet by ity of tablet 00:00: mouth (two) Medical times Branch daily with meals. metFORMIN 2016-0 Yes [id number] 500mg Take 1 [facility] 500 mg 8-23 tablet by ity of tablet 00:00: mouth (two) Medical times Branch daily with meals. metFORMIN 2016-0 Yes [id number] 500mg Take 1 [facility] 500 mg 8-23 tablet by ity of tablet 00:00: mouth (two) Medical times Branch daily with meals. metFORMIN 2016-0 Yes [id number] 500mg Take 1 [facility] 500 mg 8-23 tablet by ity of tablet 00:00: mouth (two) Medical times Branch daily with meals. metFORMIN 2016-0 Yes [id number] 500mg Take 1 [facility] 500 mg 8-23 tablet by ity of tablet 00:00: mouth (two) Medical times Branch daily with meals. metFORMIN 2016-0 Yes [id number] 500mg Take 1 [facility] 500 mg 8-23 tablet by ity of tablet 00:00: mouth 2 [place] 00 (two) Medical times Branch daily with meals. metFORMIN 2017- Yes [id number] 500mg Take 1 [facility] 500 mg 8-23 tablet by ity of tablet 00:00: mouth 2 [place] 00 (two) Medical times Branch daily with meals. metFORMIN 2016- 2020- No [id number] 500mg Take 1 [facility] 500 mg 8-23 05-07 tablet by ity of tablet 00:00: 00:00 mouth 2 [place] 00 :00 (two) Medical times Branch daily with meals. Immunizations Ordered Filled Immunization Date Status Comments [facility] e Immunization Name Name [facility] 2019-11-06 Completed [facility] of 00:00:00 [facility] Influenza Virus 2019-11-06 Completed Universit y of Vaccine Quad .5 mL 00:00:00 [facility] 6+ [facility] 00:00:00 [facility] Influenza Virus 2019-11-06 Completed Universit y of Vaccine Quad .5 mL 00:00:00 [facility] 6+ MO Branch TDAP 2019-11-06 Completed [facility] of 00:00:00 [facility] Influenza Virus 2019-11-06 Completed Universit y of Vaccine Quad .5 mL 00:00:00 [facility] 6+ MO Branch TDAP 2019-11-06 Completed [facility] of 00:00:00 [facility] Influenza Virus 2019-11-06 Completed Universit y of Vaccine Quad .5 mL 00:00:00 [facility] 6+ MO Branch TDAP 2019-11-06 Completed [facility] of 00:00:00 [facility] Influenza Virus 2019-11-06 Completed Universit y of Vaccine Quad .5 mL 00:00:00 [facility] 6+ MO Branch TDAP 2019-11-06 Completed [facility] of 00:00:00 [facility] Influenza Virus 2019-11-06 Completed Universit y of Vaccine Quad .5 mL 00:00:00 [facility] 6+ MO Branch TDAP 2019-11-06 Completed [facility] of 00:00:00 [facility] Influenza Virus 2019-11-06 Completed Universit y of Vaccine Quad .5 mL 00:00:00 [facility] 6+ MO Branch TDAP 2019-11-06 Completed [facility] of 00:00:00 [facility] Influenza Virus 2019-11-06 Completed Universit y of Vaccine Quad .5 mL 00:00:00 [place] [facility] 6+ MO Branch TDAP 2019-11-06 Completed [facility] of 00:00:00 [facility] Influenza Virus 2019-11-06 Completed Universit y of Vaccine Quad .5 mL 00:00:00 [place] [facility] 6+ MO Branch TDAP 2019-11-06 Completed [facility] of 00:00:00 [facility] Influenza Virus 2019-11-06 Completed Universit y of Vaccine Quad .5 mL 00:00:00 [place] [facility] IM 6+ MO Branch TDAP 2019-11-06 Completed [facility] of 00:00:00 [facility] Influenza Virus 2019-11-06 Completed Universit y of Vaccine Quad .5 mL 00:00:00 [place] [facility] 6+ MO Branch TDAP 2019-11-06 Completed [facility] of 00:00:00 [facility] Influenza Virus 2019-11-06 Completed Universit y of Vaccine Quad .5 mL 00:00:00 [place] [facility] 6+ MO Branch TDAP 2019-11-06 Completed [facility] of 00:00:00 [facility] Influenza Virus 2019-11-06 Completed Universit y of Vaccine Quad .5 mL 00:00:00 [place] [facility] 6+ MO Branch TDAP 2019-11-06 Completed [facility] of 00:00:00 [facility] Influenza Virus 2019-11-06 Completed Universit y of Vaccine Quad .5 mL 00:00:00 [place] [facility] 6+ MO Branch TDAP 2019-11-06 Completed [facility] of 00:00:00 [facility] Influenza Virus 2019-11-06 Completed Universit y of Vaccine Quad .5 mL 00:00:00 [place] [facility] 6+ MO Branch TDAP 2019-11-06 Completed [facility] of 00:00:00 [facility] Influenza Virus 2019-11-06 Completed Universit y of Vaccine Quad .5 mL 00:00:00 [place] [facility] 6+ MO Branch TDAP 2019-11-06 Completed [facility] of 00:00:00 [facility] Influenza Virus 2019-11-06 Completed Universit y of Vaccine Quad .5 mL 00:00:00 [place] [facility] 6+ MO Branch TDAP 2019-11-06 Completed [facility] of 00:00:00 [facility] Influenza Virus 2019-11-06 Completed Universit y of Vaccine Quad .5 mL 00:00:00 [place] [facility] IM 6+ MO Branch TDAP 2019-11-06 Completed [facility] of 00:00:00 [facility] Influenza Virus 2019-11-06 Completed Universit y of Vaccine Quad .5 mL 00:00:00 [place] [facility] IM 6+ MO Branch TDAP 2019-11-06 Completed [facility] of 00:00:00 [facility] Influenza Virus 2019-11-06 Completed Universit y of Vaccine Quad .5 mL 00:00:00 [place] [facility] IM 6+ MO Branch TDAP 2019-11-06 Completed [facility] of 00:00:00 [facility] Influenza Virus 2019-11-06 Completed Universit y of Vaccine Quad .5 mL 00:00:00 [place] [facility] IM 6+ MO Branch TDAP 2019-11-06 Completed [facility] of 00:00:00 [facility] Influenza Virus 2019-11-06 Completed Universit y of Vaccine Quad .5 mL 00:00:00 [place] [facility] 6+ MO Branch TDAP 2019-11-06 Completed [facility] of 00:00:00 [facility] Influenza Virus 2019-11-06 Completed Universit y of Vaccine Quad .5 mL 00:00:00 [facility] 6+ MO Branch TDAP 2019-11-06 Completed University of 00:00:00 [facility] Influenza Virus 2019-11-06 Completed Universit y of Vaccine Quad .5 mL 00:00:00 [place] [facility] 6+ MO Branch TDAP 2019-11-06 Completed [facility] of 00:00:00 [facility] Influenza Virus 2019-11-06 Completed Universit y of Vaccine Quad .5 mL 00:00:00 [place] [facility] 6+ MO Branch TDAP 2019-11-06 Completed [facility] of 00:00:00 [facility] Influenza Virus 2019-11-06 Completed Universit y of Vaccine Quad .5 mL 00:00:00 [place] [facility] 6+ MO Branch TDAP 2019-11-06 Completed [facility] of 00:00:00 [facility] Influenza Virus 2019-11-06 Completed Universit y of Vaccine Quad .5 mL 00:00:00 [place] [facility] 6+ MO Branch TDAP 2019-11-06 Completed [facility] of 00:00:00 [facility] Influenza Virus 2019-11-06 Completed Universit y of Vaccine Quad .5 mL 00:00:00 [place] [facility] 6+ MO Branch TDAP 2019-11-06 Completed [facility] of 00:00:00 [facility] Influenza Virus 2019-11-06 Completed Universit y of Vaccine Quad .5 mL 00:00:00 [place] [facility] 6+ MO Branch TDAP 2019-11-06 Completed [facility] of 00:00:00 [facility] Influenza Virus 2019-11-06 Completed Universit y of Vaccine Quad .5 mL 00:00:00 [place] [facility] 6+ MO Branch TDAP 2019-11-06 Completed [facility] of 00:00:00 [facility] Influenza Virus 2019-11-06 Completed Universit y of Vaccine Quad .5 mL 00:00:00 [facility] 6+ MO Branch TDAP 2019-11-06 Completed University of 00:00:00 [facility] Influenza Virus 2019-11-06 Completed Universit y of Vaccine Quad .5 mL 00:00:00 [facility] 6+ MO Branch TDAP 2019-11-06 Completed University of 00:00:00 [facility] Influenza Virus 2019-11-06 Completed Universit y of Vaccine Quad .5 mL 00:00:00 [facility] 6+ MO Branch TDAP 2019-11-06 Completed University of 00:00:00 [facility] Influenza Virus 2019-11-06 Completed Universit y of Vaccine Quad .5 mL 00:00:00 [facility] 6+ MO Branch TDAP 2019-11-06 Completed University of 00:00:00 [facility] Influenza Virus 2019-11-06 Completed Universit y of Vaccine Quad .5 mL 00:00:00 [facility] 6+ MO Branch TDAP 2019-11-06 Completed University of 00:00:00 [facility] Influenza Virus 2019-11-06 Completed Universit y of Vaccine Quad .5 mL 00:00:00 [facility] 6+ MO [place] TDAP 2019-11-06 Completed University of 00:00:00 [facility] Influenza Virus 2019-11-06 Completed Universit y of Vaccine Quad .5 mL 00:00:00 [place] [facility] 6+ MO Branch TDAP 2019-11-06 Completed University of 00:00:00 [facility] Influenza Virus 2019-11-06 Completed Universit y of Vaccine Quad .5 mL 00:00:00 [place] [facility] 6+ MO Branch TDAP 2019-11-06 Completed [facility] of 00:00:00 [facility] Influenza Virus 2019-11-06 Completed Universit y of Vaccine Quad .5 mL 00:00:00 [place] [facility] 6+ MO Branch TDAP 2019-11-06 Completed [facility] of 00:00:00 [facility] Influenza Virus 2019-11-06 Completed Universit y of Vaccine Quad .5 mL 00:00:00 [place] [facility] IM 6+ MO Branch TDAP 2019-11-06 Completed [facility] of 00:00:00 [place] [facility] [place] Influenza Virus 2019-11-06 Completed Universit y of Vaccine Quad .5 mL 00:00:00 [place] [facility] IM 6+ MO Branch TDAP 2019-11-06 Completed [facility] of 00:00:00 [facility] Influenza Virus 2019-11-06 Completed Universit y of Vaccine Quad .5 mL 00:00:00 [place] [facility] IM 6+ MO Branch TDAP 2019-11-06 Completed [facility] of 00:00:00 [facility] Influenza Virus 2019-11-06 Completed Universit y of Vaccine Quad .5 mL 00:00:00 [place] [facility] IM 6+ MO Branch TDAP 2019-11-06 Completed [facility] of 00:00:00 [facility] Influenza Virus 2019-11-06 Completed Universit y of Vaccine Quad .5 mL 00:00:00 [place] [facility] 6+ MO Branch TDAP 2019-11-06 Completed [facility] of 00:00:00 [facility] Influenza Virus 2019-11-06 Completed Universit y of Vaccine Quad .5 mL 00:00:00 [place] [facility] 6+ MO Branch TDAP 2019-11-06 Completed [facility] of 00:00:00 [facility] Influenza Virus 2019-11-06 Completed Universit y of Vaccine Quad .5 mL 00:00:00 [place] [facility] 6+ MO Branch TDAP 2019-11-06 Completed [facility] of 00:00:00 [facility] Influenza Virus 2019-11-06 Completed Universit y of Vaccine Quad .5 mL 00:00:00 [place] [facility] IM 6+ MO Branch TDAP 2019-11-06 Completed [facility] of 00:00:00 [facility] Influenza Virus 2019-11-06 Completed Universit y of Vaccine Quad .5 mL 00:00:00 [place] [facility] IM 6+ MO Branch TDAP 2019-11-06 Completed [facility] of 00:00:00 [facility] Influenza Virus 2019-11-06 Completed Universit y of Vaccine Quad .5 mL 00:00:00 [place] [facility] IM 6+ MO Branch TDAP 2019-11-06 Completed [facility] of 00:00:00 [facility] Influenza Virus 2019-11-06 Completed Universit y of Vaccine Quad .5 mL 00:00:00 [place] [facility] IM 6+ MO Branch TDAP 2019-11-06 Completed [facility] of 00:00:00 [facility] Influenza Virus 2019-11-06 Completed Universit y of Vaccine Quad .5 mL 00:00:00 [facility] IM 6+ MO Branch TDAP 2019-11-06 Completed University of 00:00:00 [facility] Influenza Virus 2019-11-06 Completed Universit y of Vaccine Quad .5 mL 00:00:00 [facility] IM 6+ MO Branch TDAP 2014-12-16 Completed University of 00:00:00 [facility] Branch TDAP 2014-12-16 Completed University of 00:00:00 [facility] Branch TDAP 2014-12-16 Completed University of 00:00:00 [facility] Branch TDAP 2014-12-16 Completed University of 00:00:00 [facility] Branch TDAP 2014-12-16 Completed University of 00:00:00 [facility] Branch Tdap 2014-12-16 Completed University of 00:00:00 [facility] Branch TDAP 2014-12-16 Completed University of 00:00:00 [facility] Branch TDAP 2014-12-16 Completed University of 00:00:00 [facility] Branch TDAP 2014-12-16 Completed [facility] of 00:00:00 [facility] Branch TDAP 2014-12-16 Completed [facility] of 00:00:00 [facility] Branch TDAP 2014-12-16 Completed University of 00:00:00 [facility] Branch TDAP 2014-12-16 Completed University of 00:00:00 [facility] Branch TDAP 2014-12-16 Completed University of 00:00:00 [facility] Branch TDAP 2014-12-16 Completed University of 00:00:00 [facility] Branch Tdap 2014-12-16 Completed University of 00:00:00 [facility] Branch TDAP 2014-12-16 Completed University of 00:00:00 [facility] Branch TDAP 2014-12-16 Completed University of 00:00:00 [facility] Branch TDAP 2014-12-16 Completed University of 00:00:00 [facility] Branch TDAP 2014-12-16 Completed University of 00:00:00 [place] [facility] TDAP 2014-12-16 Completed University of 00:00:00 [facility] Branch TDAP 2014-12-16 Completed University of 00:00:00 [facility] Branch TDAP 2014-12-16 Completed [facility] of 00:00:00 [facility] Branch TDAP 2014-12-16 Completed University of 00:00:00 [facility] Branch TDAP 2014-12-16 Completed [facility] of 00:00:00 [place] [facility] Tdap 2014-12-16 Completed [facility] of 00:00:00 [place] [facility] TDAP 2014-12-16 Completed [facility] of 00:00:00 [place] [facility] TDAP 2014-12-16 Completed [facility] of 00:00:00 [place] [facility] TDAP 2014-12-16 Completed [facility] of 00:00:00 [place] [facility] TDAP 2014-12-16 Completed [facility] of 00:00:00 [place] [facility] TDAP 2014-12-16 Completed [facility] of 00:00:00 [place] [facility] TDAP 2014-12-16 Completed [facility] of 00:00:00 [place] [facility] TDAP 2014-12-16 Completed University of 00:00:00 [place] [facility] TDAP 2014-12-16 Completed University of 00:00:00 [place] [facility] Tdap 2014-12-16 Completed University of 00:00:00 [place] [facility] TDAP 2014-12-16 Completed [facility] of 00:00:00 [place] [facility] TDAP 2014-12-16 Completed University of 00:00:00 [place] [facility] TDAP 2014-12-16 Completed [facility] of 00:00:00 [place] [facility] TDAP 2014-12-16 Completed [facility] of 00:00:00 [place] [facility] TDAP 2014-12-16 Completed University of 00:00:00 [place] [facility] TDAP 2014-12-16 Completed University of 00:00:00 [place] [facility] TDAP 2014-12-16 Completed University of 00:00:00 [place] [facility] TDAP 2014-12-16 Completed University of 00:00:00 [place] [facility] TDAP 2014-12-16 Completed University of 00:00:00 [place] [facility] Tdap 2014-12-16 Completed University of 00:00:00 [place] [facility] TDAP 2014-12-16 Completed University of 00:00:00 [place] [facility] Tdap 2014-12-16 Completed University of 00:00:00 [place] [facility] TDAP 2014-12-16 Completed [facility] of 00:00:00 [place] [facility] Tdap 2014-12-16 Completed [facility] of 00:00:00 [place] [facility] TDAP 2014-12-16 Completed [facility] of 00:00:00 [place] [facility] Tdap 2014-12-16 Completed University of 00:00:00 [place] [facility] Tdap 2014-12-16 Completed University of 00:00:00 [place] [facility] Tdap 2014-12-16 Completed [facility] of 00:00:00 [place] [facility] Tdap 2014-12-16 Completed [facility] of 00:00:00 [place] [facility] Tdap 2014-12-16 Completed [facility] of 00:00:00 [place] [facility] Tdap 2014-12-16 Completed [facility] of 00:00:00 [place] [facility] Tdap 2014-12-16 Completed [facility] of 00:00:00 [place] [facility] Tdap 2014-12-16 Completed [facility] of 00:00:00 [place] [facility] Tdap 2014-12-16 Completed [facility] of 00:00:00 [place] [facility] Tdap 2014-12-16 Completed [facility] of 00:00:00 [place] [facility] Tdap 2014-12-16 Completed [facility] of 00:00:00 [place] [facility] Tdap 2014-12-16 Completed [facility] of 00:00:00 [place] [facility] Tdap 2014-12-16 Completed [facility] of 00:00:00 [place] [facility] Tdap 2014-12-16 Completed University of 00:00:00 [place] [facility] Tdap 2014-12-16 Completed [facility] of 00:00:00 [place] [facility] Tdap 2014-12-16 Completed [facility] of 00:00:00 [place] [facility] Tdap 2014-12-16 Completed [facility] of 00:00:00 [place] [facility] TDAP 2014-12-16 Completed [facility] of 00:00:00 [place] [facility] TDAP 2014-12-16 Completed [facility] of 00:00:00 [place] [facility] TDAP 2014-12-16 Completed [facility] of 00:00:00 [place] [facility] TDAP 2014-12-16 Completed [facility] of 00:00:00 [place] [facility] TDAP 2014-12-16 Completed [facility] of 00:00:00 [place] [facility] TDAP 2014-12-16 Completed [facility] of 00:00:00 [place] [facility] TDAP 2014-12-16 Completed [facility] of 00:00:00 [place] [facility] TDAP 2014-12-16 Completed [facility] of 00:00:00 [place] [facility] Tdap 2014-12-16 Completed University of 00:00:00 [place] [facility] TDAP 2014-12-16 Completed [facility] of 00:00:00 [place] [facility] TDAP 2014-12-16 Completed [facility] of 00:00:00 [place] [facility] TDAP 2014-12-16 Completed [facility] of 00:00:00 [place] [facility] TDAP 2014-12-16 Completed [facility] of 00:00:00 [place] [facility] TDAP 2014-12-16 Completed [facility] of 00:00:00 [place] [facility] TDAP 2014-12-16 Completed [facility] of 00:00:00 [place] [facility] TDAP 2014-12-16 Completed University of 00:00:00 [place] [facility] TDAP 2014-12-16 Completed University of 00:00:00 [place] [facility] Tdap 2014-12-16 Completed University of 00:00:00 [place] [facility] TDAP 2014-12-16 Completed University of 00:00:00 [place] [facility] TDAP 2014-12-16 Completed University of 00:00:00 [place] [facility] TDAP 2014-12-16 Completed University of 00:00:00 [place] [facility] TDAP 2014-12-16 Completed [facility] of 00:00:00 [place] [facility] TDAP 2014-12-16 Completed [facility] of 00:00:00 [place] [facility] TDAP 2014-12-16 Completed University of 00:00:00 [facility] Branch TDAP 2014-12-16 Completed University of 00:00:00 [place] [facility] TDAP 2014-12-16 Completed [facility] of 00:00:00 [facility] Branch TDAP 2014-12-16 Completed [facility] of 00:00:00 [facility] Branch TDAP 2014-12-16 Completed [facility] of 00:00:00 [facility] Influenza Virus 2014-07-08 Completed Universit y of Vaccine Quad IM 00:00:00 [place] [facility] Multi-dose 6+ MO Branch Influenza Virus 2014-07-08 Completed Universit y of Vaccine Quad IM 00:00:00 [place] [facility] Multi-dose 6+ MO Branch Influenza Virus 2014-07-08 Completed Universit y of Vaccine Quad IM 00:00:00 [place] [facility] Multi-dose 6+ MO Branch Influenza Virus 2014-07-08 Completed Universit y of Vaccine Quad IM 00:00:00 [place] [facility] Multi-dose 6+ MO Branch Influenza Virus 2014-07-08 Completed Universit y of Vaccine Quad IM 00:00:00 [place] [facility] Multi-dose 6+ MO Branch Influenza Virus 2014-07-08 Completed Universit y of Vaccine Quad IM 00:00:00 [place] [facility] Multi-dose 6+ MO Branch Influenza Virus 2014-07-08 Completed Universit y of Vaccine Quad IM 00:00:00 [place] [facility] Multi-dose 6+ MO Branch Influenza Virus 2014-07-08 Completed Universit y of Vaccine Quad IM 00:00:00 [place] [facility] ical Multi-dose 6+ [facility] Influenza Virus 2014-07-08 Completed [facility] [place] [facility]dose [facility] Influenza Virus 2014-07-08 Completed [facility] [place] [facility]dose [facility] Influenza Virus 2014-07-08 Completed [facility] [place] [facility] Multi[facility]dose [facility]+ [facility] Influenza Virus 2014-07-08 Completed [facility] [place] [facility] Multi[facility]dose [facility]+ [facility] Influenza Virus 2014-07-08 Completed [facility] [place] [facility] Multi[facility]dose 6+ [facility] Influenza Virus 2014-07-08 Completed [facility] 00:[facility] [place] [facility] Multi[facility]dose 6+ [facility] Influenza Virus 2014-07-08 Completed [facility] [place] [facility] Multi[facility]dose 6+ [facility] Influenza Virus 2014-07-08 Completed [facility] 00:[facility] [place] [facility] Multi[facility]dose 6+ [facility] Influenza Virus 2014-07-08 Completed [facility] 00:00:00 [place] [facility] Multi[facility]dose 6+ [facility] Influenza Virus 2014-07-08 Completed [facility] 00:00[facility] [place] [facility] Multi[facility]dose 6+ [facility] Influenza Virus 2014-07-08 Completed [facility] 00:[facility] [place] [facility] Multi[facility]dose [facility]+ [facility] Influenza Virus 2014-07-08 Completed [facility] [place] [facility] Multi[facility]dose 6+ [facility] Influenza Virus 2014-07-08 Completed [facility] 00:00:00 [place] [facility] Multi[facility]dose 6+ [facility] Influenza Virus 2014-07-08 Completed [facility] 00:00:[facility] [place] [facility] Multi[facility]dose 6+ [facility] Influenza Virus 2014-07-08 Completed [facility] 00:00:[facility] [place] [facility] Multi[facility]dose 6+ [facility] Influenza Virus 2014-07-08 Completed [facility] 00:00:00 [place] [facility] Multi[facility]dose 6+ [facility] Influenza Virus 2014-07-08 Completed [facility] 00:00[facility] [place] [facility] Multi[facility]dose 6+ [facility] Influenza Virus 2014-07-08 Completed [facility] 00:00:00 [place] [facility] Multi[facility]dose 6+ [facility] Influenza Virus 2014-07-08 Completed [facility] [place] [facility] Multi[facility]dose 6+ [facility] Influenza Virus 2014-07-08 Completed [facility] 00:00:00 [place] [facility] Multi[facility]dose 6+ [facility] Influenza Virus 2014-07-08 Completed [facility] 00:00:[facility] [place] [facility] Multi[facility]dose 6+ [facility] Influenza Virus 2014-07-08 Completed [facility] [place] [facility] Multi[facility]dose 6+ [facility] Influenza Virus 2014-07-08 Completed [facility] 00:[facility]:00 [place] [facility] Multi[facility]dose 6+ [facility] Influenza Virus 2014-07-08 Completed [facility] 00:00:[facility] [place] [facility] Multi[facility]dose 6+ [facility] Influenza Virus 2014-07-08 Completed [facility] 00:00:[facility] [place] [facility] Multi[facility]dose 6+ [facility] Influenza Virus 2014-07-08 Completed [facility] 00:[facility] [place] [facility] Multi[facility]dose 6+ [facility] Influenza Virus 2014-07-08 Completed [facility] 00:00:[facility] [place] [facility] Multi[facility]dose 6+ [facility] Influenza Virus 2014-07-08 Completed [facility] 00:00:00 [place] [facility] Multi[facility]dose 6+ [facility] Influenza Virus 2014-07-08 Completed [facility] 00:00:[facility] [place] [facility] Multi[facility]dose 6[facility] Influenza Virus 2014-07-08 Completed [facility] 00:00:00 [place] [facility] Multi[facility]dose 6+ [facility] Influenza Virus 2014-07-08 Completed [facility] 00:00:00 [place] [facility] Multi[facility] 6+ [facility] Influenza Virus 2014-07-08 Completed [facility] 00:00:00 [place] [facility] Multi[facility]dose 6+ [facility] Influenza Virus 2014-07-08 Completed [facility] 00:00:00 [place] [facility] Multi[facility]dose 6+ [facility] Influenza Virus 2014-07-08 Completed [facility] 00:00:00 [place] [facility] Multi[facility]dose 6+ [facility] Influenza Virus 2014-07-08 Completed [facility] 00:00:00 [place] [facility] Multi[facility]dose 6+ [facility] Influenza Virus 2014-07-08 Completed [facility] 00:00:00 [place] [facility] Multi[facility]dose 6[facility] Influenza Virus 2014-07-08 Completed [facility] 00:00:00 [place] [facility] Multi[facility]dose 6+ [facility] Influenza Virus 2014-07-08 Completed [facility] 00:00:00 [place] [facility] Multi[facility]dose 6+ [facility] Influenza Virus 2014-07-08 Completed [facility] 00:00:00 [place] [facility] Multi[facility]dose 6+ [facility] Influenza Virus 2014-07-08 Completed [facility] 00:00:00 [place] [facility] Multi[facility]dose 6+ [facility] Influenza Virus 2014-07-08 Completed [facility] 00:00:00 [place] [facility] Multi[facility]dose 6[facility] Influenza Virus 2014-07-08 Completed [facility] 00:00:00 [place] [facility] Multi[facility]dose 6[facility] Influenza Virus 2014-07-08 Completed [facility] 00:00:00 [place] [facility] Multi[facility] 6[facility] Influenza Virus 2014-07-08 Completed [facility] 00:00:00 [place] [facility] Multi[facility]dose 6[facility] Influenza Virus 2014-07-08 Completed [facility] 00:00:00 [place] [facility] Multi[facility]dose 6+ [facility] Influenza Virus 2014-07-08 Completed [facility] 00:00:00 [place] [facility] Multi[facility]dose 6+ [facility] Influenza Virus 2014-07-08 Completed [facility] 00:00:00 [place] [facility] Multi[facility]dose 6+ [facility] Influenza Virus 2014-07-08 Completed [facility] 00:00:00 [place] [facility] Multi[facility]dose 6+ [facility] Influenza Virus 2014-07-08 Completed [facility] 00:00:00 [place] [facility] Multi[facility]dose 6+ [facility] Influenza Virus 2014-07-08 Completed [facility] 00:00:00 [place] [facility] Multi[facility]dose 6+ [facility] Influenza Virus 2014-07-08 Completed [facility] 00:00:00 [place] [facility] Multi[facility]dose 6+ [facility] Influenza Virus 2014-07-08 Completed [facility] 00:00:00 [place] [facility] Multi[facility]dose 6+ [facility] Influenza Virus 2014-07-08 Completed [facility] 00:00:00 [place] [facility] Multi[facility]dose 6+ [facility] Influenza Virus 2014-07-08 Completed [facility] 00:00:00 [place] [facility] Multi[facility]dose 6+ [facility] Influenza Virus 2014-07-08 Completed [facility] 00:00:00 [place] [facility] Multi[facility]dose 6+ [facility] Influenza Virus 2014-07-08 Completed [facility] 00:00:00 [place] [facility] Multi[facility]dose 6+ [facility] Influenza Virus 2014-07-08 Completed [facility] 00:00:00 [place] [facility] Multi[facility]dose 6+ [facility] Influenza Virus 2014-07-08 Completed [facility] 00:00:00 [place] [facility] Multi[facility]dose 6+ [facility] Influenza Virus 2014-07-08 Completed [facility] 00:00:00 [place] [facility] Multi[facility]dose 6+ [facility] Influenza Virus 2014-07-08 Completed [facility] 00:00:00 [place] [facility] Multi[facility]dose 6+ [facility] Influenza Virus 2014-07-08 Completed [facility] 00:00:00 [place] [facility] Multi[facility]dose 6+ [facility] Influenza Virus 2014-07-08 Completed [facility] 00:00:00 [place] [facility] Multi[facility] 6+ [facility] Influenza Virus 2014-07-08 Completed [facility] 00:00:00 [place] [facility] Multi[facility] 6+ [facility] Influenza Virus 2014-07-08 Completed [facility] 00:00:00 [place] [facility] Multi[facility] 6+ [facility] Influenza Virus 2014-07-08 Completed [facility] 00:00:00 [place] [facility] Multi[facility] 6+ [facility] Influenza Virus 2014-07-08 Completed [facility] 00:00:00 [place] [facility] Multi[facility]dose 6+ [facility] Influenza Virus 2014-07-08 Completed [facility] 00:00:00 [place] [facility] Multi[facility] 6+ [facility] Influenza Virus 2014-07-08 Completed [facility] 00:00:00 [place] [facility] Multi[facility]dose 6+ [facility] Influenza Virus 2014-07-08 Completed [facility] 00:00:00 [place] [facility] Multi[facility]dose 6+ [facility] Influenza Virus 2014-07-08 Completed [facility] 00:00:00 [place] [facility] Multi[facility]dose 6+ [facility] Influenza Virus 2014-07-08 Completed [facility] 00:00:00 [place] [facility] Multi[facility]dose 6+ [facility] Influenza Virus 2014-07-08 Completed [facility] 00:00:00 [place] [facility] Multi[facility]dose 6+ [facility] Influenza Virus 2014-07-08 Completed [facility] 00:00:00 [place] [facility] Multi[facility]dose 6+ [facility] Influenza Virus 2014-07-08 Completed [facility] 00:00:00 [place] [facility] Multi[facility]dose 6+ [facility] Influenza Virus 2014-07-08 Completed [facility] 00:00:00 [place] [facility] Multi[facility]dose 6+ [facility] Influenza Virus 2014-07-08 Completed [facility] 00:00:00 [place] [facility] Multi[facility]dose 6+ [facility] Influenza Virus 2014-07-08 Completed [facility] 00:00:00 [place] [facility] Multi[facility]dose 6+ [facility] Influenza Virus 2014-07-08 Completed [facility] 00:00:00 [place] [facility] Multi[facility]dose 6+ [facility] Influenza Virus 2014-07-08 Completed [facility] 00:00:00 [place] [facility] Multi[facility]dose 6+ [facility] Influenza Virus 2014-07-08 Completed [facility] 00:00:00 [place] [facility] Multi[facility]dose 6+ [facility] Influenza Virus 2014-07-08 Completed [facility] 00:00:00 [place] [facility] Multi-dose 6+ [facility] Influenza Virus 2014-07-08 Completed [facility] 00:00:00 [place] [facility] Multi-dose 6+ [facility] Influenza Virus 2014-07-08 Completed [facility] 00:00:00 [place] [facility] Multi-dose 6+ [facility] Influenza Virus 2014-07-08 Completed [facility] 00:00:00 [place] [facility] Multi[facility]dose 6+ [facility] Influenza Virus 2014-07-08 Completed [facility] 00:00:00 [place] [facility] Multi[facility]dose 6+ [facility] Influenza Virus 2014-07-08 Completed [facility] 00:00:00 [place] [facility] Multi-dose 6+ [facility] Rubella 2011-10-30 Completed [facility] 00:00:00 [facility] Rubella 2011-10-30 Completed [facility] 00:00:00 [facility] Rubella 2011-10-30 Completed [facility] 00:00:00 [facility] Rubella 2011-10-30 Completed [facility] 00:00:00 [facility] Rubella 2011-10-30 Completed [facility] 00:00:00 [facility] Rubella 2011-10-30 Completed [facility] 00[facility]00:00 [facility] Rubella 2011-10-30 Completed [facility] 00[facility]00:00 [facility] Rubella 2011-10-30 Completed [facility] 00:00:00 [facility] Rubella 2011-10-30 Completed [facility] 00[facility]00:00 [facility] Rubella 2011-10-30 Completed [facility] 00[facility]00:00 [facility] Rubella 2011-10-30 Completed [facility] 00:00:00 [facility] Rubella 2011-10-30 Completed [facility] 00:00:00 [facility] Rubella 2011-10-30 Completed [facility] 00:00:00 [facility] Rubella 2011-10-30 Completed [facility] 00:00:00 [facility] Rubella 2011-10-30 Completed [facility] 00[facility]00:00 [facility] Rubella 2011-10-30 Completed [facility] 00:00:00 [facility] Rubella 2011-10-30 Completed [facility] 00:00:00 [facility] Rubella 2011-10-30 Completed [facility] 00:00:00 [facility] Rubella 2011-10-30 Completed [facility] 00:00:00 [facility] Rubella 2011-10-30 Completed [facility] 00[facility]00:00 [facility] Rubella 2011-10-30 Completed [facility] 00:00:00 [facility] Rubella 2011-10-30 Completed [facility] 00:00:00 [facility] Rubella 2011-10-30 Completed [facility] 00:00:00 [facility] Rubella 2011-10-30 Completed [facility] 00:00:00 [facility] Rubella 2011-10-30 Completed [facility] 00:00:00 [facility] Rubella 2011-10-30 Completed [facility] 00:00:00 [facility] Rubella 2011-10-30 Completed [facility] 00:00:00 [facility] Rubella 2011-10-30 Completed [facility] 00:00:00 [facility] Rubella 2011-10-30 Completed [facility] 00:00:00 [facility] Rubella 2011-10-30 Completed [facility] 00:00:00 [facility] Rubella 2011-10-30 Completed [facility] 00:00:00 [facility] Rubella 2011-10-30 Completed [facility] 00:00:00 [facility] Rubella 2011-10-30 Completed [facility] 00:00:00 [facility] Rubella 2011-10-30 Completed [facility] 00:00:00 [facility] Rubella 2011-10-30 Completed [facility] 00:00:00 [facility] Rubella 2011-10-30 Completed [facility] 00:00:00 [facility] Rubella 2011-10-30 Completed [facility] 00:00:00 [facility] Rubella 2011-10-30 Completed [facility] 00:00:00 [facility] Rubella 2011-10-30 Completed [facility] 00:00:00 [facility] Rubella 2011-10-30 Completed [facility] 00:00:00 [facility] Rubella 2011-10-30 Completed [facility] 00:00:00 [facility] Rubella 2011-10-30 Completed [facility] 00:00:00 [facility] Rubella 2011-10-30 Completed [facility] 00:00:00 [facility] Rubella 2011-10-30 Completed [facility] 00:00:00 [facility] Rubella 2011-10-30 Completed [facility] 00:00:00 [facility] Rubella 2011-10-30 Completed [facility] 00:00:00 [facility] Rubella 2011-10-30 Completed [facility] 00:00:00 [facility] Rubella 2011-10-30 Completed [facility] 00:00:00 [facility] Rubella 2011-10-30 Completed [facility] 00:00:00 [facility] Rubella 2011-10-30 Completed [facility] 00:00:00 [facility] Rubella 2011-10-30 Completed [facility] 00:00:00 [facility] Rubella 2011-10-30 Completed [facility] 00:00:00 [facility] Rubella 2011-10-30 Completed [facility] 00:00:00 [facility] Rubella 2011-10-30 Completed [facility] 00:00:00 [facility] Rubella 2011-10-30 Completed [facility] 00:00:00 [facility] Rubella 2011-10-30 Completed [facility] 00:00:00 [facility] Rubella 2011-10-30 Completed [facility] 00:00:00 [facility] Rubella 2011-10-30 Completed [facility] 00:00:00 [facility] Rubella 2011-10-30 Completed [facility] 00:00:00 [facility] Rubella 2011-10-30 Completed [facility] 00:00:00 [facility] Rubella 2011-10-30 Completed [facility] 00:00:00 [facility] Rubella 2011-10-30 Completed [facility] 00:00:00 [facility] Rubella 2011-10-30 Completed [facility] 00:00:00 [facility] Rubella 2011-10-30 Completed [facility] 00:00:00 [facility] Rubella 2011-10-30 Completed [facility] 00:00:00 [facility] Rubella 2011-10-30 Completed [facility] 00:00:00 [facility] Rubella 2011-10-30 Completed [facility] 00:00:00 [facility] Rubella 2011-10-30 Completed [facility] 00:00:00 [facility] Rubella 2011-10-30 Completed [facility] 00:00:00 [facility] Rubella 2011-10-30 Completed [facility] 00:00:00 [facility] Rubella 2011-10-30 Completed [facility] 00:00:00 [facility] Rubella 2011-10-30 Completed [facility] 00:00:00 [facility] Rubella 2011-10-30 Completed [facility] 00:00:00 [facility] Rubella 2011-10-30 Completed [facility] 00:00:00 [facility] Rubella 2011-10-30 Completed [facility] 00:00:00 [facility] Rubella 2011-10-30 Completed [facility] 00:00:00 [facility] Rubella 2011-10-30 Completed [facility] 00:00:00 [facility] Rubella 2011-10-30 Completed [facility] 00:00:00 [facility] Rubella 2011-10-30 Completed [facility] 00:00:00 [facility] Rubella 2011-10-30 Completed [facility] 00:00:00 [facility] Rubella 2011-10-30 Completed [facility] 00:00:00 [facility] Rubella 2011-10-30 Completed [facility] 00:00:00 [facility] Rubella 2011-10-30 Completed [facility] 00:00:00 [facility] Rubella 2011-10-30 Completed [facility] 00:00:00 [facility] Rubella 2011-10-30 Completed [facility] 00:00:00 [facility] Rubella 2011-10-30 Completed [facility] 00:00:00 [facility] Rubella 2011-10-30 Completed [facility] 00:00:00 [facility] Rubella 2011-10-30 Completed [facility] 00:00:00 [facility] Rubella 2011-10-30 Completed [facility] 00:00:00 [facility] Rubella 2011-10-30 Completed [facility] 00:00:00 [facility] Rubella 2011-10-30 Completed [facility] 00:00:00 [facility] Rubella 2011-10-30 Completed [facility] 00:00:00 [facility] Rubella 2011-10-30 Completed [facility] 00:00:00 [facility] Rubella 2011-10-30 Completed [facility] 00:00:00 [facility] Td 2008-02-20 Completed [facility] 00:00:00 [facility] Td 2008-02-20 Completed [facility] 00:00:00 [facility] Td 2008-02-20 Completed [facility] 00:00:00 [facility] Td 2008-02-20 Completed [facility] 00:00:00 [facility] Td 2008-02-20 Completed [facility] 00:00:00 [facility] Td 2008-02-20 Completed [facility] 00:00:00 [facility] Td 2008-02-20 Completed [facility] 00:00:00 [facility] Td 2008-02-20 Completed [facility] 00:00:00 [facility] Td 2008-02-20 Completed [facility] 00:00:00 [facility] Td 2008-02-20 Completed [facility] 00:00:00 [facility] [place] [facility] Td 2008-02-20 Completed [facility] 00:00:00 [facility] [place] [facility] Td 2008-02-20 Completed [facility] 00:00:00 [facility] Td 2008-02-20 Completed [facility] 00:00:00 [facility] [place] [facility] Td 2008-02-20 Completed [facility] 00:00:00 [facility] Td 2008-02-20 Completed [facility] 00:00:00 [facility] [place] [facility] Td 2008-02-20 Completed [facility] 00:00:00 [facility] Td 2008-02-20 Completed [facility] 00:00:00 [facility] [place] [facility] Td 2008-02-20 Completed [facility] 00:00:00 [facility] Td 2008-02-20 Completed [facility] 00:00:00 [facility] [place] [facility] Td 2008-02-20 Completed [facility] 00:00:00 [facility] Td 2008-02-20 Completed [facility] 00:00:00 [facility] [place] [facility] Td 2008-02-20 Completed [facility] 00:00:00 [facility] [place] [facility] Td 2008-02-20 Completed [facility] 00:00:00 [facility] [place] [facility] Td 2008-02-20 Completed [facility] 00:00:00 [facility] [place] [facility] Td 2008-02-20 Completed [facility] 00:00:00 [facility] [place] [facility] Td 2008-02-20 Completed [facility] 00:00:00 [facility] Td 2008-02-20 Completed [facility] 00:00:00 [facility] [place] [facility] Td 2008-02-20 Completed [facility] 00:00:00 [facility] [place] [facility] Td 2008-02-20 Completed [facility] 00:00:00 [facility] [place] [facility] Td 2008-02-20 Completed [facility] 00:00:00 [facility] [place] [facility] Td 2008-02-20 Completed [facility] 00:00:00 [facility] [place] [facility] Td 2008-02-20 Completed [facility] 00:00:00 [facility] [place] [facility] Td 2008-02-20 Completed [facility] 00:00:00 [facility] [place] [facility] Td 2008-02-20 Completed [facility] 00:00:00 [facility] [place] [facility] Td 2008-02-20 Completed [facility] 00:00:00 [facility] [place] [facility] Td 2008-02-20 Completed [facility] 00:00:00 [facility] [place] [facility] Td 2008-02-20 Completed [facility] 00:00:00 [place] [facility] Td 2008-02-20 Completed [facility] 00:00:00 [facility] [place] [facility] Td 2008-02-20 Completed [facility] 00:00:00 [facility] Td 2008-02-20 Completed [facility] 00:00:00 [facility] [place] [facility] Td 2008-02-20 Completed [facility] 00:00:00 [facility] [place] [facility] Td 2008-02-20 Completed [facility] 00:00:00 [facility] Td 2008-02-20 Completed [facility] 00:00:00 [facility] Td 2008-02-20 Completed [facility] 00:00:00 [facility] Td 2008-02-20 Completed [facility] 00:00:00 [facility] Td 2008-02-20 Completed [facility] 00:00:00 [facility] Td 2008-02-20 Completed [facility] 00:00:00 [facility] Td 2008-02-20 Completed [facility] 00:00:00 [facility] Td 2008-02-20 Completed [facility] 00:00:00 [facility] Td 2008-02-20 Completed [facility] 00:00:00 [facility] Td 2008-02-20 Completed [facility] 00:00:00 [facility] Td 2008-02-20 Completed [facility] 00:00:00 [facility] Td 2008-02-20 Completed [facility] 00:00:00 [facility] Td 2008-02-20 Completed [facility] 00:00:00 [facility] Td 2008-02-20 Completed [facility] 00:00:00 [facility] Td 2008-02-20 Completed [facility] 00:00:00 [facility] Td 2008-02-20 Completed [facility] 00:00:00 [facility] Td 2008-02-20 Completed [facility] 00:00:00 [facility] Td 2008-02-20 Completed [facility] 00:00:00 [facility] Td 2008-02-20 Completed [facility] 00:00:00 [facility] Td 2008-02-20 Completed [facility] 00:00:00 [facility] Td 2008-02-20 Completed [facility] 00:00:00 [facility] Td 2008-02-20 Completed [facility] 00:00:00 [facility] Td 2008-02-20 Completed [facility] 00:00:00 [facility] Td 2008-02-20 Completed [facility] 00:00:00 [facility] Td 2008-02-20 Completed [facility] 00:00:00 [facility] Td 2008-02-20 Completed [facility] 00:00:00 [facility] Td 2008-02-20 Completed [facility] 00:00:00 [facility] Td 2008-02-20 Completed [facility] 00:00:00 [facility] Td 2008-02-20 Completed [facility] 00:00:00 [facility] Td 2008-02-20 Completed [facility] 00:00:00 [facility] Td 2008-02-20 Completed [facility] 00:00:00 [facility] Td 2008-02-20 Completed [facility] 00:00:00 [facility] Td 2008-02-20 Completed [facility] 00:00:00 [facility] Td 2008-02-20 Completed [facility] 00:00:00 [facility] Td 2008-02-20 Completed [facility] 00:00:00 [facility] Td 2008-02-20 Completed [facility] 00:00:00 [facility] [place] [facility] Td 2008-02-20 Completed [facility] 00:00:00 [facility] Td 2008-02-20 Completed [facility] 00:00:00 [facility] Td 2008-02-20 Completed [facility] 00:00:00 [facility] Td 2008-02-20 Completed [facility] 00:00:00 [facility] Td 2008-02-20 Completed [facility] 00:00:00 [facility] [place] [facility] Td 2008-02-20 Completed [facility] 00:00:00 [facility] Td 2008-02-20 Completed [facility] 00:00:00 [facility] Td 2008-02-20 Completed [facility] 00:00:00 [facility] Td 2008-02-20 Completed [facility] 00:00:00 [facility] Td 2008-02-20 Completed [facility] 00:00:00 [facility] Td 2008-02-20 Completed [facility] 00:00:00 [facility] [place] [facility] Td 2008-02-20 Completed [facility] 00[facility]00:00 [facility] Td 2008-02-20 Completed [facility] 00:00:00 [facility] Td 2008-02-20 Completed [facility] 00:00:00 [facility] Td 2008-02-20 Completed [facility] 00:00:00 [facility] Td 2008-02-20 Completed [facility] 00:00:00 [facility] Td 2008-02-20 Completed [facility] 00:00:00 [facility] Vital Signs Vital Name Observation Time Observation Value Comments Source Systolic blood 2021-03-01 01:14:00 136 mm[Hg] [facility] Diastolic blood 2021-03-01 01:14:00 77 mm[Hg] [facility] Heart rate 2021-03-01 01:14:00 101 /min [facility] Body temperature 2021-03-01 01:14:00 38.11 Kell [facility] Respiratory rate 2021-03-01 01:14:00 16 /min [facility] Oxygen saturation in 2021-03-01 01:14:00 95 /min University of Arterial blood by [facility] Pulse oximetry Branch Body height 2021-02-28 23:31:00 170.2 cm [facility] Body weight 2021-02-28 23:31:00 130.364 kg [facility] BMI 2021-02-28 23:31:00 45.01 kg/m2 [facility] Systolic blood 2020-12-07 06:21:00 135 mm[Hg] [facility] Diastolic blood 2020-12-07 06:21:00 74 mm[Hg] [facility] Heart rate 2020-12-07 06:21:00 73 /min [facility] Respiratory rate 2020-12-07 06:21:00 14 /min [facility] Oxygen saturation in 2020-12-07 06:21:00 95 /min [facility] Arterial blood by [facility] Pulse oximetry Branch Body temperature 2020-12-07 03:09:53 36.28 Kell [facility] Body height 2020-12-07 02:41:00 170.2 cm [facility] Body weight 2020-12-07 02:41:00 129.275 kg [facility] BMI 2020-12-07 02:41:00 44.64 kg/m2 [facility] Systolic blood 2020-07-15 13:20:00 133 mm[Hg] [facility] Diastolic blood 2020-07-15 13:20:00 87 mm[Hg] [facility] Heart rate 2020-07-15 13:20:00 84 /min [facility] Body temperature 2020-07-15 13:20:00 36.72 Kell [facility] Respiratory rate 2020-07-15 13:20:00 16 /min [facility] Body height 2020-07-15 13:20:00 170.2 cm [facility] Body weight 2020-07-15 13:20:00 129.332 kg [facility] BMI 2020-07-15 13:20:00 44.66 kg/m2 [facility] Systolic blood 2020-06-24 13:34:00 133 mm[Hg] [facility] Diastolic blood 2020-06-24 13:34:00 70 mm[Hg] [facility] Heart rate 2020-06-24 13:34:00 70 /min [facility] Body temperature 2020-06-24 13:34:00 37 Kell [facility] Respiratory rate 2020-06-24 13:34:00 16 /min [facility] Body height 2020-06-24 13:34:00 170.2 cm [facility] Body weight 2020-06-24 13:34:00 125.873 kg [facility] BMI 2020-06-24 13:34:00 43.46 kg/m2 [facility] Systolic blood 2020-06-09 15:27:00 128 mm[Hg] [facility] Diastolic blood 2020-06-09 15:27:00 64 mm[Hg] [facility] Heart rate 2020-06-09 15:26:00 74 /min [facility] Body temperature 2020-06-09 15:26:00 36.94 Kell [facility] Respiratory rate 2020-06-09 15:26:00 16 /min [facility] Body height 2020-06-09 15:26:00 170.2 cm [facility] Body weight 2020-06-09 15:26:00 126.055 kg [facility] BMI 2020-06-09 15:26:00 43.53 kg/m2 [facility] Systolic blood 2020-03-11 14:39:00 133 mm[Hg] [facility] Diastolic blood 2020-03-11 14:39:00 82 mm[Hg] [facility] Heart rate 2020-03-11 14:39:00 84 /min [facility] Body temperature 2020-03-11 14:39:00 36.44 Kell [facility] Respiratory rate 2020-03-11 14:39:00 16 /min [facility] Body height 2020-03-11 14:39:00 170.2 cm [facility] Body weight 2020-03-11 14:39:00 122.613 kg [facility] BMI 2020-03-11 14:39:00 42.34 kg/m2 [facility] Systolic blood 2020-02-09 16:43:00 138 mm[Hg] [facility] Diastolic blood 2020-02-09 16:43:00 76 mm[Hg] [facility] Heart rate 2020-02-09 16:43:00 84 /min [facility] Respiratory rate 2020-02-09 16:43:00 16 /min [facility] Body height 2020-02-09 16:43:00 170.2 cm [facility] Body weight 2020-02-09 16:43:00 115.758 kg [facility] BMI 2020-02-09 16:43:00 39.97 kg/m2 [facility] Systolic blood 2020-02-06 22:59:00 144 mm[Hg] [facility] Diastolic blood 2020-02-06 22:59:00 76 mm[Hg] [facility] Heart rate 2020-02-06 22:59:00 55 /min [facility] Body temperature 2020-02-06 22:59:00 36.94 Kell [facility] Respiratory rate 2020-02-06 22:59:00 16 /min [facility] Oxygen saturation in 2020-02-06 22:59:00 100 /min [facility] of Arterial blood by [facility] Pulse oximetry Branch Body height 2020-02-05 19:02:00 170.2 cm [facility] Body weight 2020-02-05 01:08:00 117.028 kg [facility] BMI 2020-02-05 01:08:00 40.41 kg/m2 [facility] Systolic blood 2020-02-04 23:32:00 128 mm[Hg] [facility] Diastolic blood 2020-02-04 23:32:00 75 mm[Hg] [facility] Heart rate 2020-02-04 23:32:00 54 /min [facility] Oxygen saturation in 2020-02-04 23:32:00 99 /min [facility] of Arterial blood by [facility] Pulse oximetry Branch Respiratory rate 2020-02-04 22:10:00 18 /min [facility] Body temperature 2020-02-04 18:39:00 37.11 Kell [facility] Body weight 2020-02-04 18:39:00 71.668 kg [facility] BMI 2020-02-04 18:39:00 24.75 kg/m2 [facility] Systolic blood 2020-01-27 22:16:00 128 mm[Hg] [facility] Diastolic blood 2020-01-27 22:16:00 79 mm[Hg] [facility] Heart rate 2020-01-27 22:16:00 84 /min [facility] Body temperature 2020-01-27 22:16:00 36.61 Kell [facility] Respiratory rate 2020-01-27 22:16:00 16 /min [facility] Body height 2020-01-27 22:16:00 170.2 cm [facility] Body weight 2020-01-27 22:16:00 117.346 kg [facility] BMI 2020-01-27 22:16:00 40.52 kg/m2 [facility] Systolic blood 2020-01-27 22:16:00 128 mm[Hg] [facility] Diastolic blood 2020-01-27 22:16:00 79 mm[Hg] [facility] Heart rate 2020-01-27 22:16:00 84 /min [facility] Body temperature 2020-01-27 22:16:00 36.61 Kell [facility] Respiratory rate 2020-01-27 22:16:00 16 /min [facility] Body height 2020-01-27 22:16:00 170.2 cm [facility] Body weight 2020-01-27 22:16:00 117.346 kg [facility] BMI 2020-01-27 22:16:00 40.52 kg/m2 [facility] Systolic blood 2020-01-14 14:45:00 137 mm[Hg] [facility] Diastolic blood 2020-01-14 14:45:00 85 mm[Hg] [facility] pressure [facility] Heart rate 2020-01-14 14:45:00 81 /min [facility] Body temperature 2020-01-14 14:45:00 37 Kell [facility] Respiratory rate 2020-01-14 14:45:00 16 /min [facility] Body height 2020-01-14 14:45:00 170.2 cm [facility] Body weight 2020-01-14 14:45:00 120.657 kg [facility] BMI 2020-01-14 14:45:00 41.66 kg/m2 [facility] Systolic blood 2020-01-14 14:45:00 137 mm[Hg] [facility] Diastolic blood 2020-01-14 14:45:00 85 mm[Hg] [facility] pressure [facility] Heart rate 2020-01-14 14:45:00 81 /min [facility] Body temperature 2020-01-14 14:45:00 37 Kell [facility] Respiratory rate 2020-01-14 14:45:00 16 /min [facility] Body height 2020-01-14 14:45:00 170.2 cm [facility] Body weight 2020-01-14 14:45:00 120.657 kg [facility] BMI 2020-01-14 14:45:00 41.66 kg/m2 [facility] BMI 2020-01-08 15:06:00 41.87 kg/m2 [facility] Systolic blood 2020-01-08 15:06:00 129 mm[Hg] [facility] Diastolic blood 2020-01-08 15:06:00 83 mm[Hg] [facility] Heart rate 2020-01-08 15:06:00 76 /min [facility] Body temperature 2020-01-08 15:06:00 36.78 Kell [facility] Respiratory rate 2020-01-08 15:06:00 16 /min [facility] Body height 2020-01-08 15:06:00 170.2 cm [facility] Body weight 2020-01-08 15:06:00 121.246 kg [facility] BMI 2020-01-08 15:06:00 41.87 kg/m2 [facility] Systolic blood 2020-01-08 15:06:00 129 mm[Hg] [facility] Diastolic blood 2020-01-08 15:06:00 83 mm[Hg] [facility] Heart rate 2020-01-08 15:06:00 76 /min [facility] Body temperature 2020-01-08 15:06:00 36.78 Kell [facility] Respiratory rate 2020-01-08 15:06:00 16 /min [facility] Body height 2020-01-08 15:06:00 170.2 cm [facility] Body weight 2020-01-08 15:06:00 121.246 kg [facility] Systolic blood 2019-12-29 14:16:00 132 mm[Hg] [facility] Diastolic blood 2019-12-29 14:16:00 87 mm[Hg] [facility] rs[facility] pressure [facility] Heart rate 2019-12-29 14:16:00 76 /min [facility] [place] Body temperature 2019-12-29 14:16:00 36.39 Kell [facility] Respiratory rate 2019-12-29 14:16:00 16 /min [facility] Body height 2019-12-29 14:16:00 170.2 cm [facility] Body weight 2019-12-29 14:16:00 120.158 kg [facility] BMI 2019-12-29 14:16:00 41.49 kg/m2 [facility] Systolic blood 2019-12-29 14:16:00 132 mm[Hg] [facility] Diastolic blood 2019-12-29 14:16:00 87 mm[Hg] Unive rsity of pressure [facility] Heart rate 2019-12-29 14:16:00 76 /min [facility]i ty of [facility] Body temperature 2019-12-29 14:16:00 36.39 Kell [facility] Respiratory rate 2019-12-29 14:16:00 16 /min [facility] Body height 2019-12-29 14:16:00 170.2 cm [facility] Body weight 2019-12-29 14:16:00 120.158 kg [facility] BMI 2019-12-29 14:16:00 41.49 kg/m2 [facility] Systolic blood 2019-12-18 17:20:00 137 mm[Hg] Univer [facility]ity of pressure [facility] Diastolic blood 2019-12-18 17:20:00 81 mm[Hg] Unive rsity of pressure [facility] Heart rate 2019-12-18 17:20:00 74 /min [facility] Body temperature 2019-12-18 17:20:00 36.67 Kell [facility] Respiratory rate 2019-12-18 17:20:00 16 /min Univ ersity of [facility] Oxygen saturation in 2019-12-18 17:20:00 100 /min [facility] of Arterial blood by [facility] Pulse oximetry Branch Systolic blood 2019-12-18 13:26:00 118 mm[Hg] [facility] Diastolic blood 2019-12-18 13:26:00 64 mm[Hg] [facility] Body temperature 2019-12-18 13:26:00 36.78 Kell [facility] Respiratory rate 2019-12-18 13:26:00 16 /min [facility] Body height 2019-12-18 13:26:00 170.2 cm [facility] Body weight 2019-12-18 13:26:00 118.956 kg [facility] BMI 2019-12-18 13:26:00 41.07 kg/m2 [facility] Systolic blood 2019-12-04 13:32:00 129 mm[Hg] [facility] Diastolic blood 2019-12-04 13:32:00 72 mm[Hg] [facility] Heart rate 2019-12-04 13:32:00 75 /min [facility] Body temperature 2019-12-04 13:32:00 36.11 Kell [facility] Respiratory rate 2019-12-04 13:32:00 16 /min [facility] Body height 2019-12-04 13:32:00 170.2 cm [facility] Body weight 2019-12-04 13:32:00 117.17 kg [facility] BMI 2019-12-04 13:32:00 40.46 kg/m2 [facility] Systolic blood 2019-11-20 14:05:00 115 mm[Hg] [facility] Diastolic blood 2019-11-20 14:05:00 76 mm[Hg] [facility] Heart rate 2019-11-20 14:05:00 74 /min [facility] Body temperature 2019-11-20 14:05:00 36.22 Kell [facility] Respiratory rate 2019-11-20 14:05:00 16 /min [facility] Body height 2019-11-20 14:05:00 170.2 cm [facility] Body weight 2019-11-20 14:05:00 117.935 kg [facility] BMI 2019-11-20 14:05:00 40.72 kg/m2 [facility] Systolic blood 2019-11-06 14:20:00 130 mm[Hg] [facility] Diastolic blood 2019-11-06 14:20:00 76 mm[Hg] [facility] Heart rate 2019-11-06 14:20:00 90 /min [facility] Body temperature 2019-11-06 14:20:00 36.67 Kell [facility] Respiratory rate 2019-11-06 14:20:00 16 /min [facility] Body height 2019-11-06 14:20:00 170.2 cm [facility] Body weight 2019-11-06 14:20:00 117.198 kg [facility] BMI 2019-11-06 14:20:00 40.47 kg/m2 [facility] Systolic blood 2019-10-23 13:22:00 123 mm[Hg] [facility] Diastolic blood 2019-10-23 13:22:00 79 mm[Hg] [facility] pressure [facility] Heart rate 2019-10-23 13:22:00 70 /min [facility] Body temperature 2019-10-23 13:22:00 36.78 Kell [facility] Respiratory rate 2019-10-23 13:22:00 16 /min [facility] Body height 2019-10-23 13:22:00 170.2 cm [facility] Body weight 2019-10-23 13:22:00 117.68 kg [facility] BMI 2019-10-23 13:22:00 40.63 kg/m2 [facility] Systolic blood 2019-10-02 13:15:00 131 mm[Hg] [facility] Diastolic blood 2019-10-02 13:15:00 78 mm[Hg] [facility] pressure [facility] Heart rate 2019-10-02 13:15:00 84 /min [facility] Body temperature 2019-10-02 13:15:00 37.06 Kell [facility] Respiratory rate 2019-10-02 13:15:00 16 /min Univ ersity of [facility] Body height 2019-10-02 13:15:00 170.2 cm [facility] Body weight 2019-10-02 13:15:00 115.327 kg [facility] BMI 2019-10-02 13:15:00 39.82 kg/m2 [facility] Systolic blood 2019-09-04 15:43:00 123 mm[Hg] Univer sity of pressure [facility] Diastolic blood 2019-09-04 15:43:00 76 mm[Hg] Unive rsity of pressure [facility] Heart rate 2019-09-04 15:43:00 68 /min Universi ty of [facility] Body temperature 2019-09-04 15:43:00 36.33 Kell [facility] of [facility] Respiratory rate 2019-09-04 15:43:00 16 /min Univ ersity of [facility] Body height 2019-09-04 15:43:00 170.2 cm [facility]i ty of [facility] Body weight 2019-09-04 15:43:00 115.922 kg [facility] BMI 2019-09-04 15:43:00 40.03 kg/m2 [facility] Systolic blood 2019-08-28 13:00:00 120 mm[Hg] Univer sity of pressure [facility] Diastolic blood 2019-08-28 13:00:00 62 mm[Hg] Unive rsity of pressure [facility] Heart rate 2019-08-28 13:00:00 79 /min Universi ty of [facility] Body temperature 2019-08-28 13:00:00 36.39 Kell [facility] of [facility] Respiratory rate 2019-08-28 08:35:00 18 /min Univ ersity of [facility] Oxygen saturation in 2019-08-27 19:55:00 100 /min [facility] Arterial blood by [facility] Pulse oximetry Branch Body height 2019-08-26 13:03:00 170.2 cm Universi ty of [facility] Body weight 2019-08-26 13:03:00 116.574 kg [facility] BMI 2019-08-26 13:03:00 40.25 kg/m2 [facility] of [facility] Systolic blood 2019-08-05 16:08:00 136 mm[Hg] [facility] pressure [facility] Diastolic blood 2019-08-05 16:08:00 64 mm[Hg] Unive rsity of pressure [facility] Heart rate 2019-08-05 15:54:00 85 /min [facility] Body temperature 2019-08-05 15:54:00 36.78 Kell [facility] Respiratory rate 2019-08-05 15:54:00 16 /min [facility] Body height 2019-08-05 15:54:00 170.2 cm [facility] Body weight 2019-08-05 15:54:00 116.745 kg [facility] BMI 2019-08-05 15:54:00 40.31 kg/m2 [facility] Systolic blood 2019-07-08 18:22:00 131 mm[Hg] [facility] Diastolic blood 2019-07-08 18:22:00 73 mm[Hg] [facility]ive rsity of pressure [facility] Heart rate 2019-07-08 17:58:00 74 /min [facility] Body temperature 2019-07-08 17:58:00 36.61 Kell [facility] Respiratory rate 2019-07-08 17:58:00 16 /min [facility] Body height 2019-07-08 17:58:00 170.2 cm [facility] Body weight 2019-07-08 17:58:00 115.214 kg [facility] BMI 2019-07-08 17:58:00 39.78 kg/m2 [facility] Systolic blood 2019-06-03 13:50:00 128 mm[Hg] [facility] pressure [facility] Diastolic blood 2019-06-03 13:50:00 81 mm[Hg] Unive rsity of pressure [facility] Heart rate 2019-06-03 13:50:00 71 /min [facility] Body temperature 2019-06-03 13:50:00 36.89 Kell [facility] Respiratory rate 2019-06-03 13:50:00 16 /min [facility] Body height 2019-06-03 13:50:00 170.2 cm [facility] Body weight 2019-06-03 13:50:00 118.077 kg [facility] BMI 2019-06-03 13:50:00 40.77 kg/m2 [facility] Procedures Procedure Date / Time Performing Source Performed Clinician ASSIGNMENT OF BENEFITS 2021-03-01 Doctor Unassigned, Univer sity of 00:03:49 [facility] RAPID INFLUENZA A/B 2021-02-28 Lisbeth Cintron [place] 23:53:00 [facility] POCT TEST 2021-02-28 Lisbeth Cintron [place] 23:40:00 [facility] URINALYSIS 2021-02-28 Lisbeth Cintron [place] 23:39:00 [facility] CONSENT/REFUSAL FOR DIAGNOSIS 2021-02-28 Doctor Unassigned, [facility] AND TREATMENT 23:18:23 [facility] NOTICE OF PRIVACY PRACTICES 2021-02-28 Doctor Unassigned, U niversity of 23:17:49 [facility] PROTHROMBIN TIME / INR 2020-12-07 Linda Baker Universit [facility] of 05:18:00 [facility] ACTIVATED PARTIAL THRMPLAS LAZARA 2020-12-07 Linda Baker U [facility]iversity of 05:18:00 [facility] COVID-19 (ID NOW RAPID TESTING) 2020-12-07 Linda Baker [place] 05:05:[address] [facility] [address] ABDOMEN PELVIS W CONTRAST 2020-12-07 Linda Baker Uni versity of 03:57:42 [facility] POCT TEST 2020-12-07 Linda Baker [place] 03:37:00 [facility] LIPASE 2020-12-07 Linda Baker [place] 03:03:00 [facility] COMP. METABOLIC PANEL ([id number]) 2020-12-07 Linda Baker Un iversity of 03:03:00 [facility] CBC WITH DIFF 2020-12-07 Linda Baker [place] 03:03:00 [facility] URINALYSIS 2020-12-07 Linda Baker [place] 03:03:00 [facility] CONSENT/REFUSAL FOR DIAGNOSIS 2020-12-07 Doctor Unassigned, University of AND TREATMENT 02:34:41 [facility] POCT TEST 2020-07-[facility] y of 13:26:00 C [facility] PROLACTIN 2020-06-24 [facility] of 14:14:00 [facility] THYROID STIMULATING HORMONE 2020-06-24 AkinLane grayPascual U niversity of 14:14:00 [facility] POCT TEST 2020-06-24 [facility] y of 14:09:00 [facility] ASSIGNMENT OF BENEFITS 2020-06-09 Doctor Unassigned, [facility] sity of 15:30:08 [facility] POCT TEST 2020-06-09 Kailee Trammell Universit y of 15:10:00 [facility] MEDICATION CORRESPONDENCE 2020-03-16 Doctor Unassigned, Uni versity of 06:01:00 [facility] POCT TEST 2020-03-11 [facility] 15:01:00 [facility] LIPASE 2020-02-06 Luis A Rick [place] 09:38:00 [facility] HEPATIC FUNCTION PANEL ([id number]) 2020-02-06 Luis A Rick niversity of (ALB,T.PRO,BILI 09:38:00 [facility],BU/BC,ALT,AST,ALK PHOS) Branch BASIC METABOLIC PANEL (NA, K, 2020-02-06 Colette Krishna Un iversity of CL, CO2, GLUCOSE, BUN, 09:38:00 [facility] ical CREATININE, CA) Branch CBC WITH DIFF 2020-02-06 Colette Krishna of 09:38:00 [facility] ERCP (ENDO) 2020-02-05 Jeff [facility] of 19:40:56 [facility] [facility] UPPER ULTRASOUND 2020-02-05 [facility] of 19:13:00 [facility] ENDOSCOPIC RETROGRADE 2020-02-05 [facility] of CHOLANGIOPANCRETOGRAPHY 19:13:00 [facility] HEPATIC FUN[facility] PANEL (90662) 2020-02-05 Colette Krishna U niversity of (ALB,T.PRO,BILI 14:28:00 [place] [facility] T,BU/BC,ALT,AST,ALK PHOS) Branch BASIC METABOLIC PANEL (NA, K, 2020-02-05 Colette Krishna Un iversity of CL, CO2, GLUCOSE, BUN, 14:28:00 [facility] ical CREATININE, CA) Branch LIPASE 2020-02-05 Luis A Rick [place] of 12:26:00 [facility] CBC WITH DIFF 2020-02-05 Colette Krishna of 12:26:00 [facility] CT ABDOMEN PELVIS W CONTRAST 2020-02-04 Francesca Tucker Un iversity of 21:56:54 [facility] US GALL BLADDER 2020-02-04 Francesca Tucker [place] of 20:53:15 [facility] COVID-19 (ID NOW RAPID TESTING) 2020-02-04 Francesca Tucker [place] of 20:01:00 [facility] POCT TEST 2020-02-04 [facility] of 18:59:00 [facility] LIPASE 2020-02-04 [facility] of 18:55:00 [facility] BILI UNCONJUGATED/BILI CONJUG 2020-02-04 Francesca Tucker U niversity of 18:55:00 [facility] TEST, SERUM 2020-02-04 Francesca Tucker Universit y of 18:55:00 [facility] COMP. METABOLIC PANEL (23917) 2020-02-04 [facility] of 18:55:00 [facility] CBC WITH DIFF 2020-02-04 [facility] of 18:55:00 [facility] URINALYSIS 2020-02-04 [facility] of 18:55:00 [facility] NOTICE OF PRIVACY PRACTICES 2020-02-04 Doctor Unassjosiah, U niversity of 18:31:18 [place] [facility] CONSENT/REFUSAL FOR DIAGNOSIS 2020-02-04 Doctor Stevekaiser [facility], [facility] AND TREATMENT 18:29:58 [place] [facility] AGREEMENTS AUTHORIZATIONS AND 2020-02-04 Doctor Stevekaiser [facility], [facility] IRREVOCABLE ASSIGNMENTS (FORM 06:01:00 [place] viridiana 2000) Branch HOSPITAL ADMISSION 2020-01-16 Doctor Day, [facility] 06:01:00 [place] [facility] POCT URINALYSIS 2020-01-14 [facility] of 00:00:00 [facility] POCT URINALYSIS 2020-01-08 [facility] of 00:00:00 C [facility] POCT URINALYSIS 2019-12-29 [facility] of 00:00:00 C [facility] COVID-19 (ID NOW RAPID TESTING) 2019-12-18 Domingo Harris [facility] of 17:03:00 [facility] POCT URINALYSIS 2019-12-18 [facility] of 13:31:00 C [facility] POCT URINALYSIS 2019-12-04 [facility] of 13:34:00 C [facility] POCT URINALYSIS 2019-11-20 [facility] of 14:06:00 C [facility] FLU VACC ([id number]), 6+ MONTHS, 2019-11-06 Count includes the [facility] of IM, QUAD 14:37:41 C [facility] TDAP VACCINE, >11 YRS, IM 2019-11-06 [facility] Uni versity of 14:23:06 C [facility] POCT URINALYSIS 2019-11-06 [facility] of 14:23:00 C [facility] HIV 1/2 AG-AB WITH REFLEX 2019-11-06 [facility] Uni versity of 14:20:00 C [facility] GALV ONLY - SYPHILIS IGG/IGM 2019-11-06 [facility] of 14:20:00 C [facility] POCT URINALYSIS 2019-10-23 [facility] of 13:28:00 C [facility] POCT URINALYSIS 2019-10-02 [facility] of 13:17:00 C [facility] POCT URINALYSIS 2019-09-04 [facility] of 15:45:00 C [facility] POCT GLUCOSE (AUTOMATED) 2019-08-27 Rose England it of 12:12:00 [facility] EKG-12 LEAD 2019-08-26 Chuck Carrillo [place] of 15:47:14 [facility] US GALL BLADDER 2019-08-26 Chuck Carrillo of 15:39:58 [facility] US RETROPERITONEAL COMPLETE 2019-08-26 Chuck Carrillo Univ ersity of 15:01:43 [facility] TROPONIN I 2019-08-26 Chuck Carrillo of 13:45:00 [facility] TOTAL BETA HCG ASSAY 2019-08-26 Chuck Carrillo of 13:45:00 [facility] PROTHROMBIN TIME / INR 2019-08-26 Chuck Carrilloit y of 13:45:00 [facility] ACTIVATED PARTIAL THRMPLAS LAZARA 2019-08-26 Chuck Carrillo U niversity of 13:45:00 [facility] N-TERMINAL PRO-BNP 2019-08-26 Chuck Carrillo of 13:45:00 [facility] LIPASE 2019-08-26 Chuck Carrillo [place] of 13:29:00 [facility] COMP. METABOLIC PANEL (86123) 2019-08-26 Chuck Carrillo iversity of 13:29:00 [facility] CBC WITH DIFFERENTIAL 2019-08-26 Chuck Carrillo of 13:29:00 [facility] URINALYSIS 2019-08-26 Chuck Carrillo of 13:29:00 [facility] LACTIC ACID WHOLE BLOOD 2019-08-26 [facility] of 13:29:00 [facility] COVID-19 (ID NOW RAPID TESTING) 2019-08-26 Chuck Carrillo [place] of 13:29:00 [facility] EKG-12 LEAD 2019-08-26 Chuck Carrillo [place] of 13:27:04 [facility] NOTICE OF PRIVACY PRACTICES 2019-08-26 Doctor Unassigned, U niversity of 12:58:18 [place] [facility] CONSENT/REFUSAL FOR DIAGNOSIS 2019-08-26 Doctor Unassigned, University of AND TREATMENT 12:58:07 [place] [facility] POCT URINALYSIS 2019-08-05 [facility] of 15:58:00 C [facility] POCT URINALYSIS 2019-07-08 [facility] of 18:15:00 C [facility] POCT TEST 2019-06-03 [facility] y of 13:57:00 C [facility] POCT URINALYSIS W/O SPECIFIC 2019-06-03 [facility] 13:57:00 C [facility] ASSIGNMENT OF BENEFITS 2019-06-03 Doctor Unassigned, Maria A sity of 13:42:32 [place] [facility] Encounters Start End Encounter Admission Attending Care Care Encounter Source Date/Time Date/Time Type Type Clinicians Facility Department ID 2020-12-21 Emergency [facility] [id number] Univers 07:45:18 ity of [facility] 2020-12-18 Emergency [facility] [id number] Univers 11:45:51 ity of [facility] 2020-12-18 Emergency [facility] [id number] Univers 11:39:19 ity of [facility] 2020-12-18 Outpatient P [facility] KIMMY [id number] Univers 01:53:42 ity of [facility] 2020-12-18 Outpatient [facility] [id number] Univers 01:50:56 ity of [facility] 2020-12-17 Outpatient X [facility] SUZANNE [id number] Univers 05:45:40 ity of [facility] 2020-12-17 Emergency [facility] [id number] Univers 05:06:56 ity of [facility] 2021-02-28 2021-02-28 Emergency X [facility] ERT [id number] Univers 17:33:00 19:35:00 LISBETH ity of [facility] 2021-02-28 2021-02-[address] [facility] [id number] Univers 17:33:00 19:35:00 Lisbeth LOPEZ 350.1.13.10 i ty of [place] 4.2.7.2.686 [id number] 084 Branch 2021-02-28 2021-02-28 Orders Doctor MANRIQUEZ 1.2.840.114 [id number] Univers 00:00:00 00:00:00 Only Unassigned, CARMELLA 350.1.13.10 ity of [place] [facility] 4.2.7.2.686 [facility] [id number] [facility] 009 Branch 2020-12-06 2020-12-07 Emergency [facility] [id number] Univers 21:47:00 01:24:00 Linda Lopez 350.1.13.10 i ty [facility] 4.2.7.2.686 [place] [facility] [phone] [place] [address] Branch 2020-10-29 2020-10-29 Outpatient R AKINSIPE, [facility] [id number] Univers 13:00:00 13:00:00 PASCUAL [id number] kerriey [facility] 2020-10-29 2020-10-29 Outpatient R AKINSIPE, [facility] [id number] Univers 13:00:00 13:00:00 PASCUAL ity o [facility] 2020-10-20 2020-10-20 Outpatient R AKINSIPE, [facility] [id number] Univers 15:15:00 15:15:00 PASCUAL [id number] [facility] 2020-10-20 2020-10-20 Outpatient R AKINSIPE, [facility] [id number] Univers 15:15:00 15:15:00 [facility] 2020-10-07 2020-10-07 Outpatient R AKINSIPE, [facility] [id number] Univers 08:15:00 08:15:00 PASCUAL [id number] [facility] 2020-10-07 2020-10-07 Outpatient R AKINSIPE, [facility] [id number] Univers 08:15:00 08:15:00 PASCUAL [facility] 2020-07-15 2020-07-15 [facility] 1.2.653.745 [id number] Univers 08:09:39 08:58:59 Visit Pascual Dia [facility] 350.1.13.10 ity [facility] 4.2.7.2.686 Surendra as MATERNAL [phone] Med ical & CHILD [address] [place] [address] 2020-07-15 2020-07-15 Outpatient AKINSIPE, [facility] [id number] Univers 08:15:00 08:15:00 PASCUAL [id number] [facility] 2020-07-15 2020-07-15 Outpatient R AKINSIPE, [facility] [id number] Univers 08:15:00 08:15:00 PASCUAL ity o f [facility] 2020-07-08 2020-07-08 Telephone [facility] 1.2.840.114 [id number] Univers 00:00:00 00:00:00 Pascual C [facility] [id number] ity of REGIONAL 4.2.7.2.686 Surendra as MATERNAL [id number] [facility] & [address] 2020-06-25 2020-06-25 Telephone [facility] 1.2.840.114 [id number] Univers 00:00:00 00:00:00 Pascual C [facility] 350.1.13.10 ity of REGIONAL 4.2.7.2.686 Surendra as MATERNAL [id number] [address] 2020-06-24 2020-06-24 Office [facility] 1.2.263.872 [id number] Univers 08:15:41 09:16:15 Visit Pascual C [facility] [id number] ity of REGIONAL 4.2.7.2.686 Surendra as MATERNAL [id number] [address] 2020-06-24 2020-06-24 Outpatient R RUBENPE, [facility] [id number] Univers 08:15:00 08:15:00 PASCUAL [id number] ity o f [facility] 2020-06-24 2020-06-24 Outpatient R RUBENPE, [facility] [id number] Univers 08:15:00 08:15:00 PASCUAL ity o f [facility] 2020-06-09 2020-06-09 Office [facility] 1.2.221.639 [id number] Univers 09:48:41 10:31:35 Visit Pascual C [facility] [id number] ity of REGIONAL 4.2.7.2.686 Surendra as MATERNAL [id number] [facility] & CHILD [address] [place] [address] 2020-06-09 2020-06-09 Outpatient R AKINSIPE, [facility] [id number] Univers 09:45:00 09:45:00 PASCUAL [id number] ity o f [facility] 2020-06-09 2020-06-09 [facility] [id number] Univers 09:45:00 09:45:00 PASCUAL ity o f [facility] 2020-06-09 2020-06-09 Orders Doctor MITRA 1.2.840.114 [id number] Univers 00:00:00 00:00:00 Only Unassigned, CARMELLA 350.1.13.10 [address] [facility] 4.2.7.2.686 Surendra as [phone] [address] 2020-06-01 2020-06-01 [facility] [id number] Univers 14:50:00 14:50:00 SANJAY pendleton [facility] 2020-05-26 2020-05-26 Laboratory Lab, [facility] Fam Pob I [facility] 1.2. 840.114 [id number] Univers 16:30:50 16:50:50 Only Bria Thacker [facility] 350.1.13.10 ity of [place] 4.2.7.2.686 Surendra as Professio [id number] [place] liam [facility] [address] [place] [address] 2020-05-26 2020-05-26 Outpatient R [facility] [id number] Univers 16:20:00 16:20:00 [id number] [facility] 2020-05-26 2020-05-26 Outpatient R PITO [facility] [id number] Univers 16:20:00 16:20:00 [facility] 2020-05-11 2020-05-11 Patient Pradeep [facility] 1.2.840.114 [id number] Univers 00:00:00 00:00:00 Outreach Sanjay ZELAYA 350.1.13.10 i ty of [place] [facility] 4.2.7.2.686 [place]AY[place] [id number] [place] dicoh [address] 2020-04-19 2020-04-19 Telephone [facility] 1.2.840.114 [id number] Univers 00:00:00 00:00:00 Pascual C [facility] 350.1.13.10 ity of [facility] 4.2.7.2.686 Surendra as MATERNAL [id number] [facility] & [address] 2020-03-16 2020-03-16 Telephone [facility] 1.2.840.114 [id number] Univers 00:00:00 00:00:00 Pascual C [facility] 350.1.13.10 ity of [facility] 4.2.7.2.686 Surendra as MATERNAL [id number] [facility] & CHILD [address] [place] [address] 2020-03-16 2020-03-16 Orders Doctor MITRA 1.2.840.114 [id number] Univers 00:00:00 00:00:00 Only Unassigned, CARMELLA 350.1.13.10 ity of [place] [facility] 4.2.7.2.686 Surendra as [id number] [address] 2020-03-11 2020-03-11 Office [facility] 1.2.846.834 [id number] Univers 08:32:38 09:31:24 Visit Pascual C [facility] 350.1.13.10 ity of [facility] 4.2.7.2.686 Surendra as MATERNAL [phone] [address] 2020-03-11 2020-03-11 Outpatient R [facility] [id number] Univers 08:30:00 08:30:00 PASCUAL [id number] ity o f [facility] 2020-03-11 2020-03-11 Outpatient R [facility] [id number] Univers 08:30:00 08:30:00 PASCUAL ity o f [facility] 2020-03-08 2020-03-08 Laboratory Lab, Adc Fam Pob I [facility] 1.2. 840.114 [id number] Univers 13:21:15 13:41:15 Only Ebrahim, Formerly [facility] 350.1.13.10 ity of [place] 4.2.7.2.686 Surendra as Professio [phone] Nj [address] Office Building One 2020-03-08 2020-03-08 Outpatient [facility] [id number] Univers 13:20:00 13:20:00 [id number] ity [facility] 2020-03-08 2020-03-08 Outpatient R RAYO [facility] [id number] Univers 13:20:00 13:20:00 MALCOLM [facility] 2020-03-02 2020-03-02 Outpatient R VALERI [facility] [id number] Univers 10:15:00 10:15:00 AMIRAHNDJignesh [id number] ity o [facility] 2020-03-02 2020-03-02 Outpatient [facility] [id number] Univers 10:15:00 10:15:00 AMIRAHNDA ity o [facility] 2020-02-24 2020-02-24 Outpatient R JEFF [facility] [id number] Univers 10:30:00 10:30:00 AINSLEY [facility] 2020-02-09 2020-02-09 Routine [facility] 1.2.840.114 [id number] Univers 10:30:57 10:54:44 Kailee Jurado [facility] 350.1.13.10 ity of Visit [facility] 4.2.7.2.686 Surendra as MATERNAL [phone] Med ical & CHILD [address] [place] [address] 2020-02-09 2020-02-09 Outpatient Adrien TRAMMELL [facility] [id number] Univers 10:30:00 10:30:00 AMIRAHNDA ity o [facility] 2020-02-09 2020-02-09 Transition Jorge L Enriquez 1.2.840.114 [id number] Univers 00:00:00 00:00:00 of Care Mandie Maya 350.1.13.10 i ty of [place]2.7.2.686 [place] [id number] [address] 2020-02-04 2020-02-06 Hospital Unknown, Attending Fatuma 1.2.84 0.114 [id number] Univers 19:09:00 20:30:00 Encounter Marcia Cabrera 350.1.13.10 ity of [facility], [facility] 4.2.7.2.686 [place] [id number] [facility] [address] [place] 2020-02-04 2020-02-04 Emergency [facility], [facility] 1.2.394.181 [id number] Univers 12:47:00 18:03:00 Francesca Galo [place] 350.1.13.10 ity of [place] 4.2.7.2.686 [facility] [id number] [address] 2020-02-03 2020-02-03 Telephone Kasia [facility] 1.2.840.114 [id number] Univers 00:00:00 00:00:00 Pascual Dia [facility] 350.1.13.10 ity of [facility] 4.2.7.2.686 Surendra as MATERNAL [phone] Med ical & CHILD [address] [place] [address] 2020-01-27 2020-01-27 Nurse Visit, [facility] 1.2.840.114 [id number] 16:06:44 16:24:18 Visit Rosalind [facility] 350.1.13.10 Nurse [facility] 4.2.7.2.686 MATERNAL [id number] & CHILD [address] [place] [address] 2020-01-27 2020-01-27 Nurse Visit, Rosalind Nurse [facility] 1.2 .840.114 [id number] [facility] 16:06:44 16:24:18 Visit Pascual Pedroza [facility] 350.1.13. 10 ity of [facility] 4.2.7.2.686 Surendra as MATERNAL [phone] Med ical & CHILD [address] [place] [address] 2020-01-27 2020-01-27 Outpatient R KASIA [facility] [id number] Univers 16:00:00 16:00:00 PASCUAL [facility] 2020-01-16 2020-01-16 Orders Doctor MANRIQUEZ 1.2.840.114 [id number] 00:00:00 00:00:00 Only Unassigned, CARMELLA 350.1.13.10 [place] [facility] 4.2.7.2.686 [id number] 2020-01-16 2020-01-16 Orders Doctor MITRA 1.2.840.114 [id number] Univers 00:00:00 00:00:00 Only Unassigned, CARMELLA 350.1.13.10 ity of [place] [facility] 4.2.7.2.686 Surendra as [id number] [address] 2020-01-14 2020-01-14 Routine [facility] 1.2.840.114 [id number] 08:30:54 08:45:54 Roshunda R [facility] 350.1.13.10 Visit [facility] 4.2.7.2.686 MATERNAL [id number] & CHILD [address] [place] [address] 2020-01-14 2020-01-14 [facility] 1.2.840.114 [id number] Univers 08:30:54 08:45:54 Roshunda R [facility] 350.1.13.10 ity of Visit [facility] 4.2.7.2.686 Surendra as MATERNAL [phone] Med ical & CHILD [address] [place] [address] 2020-01-14 2020-01-14 Outpatient [facility] [id number] Univers 08:30:00 08:30:00 ROSHUNDA [id number] ity o [facility] 2020-01-14 2020-01-14 Outpatient [facility] [id number] Univers 08:30:00 08:30:00 ROSHUNDA ity o [facility] 2020-01-13 2020-01-13 Telephone [facility] 1.2.840.114 [id number] Univers 00:00:00 00:00:00 Pascual C [facility] 350.1.13.10 ity of [facility] 4.2.7.2.686 Surendra as MATERNAL [phone] Med ical & CHILD [address] [place] [address] 2020-01-13 2020-01-13 Telephone [facility] 1.2.840.114 [id number] 00:00:00 00:00:00 Pascual C [facility] 350.1.13.10 REGIONAL 4.2.7.2.686 MATERNAL [id number] & CHILD [address] [place] [address] 2020-01-08 2020-01-08 Routine Valeri [facility] 1.2.840.114 [id number] Univers 08:39:30 08:54:30 Roshunda R [facility] 350.1.13.10 ity of Visit REGIONAL 4.2.7.2.686 Surendra as MATERNAL [id number] [facility] ical & CHILD [address] [place] [address] 2020-01-08 2020-01-08 Routine Valeri [facility] 1.2.840.114 [id number] 08:39:30 08:54:30 Roshunda R [facility] 350.1.13.10 Visit REGIONAL 4.2.7.2.686 MATERNAL [id number] & CHILD [address] [place] [address] 2020-01-08 2020-01-08 Outpatient Adrien TRAMMELL [facility] [id number] Univers 08:45:00 08:45:00 ROSHUNDA [id number] ity o [facility] 2020-01-08 2020-01-08 Outpatient Adrien TRAMMELL [facility] [id number] Univers 08:45:00 08:45:00 ROSHUNDA ity o [facility] 2019-12-29 2019-12-29 Routine [facility] 1.2.840.114 [id number] Univers 08:02:02 08:17:02 Roshunda R [facility] 350.1.13.10 ity of Visit REGIONAL 4.2.7.2.686 Surendra as MATERNAL [phone] [facility] & CHILD [address] [place] [address] 2019-12-29 2019-12-29 Routine Valeri [facility] 1.2.840.114 [id number] 08:02:02 08:17:02 Roshunda R [facility] 350.1.13.10 Visit REGIONAL 4.2.7.2.686 MATERNAL [id number] & CHILD [address] [place] [address] 2019-12-29 2019-12-29 Outpatient Adrien CLAYTONAsuncion [facility] [id number] Univers 08:00:00 08:00:00 ROSHUNDA ity o [facility] 2019-12-29 2019-12-29 Outpatient Adrien TRAMMELL [facility] [id number] Univers 08:00:00 08:00:00 KAILEE ity o f [facility] 2019-12-18 2019-12-18 [facility] MITRA Harris 1.2.828.557 [id number] Univers 11:54:00 14:05:00 Encounter Domingo WEIR 350.1.13.10 ity of [place].7.2.[place] [id number] [facility] [address] [place] 2019-12-18 2019-12-18 Routine Akinsipe, [facility] 1.2.245.668 [id number] Univers 08:05:24 08:54:20 Pascual C [facility] 350.1.13.10 ity of Visit REGIONAL 4.2.7.2.686 Surendra as MATERNAL [id number] [facility] ical & CHILD [address] [place] [address] 2019-12-18 2019-12-18 Outpatient R AKINSIPE, [facility] [id number] Univers 08:00:00 08:00:00 PASCUAL [id number] ity o f [facility] 2019-12-18 2019-12-18 Outpatient R AKINSIPE, [facility] [id number] Univers 08:00:00 08:00:00 PASCUAL ity o [facility] 2019-12-04 2019-12-04 Routine Akinsipe, [facility] 1.2.521.304 [id number] Univers 08:17:49 08:48:07 Pascual C [facility] 350.1.13.10 ity of Visit REGIONAL 4.2.7.2.686 Surendra as MATERNAL [id number] [facility] & CHILD [address] [place] [address] 2019-12-04 2019-12-04 Outpatient R AKINSIPE, [facility] [id number] Univers 08:30:00 08:30:00 PASCUAL ity o f [facility] 2019-12-04 2019-12-04 Outpatient R AKINSIPE, [facility] [id number] Univers 08:00:00 08:00:00 PASCUAL [id number] ity o [facility] 2019-11-20 2019-11-20 Routine Akinsipe, [facility] 1.2.994.759 [id number] Univers 08:32:26 10:08:01 Pascual C [facility] 350.1.13.10 ity of Visit REGIONAL 4.2.7.2.686 Surendra as MATERNAL [id number] [facility] ical & CHILD [address] [place] [address] 2019-11-20 2019-11-20 Outpatient R KASIA, [facility] [id number] Univers 08:30:00 08:30:00 PASCUAL ity o f [facility] 2019-11-11 2019-11-11 Rose Li [facility] 1.2.583.999 [id number] Univers 00:00:00 00:00:00 [facility] 350.1.13.10 i ty of [place].2.7.2.[place] Profess[place] [phone] [place] [address] 2019-11-06 2019-11-06 Routine Akinsipe, [facility] [id number] Univers 08:52:04 09:48:47 Pascual C [employer] [facility] [id number] ity of Visit REGIONAL [id number] Surendra as MATERNAL [phone] [address] 2019-11-06 2019-11-06 [facility] [id number] Univers 08:45:00 08:45:00 PASCUAL [id number] ity o f [facility] 2019-11-06 2019-11-06 [facility] [id number] Univers 08:45:00 08:45:00 PASCUAL ity o f [facility] 2019-10-30 2019-10-30 Abstract [place], [facility] [facility] 1.2.840.114 [id number] Univers 00:00:00 00:00:00 Pascual C [facility] 350.1.13.10 ity of [facility] 4.2.7.2.686 Surendra as MATERNAL [phone] [facility] & [address] 2019-10-29 2019-10-29 Global [employer] Ultrasound, Nedra [facility] 1.2 .840.114 [id number] Univers 07:59:49 08:29:49 Visit Maria E Hickman [facility] 350.1.13.10 ity of REGIONAL 4.2.7.2.686 Surendra as MATERNAL [phone] [facility] & CHILD 369 [facility] 2019-10-29 2019-10-29 Outpatient R [facility] [id number] -[id number] Univers 08:00:00 08:00:00 ity [facility] 2019-10-29 2019-10-29 Outpatient R [facility] [id number] Univers 08:00:00 08:00:00 ity [facility] 2019-10-23 2019-10-23 Routine Akinsipe, [facility] [id number] Univers 08:05:12 08:48:23 Pascual C [facility] 350.1.13.10 ity of Visit REGIONAL 4.2.7.2.686 Surendra as MATERNAL [phone] [facility] & [address] 2019-10-23 2019-10-23 Outpatient R AKINSIPE, [facility] [id number] 4Q-20 Univers 08:00:00 08:00:00 PASCUAL [id number] ity o [facility] 2019-10-23 2019-10-23 Outpatient R AKINSIPE, [facility] [id number] Univers 08:00:00 08:00:00 PASCUAL ity o f [facility] 2019-10-02 2019-10-02 Routine Akinsipe, MOMB 1.2.444.020 [id number] Univers 08:00:40 08:29:11 Pascual C [employer] 350.1.13.10 ity of Visit REGIONAL 4.2.7.2.686 Surendra as MATERNAL [phone] [facility] & CHILD [address] [place] [address] 2019-10-02 2019-10-02 Outpatient R AKINSIPE, [facility] [id number] [id number] Univers 08:00:00 08:00:00 PASCUAL [id number] ity o f [facility] 2019-10-02 2019-10-02 Outpatient R AKINSIPE, [facility] [id number] Univers 08:00:00 08:00:00 PASCUAL ity o f [facility] 2019-09-09 2019-09-09 Abstract Akinsipe, [facility] 1.2.840.114 [id number] Univers 00:00:00 00:00:00 Pascual C [facility] 350.1.13.10 ity of REGIONAL 4.2.7.2.686 Surendra as MATERNAL [phone] [facility] ical & CHILD 107 [facility] 2019-09-04 2019-09-04 Routine Melaniape, [facility] [id number] Univers 10:27:39 11:06:49 Pascual C [facility] 350.1.13.10 ity of Visit [facility] 4.2.7.2.686 Surendra as MATERNAL [phone] [facility] ical & CHILD 107 [facility] 2019-09-04 2019-09-04 [employer] Ultrasound, Nedra [facility] 1.2 .840.114 [id number] Univers 09:07:45 10:22:45 Visit Merna Oneal [facility] 350.1.13.10 ity of [facility] 4.2.7.2.686 Surendra as MATERNAL [phone] [facility] ical & CHILD 369 [facility] 2019-09-04 2019-09-04 Outpatient P [facility] [id number] Univers 09:00:00 09:00:00 ity of [facility] 2019-09-04 2019-09-04 Outpatient R [facility] [id number] -[id number] Univers 08:45:00 08:45:00 [id number] ity of [facility] 2019-08-29 2019-08-29 Transition Jorge L Enriquez 1.2.840.114 [id number] Univers 00:00:00 00:00:00 of Care Mandie Maya 350.1.13.10 i ty [place] [phone] [facility] [address] [place] 2019-08-26 2019-08-28 Hospital Chuck Carrillo [facility] 1.2.840.1 [id number] Univers 08:06:30 10:35:00 Encounter [place] 350.1.13.10 ity [place] [phone] [facility] [address] [place] 2019-08-28 2019-08-28 Telephone Rose England [facility] 1.2.840.114 [id number] Univers 00:00:00 00:00:00 Cam [place] 350.1.13.10 i ty of [place] [phone] Me dical nal 134 [facility] 2019-08-26 2019-08-26 Outpatient R [facility] [id number] Univers 10:00:00 10:00:00 ity of [facility] 2019-08-26 2019-08-26 Outpatient R [facility] [id number] Univers 10:00:00 10:00:00 ity of [facility] 2019-08-26 2019-08-26 Orders Doctor MITRA 1.2.840.114 [id number] Univers 00:00:00 00:00:00 Only Unassigned, CARMELLA 350.1.13.10 ity of [place] [facility] 4.2.7.2.686 Surendra as [phone] [facility] [address] [place] 2019-08-25 2019-08-25 Telephone [facility] 1.2.840.114 [id number] Univers 00:00:00 00:00:00 Pascual C [facility] 350.1.13.10 ity of [facility] 4.2.7.2.686 Surendra as MATERNAL [phone] Med ical & CHILD [address] [place] [address] 2019-08-19 2019-08-19 Telephone [facility] 1.2.840.114 [id number] Univers 00:00:00 00:00:00 Pascual C [facility] 350.1.13.10 ity of [facility] 4.2.7.2.686 Surendra as MATERNAL [phone] Med ical & CHILD [address] [place] [address] 2019-08-05 2019-08-05 Routine [facility], [facility] 1.2.241.775 [id number] Univers 10:38:16 11:20:19 Pascual C [facility] 350.1.13.10 ity of Visit [facility] 4.2.7.2.686 Surendra as MATERNAL [phone] Med ical & CHILD [address] [place] [address] 2019-08-05 2019-08-05 Outpatient R AKINSIPE, [facility] [id number] [id number] Univers 10:45:00 10:45:00 PASCUAL [id number] itsonam o f [facility] 2019-08-05 2019-08-05 Outpatient R AKINSIPE, [facility] [id number] Univers 10:45:00 10:45:00 PASCUAL pendleton o f [facility] 2019-07-18 2019-07-18 [employer] Lab/Sally Marcos-Rmchp [facility] 1. .840.114 [id number] Univers 11:49:25 11:52:22 Visit Sabine Hopson [facility] 350.1.13.10 ity of [facility] 4.2.7.2.686 Surendra as MATERNAL [phone] Med ical & CHILD 125 [facility] 2019-07-18 2019-07-18 Global [employer] Marketing Nette De Jesusmónica Room [facility] 1.2. 840.114 [id number] Univers 10:52:34 11:37:34 Visit Maria E Hickman [facility] 350.1.13.10 ity of [facility] 4.2.7.2.686 Surendra as MATERNAL [phone] Med ical & CHILD 369 [facility] 2019-07-18 2019-07-18 Outpatient P [facility] [id number] Univers 11:15:00 11:15:00 ity [facility] 2019-07-18 2019-07-18 Outpatient R [facility] [id number] Univers 11:00:00 11:00:00 [id number] ity [facility] 2019-07-18 2019-07-18 Abstract Rubenpe, [facility] 1.2.840.114 [id number] Univers 00:00:00 00:00:00 Pascual Dia [facility] 350.1.13.10 ity [facility] 4.2.7.2.686 Surendra as MATERNAL [phone] Med ical & CHILD 107 [facility] 2019-07-09 2019-07-09 [employer] Content Marketing Lab, Ang-Rmchp [facility] 1.2.840. 114 [id number] Univers 12:54:46 13:07:14 Visit Emory Pedrozabouchra Dia [facility] 350.1.13. 10 ity of REGIONAL 4.2.7.2.686 Surendra as MATERNAL [phone] [facility] & [address] 2019-07-09 2019-07-09 Outpatient R [facility] [id number] Univers 13:00:00 13:00:00 ity [facility] 2019-07-09 2019-07-09 Outpatient R [facility] [id number] Univers 13:00:00 13:00:00 ity [facility] 2019-07-08 2019-07-08 Routine Melaniamarina, [facility] 1.2.999.653 [id number] Univers 12:39:09 13:22:09 Pascual Dia [facility] 350.1.13.10 ity of Visit REGIONAL 4.2.7.2.686 Surendra as MATERNAL [phone] [facility] & [address] 2019-07-08 2019-07-08 Outpatient R KASIA, [facility] [id number] [id number] Univers 12:45:00 12:45:00 PASCUAL [id number] ity o [facility] 2019-07-08 2019-07-08 Outpatient R KASIA, [facility] [id number] Univers 12:45:00 12:45:00 PASCUAL ity o f [facility] 2019-07-04 2019-07-04 Outpatient R AKINSIPE, [facility] [id number] Univers 14:15:00 14:15:00 PASCUAL [id number] ity o f [facility] 2019-07-04 2019-07-04 Outpatient R AKINSIPE, [facility] [id number] Univers 14:15:00 14:15:00 PASCUAL ity o [facility] 2019-06-30 2019-06-30 [employer], [facility] 1.2.840.114 [id number] Univers 08:18:14 08:48:14 ne Visit Maria E Hickman [facility] 350.1.13.10 ity of REGIONAL 4.2.7.2.686 Surendra as MATERNAL [phone] Med ical & CHILD [address] [place] [address] 2019-06-30 2019-06-30 Outpatient [facility] [id number] Univers 08:30:00 08:30:00 [id number] ity of [facility] 2019-06-30 2019-06-30 Outpatient R [facility] [id number] Univers 08:30:00 08:30:00 ity of [facility] 2019-06-06 2019-06-06 [facility]phone [facility] 1.2.840.114 [id number] Univers 00:00:00 00:00:00 Pascual C [facility] 350.1.13.10 ity of REGIONAL 4.2.7.2.686 Surendra as MATERNAL [phone] [facility] & CHILD [address] [place] [address] 2019-06-05 2019-06-05 Global [employer] Content Marketing Lab, [facility] 1.2.840. 114 [id number] Univers 08:10:28 09:01:28 Visit Pascual Pedroza C [facility] 350.1.13. 10 ity of REGIONAL 4.2.7.2.686 Surendra as MATERNAL [phone] [facility] & CHILD [address] [place] [address] 2019-06-05 2019-06-05 Outpatient R [facility] [id number] Univers 08:00:00 08:00:00 [id number] ity of [facility] 2019-06-05 2019-06-05 [facility] [id number] Univers 08:00:00 08:00:00 PASCUAL ity o f [facility] 2019-06-04 2019-06-04 Telephone MelaniaBanner 1.2.840.114 [id number] Univers 00:00:00 00:00:00 Pascual C [facility] 350.1.13.10 ity of [facility] 4.2.7.2.686 Surendra as MATERNAL [phone] [facility] & CHILD [address] [place] [address] 2019-06-03 2019-06-03 Initial MelaniaBanner 1.2.837.967 [id number] Univers 08:35:07 10:29:22 Pascual C [facility] 350.1.13.10 ity of Visit REGIONAL 4.2.7.2.686 Surendra as MATERNAL [phone] [facility] & [address] 2019-06-03 2019-06-03 [facility] [id number] [id number] Univers 08:30:00 08:30:00 PASCUAL [id number] ity o f [facility] 2019-06-03 2019-06-03 [facility] [id number] Univers 08:30:00 08:30:00 PASCUAL ity o [facility] 2019-06-03 2019-06-03 Orders Doctor MITRA 1.2.840.114 [id number] Univers 00:00:00 00:00:00 Only Unassigned, CARMELLA 350.1.13.10 ity of [place] [facility] 4.2.7.2.686 Surendra as [phone] [address] 2019-06-02 2019-06-02 Outpatient [facility] [id number] 4Q-20 Univers 08:30:00 08:30:00 PASCUAL [id number] ity o [facility] 2019-05-20 2019-05-20 [facility] 1.2.235.083 [id number] Univers 00:00:00 00:00:00 Kailee Jurado [employer] 350.1.13.10 ity of [facility] 4.2.7.2.686 Surendra as MATERNAL [phone] [facility] & [address] Results Test Description Test Time Test Comments Results Result Comments Source POCT TEST 2021-02-28 23:40:00 Test Item Value Reference Range Interpretation Comme nts POCT PREG (test code = 1605) NEGATIVE On board controls acceptable with C Line (test code = 3574) PRESENT POCT PREG LOT # (test code = 3575) [id number] POCT PREG TEST DATE (test code = 3576) 04/18/2022 Lab Interpretation (test code = 10404-5) Normal [facility] [id number] 05:37:13 Test Item Value Reference Range Interpretation Comments APTT Patient (test See_Comment [Automat ed code = 3173-2) message] The system which generated this result transmitted reference range : 23 - 38 Seconds . The reference range was not used to interpr et this result as normal/abnormal . PARRISH (test code = PARRISH) The [facility] patient population mean normal value for aPTT is 30 seconds. Lab Interpretation Normal (test code = 47857-4) [facility]intePROTHROMBIN TIME / [id number] 05:35:12 Test Item Value Reference Range Interpretation Comments PROTIME PATIENT (test See_Comment [Auto mated message] code = 5964-2) The system wh ich generated this result transmitted ref erence range: 12.0 - 1 4.7 Seconds. The re ference range was not u sed to interpret this result as normal/abnor mal. INR (test code = 6301-6) Nor mal INR <1.1; Warfarin Therap eutic range 2.0 to 3. 0 or 2.5 to 3.5, dep ending upon the indica tions. Lab Interpretation (test Normal code = 60063-8) [facility]inteCOMP. METABOLIC PANEL (04909)2020-12-07 03:38:31 Test Item Value Reference Range Interpretation Comments NA (test code = 137 mmol/L 135-145 1581735508) K (test code = 4.4 mmol/L 3.5-5.0 9048082475) CL (test code = 106 mmol/L 98-108 3721834729) CO2 TOTAL (test code = 24 mmol/L 23-31 4936536825) AGAP (test code = 2-16 3045271554) BUN (test code = 9 mg/dL 7-23 1835423247) GLUCOSE (test code = 129 mg/dL 70-110 H 0264024577) CREATININE (test code = 0.42 mg/dL 0.50-1.04 L 2583231289) TOTAL BILI (test code = 1.0 mg/dL 0.1-1.8 3323308453) CALCIUM (test code = 9.7 mg/dL 8.6-10.6 8652834590) T PROTEIN (test code = 7.7 g/dL 6.3-8.2 9645878609) ALBUMIN (test code = 4.5 g/dL 3.5-5.0 8657052151) ALK PHOS (test code = 74 U/L 34-122 9424882549) ALTv (test code = 236 U/L 5-35 H 1742-6) AST(SGOT) (test code = 689 U/L 13-40 H 7438945152) eGFR (test code = mL/min/1.73m2 9444846889) PARRISH (test code = PARRISH) Association of Glomerular Filtration Rate (GFR) and Staging of Kidney Disease* + --+ --+ ------+| GFR (mL/min/1.73 m2) ?| With Kidney Damage ?| ?Without Kidney Damage+ --------+ --------+ +| ?>90 ?| ?Stage one ?| ? Normal ?+ ---+ ---+ -------+| ?60-89 ?| ?Stage two ?| ? Decreased GFR ? + --+ --+ ------+| ?30-59 ?| ?Stage three ?| ? Stage three ? + --+ --+ ------+| ?15-29 ?| ?Stage four ? | ? Stage four ?+ ---+ ---+ -------+| ?<15 (or dialysis) ? ?| ?Stage five ? | ? Stage five ?+ ---+ ---+ -------+ *Each stage assumes the associated GFR level has been in effect for at least three months. ?Stages 1 to 5, with or without kidney disease, indicate chronic kidney disease. Notes: Determination of stages one and two (with eGFR >59mL/min/1.73 m2) requires estimation of kidney damage for at least three months as defined by structural or functional abnormalities of the kidney, manifested by either:Pathological abnormalities or Markers of kidney damage (including abnormalities in the composition of the blood or urine or abnormalities in imaging tests). Lab Interpretation Abnormal (test code = 61419-5) [facility]inteLIPASE2021-10-19 03:38:09 Test Item Value Reference Range Interpretation Comments LIPASE (test code = 6292242795) 67 U/L 0-220 Lab Interpretation (test code = Normal 81143-2) [facility]intePO[facility] [id number] 03:37:00 Test Item Value Reference Range Interpretation Comments POCT PREG (test code = 1605) negative On board controls acceptable with positive C Line (test code = 3574) POCT PREG LOT # (test code = 3575) [id number] POCT PREG TEST DATE (test 03/21/2022 code = 3576) Lab Interpretation (test code = Normal 51258-2) [facility] WITH [id number] 03:21:06 Test Item Value Reference Range Interpretation Comments WBC (test code = See_Comment [Automated 5590-2) message] The sy stem which generated this result transmitted reference range : 4.30 - 11.10 10*3/?L. The reference range was not used to interpret this result as normal/abnormal . RBC (test code = See_Comment [Automated 789-8) message] The sy stem which generated this result transmitted reference range : 3.93 - 5.25 10*6/?L. The reference range was not used to interpret this result as normal/abnormal . HGB (test code = 13.0 g/dL 11.6-15.0 718-7) HCT (test code = 39.9 % 35.7-45.2 4544-3) MCV (test code = 78.2 fL 80.6-95.5 L 787-2) MCH (test code = 25.5 pg 25.9-32.8 L 785-6) MCHC (test code = 32.6 g/dL 31.6-35.1 786-4) RDW-SD (test code = 41.1 fL 39.0-49.9 36139-8) RDW-CV (test code = 14.5 % 12.0-15.5 788-0) PLT (test code = See_Comment [Automated 777-3) message] The sy stem which generated this result transmitted reference range : 166 - 358 10*3/ ?L. The reference r alexei was not used to interpret this result as normal/abnormal . MPV (test code = 10.6 fL 9.5-12.9 32464-7) NRBC/100 WBC (test See_Comment [Automat ed code = 6399169875) message] The system which generated this result transmitted reference range : 0.0 - 10.0 /100 WBCs. The refer ence range was not u sed to interpret th is result as normal/abnormal . NRBC x10^3 (test code <0.01 See_Comment [Auto mated = 4180037255) message] The s ystem which generated this result transmitted reference range : 10*3/?L. The reference range was not used to interpret this result as normal/abnormal . GRAN MAT (NEUT) % 64.1 % (test code = 770-8) IMM GRAN % (test code 0.70 % = 0927639882) LYMPH % (test code = 26.5 % 736-9) MONO % (test code = 6.9 % 5905-5) EOS % (test code = 1.3 % 713-8) BASO % (test code = 0.5 % 706-2) GRAN MAT x10^3(ANC) 4.89 10*3/uL 1.88-7.09 (test code = 9210636533) IMM GRAN x10^3 (test 0.05 10*3/uL 0.00-0.06 code = 8182186730) LYMPH x10^3 (test code 2.02 10*3/uL 1.32-3.29 = 731-0) MONO x10^3 (test code 0.53 10*3/uL 0.33-0.92 = 742-7) EOS x10^3 (test code = 0.10 10*3/uL 0.03-0.39 711-2) BASO x10^3 (test code 0.04 10*3/uL 0.01-0.07 = 704-7) Lab Interpretation Abnormal (test code = 90534-8) [facility] [id number] 13:26:00 Test Item Value Reference Range Interpretation Comments POCT PREG (test code = 1605) Negative On board controls acceptable with C Yes Line (test code = 3574) POCT PREG LOT # (test code = 3575) POCT PREG TEST DATE (test code = 3576) [facility] [id number] 13:26:00 Test Item Value Reference Range Interpretation Comments POCT PREG (test code = 1605) Negative On board controls acceptable with C Yes Line (test code = 3574) POCT PREG LOT # (test code = 3575) POCT PREG TEST DATE (test code = 3576) [facility]inte[facility] STIMULATING [id number] 04:59:28 Test Item Value Reference Range Interpretation Comments TSH (test code = See_Comment L Biotin has been 6775969234) reported to cau se a negative bias, interpret resul ts relative to pat ient's use of biotin. [Automated mess age] The system iList generated this result transmitted ref erence range: 0.45 - 4 .70 mIU/L. The refe rence range was not u sed to interpret this result as normal/abnor mal. Lab Interpretation (test Abnormal code = 51404-9) [facility] [id number] 04:59:28 Test Item Value Reference Range Interpretation Comments TSH (test code = See_Comment L Biotin has been 6710757280) reported to cau se a negative bias, interpret resul ts relative to pat ient's use of biotin. [Automated mess age] The system iList generated this result transmitted ref erence range: 0.45 - 4 .70 mIU/L. The refe rence range was not u sed to interpret this result as normal/abnor mal. Lab Interpretation (test Abnormal code = 01180-9) [facility]2021-05-07 04:48:57 Test Item Value Reference Range Interpretation Comments PROLACTIN (test code = 6192950035) 10.0 ng/mL 3.3-26.7 Lab Interpretation (test code = Normal 97523-9) [facility]2021-05-07 04:48:57 Test Item Value Reference Range Interpretation Comments PROLACTIN (test code = 7291795207) 10.0 ng/mL 3.3-26.7 Lab Interpretation (test code = Normal 79028-6) [facility] [id number] 14:09:00 Test Item Value Reference Range Interpretation Comments POCT PREG (test code = 1605) Negative On board controls acceptable with C Yes Line (test code = 3574) POCT PREG LOT # (test code = 3575) POCT PREG TEST DATE (test code = 3576) Lab Interpretation (test code = Normal 74827-5) [facility] [id number] 14:09:00 Test Item Value Reference Range Interpretation Comments POCT PREG (test code = 1605) Negative On board controls acceptable with C Yes Line (test code = 3574) POCT PREG LOT # (test code = 3575) POCT PREG TEST DATE (test code = 3576) Lab Interpretation (test code = Normal 57533-5) [facility] [id number] 15:10:00 Test Item Value Reference Range Interpretation Comments POCT PREG (test code = 1605) Negative On board controls acceptable with C Yes Line (test code = 3574) POCT PREG LOT # (test code = 3575) POCT PREG TEST DATE (test code = 3576) Lab Interpretation (test code = Normal 49869-7) [facility] [id number] 15:10:00 Test Item Value Reference Range Interpretation Comments POCT PREG (test code = 1605) Negative On board controls acceptable with C Yes Line (test code = 3574) POCT PREG LOT # (test code = 3575) POCT PREG TEST DATE (test code = 3576) Lab Interpretation (test code = Normal 99547-7) [facility] [id number] 15:10:00 Test Item Value Reference Range Interpretation Comments POCT PREG (test code = 1605) Negative On board controls acceptable with C Yes Line (test code = 3574) POCT PREG LOT # (test code = 3575) POCT PREG TEST DATE (test code = 3576) Lab Interpretation (test code = Normal 77795-5) [facility] [id number] 15:10:00 Test Item Value Reference Range Interpretation Comments POCT PREG (test code = 1605) Negative On board controls acceptable with C Yes Line (test code = 3574) POCT PREG LOT # (test code = 3575) POCT PREG TEST DATE (test code = 3576) Lab Interpretation (test code = Normal 82342-1) [facility] [id number] 15:01:00 Test Item Value Reference Range Interpretation Comments POCT PREG (test code = 1605) Negative On board controls acceptable with C Yes Line (test code = 3574) POCT PREG LOT # (test code = 3575) POCT PREG TEST DATE (test code = 3576) [facility] [id number] 15:01:00 Test Item Value Reference Range Interpretation Comments POCT PREG (test code = 1605) Negative On board controls acceptable with C Yes Line (test code = 3574) POCT PREG LOT # (test code = 3575) POCT PREG TEST DATE (test code = 3576) [facility]inte[facility]OW[facility] [id number] 15:01:00 Test Item Value Reference Range Interpretation Comments POCT PREG (test code = 1605) Negative On board controls acceptable with C Yes Line (test code = 3574) POCT PREG LOT # (test code = 3575) POCT PREG TEST DATE (test code = 3576) [facility] [id number] 15:01:00 Test Item Value Reference Range Interpretation Comments POCT PREG (test code = 1605) Negative On board controls acceptable with C Yes Line (test code = 3574) POCT PREG LOT # (test code = 3575) POCT PREG TEST DATE (test code = 3576) [facility] [id number] 15:01:00 Test Item Value Reference Range Interpretation Comments POCT PREG (test code = 1605) Negative On board controls acceptable with C Yes Line (test code = 3574) POCT PREG LOT # (test code = 3575) POCT PREG TEST DATE (test code = 3576) [facility] (ALB,T.PRO,BILI T,BU/BC,ALT,AST,ALK PHOS)2020-02-06 13:02:00 Test Item Value Reference Range Interpretation Comments TOTAL BILI (test code = 1.4 mg/dL 0.1-1.1 H 8096305795) BILI UNCON (test code = 0.6 mg/dL 0.1-1.8 6703537066) BILI CONJ (test code = 0.0 mg/dL 0-0.3 9565780480) T PROTEIN (test code = 7.0 g/dL 6.3-8.2 1188665508) ALBUMIN (test code = 3.6 g/dL 3.5-5 5715629173) ALK PHOS (test code = 186 U/L 34-122 H Slight hemolysis 0980729727) ALTv (test code = 1742-6) 333 U/L 5-35 H AST(SGOT) (test code = 166 U/L 13-40 H Sligh t hemolysis 5112568237) Lab Interpretation (test Abnormal code = 29238-2) [facility] Metabolic Panel (NA, K, CL, CO2, Glucose, BUN, Creatinine, CA)2020-02-06 11:57:00 Test Item Value Reference Range Interpretation Comments NA (test code = 137 mmol/L 135-145 5119159524) K (test code = 4.2 mmol/L 3.5-5 Slight 1066574852) hemolysis CL (test code = 108 mmol/L 98-108 2499712229) CO2 TOTAL (test code 19 mmol/L 23-31 L = 9101862237) AGAP (test code = 2-16 6007210194) BUN (test code = 5 mg/dL 7-23 L Slight 7102984049) hemolysis GLUCOSE (test code = 108 mg/dL 70-110 2797833650) CREATININE (test code 0.40 mg/dL 0.5-1.04 L = 5225350000) CALCIUM (test code = 8.5 mg/dL 8.6-10.6 L 6094664811) eGFR Calculation mL/min/1.73m2 (Non-) (test code = 2838951101) eGFR Calculation mL/min/1.73m2 () (test code = 2956920319) PARRISH (test code = PARRISH) Association of Glomerular Filtration Rate (GFR) and Staging of Kidney Disease* + -----+ --------+ +| GFR (mL/min/1.73 m2) ?| With Kidney Damage ?| ?Without Kidney Damage+ +------- +---- --+| ?>90 ?| ?Stage one ?| ? Normal ?+ ------+ ---------+--------- +| ?60-89 ?| ?Stage two ?| ? Decreased GFR ? + -----+ --------+ +| ?30-59 ?| ?Stage three ?| ? Stage three ? + -----+ --------+ +| ?15-29 ?| ?Stage four ? | ? Stage four ?+ ------+ ---------+--------- +| ?<15 (or dialysis) ? ?| ?Stage five ? | ? Stage five ?+ ------+ ---------+--------- + *Each stage assumes the associated GFR level has been in effect for at least three months. ?Stages 1 to 5, with or without kidney disease, indicate chronic kidney disease. Notes: Determination of stages one and two (with eGFR >59mL/min/1.73 m2) requires estimation of kidney damage for at least three months as defined by structural or functional abnormalities of the kidney, manifested by either:Pathological abnormalities or Markers of kidney damage (including abnormalities in the composition of the blood or urine or abnormalities in imaging tests). Lab Interpretation Abnormal (test code = 43011-4) [facility] 11:57:00 Test Item Value Reference Range Interpretation Comments LIPASE (test code = 0137547843) 23 U/L 0-220 Lab Interpretation (test code = Normal 69792-1) [facility] with [id number] 10:14:00 Test Item Value Reference Range Interpretation Comments WBC (test code = See_Comment [Automated 6690-2) message] The sy stem which generated this result transmitted reference range : 4.30 - 11.10 10*3/?L. The reference range was not used to interpret this result as normal/abnormal . RBC (test code = See_Comment L [Automated 789-8) message] The sy stem which generated this result transmitted reference range : 3.93 - 5.25 10*6/?L. The reference range was not used to interpret this result as normal/abnormal . HGB (test code = 8.8 g/dL 11.6-15 L 718-7) HCT (test code = 28.8 % 35.7-45.2 L 4544-3) MCV (test code = 83.2 fL 80.6-95.5 787-2) MCH (test code = 25.4 pg 25.9-32.8 L 785-6) MCHC (test code = 30.6 g/dL 31.6-35.1 L 786-4) RDW-SD (test code = 44.9 fL 39-49.9 93519-8) RDW-CV (test code = 14.7 % 12-15.5 788-0) PLT (test code = See_Comment [Automated 777-3) message] The sy stem which generated this result transmitted reference range : 166 - 358 10*3/ ?L. The reference r alexei was not used to interpret this result as normal/abnormal . MPV (test code = 11.6 fL 9.5-12.9 79907-3) NRBC/100 WBC (test See_Comment [Automat ed code = 9232097867) message] The system which generated this result transmitted reference range : 0.0 - 10.0 /100 WBCs. The refer ence range was not u sed to interpret th is result as normal/abnormal . NRBC x10^3 (test code <0.01 See_Comment [Auto mated = 6132659355) message] The s ystem which generated this result transmitted reference range : 10*3/?L. The reference range was not used to interpret this result as normal/abnormal . GRAN MAT (NEUT) % 70.8 % (test code = 770-8) IMM GRAN % (test code 1.10 % = 5691366755) LYMPH % (test code = 20.9 % 736-9) MONO % (test code = 6.3 % 5905-5) EOS % (test code = 0.6 % 713-8) BASO % (test code = 0.3 % 706-2) GRAN MAT x10^3(ANC) 4.62 10*3/uL 1.88-7.09 (test code = 5782748125) IMM GRAN x10^3 (test 0.07 10*3/uL 0-0.06 H code = 9671293515) LYMPH x10^3 (test code 1.36 10*3/uL 1.32-3.29 = 731-0) MONO x10^3 (test code 0.41 10*3/uL 0.33-0.92 = 742-7) EOS x10^3 (test code = 0.04 10*3/uL 0.03-0.39 711-2) BASO x10^3 (test code <0.03 0.01-0.07 = 704-7) Lab Interpretation Abnormal (test code = 80075-6) [facility] Metabolic Panel (NA, K, CL, CO2, Glucose, BUN, Creatinine, CA)2020-02-05 15:32:00 Test Item Value Reference Range Interpretation Comments NA (test code = 141 mmol/L 135-145 6902548832) K (test code = 3.7 mmol/L 3.5-5 2145489653) CL (test code = 109 mmol/L 98-108 H 8465823651) CO2 TOTAL (test code = 25 mmol/L 23-31 9289399921) AGAP (test code = 2-16 4810824467) BUN (test code = 7 mg/dL 7-23 7839767907) GLUCOSE (test code = 106 mg/dL 70-110 1563528000) CREATININE (test code = 0.47 mg/dL 0.5-1.04 L 0522971835) CALCIUM (test code = 8.7 mg/dL 8.6-10.6 8922541902) eGFR Calculation mL/min/1.73m2 (Non-) (test code = 3717407526) eGFR Calculation mL/min/1.73m2 () (test code = 2329405943) PARRISH (test code = PARRISH) Association of Glomerular Filtration Rate (GFR) and Staging of Kidney Disease* + --+ --+ ------+| GFR (mL/min/1.73 m2) ?| With Kidney Damage ?| ?Without Kidney Damage+ --------+ --------+ +| ?>90 ?| ?Stage one ?| ? Normal ?+ ---+ ---+ -------+| ?60-89 ?| ?Stage two ?| ? Decreased GFR ? + --+ --+ ------+| ?30-59 ?| ?Stage three ?| ? Stage three ? + --+ --+ ------+| ?15-29 ?| ?Stage four ? | ? Stage four ?+ ---+ ---+ -------+| ?<15 (or dialysis) ? ?| ?Stage five ? | ? Stage five ?+ ---+ ---+ -------+ *Each stage assumes the associated GFR level has been in effect for at least three months. ?Stages 1 to 5, with or without kidney disease, indicate chronic kidney disease. Notes: Determination of stages one and two (with eGFR >59mL/min/1.73 m2) requires estimation of kidney damage for at least three months as defined by structural or functional abnormalities of the kidney, manifested by either:Pathological abnormalities or Markers of kidney damage (including abnormalities in the composition of the blood or urine or abnormalities in imaging tests). Lab Interpretation Abnormal (test code = 81708-6) [facility]70252[facility] (ALB,T.PRO,BILI T,BU/BC,ALT,AST,ALK PHOS)2020-02-05 15:32:00 Test Item Value Reference Range Interpretation Comments TOTAL BILI (test code = 9007090233) 3.1 mg/dL 0.1-1.1 H BILI UNCON (test code = 6038916654) 0.8 mg/dL 0.1-1.1 BILI CONJ (test code = 3974347362) 0.6 mg/dL 0-0.3 H T PROTEIN (test code = 2606890136) 7.2 g/dL 6.3-8.2 ALBUMIN (test code = 5652689640) 3.8 g/dL 3.5-5 ALK PHOS (test code = 3131429696) 236 U/L 34-122 H ALTv (test code = 1742-6) 359 U/L 5-35 H AST(SGOT) (test code = 2606576234) 232 U/L 13-40 H Lab Interpretation (test code = Abnormal 17060-6) [facility]2020-12-17 13:36:00 Test Item Value Reference Range Interpretation Comments LIPASE (test code = 7319214943) 38 U/L 0-220 Lab Interpretation (test code = Normal 43218-0) [facility] with [id number] 12:36:00 Test Item Value Reference Range Interpretation Comments WBC (test code = See_Comment [Automated 5390-2) message] The sy stem which generated this result transmitted reference range : 4.30 - 11.10 10*3/?L. The reference range was not used to interpret this result as normal/abnormal . RBC (test code = See_Comment L [Automated 999-8) message] The sy stem which generated this result transmitted reference range : 3.93 - 5.25 10*6/?L. The reference range was not used to interpret this result as normal/abnormal . HGB (test code = 9.4 g/dL 11.6-15 L 718-7) HCT (test code = 29.5 % 35.7-45.2 L 4544-3) MCV (test code = 83.3 fL 80.6-95.5 787-2) MCH (test code = 26.6 pg 25.9-32.8 785-6) MCHC (test code = 31.9 g/dL 31.6-35.1 786-4) RDW-SD (test code = 45.1 fL 39-49.9 19304-8) RDW-CV (test code = 14.8 % 12-15.5 788-0) PLT (test code = See_Comment [Automated 777-3) message] The sy stem which generated this result transmitted reference range : 166 - 358 10*3/ ?L. The reference r alexei was not used to interpret this result as normal/abnormal . MPV (test code = 12.0 fL 9.5-12.9 31088-7) NRBC/100 WBC (test See_Comment [Automat ed code = 9238960807) message] The system which generated this result transmitted reference range : 0.0 - 10.0 /100 WBCs. The refer ence range was not u sed to interpret th is result as normal/abnormal . NRBC x10^3 (test code <0.01 See_Comment [Auto mated = 4033320615) message] The s ystem which generated this result transmitted reference range : 10*3/?L. The reference range was not used to interpret this result as normal/abnormal . GRAN MAT (NEUT) % 51.5 % (test code = 770-8) IMM GRAN % (test code 1.00 % = 3531447719) LYMPH % (test code = 30.2 % 736-9) MONO % (test code = 9.1 % 5905-5) EOS % (test code = 7.2 % 713-8) BASO % (test code = 1.0 % 706-2) GRAN MAT x10^3(ANC) 2.50 10*3/uL 1.88-7.09 (test code = 9892478972) IMM GRAN x10^3 (test 0.05 10*3/uL 0-0.06 code = 1717111056) LYMPH x10^3 (test code 1.47 10*3/uL 1.32-3.29 = 731-0) MONO x10^3 (test code 0.44 10*3/uL 0.33-0.92 = 742-7) EOS x10^3 (test code = 0.35 10*3/uL 0.03-0.39 711-2) BASO x10^3 (test code 0.05 10*3/uL 0.01-0.07 = 704-7) Lab Interpretation Abnormal (test code = 50481-8) [facility]inte[facility] UNCONJUGATED/BILI [id number] 23:27:00 Test Item Value Reference Range Interpretation Comments BILI CONJ (test code = 8836052959) 1.1 mg/dL 0-0.3 H BILI UNCON (test code = 4880435169) 0.8 mg/dL 0.1-1.1 Lab Interpretation (test code = Abnormal 32958-6) [facility]inteCT ABDOMEN PELVIS W [id number] 22:06:03CT Abdomen and Pelvis with intravenous contrast. CLINICAL HISTORY: Abdominal pain. Fever/abscess suspected. DOSE: Up-to-date CT equipment and radiation dose reduction techniques wereemployed. CTDIvol:11.70 mGy. DLP: 653 mGy-cm. TECHNIQUE : Contiguous axial imaging from the level of the lung basesthrough the pubic symphysis were performed after the uncomplicatedadministration of Omnipaque contrast material. Coronal and sagittalreconstructions were obtained. Auto mA and/or iterative reconstruction wereused to reduce radiation dose. FINDINGS: ? Lower lungs: Clear. No pleural effusion or pericardial effusion. Liver, Gallbladder and Spleen: Liver is enlarged, 22.6 cm in length. Nofocal liver lesions visualized. Spleen is also analyzed, 15.5 x 5 cm insize. No calcified gallstones. Biliary ducts and the pancreatic duct appearof normal size. Gallbladder is hydropic, measuring 14.5 cm in length and 4cmin diameter without any significant thickening of the najera or cirrhosisrelated edema or pericholecystic fluid collection. Peritoneum: ?No free air or free fluid. No lymphadenopathy. Pancreas and Adrenals: ?Unremarkable pancreas and adrenal glands. Kidneys and Ureters: ?No visible calculi in the renalcollecting systems. No hydroureter or hydronephrosis. 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 Vessels: 2 right renal arteries arising from the aorta and 2 left renalarteries noted, one arising from the aorta and the second left renal arteryarising from common iliac artery very close to aortic bifurcation. Retroperitoneum: No abnormal fluid or lymphadenopathy. Bowel: No acute findings. Normal appendix is visualized. Bladder and Reproductive Organs: Uterus is enlarged, lying and retroflexedposition in the pelvis with thickened endometrium. Mild congestion of thepelvic soft tissues noted without any tubo-ovarian abscess. Urinary bladderis collapsed and not opacified by the intravenously injected contrastmedium. Small bilateral ovarian cysts noted, likely physiologic. Bones: No acute findings. Soft tissues: Suprapubic scar noted. CONCLUSION:1. Enlarged uterus and thickened endometrium with mild congestion of thepelvic fat. Please correlate with any clinical signs and symptoms of pelvicinflammatory disease. No tubo-ovarian abscess.2. Hepatosplenomegaly. [facility], RadiantResults Inft User - 02/04/2020 4:07 PM CSTCT Abdomen and Pelvis with intravenous contrast.CLINICAL HISTORY: Abdominal pain. Fever/abscess suspected.DOSE: Up-to-date CT equipment and radiation dose reduction techniques wereemployed. CTDIvol: 11.70 mGy. DLP: 653 mGy-cm.TECHNIQUE : Contiguous axial imaging from the level of the lung basesthrough the pubic symphysis were performed after the uncomplicated administration of Omnipaque contrast material. Coronal and sagittalreconstructions were obtained. Auto mA and/or iterative reconstruction wereused to reduce radiation dose.FINDINGS: Lower lungs: Clear. No pleural effusion or pericardial effusion.Liver, Gallbladder and Spleen: Liver is enlarged, 22.6 cm in length. Nofocal liver lesions visualized. Spleen is also analyzed, 15.5 x 5 cm insize. No calcified gallstones. Biliary ducts and the pancreatic duct appearof normal size. Gallbladder is hydropic,measuring 14.5 cm in length and 4cm in diameter without any significant thickening of the najera or cirrhosisrelated edema or pericholecystic fluid collection.Peritoneum: No free air or free fluid. No lymphadenopathy.Pancreas and Adrenals: Unremarkable pancreas and adrenal glands.Kidneys and Ureters: No visible calculi in the renal collecting systems. No hydroureter or hydronephrosis. 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 Vessels: 2 right renal arteries arising from the aorta and 2 left renalarteries noted, one arising from the aorta and the second left renal arteryarising from common iliac artery very close to aortic bifurcation.Retroperitoneum: No abnormal fluid or lymphadenopathy.Bowel: No acute findings. Normal appendix is visualized.Bladder and Reproductive Organs: Uterus is enlarged, lying and retroflexedposition in the pelvis with thickened endometrium. Mild congestion of thepelvic soft tissues noted without any tubo-ovarian abscess. Urinary bladderis collapsed and not opacified by the intravenously injected contrastmedium. Small bilateral ovarian cysts noted, likely physiologic. Bones: No acute findings.Soft tissues: Suprapubic scar noted.CONCLUSION:1.Enlarged uterus and thickened endometrium with mild congestion of thepelvic fat. Please correlate with any clinical signs and symptoms of pelvicinflammatory disease. No tubo-ovarian abscess.2. Hepatospl enomegaly.[facility]OVID[facility] (ID NOW RAPID TESTING) 2020-02-04 21:23:00 Test Item Value Reference Range Interpretation Comments SARS-CoV-2 Rapid ID NOW Not Detected Not Detected (test code = 39114-0) PARRISH (test code = PARRISH) ID NOW COVID-19 Assay is an isothermal nucleic acid amplification test intended for the qualitative detection of nucleic acid from SARS-CoV-2 viral RNA in nasopharyngeal (LINOTYPIST) specimens. It is used under Emergency Use Authorization (EUA) by FDA. The limit of detection (LOD) of the assay is 125 Genome Equivalents/mL. A positive result is indicative of the presence of SARS-CoV-2 RNA. ?Clinical correlation with patient history and other diagnostic information is necessary to determine patient infection status. A negative (Not Detected) result does not preclude SARS-CoV-2 infection. In patients with clinical symptoms and other tests that are consistent with SARS-CoV-2 infection, negative results should be treated as presumptive negative and a new specimen should be tested with alternative PCR molecular test. Invalid: Please collect a new specimen for repeat patient testing if clinically indicated. Lab Interpretation Normal (test code = 79878-3) [facility]inteUS GALL [id number] 20:56:23HISTORY: RUQ Abdominal pain. Rule out cholecystitis. TECHNIQUE: Gallbladder is evaluated in multipleplanes with the patient indifferent positions. Color imaging is utilized. FINDINGS: Comparison is made with previous ultrasound study dated 08/26/2019. Gallbladder is mildly hydropic, measuring more than12 cm in length and 4.5cm in diameter with minimal diffuse thickening of the najera noted. Numerousgallstones are seen ranging from 4 mm to 10 mm in size. No biliary sludgeor crystals seen. No free fluid detected in pericholecystic space. Saeed's sign could not be evaluated because patient was premedicatedbefore pain in the emergency room prior to the ultrasound study. Common hepatic duct is dilated, measuring 8.9 mm, however, we are unableto visualize any stone in the duct. Distal portion of the common duct wasobscured due to acoustic shadowing by gallstones. Common hepatic ductmeasure 4.7 mm in the previous study. Hepatic and portal venous systemappeared patent. CONCLUSION: Mildly hydropic gallbladder with numerous gallstones. Slightlydilated common bile duct and central intrahepatic ducts. [facility], Radiant Results Inft User - 02/04/2020 2:57 PM CSTHISTORY: RUQ Abdominal pain. Rule out cholecystitis.TECHNIQUE: Gallbladder is evaluated in multiple planes with the patient indifferent positions. Color imaging is utilized.FINDINGS: Comparison is made with previous ultrasound study dated 08/26/2019.Gallbladder is mildly hydropic, measuring more than 12 cm in length and 4.5cm in diameter with minimal diffuse thickening of the najera noted. Numerousgallstones are seen ranging from 4 mm to 10 mm in size. No biliary sludgeor crystals seen. No free fluid detected in pericholecystic space.Saeed's sign could not be evaluated because patient was premedicatedbefore pain in the emergency room prior to the ultrasound study. Common hepatic duct is dilated, measuring 8.9 mm, however, we are unableto visualize any stone in the duct. Distal portion of the common duct wasobscured due to acoustic shadowing by gallstones. Common hepatic ductmeasure 4.7 mm in the previous study. Hepatic and portal venous systemappeared patent. CONCLUSION: Mildly hydropic gallbladder with numerous gallstones. Slightlydilated common bile duct and central intrahepatic ducts.[facility] BranchPREGNANCY TEST, SERUM 2020-02-04 19:31:00 Test Item Value Reference Range Interpretation Comments PREG SERUM (test code Negative = 7341616476) PARRISH (test code = PARRISH) Less than 10 IU/L. ?If low titer or ectopic is suspected, resubmit specimen in 48-72 hours. [facility]inteUrinalysis2020-12-16 19:23:00 Test Item Value Reference Range Interpretation Comments APPEARANCE (test code = Hazy Clear A 0750633212) COLOR (test code = Poppy Yellow A 8250034464) PH (test code = 4.8-8.0 4515826783) SP GRAVITY (test code = 1.003-1.030 0273955959) GLU U QUAL (test code = Normal Normal 4810606791) BLOOD (test code = 3+ Negative A 8637746568) KETONES (test code = Negative Negative 2933566454) PROTEIN (test code = 100 mg/dL Negative A 2887-8) UROBILIN (test code = 4.0 mg/dL Normal A 4532640585) BILIRUBIN (test code = 4 mg/dL Negative A 5754233131) NITRITE (test code = Negative Negative 0851836042) LEUK SANTOS (test code = 250/uL Negative A 5163888108) RBC/HPF (test code = See_Comment H [Autom ated message] 7642420936) The system iList generated this result transmit usman reference range : 0 - 3 HPF. The refe rence range was not u sed to interpret th is result as normal/abnormal . WBC/HPF (test code = See_Comment H [Autom ated message] 9253352274) The system iList generated this result transmit usman reference range : 0 - 5 HPF. The refe rence range was not u sed to interpret th is result as normal/abnormal . BACTERIA (test code = Few Negative A 4550654317) MUCOUS (test code = Moderate Negative LPF A 9037653723) SQ EPITH (test code = HPF 7120765420) Lab Interpretation (test Abnormal code = 66704-4) [facility]inteComplete Metabolic [id number] 19:14:00 Test Item Value Reference Range Interpretation Comments NA (test code = 140 mmol/L 135-145 0695324208) K (test code = 3.7 mmol/L 3.5-5 0807827622) CL (test code = 104 mmol/L 98-108 0320583457) CO2 TOTAL (test code = 25 mmol/L 23-31 8830948453) AGAP (test code = 2-16 0962943974) BUN (test code = 9 mg/dL 7-23 2773027379) GLUCOSE (test code = 109 mg/dL 70-110 3596456339) CREATININE (test code = 0.52 mg/dL 0.5-1.04 7610887470) TOTAL BILI (test code = 4.0 mg/dL 0.1-1.1 H 8444535508) CALCIUM (test code = 9.6 mg/dL 8.6-10.6 7338730813) T PROTEIN (test code = 8.3 g/dL 6.3-8.2 H 8297753584) ALBUMIN (test code = 4.6 g/dL 3.5-5 4243734606) ALK PHOS (test code = 297 U/L 34-122 H 9327859338) ALTv (test code = 494 U/L 5-35 H 1742-6) AST(SGOT) (test code = 261 U/L 13-40 H 3287776105) eGFR Calculation mL/min/1.73m2 (Non-) (test code = 8710434777) eGFR Calculation mL/min/1.73m2 () (test code = 1988577252) PARRISH (test code = PARRISH) Association of Glomerular Filtration Rate (GFR) and Staging of Kidney Disease* + --+ --+ ------+| GFR (mL/min/1.73 m2) ?| With Kidney Damage ?| ?Without Kidney Damage+ --------+ --------+ +| ?>90 ?| ?Stage one ?| ? Normal ?+ ---+ ---+ -------+| ?60-89 ?| ?Stage two ?| ? Decreased GFR ? + --+ --+ ------+| ?30-59 ?| ?Stage three ?| ? Stage three ? + --+ --+ ------+| ?15-29 ?| ?Stage four ? | ? Stage four ?+ ---+ ---+ -------+| ?<15 (or dialysis) ? ?| ?Stage five ? | ? Stage five ?+ ---+ ---+ -------+ *Each stage assumes the associated GFR level has been in effect for at least three months. ?Stages 1 to 5, with or without kidney disease, indicate chronic kidney disease. Notes: Determination of stages one and two (with eGFR >59mL/min/1.73 m2) requires estimation of kidney damage for at least three months as defined by structural or functional abnormalities of the kidney, manifested by either:Pathological abnormalities or Markers of kidney damage (including abnormalities in the composition of the blood or urine or abnormalities in imaging tests). Lab Interpretation Abnormal (test code = 35814-8) [facility] PointeLipase, [id number] 19:14:00 Test Item Value Reference Range Interpretation Comments LIPASE (test code = 6015855129) 70 U/L 0-220 Lab Interpretation (test code = Normal 80795-6) [facility]inteCBC with [id number] 19:07:00 Test Item Value Reference Range Interpretation Comments WBC (test code = See_Comment [Automated 7890-2) message] The sy stem which generated this result transmitted reference range : 4.30 - 11.10 10*3/?L. The reference range was not used to interpret this result as normal/abnormal . RBC (test code = See_Comment [Automated 319-8) message] The sy stem which generated this result transmitted reference range : 3.93 - 5.25 10*6/?L. The reference range was not used to interpret this result as normal/abnormal . HGB (test code = 11.0 g/dL 11.6-15 L 718-7) HCT (test code = 35.7 % 35.7-45.2 4544-3) MCV (test code = 83.8 fL 80.6-95.5 787-2) MCH (test code = 25.8 pg 25.9-32.8 L 785-6) MCHC (test code = 30.8 g/dL 31.6-35.1 L 786-4) RDW-SD (test code = 43.8 fL 39-49.9 17869-5) RDW-CV (test code = 14.4 % 12-15.5 788-0) PLT (test code = See_Comment [Automated 777-3) message] The sy stem which generated this result transmitted reference range : 166 - 358 10*3/ ?L. The reference r alexei was not used to interpret this result as normal/abnormal . MPV (test code = 10.7 fL 9.5-12.9 04257-7) NRBC/100 WBC (test See_Comment [Automat ed code = [id number]) message] The system which generated this result transmitted reference range : 0.0 - 10.0 /100 WBCs. The refer ence range was not u sed to interpret th is result as normal/abnormal . NRBC x10^3 (test code <0.01 See_Comment [Auto mated = [id number]) message] The s ystem which generated this result transmitted reference range : 10*3/?L. The reference range was not used to interpret this result as normal/abnormal . GRAN MAT (NEUT) % 60.4 % (test code = 770-8) IMM GRAN % (test code 0.90 % = 2186467657) LYMPH % (test code = 24.4 % 736-9) MONO % (test code = 7.1 % 5905-5) EOS % (test code = 6.5 % 713-8) BASO % (test code = 0.7 % 706-2) GRAN MAT x10^3(ANC) 3.51 10*3/uL 1.88-7.09 (test code = 1730138115) IMM GRAN x10^3 (test 0.05 10*3/uL 0-0.06 code = 5386874494) LYMPH x10^3 (test code 1.42 10*3/uL 1.32-3.29 = 731-0) MONO x10^3 (test code 0.41 10*3/uL 0.33-0.92 = 742-7) EOS x10^3 (test code = 0.38 10*3/uL 0.03-0.39 711-2) BASO x10^3 (test code 0.04 10*3/uL 0.01-0.07 = 704-7) Lab Interpretation Abnormal (test code = 70549-1) [facility] [id number] 18:59:00 Test Item Value Reference Range Interpretation Comments POCT PREG (test code = 1605) negative On board controls acceptable with C present Line (test code = 3574) Lab Interpretation (test code = Normal 48768-2) [facility] URINALYSIS W SPECIFIC [id number] 14:46:00 Test Item Value Reference Range Interpretation Comments POCT U SP GRAV (test code = 3255) . 1.005-1.025 POCT PH U (test code = 3254) . 5-8 POCT U LEUK EST (test code = 3263) . Negative - Negative POCT U NIT (test code = 3262) . Negative - Negative POCT U PROT (test code = 3259) 2+ Negative - Negative POCT U GLU (test code = 3256) trace Negative - Negative POCT U KETONE (test code = 3258) . Negative - Negative POCT U UROBILI (test code = 3260) . 0.2-1 POCT U BILI (test code = 3261) . Negative - Negative POCT U BLD (test code = 3257) . Negative - Negative POCT U COLOR (test code = 3266) POCT U APPEAR (test code = 3267) [facility] URINALYSIS W SPECIFIC [id number] 15:08:00 Test Item Value Reference Range Interpretation Comments POCT U SP GRAV (test code = 3255) . 1.005-1.025 POCT PH U (test code = 3254) . 5-8 POCT U LEUK EST (test code = 3263) . Negative - Negative POCT U NIT (test code = 3262) . Negative - Negative POCT U PROT (test code = 3259) 2+ Negative - Negative POCT U GLU (test code = 3256) neg Negative - Negative POCT U KETONE (test code = 3258) . Negative - Negative POCT U UROBILI (test code = 3260) . 0.2-1 POCT U BILI (test code = 3261) . Negative - Negative POCT U BLD (test code = 3257) . Negative - Negative POCT U COLOR (test code = 3266) POCT U APPEAR (test code = 3267) [facility] URINALYSIS W SPECIFIC [id number] 14:17:00 Test Item Value Reference Range Interpretation Comments POCT U SP GRAV (test code = 3255) . 1.005-1.025 POCT PH U (test code = 3254) . 5-8 POCT U LEUK EST (test code = 3263) . Negative - Negative POCT U NIT (test code = 3262) . Negative - Negative POCT U PROT (test code = 3259) 1+ Negative - Negative POCT U GLU (test code = 3256) neg Negative - Negative POCT U KETONE (test code = 3258) . Negative - Negative POCT U UROBILI (test code = 3260) . 0.2-1 POCT U BILI (test code = 3261) . Negative - Negative POCT U BLD (test code = 3257) . Negative - Negative POCT U COLOR (test code = 3266) POCT U APPEAR (test code = 3267) [facility] [id number] 14:17:00 Test Item Value Reference Range Interpretation Comments POCT U SP GRAV (test code = 3255) . 1.005-1.025 POCT PH U (test code = 3254) . 5-8 POCT U LEUK EST (test code = 3263) . Negative - Negative POCT U NIT (test code = 3262) . Negative - Negative POCT U PROT (test code = 3259) 1+ Negative - Negative POCT U GLU (test code = 3256) neg Negative - Negative POCT U KETONE (test code = 3258) . Negative - Negative POCT U UROBILI (test code = 3260) . 0.2-1 POCT U BILI (test code = 3261) . Negative - Negative POCT U BLD (test code = 3257) . Negative - Negative POCT U COLOR (test code = 3266) POCT U APPEAR (test code = 3267) [facility] (ID NOW RAPID TESTING)2019-12-18 17:45:00 Test Item Value Reference Range Interpretation Comments SARS-CoV-2 Rapid ID NOW Not Detected Not Detected (test code = 43686-0) PARRISH (test code = PARRISH) ID NOW COVID-19 Assay is an isothermal nucleic acid amplification test intended for the qualitative detection of nucleic acid from SARS-CoV-2 viral RNA in nasopharyngeal (LINOTYPIST) specimens. It is used under Emergency Use Authorization (EUA) by FDA. The limit of detection (LOD) of the assay is 125 Genome Equivalents/mL. A positive result is indicative of the presence of SARS-CoV-2 RNA. ?Clinical correlation with patient history and other diagnostic information is necessary to determine patient infection status. A negative (Not Detected) result does not preclude SARS-CoV-2 infection. In patients with clinical symptoms and other tests that are consistent with SARS-CoV-2 infection, negative results should be treated as presumptive negative and a new specimen should be tested with alternative PCR molecular test. Invalid: Please collect a new specimen for repeat patient testing if clinically indicated. Lab Interpretation Normal (test code = 71429-0) [facility] URINALYSIS W SPECIFIC [id number] 13:31:00 Test Item Value Reference Range Interpretation Comments POCT U SP GRAV (test code = 3255) . 1.005-1.025 POCT PH U (test code = 3254) . 5-8 POCT U LEUK EST (test code = 3263) . Negative - Negative POCT U NIT (test code = 3262) . Negative - Negative POCT U PROT (test code = 3259) 1+ Negative - Negative POCT U GLU (test code = 3256) Neg Negative - Negative POCT U KETONE (test code = 3258) . Negative - Negative POCT U UROBILI (test code = 3260) . 0.2-1 POCT U BILI (test code = 3261) . Negative - Negative POCT U BLD (test code = 3257) . Negative - Negative POCT U COLOR (test code = 3266) POCT U APPEAR (test code = 3267) [facility] URINALYSIS W SPECIFIC [id number] 13:31:00 Test Item Value Reference Range Interpretation Comments POCT U SP GRAV (test code = 3255) . 1.005-1.025 POCT PH U (test code = 3254) . 5-8 POCT U LEUK EST (test code = 3263) . Negative - Negative POCT U NIT (test code = 3262) . Negative - Negative POCT U PROT (test code = 3259) 1+ Negative - Negative POCT U GLU (test code = 3256) Neg Negative - Negative POCT U KETONE (test code = 3258) . Negative - Negative POCT U UROBILI (test code = 3260) . 0.2-1 POCT U BILI (test code = 3261) . Negative - Negative POCT U BLD (test code = 3257) . Negative - Negative POCT U COLOR (test code = 3266) POCT U APPEAR (test code = 3267) [facility] URINALYSIS W SPECIFIC [id number] 13:34:00 Test Item Value Reference Range Interpretation Comments POCT U SP GRAV (test code = . 1.005-1.025 3255) POCT PH U (test code = 3254) . 5-8 POCT U LEUK EST (test code = . Negative - Negative 3263) POCT U NIT (test code = 3262) . Negative - Negative POCT U PROT (test code = 3259) 3+ Negative - Negative POCT U GLU (test code = 3256) negative Negative - Negative POCT U KETONE (test code = 3258) . Negative - Negative POCT U UROBILI (test code = . 0.2-1 3260) POCT U BILI (test code = 3261) . Negative - Negative POCT U BLD (test code = 3257) . Negative - Negative POCT U COLOR (test code = 3266) POCT U APPEAR (test code = 3267) [facility] URINALYSIS W SPECIFIC [id number] 14:06:00 Test Item Value Reference Range Interpretation Comments POCT U SP GRAV (test code = 3255) . 1.005-1.025 POCT PH U (test code = 3254) . 5-8 POCT U LEUK EST (test code = 3263) . Negative - Negative POCT U NIT (test code = 3262) . Negative - Negative POCT U PROT (test code = 3259) Trace Negative - Negative POCT U GLU (test code = 3256) Neg Negative - Negative POCT U KETONE (test code = 3258) . Negative - Negative POCT U UROBILI (test code = 3260) . 0.2-1 POCT U BILI (test code = 3261) . Negative - Negative POCT U BLD (test code = 3257) . Negative - Negative POCT U COLOR (test code = 3266) POCT U APPEAR (test code = 3267) [facility] ONLY - SYPHILIS [id number] 15:50:00 Test Item Value Reference Range Interpretation Comments Syphilis IgG/IgM (test Non-reactive Non-reactive code = 38797-7) PARRISH (test code = PARRISH) Non-reactive - No serologic evidence of T. pallidum infection. Cannot exclude incubating or early syphilis. Submit a second specimen in 2-4 weeks if syphilis is clinically suspected. Equivocal - Further testing to follow. Reactive - Further testing to follow. Lab Interpretation (test Normal code = 15595-6) [facility] / AG-AB WITH [id number] 05:37:00 Test Item Value Reference Range Interpretation Comments HIV Negative Negative Semi-quantitative (test code = 06059-7) PARRISH (test code = Non-reactive for HIV-1 PARRISH) antigen and HIV-1/HIV-2 antibodies. ?No laboratory evidence of HIV infection. ?Repeat in 2-4 weeks if acute HIV infection is suspected. [facility]IFIC [id number] 14:23:00 Test Item Value Reference Range Interpretation Comments POCT U SP GRAV (test code = 3255) . 1.005-1.025 POCT PH U (test code = 3254) . 5-8 POCT U LEUK EST (test code = 3263) . Negative - Negative POCT U NIT (test code = 3262) . Negative - Negative POCT U PROT (test code = 3259) 1+ Negative - Negative POCT U GLU (test code = 3256) Neg Negative - Negative POCT U KETONE (test code = 3258) . Negative - Negative POCT U UROBILI (test code = 3260) . 0.2-1 POCT U BILI (test code = 3261) . Negative - Negative POCT U BLD (test code = 3257) . Negative - Negative POCT U COLOR (test code = 3266) POCT U APPEAR (test code = 3267) [facility] URINALYSIS W SPECIFIC [id number] 13:28:00 Test Item Value Reference Range Interpretation Comments POCT U SP GRAV (test code = 3255) . 1.005-1.025 POCT PH U (test code = 3254) . 5-8 POCT U LEUK EST (test code = 3263) . Negative - Negative POCT U NIT (test code = 3262) . Negative - Negative POCT U PROT (test code = 3259) 1+ Negative - Negative POCT U GLU (test code = 3256) Neg Negative - Negative POCT U KETONE (test code = 3258) . Negative - Negative POCT U UROBILI (test code = 3260) . 0.2-1 POCT U BILI (test code = 3261) . Negative - Negative POCT U BLD (test code = 3257) . Negative - Negative POCT U COLOR (test code = 3266) POCT U APPEAR (test code = 3267) [facility] URINALYSIS W SPECIFIC [id number] 13:28:00 Test Item Value Reference Range Interpretation Comments POCT U SP GRAV (test code = 3255) . 1.005-1.025 POCT PH U (test code = 3254) . 5-8 POCT U LEUK EST (test code = 3263) . Negative - Negative POCT U NIT (test code = 3262) . Negative - Negative POCT U PROT (test code = 3259) 1+ Negative - Negative POCT U GLU (test code = 3256) Neg Negative - Negative POCT U KETONE (test code = 3258) . Negative - Negative POCT U UROBILI (test code = 3260) . 0.2-1 POCT U BILI (test code = 3261) . Negative - Negative POCT U BLD (test code = 3257) . Negative - Negative POCT U COLOR (test code = 3266) POCT U APPEAR (test code = 3267) [facility] URINALYSIS W SPECIFIC [id number] 13:28:00 Test Item Value Reference Range Interpretation Comments POCT U SP GRAV (test code = 3255) . 1.005-1.025 POCT PH U (test code = 3254) . 5-8 POCT U LEUK EST (test code = 3263) . Negative - Negative POCT U NIT (test code = 3262) . Negative - Negative POCT U PROT (test code = 3259) 1+ Negative - Negative POCT U GLU (test code = 3256) Neg Negative - Negative POCT U KETONE (test code = 3258) . Negative - Negative POCT U UROBILI (test code = 3260) . 0.2-1 POCT U BILI (test code = 3261) . Negative - Negative POCT U BLD (test code = 3257) . Negative - Negative POCT U COLOR (test code = 3266) POCT U APPEAR (test code = 3267) [facility] URINALYSIS W SPECIFIC [id number] 13:17:00 Test Item Value Reference Range Interpretation Comments POCT U SP GRAV (test code = 3255) . 1.005-1.025 POCT PH U (test code = 3254) . 5-8 POCT U LEUK EST (test code = 3263) . Negative - Negative POCT U NIT (test code = 3262) . Negative - Negative POCT U PROT (test code = 3259) 1+ Negative - Negative POCT U GLU (test code = 3256) Neg Negative - Negative POCT U KETONE (test code = 3258) . Negative - Negative POCT U UROBILI (test code = 3260) . 0.2-1 POCT U BILI (test code = 3261) . Negative - Negative POCT U BLD (test code = 3257) . Negative - Negative POCT U COLOR (test code = 3266) POCT U APPEAR (test code = 3267) [facility] URINALYSIS W SPECIFIC [id number] 13:17:00 Test Item Value Reference Range Interpretation Comments POCT U SP GRAV (test code = 3255) . 1.005-1.025 POCT PH U (test code = 3254) . 5-8 POCT U LEUK EST (test code = 3263) . Negative - Negative POCT U NIT (test code = 3262) . Negative - Negative POCT U PROT (test code = 3259) 1+ Negative - Negative POCT U GLU (test code = 3256) Neg Negative - Negative POCT U KETONE (test code = 3258) . Negative - Negative POCT U UROBILI (test code = 3260) . 0.2-1 POCT U BILI (test code = 3261) . Negative - Negative POCT U BLD (test code = 3257) . Negative - Negative POCT U COLOR (test code = 3266) POCT U APPEAR (test code = 3267) [facility] URINALYSIS W SPECIFIC [id number] 15:45:00 Test Item Value Reference Range Interpretation Comments POCT U SP GRAV (test code = 3255) . 1.005-1.025 POCT PH U (test code = 3254) . 5-8 POCT U LEUK EST (test code = 3263) . Negative - Negative POCT U NIT (test code = 3262) . Negative - Negative POCT U PROT (test code = 3259) Trace Negative - Negative POCT U GLU (test code = 3256) Neg Negative - Negative POCT U KETONE (test code = 3258) . Negative - Negative POCT U UROBILI (test code = 3260) . 0.2-1 POCT U BILI (test code = 3261) . Negative - Negative POCT U BLD (test code = 3257) . Negative - Negative POCT U COLOR (test code = 3266) POCT U APPEAR (test code = 3267) [facility] GLUCOSE (AUTOMATED)2019-08-27 12:18:00 Test Item Value Reference Range Interpretation Comments POCT GLU (test code = 0116204038) 109 mg/dL 70-110 Lab Interpretation (test code = Normal 04607-6) [facility] GALL [id number] 15:42:26HISTORY: RUQ Abdominal pain. TECHNIQUE: Gallbladder is evaluated in multiple planes with the patientindifferent positions. Color imaging is utilized. FINDINGS: Normal bile distended gallbladder is notvisualized. Instead thegallbladder fossa is occupied by high amplitude echoes with acousticshadowing, consistent with gallbladder lumen fact with multiple smallgallstones. No free fluid detected in ob cholecystic space. Common hepaticduct is 4.7 mm. Hepatic and portal venous system appeared patent. Technologist indicated positive Saeed's sign, however, the gallbladdershowed no definite findings of acute cholecystitis. CONCLUSION: Chronic cholecystitis with cholelithiasis. [facility], Radiant Results Inft User - 08/26/2019 10:43 AM CDTHISTORY: RUQ Abdominal pain.TECHNIQUE: Gallbladder is evaluated in multiple planes with the patient indifferent positions. Color imaging is utilized.FINDINGS: Normal bile distended gallbladder is not visualized. Instead thegallbladder fossa is occupied by high amplitude echoes with acousticshadowing, consistent with gallbladder lumen fact with multiple smallgallstones. No free fluid detected in pericholecystic space. Common hepaticduct is 4.7 mm. Hepatic and portal venous system appeared patent.Technologist indicated positive Saeed's sign, however, the gallbladdersh owed no definite findings of acute cholecystitis.CONCLUSION: Chronic cholecystitis with cholelithiasis.[facility] RETROPERITONEAL [id number] 15:04:50Addendum by Buck Alvarez MD on 08/26/2019 10:45 AM* * * * * * * * ADDENDUM: * * * * * * * *Incidental note made of possible multiple gallstones.HISTORY: Right flank pain. Rule out pyelonephritis. TECHNIQUE: Both kidneys are evaluated in multiple planes with the patientin different positions.FINDINGS: Both kidneys appear to be of normal size with no hydronephrosis,perinephric fluid collection detected. Right kidney is 15.5 x 5.8 x 5.9 cmin size and left kidney 14.3 x 5.0 x 4.6 cm in size. C ortex of both kidneysis between 15.5 and 17 mm. Focal deformity noted along the lateral leftkidney at the junction of middle to the lower pole which could be adevelopmental variation of lobulation and/or cortical scarring fromold infection. Minimal fullness noted in the right kidneys collectingsystem without significant hydronephrosis. Quick look at the urinary bladder showed no gross pathology. CONCLUSIONS: No hydronephrosis or any sonographic signs of pyelonephritisdetected.[facility], Radiant Results Inft User - 08/26/2019 10:05 AM CDTHISTORY: Right flank pain. Rule out pyelonephritis.TECHNIQUE:Both kidneys are evaluated in multiple planes with the patientin different positions. FINDINGS: Bothkidneys appear to be of normal size with no hydronephrosis,perinephric fluid collection detected. Right kidney is 15.5 x 5.8 x 5.9 cmin size and left kidney 14.3 x 5.0 x 4.6 cm in size. Cortex of both kidneysis between 15.5 and 17 mm. Focal deformity noted along the lateral leftkidney at the junction of middle to the lower pole which could be adevelopmental variation of lobulation and/or cortical scarring fromold infection. Minimal fullness noted in the right kidneys collectingsystem without significant hydronephrosis.Quick look at the urinary bladder showed no gross pathology.CONCLUSIONS: Nohydronephrosis or any sonographic signs of pyelonephritisdetected.[facility] [id number] 14:44:00 Test Item Value Reference Range Interpretation Comments APPEARANCE (test code = Cloudy Clear A 1242667392) COLOR (test code = Yellow Yellow 7448027661) PH (test code = 4.8-8.0 6441843981) SP GRAVITY (test code = 1.003-1.030 1278895561) GLU U QUAL (test code = Normal Normal 8839824063) BLOOD (test code = 1+ Negative A 4180815764) KETONES (test code = 5 mg/dL Negative A 3925445575) PROTEIN (test code = 100 mg/dL Negative A 2887-8) UROBILIN (test code = Normal Normal 9147473957) BILIRUBIN (test code = Negative Negative 1157201701) NITRITE (test code = Negative Negative 9235206163) LEUK SANTOS (test code = 500/uL Negative A 4638502198) RBC/HPF (test code = See_Comment H [Autom ated message] 1538751067) The system [employer] generated this result transmit usman reference range : 0 - 3 HPF. The refe rence range was not u sed to interpret th is result as normal/abnormal . WBC/HPF (test code = >182 See_Comment H [Autom ated message] 7688069099) The system [employer] generated this result transmit usman reference range : 0 - 5 HPF. The refe rence range was not u sed to interpret th is result as normal/abnormal . BACTERIA (test code = Few Negative A 6804320443) MUCOUS (test code = Slight Negative LPF A 9362580431) SQ EPITH (test code = HPF 0615100612) Lab Interpretation (test Abnormal code = 81795-9) [facility] BETA HCG [id number] 14:44:00 Test Item Value Reference Range Interpretation Comments BETA HCG (test See_Comment [Automated m essage] code = The system [employer] h 7970000036) generated this result transmit usman reference range : Non- fe male and male patien ts: <5 mIU/mL. The reference range was not used to interpret this result as normal/abnormal . PARRISH (test code Gestational Age ? ? = PARRISH) ?Range (mIU/mL) 1-10 ?Weeks ?52-82714754-01 Weeks ?21933-16920048-06 Weeks ?3392-54834444-69 Weeks ?1657-305877 Biotin has been reported to cause a negative bias, interpret results relative to patient's use of biotin. [facility]inteRoddy [id number] 14:39:00 Test Item Value Reference Range Interpretation Comments TROPONIN I (test <0.012 See_Comment [Automated code = 5333818591) message] The system which generated this result transmitted reference range : <=0.034 ng/mL. The reference range was not used to interpr et this result as normal/abnormal . PARRISH (test code = Equal or Less than PARRISH) 0.034 ng/ml---Normal ?Note: Cardiac troponin begins to rise 3-4 hours after the onset of ischemia. Repeat in 4-6 hours if the sample was drawn within 3-4 hours of the onset of the symptom and found normal. Between 0.035 and 0.120 ng/mL--- Borderline. Questionable myocardial injury or necrosis ? ?Note: Serial measurement may be necessary to confirm or exclude the diagnosis of myocardial injury or necrosis; Clinical correlation (symptoms, EKGs, imaging studies, and others) required; Repeat in 4-6 hours if clinically indicated. ? Equal or Higher than 0.121 ng/mL---Abnormal. Myocardial Injury or Necrosis Likely ? Biotin has been reported to cause a negative bias, interpret results relative to patient's use of biotin. ? Lab Interpretation Normal (test code = 30167-8) [facility]inte[facility]-TERMINAL [id number] 14:36:00 Test Item Value Reference Range Interpretation Comments NT-proBNP (test code 27 pg/mL See_Comment [Autom ated = 0161749651) message] The system which generated this result transmitted reference range : <=125. The reference range was not used to interpret this result as normal/abnormal . PARRISH (test code = PARRISH) Biotin has been reported to cause a negative bias, interpret results relative to patient's use of biotin. Lab Interpretation Normal (test code = 81146-1) [facility]OVID[facility] (ID NOW RAPID TESTING)2019-08-26 14:25:00 Test Item Value Reference Range Interpretation Comments SARS-CoV-2 Rapid ID NOW Not Detected Not Detected (test code = 23720-3) PARRISH (test code = PARRISH) ID NOW COVID-19 Assay is an isothermal nucleic acid amplification test intended for the qualitative detection of nucleic acid from SARS-CoV-2 viral RNA in nasopharyngeal (LINOTYPIST) specimens. It is used under Emergency Use Authorization (EUA) by FDA. The limit of detection (LOD) of the assay is 125 Genome Equivalents/mL. A positive result is indicative of the presence of SARS-CoV-2 RNA. ?Clinical correlation with patient history and other diagnostic information is necessary to determine patient infection status. A negative (Not Detected) result does not preclude SARS-CoV-2 infection. In patients with clinical symptoms and other tests that are consistent with SARS-CoV-2 infection, negative results should be treated as presumptive negative and a new specimen should be tested with alternative PCR molecular test. Invalid: Please collect a new specimen for repeat patient testing if clinically indicated. Lab Interpretation Normal (test code = 93354-0) [facility] PointeaPTT2020-07-07 14:22:00 Test Item Value Reference Range Interpretation Comments APTT Patient (test See_Comment [Automat ed code = 3173-2) message] The system which generated this result transmitted reference range : 23 - 38 Seconds . The reference range was not used to interpr et this result as normal/abnormal . PARRISH (test code = PARRISH) The [facility] patient population mean normal value for aPTT is 30 seconds. Lab Interpretation Normal (test code = 38960-1) [facility] PointeProthrombin Time (PT) / [id number] 14:19:00 Test Item Value Reference Range Interpretation Comments PROTIME PATIENT (test See_Comment [Auto mated message] code = 5964-2) The system [employer] generated this result transmitted ref erence range: 12.0 - 1 4.7 Seconds. The re ference range was not u sed to interpret this result as normal/abnor mal. INR (test code = 6301-6) Nor mal INR <1.1; Warfarin Therap eutic range 2.0 to 3. 0 or 2.5 to 3.5, dep ending upon the indica tions. Lab Interpretation (test Normal code = 79766-1) [facility] Met[facility] [id number] 14:12:00 Test Item Value Reference Range Interpretation Comments NA (test code = 135 mmol/L 135-145 4932873957) K (test code = 3.8 mmol/L 3.5-5 7925791966) CL (test code = 107 mmol/L 98-108 6662013536) CO2 TOTAL (test code = 18 mmol/L 23-31 L 6343591212) AGAP (test code = 2-16 3750674140) BUN (test code = 7 mg/dL 7-23 6907973736) GLUCOSE (test code = 112 mg/dL 70-110 H 2416167179) CREATININE (test code = 0.38 mg/dL 0.5-1.04 L 4370059334) TOTAL BILI (test code = 0.7 mg/dL 0.1-1.8 3158041110) CALCIUM (test code = 9.9 mg/dL 8.6-10.6 2372430823) T PROTEIN (test code = 8.2 g/dL 6.3-8.2 1225417161) ALBUMIN (test code = 4.4 g/dL 3.5-5 2467970317) ALK PHOS (test code = 57 U/L 34-122 6760536299) ALTv (test code = 16 U/L 5-35 1742-6) AST(SGOT) (test code = 22 U/L 13-40 7174819403) eGFR Calculation mL/min/1.73m2 (Non-) (test code = 4884607688) eGFR Calculation mL/min/1.73m2 () (test code = 1840797143) PARRISH (test code = PARRISH) Association of Glomerular Filtration Rate (GFR) and Staging of Kidney Disease* + --+ --+ ------+| GFR (mL/min/1.73 m2) ?| With Kidney Damage ?| ?Without Kidney Damage+ --------+ --------+ +| ?>90 ?| ?Stage one ?| ? Normal ?+ ---+ ---+ -------+| ?60-89 ?| ?Stage two ?| ? Decreased GFR ? + --+ --+ ------+| ?30-59 ?| ?Stage three ?| ? Stage three ? + --+ --+ ------+| ?15-29 ?| ?Stage four ? | ? Stage four ?+ ---+ ---+ -------+| ?<15 (or dialysis) ? ?| ?Stage five ? | ? Stage five ?+ ---+ ---+ -------+ *Each stage assumes the associated GFR level has been in effect for at least three months. ?Stages 1 to 5, with or without kidney disease, indicate chronic kidney disease. Notes: Determination of stages one and two (with eGFR >59mL/min/1.73 m2) requires estimation of kidney damage for at least three months as defined by structural or functional abnormalities of the kidney, manifested by either:Pathological abnormalities or Markers of kidney damage (including abnormalities in the composition of the blood or urine or abnormalities in imaging tests). Lab Interpretation Abnormal (test code = 60369-9) [facility], [id number] 14:12:00 Test Item Value Reference Range Interpretation Comments LIPASE (test code = 6080135709) 19 U/L 0-220 Lab Interpretation (test code = Normal 03853-5) [facility] WITH [id number] 14:00:00 Test Item Value Reference Range Interpretation Comments WBC (test code = See_Comment H [Automated 3990-2) message] The system which generated this result transmit usman reference range : 4.30 - 11.10 10*3/?L. The reference range was not used to interpret this result as normal/abnormal . RBC (test code = See_Comment [Automated 789-8) message] The system which generated this result transmit usman reference range : 3.93 - 5.25 10*6/?L. The reference range was not used to interpret this result as normal/abnormal . HGB (test code = 12.6 g/dL 11.6-15 718-7) HCT (test code = 38.2 % 35.7-45.2 4544-3) MCV (test code = 79.1 fL 80.6-95.5 L 787-2) MCH (test code = 26.1 pg 25.9-32.8 785-6) MCHC (test code = 33.0 g/dL 31.6-35.1 786-4) RDW-SD (test code = 40.5 fL 39-49.9 47285-1) RDW-CV (test code = 14.3 % 12-15.5 788-0) PLT (test code = See_Comment [Automated 777-3) message] The system which generated this result transmit usman reference range : 166 - 358 10*3/ ?L. The reference range was not u sed to interpret th is result as normal/abnormal . MPV (test code = 11.6 fL 9.5-12.9 21997-9) NRBC/100 WBC (test See_Comment [Automat ed code = 9932860566) message] The system which generated this result transmit usman reference range : 0.0 - 10.0 /100 WBCs. The reference range was not used to interpret this result as normal/abnormal . NRBC x10^3 (test code <0.01 See_Comment [Auto mated = 0272288365) message] The system which generated this result transmit usman reference range : 10*3/?L. The reference range was not used to interpret this result as normal/abnormal . GRAN MAT (NEUT) % 86.3 % (test code = 770-8) IMM GRAN % (test code 0.70 % = 6780086440) LYMPH % (test code = 6.9 % 736-9) MONO % (test code = 5.5 % 5905-5) EOS % (test code = 0.3 % 713-8) BASO % (test code = 0.3 % 706-2) GRAN MAT x10^3(ANC) 11.95 10*3/uL 1.88-7.09 H (test code = 1652407865) IMM GRAN x10^3 (test 0.10 10*3/uL 0-0.06 H code = 8941764161) LYMPH x10^3 (test code 0.96 10*3/uL 1.32-3.29 L = 731-0) MONO x10^3 (test code 0.76 10*3/uL 0.33-0.92 = 742-7) EOS x10^3 (test code = 0.04 10*3/uL 0.03-0.39 711-2) BASO x10^3 (test code 0.04 10*3/uL 0.01-0.07 = 704-7) Lab Interpretation Abnormal (test code = 73231-0) [facility]inteLan[facility] Acid Whole [id number] 13:44:00 Test Item Value Reference Range Interpretation Comments LACTIC ACID (test code = 2.83 mmol/L 0.3-2.6 2792350716) [facility] URINALYSIS W SPECIFIC [id number] 15:59:00 Test Item Value Reference Range Interpretation Comments POCT U SP GRAV (test code = . 1.005-1.025 3255) POCT PH U (test code = 3254) . 5-8 POCT U LEUK EST (test code = . Negative - Negative 3263) POCT U NIT (test code = 3262) . Negative - Negative POCT U PROT (test code = 3259) 1+ Negative - Negative POCT U GLU (test code = 3256) negative Negative - Negative POCT U KETONE (test code = 3258) . Negative - Negative POCT U UROBILI (test code = . 0.2-1 3260) POCT U BILI (test code = 3261) . Negative - Negative POCT U BLD (test code = 3257) . Negative - Negative POCT U COLOR (test code = 3266) POCT U APPEAR (test code = 3267) [facility] URINALYSIS W SPECIFIC [id number] 18:15:00 Test Item Value Reference Range Interpretation Comments POCT U SP GRAV (test code = 3255) . 1.005-1.025 POCT PH U (test code = 3254) . 5-8 POCT U LEUK EST (test code = 3263) . Negative - Negative POCT U NIT (test code = 3262) . Negative - Negative POCT U PROT (test code = 3259) 1+ Negative - Negative POCT U GLU (test code = 3256) Neg Negative - Negative POCT U KETONE (test code = 3258) . Negative - Negative POCT U UROBILI (test code = 3260) . 0.2-1 POCT U BILI (test code = 3261) . Negative - Negative POCT U BLD (test code = 3257) . Negative - Negative POCT U COLOR (test code = 3266) POCT U APPEAR (test code = 3267) [facility] [id number] 13:57:00 Test Item Value Reference Range Interpretation Comments POCT PREG (test code = 1605) Positive On board controls acceptable with C Yes Line (test code = 3574) POCT PREG LOT # (test code = 3575) POCT PREG TEST DATE (test code = 3576) [facility] URINALYSIS W/O SPECIFIC [id number] 13:57:00 Test Item Value Reference Range Interpretation Comments POCT PH U (test code = 3254) 6 mg/dl 5-8 POCT U LEUK EST (test code = Trace Negative - Negative 3263) POCT U NIT (test code = 3262) Neg Negative - Negative POCT U PROT (test code = 3259) 1+ Negative - Negative POCT U GLU (test code = 3256) Neg Negative - Negative POCT U KETONE (test code = 3258) None Negative - Negative POCT U BLD (test code = 3257) Neg Negative - Negative [facility] [id number] 13:57:00 Test Item Value Reference Range Interpretation Comments POCT PREG (test code = 1605) Positive On board controls acceptable with C Yes Line (test code = 3574) POCT PREG LOT # (test code = 3575) POCT PREG TEST DATE (test code = 3576) [facility] URINALYSIS W/O SPECIFIC [id number] 13:57:00 Test Item Value Reference Range Interpretation Comments POCT PH U (test code = 3254) 6 mg/dl 5-8 POCT U LEUK EST (test code = Trace Negative - Negative 3263) POCT U NIT (test code = 3262) Neg Negative - Negative POCT U PROT (test code = 3259) 1+ Negative - Negative POCT U GLU (test code = 3256) Neg Negative - Negative POCT U KETONE (test code = 3258) None Negative - Negative POCT U BLD (test code = 3257) Neg Negative - Negative [facility] [id number] 13:57:00 Test Item Value Reference Range Interpretation Comments POCT PREG (test code = 1605) Positive On board controls acceptable with C Yes Line (test code = 3574) POCT PREG LOT # (test code = 3575) POCT PREG TEST DATE (test code = 357) [facility] URINALYSIS W/O SPECIFIC [id number] 13:57:00 Test Item Value Reference Range Interpretation Comments POCT PH U (test code = 3254) 6 mg/dl 5-8 POCT U LEUK EST (test code = Trace Negative - Negative 3263) POCT U NIT (test code = 3262) Neg Negative - Negative POCT U PROT (test code = 3259) 1+ Negative - Negative POCT U GLU (test code = 3256) Neg Negative - Negative POCT U KETONE (test code = 3258) None Negative - Negative POCT U BLD (test code = 3257) Neg Negative - Negative [facility] [id number] 13:57:00 Test Item Value Reference Range Interpretation Comments POCT PREG (test code = 1605) Positive On board controls acceptable with C Yes Line (test code = 3574) POCT PREG LOT # (test code = 3575) POCT PREG TEST DATE (test code = 3576) [facility] URINALYSIS W/O SPECIFIC [id number] 13:57:00 Test Item Value Reference Range Interpretation Comments POCT PH U (test code = 3254) 6 mg/dl 5-8 POCT U LEUK EST (test code = Trace Negative - Negative 3263) POCT U NIT (test code = 3262) Neg Negative - Negative POCT U PROT (test code = 3259) 1+ Negative - Negative POCT U GLU (test code = 3256) Neg Negative - Negative POCT U KETONE (test code = 3258) None Negative - Negative POCT U BLD (test code = 3257) Neg Negative - Negative [facility] [id number] 13:57:00 Test Item Value Reference Range Interpretation Comments POCT PREG (test code = 1605) Positive On board controls acceptable with C Yes Line (test code = 3574) POCT PREG LOT # (test code = 3575) POCT PREG TEST DATE (test code = 357) [facility] URINALYSIS W/O SPECIFIC [id number] 13:57:00 Test Item Value Reference Range Interpretation Comments POCT PH U (test code = 3254) 6 mg/dl 5-8 POCT U LEUK EST (test code = Trace Negative - Negative 3263) POCT U NIT (test code = 3262) Neg Negative - Negative POCT U PROT (test code = 3259) 1+ Negative - Negative POCT U GLU (test code = 3256) Neg Negative - Negative POCT U KETONE (test code = 3258) None Negative - Negative POCT U BLD (test code = 3257) Neg Negative - Negative [facility] [id number] 13:57:00 Test Item Value Reference Range Interpretation Comments POCT PREG (test code = 1605) Positive On board controls acceptable with C Yes Line (test code = 3574) POCT PREG LOT # (test code = 3575) POCT PREG TEST DATE (test code = 357) [facility] URINALYSIS W/O SPECIFIC [id number] 13:57:00 Test Item Value Reference Range Interpretation Comments POCT PH U (test code = 3254) 6 mg/dl 5-8 POCT U LEUK EST (test code = Trace Negative - Negative 3263) POCT U NIT (test code = 3262) Neg Negative - Negative POCT U PROT (test code = 3259) 1+ Negative - Negative POCT U GLU (test code = 3256) Neg Negative - Negative POCT U KETONE (test code = 3258) None Negative - Negative POCT U BLD (test code = 3257) Neg Negative - Negative [facility]"
[2021-06-03] MEDS ORDERED: MORPHINE 4 MG/ML SYR ONE (18:06)
[2021-06-03] MEDS ORDERED: ONDANSETRON 4 MG (ODT) TAB ONE (18:06)
--- NOTE | 2021-06-03 18:57 | RAD REPORT ---
EXAM DESCRIPTION: RAD - Ankle Left 3 View - 06/03/2021 6:47 pm CLINICAL HISTORY: fall COMPARISON: No comparisons FINDINGS: Significant soft tissue swelling is seen adjacent to the lateral malleolus. Small calcanea l spurs are present. No acute fracture evident.
--- NOTE | 2021-06-03 20:00 | EDPHYS ---
Physician Documentation [facility] Name: Louann Love Age: 25 yrs Sex: Female : 1995 Arrival Date: 06/03/2021 Time: 17:46 Bed 12 Private MD: ED Physician Edi Abbott HPI: 06/03 17:59 This 25 yrs old Female presents to ER via Wheelchair with complaints of Ankle Injury. jmm 17:59 The patient presents with an injury, pain. Onset: The symptoms/episode began/occurred jmm acutely, just prior to arrival. Associated signs and symptoms: Pertinent positives: swelling. Modifying factors:. This is a 25 year old female with a history of asthma, dm, huizar, pcos that presents to the ED with complaints of left ankle pain. Patient states she stepped in a hole and rolled her left ankle. . 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 - Social history:: Smoking status: Patient reports the use of cigarette tobacco products, smokes one-half pack cigarettes per day. ROS: 17:59 Constitutional: Negative for fever, chills, and weight loss, Cardiovascular: Negative jmm for chest pain, palpitations, and edema, Respiratory: Negative for shortness of breath, cough, wheezing, and pleuritic chest pain, Abdomen/GI: Negative for abdominal pain, nausea, vomiting, diarrhea, and constipation. 17:59 MS/extremity: Positive for injury or acute deformity, pain. 17:59 All other systems are negative. Exam: 17:59 Constitutional: This is a well developed, well nourished patient who is awake, alert, jmm and in no acute distress. Head/Face: atraumatic. Eyes: EOMI, no conjunctival erythema appreciated ENT: Moist Mucus Membranes Neck: Trachea midline, Supple Chest/axilla: Normal chest wall appearance and motion. Cardiovascular: Regular rate and rhythm. No edema appreciated Respiratory: Normal respirations, no respiratory distress appreciated Abdomen/GI: Non distended, soft Back: Normal ROM Skin: General appearance color normal 17:59 Musculoskeletal/extremity: ROM: swelling noted to the left lateral malleolus, ttp, compartments are soft, full dorsalis pulse. 17:59 Skin: Appearance: Color: normal in color. 17:59 Neuro: Orientation: is normal, Mentation: is normal, Memory: is normal. 17:59 Psych: Behavior/mood is pleasant, cooperative. Vital Signs: 17:50 BP 118 / 96; Pulse 101; Resp 18; Temp 98.1; Pulse Ox 100% ; Weight 127.01 kg; Height 5 ab2 ft. 7 in. (170.18 cm); Pain 8/10; 20:18 BP 122 / 86; Pulse 81; Resp 17; Pulse Ox 99% on R/A; ab2 17:50 Body Mass Index 43.85 (127.01 kg, 170.18 cm) ab2 Procedures: 19:58 Splinting: Splint applied to left leg using orthoglass post splint. applied by tech. destiny Examined by me, post splint application: neurovascular intact, 2+ distal pulses palpable, brisk capillary refill noted, Patient tolerated well. MDM: 17:59 Patient medically screened. [facility] 19:58 Data reviewed: vital signs, nurses notes. Counseling: I had a detailed discussion with destiny the patient and/or guardian regarding: the historical points, exam findings, and any diagnostic results supporting the discharge/admit diagnosis, radiology results, the need for outpatient follow up, to return to the emergency department if symptoms worsen or persist or if there are any questions or concerns that arise at home. 06/03 18:00 Order name: Ankle Left 3 View XRAY; Complete Time: 18:59 [facility] 06/03 19:00 Order name: Posterior Orthoglass Ankle Splint; Complete Time: 19:23 [facility] 06/03 19:01 Order name: Crutches; Complete Time: 19:24 [facility] Administered Medications: 18:05 Drug: morphine 4 mg Route: IM; Site: right deltoid; ab2 18:05 Drug: Zofran (Ondansetron) 4 mg Route: PO; ab2 Disposition: 06/04 15:36 Co-signature as Attending Physician, Edi GARCIA was immediately available on-site ms3 in the Emergency Department for consultation in the care of the patient.. Disposition Summary: 06/03/21 19:59 Discharge Ordered Location: Home [facility] Condition: Stable [facility] Diagnosis - Sprain of ankle [facility] Followup: [facility] - With: Mariusz Gaviria MD - When: 2 - 3 days - Reason: Recheck today's complaints, Continuance of care, Re-evaluation by your physician Discharge Instructions: - Discharge Summary Sheet [facility] - Ankle Sprain [facility] Forms: - Medication Reconciliation Form [facility] - Thank You Letter [facility] - Antibiotic Education [facility] - Prescription Opioid Use [facility] Prescriptions: - Ibuprofen 800 mg Oral Tablet - take 1 tablet by ORAL route every 8 hours As needed take with food; 30 tablet; [facility] Refills: 0, Product Selection Permitted - orphenadrine citrate 100 mg Oral Tablet Sustained Release - take 1 tablet by ORAL route 2 times per day As needed; 20 tablet; Refills: 0, [facility] Product Selection Permitted Signatures: Dispatcher [employer] EDDominick Ron PA PA m Edi Abbott DO DO ms3 Brandt Chavez ab2
--- NOTE | 2021-06-03 20:00 | ER ---
Nurse's Notes [facility] Name: Louann Love Age: 25 yrs Sex: Female : 1995 Arrival Date: 06/03/2021 Time: 17:46 Bed 12 Private MD: Diagnosis: Sprain of ankle Presentation: 06/03 17:50 Chief complaint: Patient states: "I was helping move a log and I was walking and didn't ab2 see a hole and stepped in it and rolled my ankle." Pt c/o left ankle pain and swelling. Coronavirus screen: Vaccine status: Patient reports receiving the 2nd dose of the covid vaccine. Client denies travel out of the [place] in the last 14 days. At this time, the client does not indicate any symptoms associated with coronavirus-19. Ebola Screen: Patient negative for fever greater than or equal to 101.5 degrees Fahrenheit, and additional compatible Ebola Virus Disease symptoms Patient denies exposure to infectious person. Patient denies travel to an Ebola-affected area in the 21 days before illness onset. No symptoms or risks identified at this time. Initial Sepsis Screen: Does the patient meet any 2 criteria? No. Patient's initial sepsis screen is negative. Does the patient have a suspected source of infection? No. Patient's initial sepsis screen is negative. Risk Assessment: Do you want to hurt yourself or someone else? Patient reports no desire to harm self or others. Onset of symptoms is unknown. 17:50 Method Of Arrival: Wheelchair ab2 17:50 Acuity: DMITRY 4 ab2 Triage Assessment: 17:52 General: Appears in no apparent distress. uncomfortable, Behavior is calm, cooperative, ab2 appropriate for age. Pain: Complains of pain in left lateral ankle. Neuro: Level of Consciousness is awake, alert, obeys commands, Oriented to person, place, time, situation, Appropriate for age Neurosurgical Nurse are equal bilaterally Moves all extremities. Speech is normal. Cardiovascular: No deficits noted. Denies chest pain, shortness of breath, Patient's skin is warm and dry. Respiratory: No deficits noted. Airway is patent Respiratory effort is even, unlabored, Respiratory pattern is regular, symmetrical. GI: No deficits noted. No signs and/or symptoms were reported involving the gastrointestinal system. : No deficits noted. No signs and/or symptoms were reported regarding the genitourinary system. Musculoskeletal: Reports pain in left foot. 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 - Social history:: Smoking status: Patient reports the use of cigarette tobacco products, smokes one-half pack cigarettes per day. Screenin:52 Abuse screen: Denies threats or abuse. Denies injuries from another. Nutritional ab2 screening: No deficits noted. Tuberculosis screening: No symptoms or risk factors identified. Fall Risk None identified. Vital Signs: 17:50 BP 118 / 96; Pulse 101; Resp 18; Temp 98.1; Pulse Ox 100% ; Weight 127.01 kg; Height 5 ab2 ft. 7 in. (170.18 cm); Pain 8/10; 20:18 BP 122 / 86; Pulse 81; Resp 17; Pulse Ox 99% on R/A; ab2 17:50 Body Mass Index 43.85 (127.01 kg, 170.18 cm) ab2 ED Course: 17:46 Patient arrived in ED. am2 17:51 Triage completed. ab2 17:52 Arm band placed on right wrist. ab2 17:53 Patient has correct armband on for positive identification. Bed in low position. Call ab2 light in reach. 17:53 No provider procedures requiring assistance completed. ab2 17:57 Dominick Ulrich PA is PHCP. m 17:57 Edi Abbott DO is Attending Physician. jmm 18:01 Brandt Chavez is Primary Nurse. ab2 18:49 Ankle Left 3 View XRAY In Process Unspecified. EDMS 19:23 Orthoglass splint: Posterior short lleg splint applied on left leg. ds4 19:59 Mariusz Gaviria MD is Referral Physician. jmm 20:19 Patient did not have IV access during this emergency room visit. ab2 Administered Medications: 18:05 Drug: morphine 4 mg Route: IM; Site: right deltoid; ab2 18:05 Drug: Zofran (Ondansetron) 4 mg Route: PO; ab2 Outcome: 19:59 Discharge ordered by . destiny 20:18 Discharged to home via wheelchair, with crutches. ab2 20:18 Condition: good 20:18 Discharge instructions given to patient, family, Instructed on discharge instructions, follow up and referral plans. medication usage, crutch walking, Demonstrated understanding of instructions, follow-up care, medications, crutch walking. 20:19 Patient left the ED. ab2 Signatures: Dispatcher [employer] EDMS Dominick Ulrich PA PA jmm Swanson, Donovan ds4 Juliana Rogers am2 Brandt Chavez ab2
[2021-06-03 23:29] VITALS: TEMP 98.1
[2021-06-03 23:30] VITALS: BP 122/86; O2SAT 99
== END 2021-06-03 20:19 | disposition home or self-care (01) ==
LOC: ER 17:44
PROC: 2W3RX1Z Immobilization of Left Lower Leg using Splint (ICD-10-PCS; principal; 2021-06-03)
DX: S93.402A Sprain of unspecified ligament of left ankle, initial encounter (principal); E11.9 Type 2 diabetes mellitus without complications; F17.210 Nicotine dependence, cigarettes, uncomplicated
CPT/HCPCS: 96372; 99283